=== PATIENT | female | born 1945 | race Hispanic/Latino ===

== ENCOUNTER 2016-12-12 16:07 | Inpatient (IN) | payer MEDICARE, BC ==
[2016-12-12 16:10] VITALS: BMI 24.5
[2016-12-12] MEDS ORDERED: Sodium Chloride 0.9% 1,000 ML IV STA ×2 (16:26→18:09)
--- NOTE | 2016-12-12 16:32 | ED PDOC ---
Arrival/HPI - General Chief Complaint: Fever Time Seen by Provider: 12/12/16 16:17 Historian: Patient - History of Present Illness Narrative History of Present Illness (Text): 12/12/16 16:30 71 year old female with a past medical history that includes hypertension, hyperlipidemia, C.diff and s/p hemicolectomy 2 months ago who went to see Dr. Mo today for a follow up visit and was sent to the emergency room with fever/ chills since last night. Patient states she has anxiety so she is unsure if the chills are associated. Patient also reports sinus congestion. Denies cough, shortness of breath, abdominal pain, urinary changes, or rash. She reports chronic diarrhea but no change. 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)) - HEENT Hx HEENT Disorder: No - Renal Hx Renal Disorder: No - Endocrine/Metabolic Hx Diabetes Mellitus Type 2: No (As per patient, it has been diet controlled.) - Hematological/Oncological Hx Blood Disorders: No - Integumentary Hx Dermatological Disorder: Yes (INCISIONAL -POST HEMICOLECTOOMY WITH SIDE TO SIDE ANASTOMOSIS.10-02-16) - Musculoskeletal/Rheumatological Hx Falls: No - Gastrointestinal Hx Gastrointestinal Disorders: Yes (diverticulitis/reflux/hx c dif) Other/Comment: pancreatic insuf - Genitourinary/Gynecological Hx Genitourinary Disorders: Yes Hx Urinary Tract Infection: Yes - Psychiatric Hx Emotional Abuse: No Hx Physical Abuse: No Hx Substance Use: No - Surgical History Hx Hysterectomy: Yes Hx Joint Replacement: Yes (Left knee) Other/Comment: Colon polyp removal. Duodenum stricture Sx - Anesthesia Hx Anesthesia Reactions: No Hx Malignant Hyperthermia: No - Suicidal Assessment Feels Threatened In Home Enviroment: No Family/Social History - Physician Review Nursing Documentation Reviewed: Yes Family/Social History: Unknown Family HX Smoking Status: Current Some Days Smoker Hx Alcohol Use: Yes Hx Substance Use: No Hx Substance Use Treatment: No Allergies/Home Meds Allergies/Adverse Reactions: Allergies Penicillins Adverse Reaction (Verified 12/12/16 16:11) URTICARIA Home Medications: Home Meds Medication Instructions Recorded Confirmed Multivit-Minerals/Folic Acid [Cvs 1 tab PO DAILY 09/21/16 12/12/16 Women's Daily Gummies] Lactobacillus Acidophilus 1 each PO BID 12/12/16 12/12/16 [Acidophilus Lactobacillus] Loperamide HCl [Imodium A-D] 2 mg PO Q6 PRN 12/12/16 12/12/16 Omeprazole Magnesium [Prilosec] 10 mg PO DAILY 12/12/16 12/12/16 amLODIPine [Norvasc] 2.5 mg PO DAILY 12/12/16 12/12/16 Review of Systems - Review of Systems Constitutional: Fevers, Other (Chills) Eyes: absent: Vision Changes ENT: Sinus Congestion Respiratory: absent: SOB, Cough Cardiovascular: absent: Chest Pain Gastrointestinal: Diarrhea (chronic). absent: Abdominal Pain, Nausea, Vomiting Genitourinary Female: absent: Dysuria, Hematuria Skin: absent: Rash Neurological: absent: Headache, Dizziness Endocrine: absent: Diaphoresis Psychiatric: absent: Depression Physical Exam Vital Signs Reviewed: Yes Vital Signs Temp Pulse Resp BP Pulse Ox 12/12/16 19:16 119 H 18 140/60 98 12/12/16 18:00 117 H 18 110/77 98 12/12/16 16:08 103.1 F H 127 H 17 144/75 95 Temperature: Febrile Blood Pressure: Normal Pulse: Tachycardic Respiratory Rate: Normal Appearance: Positive for: Ill-Appearing, Other (Patient with chills) Pain Distress: None Mental Status: Positive for: Alert and Oriented X 3 - Systems Exam Head: Present: Atraumatic, Normocephalic Pupils: Present: PERRL Conjunctiva: Present: Normal Mouth: Present: Moist Mucous Membranes Pharnyx: Present: Normal. No: ERYTHEMA, EXUDATE Nose (External): Present: Atraumatic Neck: Present: Normal Range of Motion Respiratory/Chest: Present: Clear to Auscultation, Good Air Exchange. No: Respiratory Distress, Accessory Muscle Use Cardiovascular: Present: Normal S1, S2, Tachycardic. No: Murmurs Abdomen: Present: Normal Bowel Sounds. No: Tenderness, Distention, Peritoneal Signs Back: Present: Normal Inspection Upper Extremity: Present: Normal Inspection. No: Cyanosis, Edema Lower Extremity: Present: Normal Inspection. No: Edema Neurological: Present: GCS=15, CN II-XII Intact, Speech Normal Skin: Present: Warm, Dry, Normal Color. No: Rashes Psychiatric: Present: Alert, Oriented x 3, Normal Insight, Normal Concentration Medical Decision Making ED Course and Treatment: Impression: 71 year old female sent to the emergency department by Dr. Mo with fever/chills since last night. Differential Diagnosis included but are not limited to: Sepsis likely with bacteremia due to UTI vs pneumonia vs other nosocomial vs C.diff Plan: -- EKG, Chest X-ray -- IV fluids -- Labs -- Reassess and disposition Prior Visits: Notes and results from previous visits were reviewed. Patient last seen in the ED on 10/22/16 for abdominal pain and n/v/d and admitted for ileus. Progress Notes: 12/12/16 17:19 Chest x-ray read by me shows no active disease. 12/12/16 20:30 WBC iss 22K with unremarkable chemistry. VBG shows lactic of 2.2; code sepsis called. Patient hydrated appropriately, per sepsis protocol and given iv antibiotics. Case discussed with her PMD, Dr. Yates for admission to [facility] for sepsis. - Lab Interpretations Lab Results: 12/12/16 17:15 12/12/16 17:15 Lab Results 12/12/16 17:15: WBC 22.4 H D, RBC 4.63, Hgb 13.8, Hct 40.6, MCV 87.7, MCH 29.8, MCHC 34.0, RDW 14.7 H, Plt Count 335, MPV 10.0, Gran % 86.8 H, Lymph % (Auto) 4.0 L, Gordon % (Auto) 8.8 H, Eos % (Auto) 0.1 L, Baso % (Auto) 0.3, Gran # 19.44 H, Lymph # 0.9 L, Gordon # 2.0 H, Eos # 0.0, Baso # 0.06, ESR 25 H, PT 10.5, INR 0.97, APTT 26.4, pO2 44, VBG pH 7.39, VBG pCO2 41.0, VBG HCO3 24.8, VBG Total CO2 26.1, VBG O2 Sat (Calc) 82.8 H, VBG Base Excess -0.2 L, VBG Potassium 3.9, Glucose 110 H, Lactate 2.2 H, FiO2 21.0, Sodium 140.0, Potassium 3.7, Chloride 108.0 H, Carbon Dioxide 24, Anion Gap 16, BUN 10, Creatinine 0.6, Est GFR ( Amer) > 60, Est GFR (Non-Af Amer) > 60, Random Glucose 111 H, Calcium 8.9, Phosphorus 3.0, Magnesium 1.9, Total Bilirubin 0.5, Direct Bilirubin 0.4, AST 29, ALT 31, Alkaline Phosphatase 178 H, Lactate Dehydrogenase 487, Total Creatine Kinase 22 L, Troponin I 0.02 D, NT-Pro-B Natriuret Pep 676 H, Total Protein 7.2, Albumin 3.6, Globulin 3.7, Albumin/Globulin Ratio 1.0 L, Lipase 35 , Venous Blood Potassium 3.9 - RAD Interpretation Radiology Orders: 12/12/16 16:25 CHEST PORTABLE [RAD] Stat - Medication Orders Current Medication Orders: Sodium Chloride (Sodium Chloride 0.45%) 1,000 mls @ 40 mls/hr IV .Q24H BECCA Discontinued Medications Acetaminophen (Tylenol 325mg Tab) 975 mg PO STAT STA Stop: 12/12/16 16:28 Last Admin: 12/12/16 17:24 Dose: 975 MG MAR Pain/Vitals Document 12/12/16 17:24 OCS (Rec: 12/12/16 17:24 OCS [place] [id number]) Pain Reassessment Is This A Pain ReAssessment? Yes Sleep Is patient sleeping during reassessment? No Presence of Pain Presence of Pain Yes Pain Scale Used Pain Scale Used Numeric Location Pain Location Body Site Fever Sodium Chloride (Sodium Chloride 0.9%) 1,000 mls @ 999 mls/hr IV .Q1H1M STA Stop: 12/12/16 17:26 Last Admin: 12/12/16 17:24 Dose: 999 MLS/HR eMAR Start Stop Document 12/12/16 17:24 OCS (Rec: 12/12/16 17:24 OCS [place] [id number]) Intravenous Solution Start Date 12/12/16 Start Time 17:24 Sodium Chloride (Sodium Chloride 0.9%) 1,000 mls @ 999 mls/hr IV .Q1H1M STA Stop: 12/12/16 19:09 Last Admin: 12/12/16 18:16 Dose: 999 MLS/HR eMAR Start Stop Document 12/12/16 18:16 OCS (Rec: 12/12/16 18:16 OCS [id number]) Intravenous Solution Start Date 12/12/16 Start Time 18:16 Vancomycin HCl 1 gm/ Sodium (Chloride) 250 mls @ 133.333 mls/hr IV STAT STA PRN Reason: Protocol Stop: 12/12/16 20:01 Last Admin: 12/12/16 20:20 Dose: 133.333 MLS/HR eMAR Start Stop Document 12/12/16 20:20 RD (Rec: 12/12/16 20:22 RD [id number]) Intravenous Solution Start Date 12/12/16 Start Time 20:20 End Date 12/12/16 End time 22:23 Total Infusion Time 123 Aztreonam (Azactam 1 Gm) 100 mls @ 100 mls/hr IVPB STAT STA PRN Reason: Protocol Stop: 12/12/16 19:10 Last Admin: 12/12/16 18:51 Dose: 100 MLS/HR eMAR Start Stop Document 12/12/16 18:51 OCS (Rec: 12/12/16 18:51 OCS [id number]) Intravenous Solution Start Date 12/12/16 Start Time 18:51 - Scribe Statement The provider has reviewed the documentation as recorded by the Sachin Bates Provider Scribe Attestation: All medical record entries made by the Sachin were at my direction and personally dictated by me. I have reviewed the chart and agree that the record accurately reflects my personal performance of the history, physical exam, medical decision making, and the department course for this patient. I have also personally directed, reviewed, and agree with the discharge instructions and disposition. Disposition/Present on Arrival - Present on Arrival Any Indicators Present on Arrival: Yes History of DVT/PE: No History of Uncontrolled Diabetes: Yes Urinary Catheter: No History of Decub. Ulcer: No History Surgical Site Infection Following: None - Disposition Have Diagnosis and Disposition been Completed?: Yes Diagnosis: Sepsis Disposition: HOSPITALIZED Disposition Time: 18:40 Patient Plan: Admission, Telemetry Condition: SERIOUS
[2016-12-12 17:46] LABS: ADD MANUAL DIFF? NO
[2016-12-12 17:57] LABS: VENOUS BLOOD GAS BASE EXCESS -0.2 mmol/L (0.0-2.0); VENOUS BLOOD PH 7.39 (7.32-7.43)
[2016-12-12 18:03] LABS: BASO # 0.06 K/mm3 (0.0-2.0); BASO % 0.3 % (0.0-3.0); EOS % 0.1 % (1.5-5.0); GRAN # 19.44 (1.4-6.5); GRAN % 86.8 % (50.0-68.0); HEMATOCRIT 40.6 % (36.0-48.0); LYMPH # 0.9 (1.2-3.4); MEAN CELL VOLUME 87.7 fL (80.0-105.0); MEAN CORPUSCULAR HEMOGLOBIN 29.8 pg (25.0-35.0); MONO % 8.8 % (1.0-6.0); PLATELET COUNT 335 10^3/uL (120.0-450.0); RED CELL DISTRIBUTION WIDTH 14.7 % (11.5-14.5); WHITE BLOOD COUNT 22.4 10^3/ul (4.5-11.0)
[2016-12-12 18:07] LABS: ALKALINE PHOSPHATASE 178 U/L (38-133); ALT/SGPT 31 U/L (7-56); AST/SGOT 29 U/L (15-39); BILIRUBIN,DIRECT 0.4 mg/dL (0.0-0.4); BILIRUBIN,TOTAL 0.5 mg/dL (0.2-1.3); BLOOD UREA NITROGEN 10 mg/dL (7-21); CALCIUM 8.9 mg/dL (8.4-10.5); CARBON DIOXIDE 24 mmol/L (21-33); CHLORIDE 105 mmol/L (98-107); GFR AFRICAN-AMERICAN > 60; GLUCOSE,RANDOM 111 mg/dL (70-110); LIPASE 35 U/L (23-300); MAGNESIUM 1.9 mg/dL (1.7-2.2); POTASSIUM 3.7 mmol/L (3.6-5.0); SODIUM 141 mmol/L (132-148); TOTAL PROTEIN 7.2 g/dL (5.8-8.3)
[2016-12-12] MEDS ORDERED: Aztreonam 1 Gm in NS 100mL 100 ML IVPB STA (18:11)
[2016-12-12 18:13] LABS: INR 0.97 (0.93-1.08); PARTIAL THROMBOPLASTIN TIME 26.4 Seconds (23.7-30.8)
[2016-12-12 18:18] LABS: TROPONIN I 0.02 ng/mL
--- NOTE | 2016-12-12 18:33 | RAD ---
PROCEDURE: Chest portable HISTORY: Sepsis Patient COMPARISON: 10/22/2016. TECHNIQUE: Technique: Single view portable semi erect @ 16:51. FINDINGS: No active pulmonary disease. No pulmonary nodules, masses or infiltrates. No evidence of acute, significant cardiovascular disease. No significant pleural, osseous or subdiaphragmatic abnormalities. IMPRESSION: No active disease. No acute/significant interval changes.
--- NOTE | 2016-12-12 18:43 | CARD ---
APPROVED REPORT EKG Measurement Heart [id number] <Conclusion> Sinus tachycardia Inferior infarct, age undetermined Abnormal ECG
[2016-12-12 18:54] LABS: URINE BILIRUBIN NEGATIVE (NEGATIVE); URINE BLOOD TRACE-INTACT (NEGATIVE); URINE GLUCOSE (UA) NEGATIVE (NEGATIVE); URINE KETONE NEGATIVE (NEGATIVE); URINE LEUKOCYTE ESTERASE NEGATIVE Leu/uL (NEGATIVE); URINE PROTEIN TRACE mg/dL (<30 mg/dL); URINE UROBILINOGEN 0.2 E.U./dL (<1 E.U./dL)
[2016-12-12 19:04] LABS: URINE APPEARANCE CLEAR (CLEAR); URINE COLOR YELLOW (YELLOW)
[2016-12-12 19:06] LABS: ERYTHROCYTE SEDIMENTATION RATE 25 mm/hr (0.0-20.0)
[2016-12-12] MEDS ORDERED: Sodium Chloride 0.45% 1,000 ML IV SCH (20:30)
[2016-12-12] MEDS ORDERED: Aztreonam 1 Gm in NS 100mL 100 ML IVPB SCH (22:00)
--- NOTE | 2016-12-12 22:27 | CP.PCM.PN ---
Subjective - Date & Time of Evaluation Date of Evaluation: 12/12/16 Time of Evaluation: 22:27 - Subjective Subjective: S:Patient was seen at bedside.She requested a sleeping pill. States that she takes ambien 5 mg at home.She is also on Valium 5 mg PO TID. She had Valium 2 times today.These medications are prescribed to her by her Psychiatrist . Has no other complaints now. Pertinent medical record was reviewed. O: Last Vital Signs 3 Temp 102.4 F H 12/12/16 22:28 Pulse 83 12/12/16 22:28 Resp 20 12/12/16 22:36 BP 123/50 L 12/12/16 22:28 Pulse Ox 95 12/12/16 22:28 Awake, alert, not in distress. LUNGS:Normal breathing pattern. NEURO:Speech normal. A:Adjustment insomnia. P:Ambien 5 mg PO now. Objective - Vital Signs/Intake and Output Vital Signs (last 24 hours): Temp Pulse Resp BP Pulse Ox 101.9 F H 97 H 18 128/60 98 12/12/16 20:52 12/12/16 20:52 12/12/16 20:52 12/12/16 20:52 12/12/16 20:52 - Medications Medications: Current Medications Acetaminophen (Tylenol 325mg Tab) 650 mg PO Q4 PRN PRN Reason: Fever >100.4 F Last Admin: 12/12/16 22:11 Dose: 650 mg Sodium Chloride (Sodium Chloride 0.45%) 1,000 mls @ 40 mls/hr IV .Q24H BECCA Last Admin: 12/12/16 20:49 Dose: 40 mls/hr Aztreonam (Azactam 1 Gm) 100 mls @ 100 mls/hr IVPB Q8 BECCA PRN Reason: Protocol Stop: 12/13/16 06:59 Last Admin: 12/12/16 21:30 Dose: Not Given Lisinopril (Zestril) 20 mg PO DAILY BECCA Loperamide HCl (Imodium) 2 mg PO Q6 PRN PRN Reason: Diarrhea Metoprolol Tartrate (Lopressor) 12.5 mg PO BID [facility] - Labs Labs: PT 10.5 Seconds (9.9-11.8) 12/12/16 17:15 INR 0.97 (0.93-1.08) 12/12/16 17:15 APTT 26.4 Seconds (23.7-30.8) 12/12/16 17:15
[2016-12-12] MEDS: Vancomycin 1gm in NS 250ml 250 ML IVPB SCH (23:48)
[2016-12-13 04:18] LABS: HEMATOCRIT 34.2 % (36.0-48.0); MEAN CELL VOLUME 88.6 fL (80.0-105.0); MEAN CORPUSCULAR HGB CONC 32.7 g/dl (31.0-37.0); MEAN PLATELET VOLUME 9.6 fl (7.0-11.0); RED CELL DISTRIBUTION WIDTH 14.9 % (11.5-14.5)
[2016-12-13 04:24] LABS: ALB/GLOB RATIO 0.9 (1.1-1.8); ALKALINE PHOSPHATASE 111 U/L (38-133); ALT/SGPT 31 U/L (7-56); AST/SGOT 25 U/L (15-39); BILIRUBIN,TOTAL 0.6 mg/dL (0.2-1.3); BLOOD UREA NITROGEN 9 mg/dL (7-21); CALCIUM 7.8 mg/dL (8.4-10.5); CARBON DIOXIDE 23 mmol/L (21-33); CHLORIDE 111 mmol/L (98-107); GFR AFRICAN-AMERICAN > 60; GLUCOSE,RANDOM 95 mg/dL (70-110); POTASSIUM 3.2 mmol/L (3.6-5.0); SODIUM 143 mmol/L (132-148); TOTAL PROTEIN 5.4 g/dL (5.8-8.3)
[2016-12-13 04:59] LABS: WHITE BLOOD COUNT 15.3 10^3/ul (4.5-11.0)
[2016-12-13] MEDS: Aztreonam 1 Gm in NS 100mL 100 ML IVPB SCH ×3 (05:19→21:57)
[2016-12-13] MEDS: Potassium Chloride 10 mEq 100 ML IVPB SCH ×2 (08:51→10:41)
--- NOTE | 2016-12-13 09:14 | HP ---
I know her well from seeing her at [facility] for subacute rehabilitation. She was just discharge d a little bit ago, within a week or two. She was there for chronic diarrhea. Also, she had history of Clostridium difficile and she needed IV antibiotics and physical therapy. This time around, she is a 71-year-old female, was sent to the Emergency Room after seeing Dr. Mo with fever, chills las t night, also anxious, some sinus congestion, just not herself and was sent to the Emergency Room. S he was found to have 103 temperature. PAST MEDICAL HISTORY: Hypertension, high cholesterol, C. diff, status post hemicolectomy 2 months ag o. She smokes a half a pack a day, history of Meniere's disease, 2 attacks in the past. She has t-controlled diabetes. She had a hemicolectomy, diverticulitis, reflux, history of C. diff, pancreat ic insufficiency, urinary tract infections in the past, left knee joint replacement, colon polyp shandra rosetta, duodenal stricture surgery. FAMILY HISTORY: Hypertension in the family. She does still smoke, occasional alcohol, no drugs. ALLERGIES: SHE IS ALLERGIC TO PENICILLINS. MEDICATIONS: She takes multivitamins, lactobacillus, Imodium, Prilosec and Norvasc for hypertension. She comes in with fever, chills. No acute vision changes, no acute hearing changes. Sinus congestio n. No shortness of breath, no chest pain. There is diarrhea, but that is chronic. No abdominal nj n, no nausea, vomiting. No problems urinating. No skin rashes, no headache or dizziness, no sweatin g, no depression. PHYSICAL EXAMINATION: VITAL SIGNS: She had a 103.1 temp, 127 pulse, 18 respiratory rate, 144/75 blood pressure, 95% O2 sat . GENERAL: She is ill-appearing. She looks sick, lethargic. She is alert, but I had to arouse her. HEENT: Head is atraumatic, normocephalic. Extraocular muscles are intact. Pupils equally reactive to light. Throat is dry. NECK: Supple. HEART: Regular rate. Normal S1 and S2. LUNGS: Decreased breath sounds, but clear. Poor effort. ABDOMEN: Soft, nontender, positive bowel sounds, no guarding, no rebound, no CVA tenderness. EXTREMITIES: Have no edema. NEUROLOGIC: GCS is 15. Cranial nerves II-XII grossly intact. SKIN: Warm and dry. Alert, a little lethargic this morning. She did have a sleeping pill last night. She looks like she is septic. She had a 103 temperature. BLOOD TESTS: We have a 22.4 white count. It came down to 15.3. Hemoglobin 11.2, 34.2 hematocrit wi th 261 platelets. INR is 0.97. She has a 143 sodium, potassium is 3.2. I will replace the Anywhere.FM with some K riders. Her BUN is 9, creatinine 0.6, GFR is greater than 60, sugar is 95, calcium is 7.8, AST is 25, ALT is 31, alkaline phosphatase is 111. BNP is 676. Total protein is 5.4. Urine wa s trace. Negative influenza. There is a consult for infectious disease. She is currently on IV fluids, Ambien, aztreonam, Imodium , Lopressor. I will call in Dr. Mo. Check her labs tomorrow, physical therapy. Hopefully, the w robert count will continue to come down and we will continue with aggressive treatment and care. She i s here for sepsis. Johnny Yates DO cc: [id number] TT: 12/13/2016 09:13:27 en
[2016-12-13] MEDS: Vancomycin 25 MG/ML PO SCH ×4 (09:28→21:58)
[2016-12-13] MEDS: Sodium Chloride 0.45% 1,000 ML IV SCH (09:43)
--- NOTE | 2016-12-13 11:26 | CP.PCM.CON ---
<Mallika Rudd - Last Filed: 12/13/16 13:57> History of Present Illness - History of Present Illness History of Present Illness: Gastroenterology Fellow/PGY4 Consult Note 71 year old female with history of Hypertension, Diabetes, Anxiety, recurrent C difficile, chronic diarrhea, pancreatic insufficiency, gastric outlet obstruction s/p gastrojejunostomy, ileus 10/2016, right hemicolectomy 10/02/16 with pathology showing T1N0M0 moderately differentiated adenocarcinoma presenting at instruction from Dr. Mo's office. She was noted to have a temperature max of 103.1 in GI clinic and associated chills and sweats. At present, she has resolution of chills and sweats. She notes high frequency diarrhea having gone three times in the last hour. She attributes symptoms to not having Imodium at 2 pills three times a day. She endorses taking pancreatic enzymes three times a day with meals starting in October and noted no change in bowel habits. She was recently discharged from nursing facility on Sunday and notes a patient two doors down being treatment for C difficile. She denies hematochezia, melena, weight loss, abdominal pain, nausea, or vomiting. Colonoscopy 02/2016 and 08/2016 - 22 tubular adenomas and transverse 3cm mass with central depression s/p right hemicolectomy 10/02/16. Family- no colon cancer Social 10 cigarettes/day, denies alcohol or illicit drug use Surgery- right hemicolectomy, gastrojejunostomy, left knee replacement, hysterectomy, cholecystectomy Review of Systems - Review of Systems Review of Systems: A 12-point review of systems negative except for as above Past Patient History - Infectious Disease Hx of Infectious Diseases: None - Tetanus Immunizations Tetanus Immunization: Unknown - Past Social History Smoking Status: Current Some Days Smoker - CARDIAC Hx Cardiac Disorders: Yes Hx Hypertension: Yes Hx Peripheral Vascular Disease: (DVT TO LEFT LEG) - PULMONARY Hx Respiratory Disorders: No - NEUROLOGICAL Hx Neurological Disorder: Yes Hx Dizziness: (HX MENIERE'S(2 ATTACKS IN PAST)) - HEENT Hx HEENT Problems: No - RENAL Hx Chronic Kidney Disease: No - ENDOCRINE/METABOLIC Hx Diabetes Mellitus Type 2: No (As per patient, it has been diet controlled.) - HEMATOLOGICAL/ONCOLOGICAL Hx Blood Disorders: No - INTEGUMENTARY Hx Dermatological Problems: No - MUSCULOSKELETAL/RHEUMATOLOGICAL Hx Falls: No - GASTROINTESTINAL Hx Gastrointestinal Disorders: Yes Hx Diverticulitis: Yes Hx Gastroesophageal Reflux: Yes Other/Comment: pancreatic insuf - GENITOURINARY/GYNECOLOGICAL Hx Genitourinary Disorders: Yes Hx Urinary Tract Infection: Yes - PSYCHIATRIC Hx Substance Use: No - SURGICAL HISTORY Hx Surgeries: Yes (HEMICOLECTOMY) Hx Hysterectomy: Yes Hx Joint Replacement: Yes (Left knee) Other/Comment: Colon polyp removal. Duodenum stricture Sx - ANESTHESIA Hx Anesthesia Reactions: No Hx Malignant Hyperthermia: No Meds Allergies/Adverse Reactions: Allergies Allergy/AdvReac Type Severity Reaction Status Date / Time Penicillins AdvReac URTICARIA Verified 12/12/16 16:11 - Medications Medications: Current Medications Acetaminophen (Tylenol 325mg Tab) 650 mg PO Q4 PRN PRN Reason: Fever >100.4 F Last Admin: 12/12/16 22:11 Dose: 650 mg Aztreonam (Azactam 1 Gm) 100 mls @ 100 mls/hr IVPB Q8 [facility] PRN Reason: Protocol Stop: 12/19/16 22:01 Last Admin: 12/13/16 05:19 Dose: 100 mls/hr Vancomycin HCl (Vancomycin 1gm) 250 mls @ 167 mls/hr IVPB Q12H [facility] PRN Reason: Protocol Stop: 12/19/16 23:31 Last Admin: 12/12/16 23:48 Dose: Not Given Sodium Chloride (Sodium Chloride 0.45%) 1,000 mls @ 70 mls/hr IV .[id number] [facility] Last Admin: 12/13/16 09:43 Dose: 70 mls/hr Lisinopril (Zestril) 20 mg PO DAILY [facility] Loperamide HCl (Imodium) 2 mg PO Q6 PRN PRN Reason: Diarrhea Last Admin: 12/12/16 22:57 Dose: 2 mg Metoprolol Tartrate (Lopressor) 12.5 mg PO BID [facility] Pantoprazole Sodium (Protonix Inj) 40 mg IVP 0600 [facility] Vancomycin HCl (Vancocin 25 Mg/Ml (Oral Use)) 125 mg PO QID [facility] PRN Reason: Protocol Last Admin: 12/13/16 09:28 Dose: 125 mg Physical Exam - Constitutional Appears: Non-toxic, No Acute Distress - Head Exam Head Exam: ATRAUMATIC, NORMOCEPHALIC - Eye Exam Eye Exam: EOMI, PERRL Pupil Exam: PERRL. absent: Miosis, Mydriatic - ENT Exam ENT Exam: Mucous Membranes Moist, Normal Oropharynx - Neck Exam Neck exam: Positive for: Full Rom, Normal Inspection - Respiratory Exam Respiratory Exam: Clear to Auscultation Bilateral. absent: Rales, Rhonchi, Wheezes - Cardiovascular Exam Cardiovascular Exam: RRR, +S1, +S2. absent: Gallop, Rubs - GI/Abdominal Exam GI & Abdominal Exam: Normal Bowel Sounds, Soft. absent: Distended, Firm, Guarding, Organomegaly, Rebound, Rigid, Tenderness - Extremities Exam Extremities exam: Positive for: normal inspection, pedal edema - Neurological Exam Neurological exam: Alert - Psychiatric Exam Psychiatric exam: Normal Affect, Normal Mood - Skin Skin Exam: Dry, Intact, Normal Color, Warm Results - Vital Signs Recent Vital Signs: Last Vital Signs Temp 98.5 F 12/13/16 05:42 Pulse 66 12/13/16 05:42 Resp 20 12/13/16 05:42 BP 118/48 L 12/13/16 05:42 Pulse Ox 95 12/13/16 05:42 - Labs Result Diagrams: 12/13/16 04:00 12/13/16 04:00 Labs: Laboratory Results - last 24 hr 12/12/16 12/13/16 12/13/16 21:45 00:00 04:00 WBC 15.3 H D RBC 3.86 Hgb 11.2 L Hct 34.2 L MCV 88.6 MCH 29.0 MCHC 32.7 RDW 14.9 H Plt Count 261 MPV 9.6 pO2 142 H VBG pH 7.40 VBG pCO2 34.0 L VBG HCO3 21.1 VBG Total CO2 22.1 VBG O2 Sat (Calc) 98.8 H VBG Base Excess -3.0 L VBG Potassium 3.2 L Sodium 141.0 143 Chloride 115.0 H 111 H Glucose 119 H Lactate 1.3 FiO2 21.0 Potassium 3.2 L Carbon Dioxide 23 Anion Gap 12 BUN 9 Creatinine 0.6 Est GFR ( Amer) > 60 Est GFR (Non-Af Amer) > 60 Random Glucose 95 Calcium 7.8 L Total Bilirubin 0.6 AST 25 ALT 31 Alkaline Phosphatase 111 Total Protein 5.4 L Albumin 2.6 L Globulin 2.9 Albumin/Globulin Ratio 0.9 L Venous Blood Potassium 3.2 L Influenza Typ A,B (EIA) Negative for flu a/b Assessment & Plan - Assessment and Plan (Free Text) Assessment: 71 year old female with history of Hypertension, Diabetes, Anxiety, recurrent C difficile, chronic diarrhea, pancreatic insufficiency, gastric outlet obstruction s/p gastrojejunostomy, ileus 10/2016, right hemicolectomy 10/02/16 with pathology showing T1N0M0 moderately differentiated adenocarcinoma presenting with fever, chills, and sweats from GI clinic. Colonoscopy 02/2016 and 08/2016 - tubular adenomas and transverse 3cm mass with central depression s/p right hemicolectomy 10/02/16. Plan: >chronic diarrhea, rule out Cdiff colitis >ordered CT A/P IV to evaluate for abdominopelvic pathology >on broad spectrum coverage: IV vancomycin, aztreonam, PO vancomycin >pending Cdiff, stool culture, toxoplasmosis (recent exposure to domestic cat) >start Imodium 2 tabs TID if Cdiff negative >will consider cholestyramine, if not trialed in past and infectious diarrhea ruled out >continue IVFs >tolerating regular diet >further recommendations based on clinical course <Lorne GARIBAY,Fady - Last Filed: 12/14/16 10:58> Meds - Medications Medications: Current Medications Acetaminophen (Tylenol 325mg Tab) 650 mg PO Q4 PRN PRN Reason: Fever >100.4 F Last Admin: 12/12/16 22:11 Dose: 650 mg Diazepam (Valium) 5 mg PO TID [facility] PRN Reason: Protocol Last Admin: 12/14/16 10:14 Dose: 5 mg Aztreonam (Azactam 1 Gm) 100 mls @ 100 mls/hr IVPB Q8 [facility] PRN Reason: Protocol Stop: 12/19/16 22:01 Last Admin: 12/14/16 05:32 Dose: 100 mls/hr Vancomycin HCl (Vancomycin 1gm) 250 mls @ 167 mls/hr IVPB Q12H [facility] PRN Reason: Protocol Stop: 12/19/16 23:31 Last Admin: 12/13/16 23:10 Dose: 167 mls/hr Sodium Chloride (Sodium Chloride 0.45%) 1,000 mls @ 70 mls/hr IV .[id number] [facility] Last Admin: 12/14/16 04:11 Dose: 70 mls/hr Metronidazole (Flagyl) 100 mls @ 100 mls/hr IVPB Q8 [facility] PRN Reason: Protocol Stop: 12/21/16 09:01 Last Admin: 12/14/16 10:14 Dose: 100 mls/hr Lisinopril (Zestril) 20 mg PO DAILY [facility] Last Admin: 12/14/16 10:14 Dose: 20 mg Loperamide HCl (Imodium) 2 mg PO Q6 PRN PRN Reason: Diarrhea Last Admin: 12/13/16 21:58 Dose: 2 mg Metoprolol Tartrate (Lopressor) 12.5 mg PO BID [facility] Last Admin: 12/14/16 10:14 Dose: 12.5 mg Pantoprazole Sodium (Protonix Inj) 40 mg IVP 0600 [facility] Last Admin: 12/14/16 05:34 Dose: 40 mg Vancomycin HCl (Vancocin 25 Mg/Ml (Oral Use)) 125 mg PO QID [facility] PRN Reason: Protocol Last Admin: 12/14/16 10:29 Dose: 125 mg Zolpidem Tartrate (Ambien) 5 mg PO HS PRN; Protocol PRN Reason: Insomnia Results - Vital Signs Recent Vital Signs: Last Vital Signs Temp 98.5 F 12/14/16 06:00 Pulse 71 12/14/16 10:14 Resp 22 12/14/16 06:00 BP 138/72 12/14/16 10:14 Pulse Ox 95 12/13/16 05:42 - Labs Result Diagrams: 12/14/16 07:00 12/14/16 07:00 Labs: Laboratory Results - last 24 hr 12/13/16 12/14/16 05:00 07:00 WBC 8.8 D RBC 4.05 Hgb 11.5 L Hct 35.4 L MCV 87.4 MCH 28.4 MCHC 32.5 RDW 14.8 H Plt Count 262 MPV 9.6 Sodium 144 Potassium 3.8 Chloride 112 H Carbon Dioxide 24 Anion Gap 12 BUN 5 L Creatinine 0.6 Est GFR ( Amer) > 60 Est GFR (Non-Af Amer) > 60 Random Glucose 85 Calcium 8.0 L Magnesium 1.8 Total Bilirubin 0.5 AST 20 ALT 29 Alkaline Phosphatase 97 Total Protein 5.8 Albumin 2.6 L Globulin 3.2 Albumin/Globulin Ratio 0.8 L Attending/Attestation - Attestation I have personally seen and examined this patient.: Yes I have fully participated in the care of the patient.: Yes I have reviewed all pertinent clinical information: Yes Notes (Text): 12/14/16 10:57 Patient seen with GI fellow on rounds. I agree with assesment and plan as on 12/13. This is a 71 year old female with history of Hypertension, Diabetes, Anxiety , recurrent C difficile, chronic diarrhea, pancreatic insufficiency, gastric outlet obstruction s/p gastrojejunostomy, ileus 10/2016, right hemicolectomy 10/02 with pathology showing T1N0M0 moderately differentiated adenocarcinoma presenting with fever, chills, and sweats from GI clinic. Colonoscopy 02/2016 and 08/2016 - 22 tubular adenomas and transverse 3cm mass with central depression s/p right hemicolectomy 10/02/16. Admitted for chronic diarrhea and fever after discharge from [place]. Will send c idd and infectious work up. will add cholestyramine and imodium to regimen if no infection. Replete electrolytes with close watch on hemodynamics
[2016-12-13] MEDS: Vancomycin 1gm in NS 250ml 250 ML IVPB SCH ×2 (11:45→23:10)
[2016-12-13] MEDS ORDERED: Iohexol 350 MG/100 ML VIAL ONE (14:08)
--- NOTE | 2016-12-13 16:02 | CT ---
PROCEDURE: CT Abdomen and Pelvis with contrast HISTORY: abdominal pain, history colon cancer COMPARISON: 10/22/2016 TECHNIQUE: Contrast dose: 100 cc of Omni 350 Radiation dose: Total exam DLP = 497 mGy-cm. This CT exam was performed using one or more of the following dose reduction techniques: Automated exposure control, adjustment of the mA and/or kV according to patient size, and/or use of iterative reconstruction technique. FINDINGS: LOWER THORAX: There is some atelectasis of both lung bases posteriorly LIVER: Unremarkable. No gross lesion or ductal dilatation. GALLBLADDER AND BILE DUCTS: Gallbladder removed PANCREAS: Unremarkable. No gross lesion or ductal dilatation. SPLEEN: Unremarkable. ADRENALS: Unremarkable. No mass. KIDNEYS AND URETERS: Unremarkable. No hydronephrosis. No solid mass. VASCULATURE: Unremarkable. No aortic aneurysm. BOWEL: There is diverticulosis of the sigmoid colon. APPENDIX: Normal appendix. PERITONEUM: Unremarkable. No free fluid. No free air. LYMPH NODES: Unremarkable. No enlarged lymph nodes. BLADDER: Unremarkable. REPRODUCTIVE: Unremarkable. BONES: No acute fracture. OTHER FINDINGS: None. IMPRESSION: No acute findings
--- NOTE | 2016-12-13 16:49 | CP.PCM.CON ---
History of Present Illness - History of Present Illness History of Present Illness: 71 year old female with PMH of HTN, dyslipidemia, history of C diff associated diarrhea, S/P hemicolectomy was seen in by her GI and was sent to the ED because of fever and chills since a day ago. She states that she has been having diarrhea since the surgery 2 months ago, but seems to have worsened this time. She has some sinus congestion but denies sore throat, no cough or colds, no nausea or vomiting, no chest pain, no SOB, no dysuria, no hematuria. In the ED, she was noted to have leukocytosis and Infectious Diseases consult is requested to further evaluate and manage. She denies recent travel outside of [place] in the past 3 months. Review of Systems - Review of Systems All systems: reviewed and no additional remarkable complaints except (as per HPI ) Past Patient History - Infectious Disease Hx of Infectious Diseases: None - Tetanus Immunizations Tetanus Immunization: Unknown - Past Social History Smoking Status: Current Some Days Smoker - CARDIAC Hx Cardiac Disorders: Yes Hx Hypertension: Yes Hx Peripheral Vascular Disease: (DVT TO LEFT LEG) - PULMONARY Hx Respiratory Disorders: No - NEUROLOGICAL Hx Neurological Disorder: Yes Hx Dizziness: (HX MENIERE'S(2 ATTACKS IN PAST)) - HEENT Hx HEENT Problems: No - RENAL Hx Chronic Kidney Disease: No - ENDOCRINE/METABOLIC Hx Diabetes Mellitus Type 2: No (As per patient, it has been diet controlled.) - HEMATOLOGICAL/ONCOLOGICAL Hx Blood Disorders: No - INTEGUMENTARY Hx Dermatological Problems: No - MUSCULOSKELETAL/RHEUMATOLOGICAL Hx Falls: No - GASTROINTESTINAL Hx Gastrointestinal Disorders: Yes Hx Diverticulitis: Yes Hx Gastroesophageal Reflux: Yes Other/Comment: pancreatic insuf - GENITOURINARY/GYNECOLOGICAL Hx Genitourinary Disorders: Yes Hx Urinary Tract Infection: Yes - PSYCHIATRIC Hx Substance Use: No - SURGICAL HISTORY Hx Surgeries: Yes (HEMICOLECTOMY) Hx Hysterectomy: Yes Hx Joint Replacement: Yes (Left knee) Other/Comment: Colon polyp removal. Duodenum stricture Sx - ANESTHESIA Hx Anesthesia Reactions: No Hx Malignant Hyperthermia: No Meds Allergies/Adverse Reactions: Allergies Allergy/AdvReac Type Severity Reaction Status Date / Time Penicillins AdvReac URTICARIA Verified 12/12/16 16:11 - Medications Medications: Current Medications Acetaminophen (Tylenol 325mg Tab) 650 mg PO Q4 PRN PRN Reason: Fever >100.4 F Last Admin: 12/12/16 22:11 Dose: 650 mg Sodium Chloride (Sodium Chloride 0.45%) 1,000 mls @ 40 mls/hr IV .Q24H [facility] Last Admin: 12/12/16 20:49 Dose: 40 mls/hr Aztreonam (Azactam 1 Gm) 100 mls @ 100 mls/hr IVPB Q8 [facility] PRN Reason: Protocol Stop: 12/13/16 06:59 Last Admin: 12/12/16 21:30 Dose: Not Given Lisinopril (Zestril) 20 mg PO DAILY [facility] Loperamide HCl (Imodium) 2 mg PO Q6 PRN PRN Reason: Diarrhea Last Admin: 12/12/16 22:57 Dose: 2 mg Metoprolol Tartrate (Lopressor) 12.5 mg PO BID [facility] Physical Exam - Constitutional Appears: Non-toxic, No Acute Distress - Head Exam Head Exam: NORMAL INSPECTION - ENT Exam ENT Exam: Mucous Membranes Moist - Neck Exam Neck exam: Negative for: Lymphadenopathy, Meningismus - Respiratory Exam Respiratory Exam: Decreased Breath Sounds - Cardiovascular Exam Cardiovascular Exam: +S1, +S2 - GI/Abdominal Exam GI & Abdominal Exam: Soft. absent: Tenderness Results - Vital Signs Recent Vital Signs: Last Vital Signs Temp 102.4 F H 12/12/16 22:28 Pulse 83 12/12/16 22:28 Resp 20 12/12/16 22:36 BP 123/50 L 12/12/16 22:28 Pulse Ox 95 12/12/16 22:28 - Labs Result Diagrams: 12/13/16 04:00 12/13/16 04:00 Labs: Laboratory Results - last 24 hr 12/12/16 21:45 pO2 142 H VBG pH 7.40 VBG pCO2 34.0 L VBG HCO3 21.1 VBG Total CO2 22.1 VBG O2 Sat (Calc) 98.8 H VBG Base Excess -3.0 L VBG Potassium 3.2 L Sodium 141.0 Chloride 115.0 H Glucose 119 H Lactate 1.3 FiO2 21.0 Venous Blood Potassium 3.2 L Assessment & Plan - Assessment and Plan (Free Text) Plan: Assessment Systemic Inflammatory response syndrome, consider sepsis secondary to Clostridium difficile associated diarrhea R/O other sources of sepsis HTN dyslipidemia history of C diff associated diarrhea S/P hemicolectomy Plan Started patient on Vancomycin PO and IV Flagyl as well as IV Vancomycin and Aztreonam pending blood, urine cx, PCT, CXR, CT scan of the abdomen and pelvis Will monitor clinically and follow up GI evaluation
[2016-12-14] MEDS: Sodium Chloride 0.45% 1,000 ML IV SCH ×3 (04:11→23:15)
[2016-12-14] MEDS: Aztreonam 1 Gm in NS 100mL 100 ML IVPB SCH ×2 (05:32→14:29)
[2016-12-14] MEDS ORDERED: Pantoprazole 40mg/100ml IVPB 100 ML IVPB SCH (06:00)
--- NOTE | 2016-12-14 07:16 | CP.PCM.PN ---
<Mallika Rudd - Last Filed: 12/14/16 09:02> Subjective - Date & Time of Evaluation Date of Evaluation: 12/14/16 Time of Evaluation: 07:12 - Subjective Subjective: Gastroenterology Fellow/PGY4 Progress Note Patient continues to have frequent episodes of diarrhea, unable to quantify but doesn't note extreme increased frequency in episodes. Tolerating regular diet. A 12-point review of systems negative except for as above. Objective - Vital Signs/Intake and Output Vital Signs (last 24 hours): Temp Pulse Resp BP Pulse Ox 98.5 F 57 L 20 102/41 L 95 12/13/16 05:42 12/14/16 06:00 12/13/16 05:42 12/13/16 18:01 12/13/16 05:42 Intake and Output: 12/14/16 12/14/16 06:59 18:59 Intake Total 1855 60 Output Total 2 1800 Balance 1853 -1740 - Medications Medications: Current Medications Acetaminophen (Tylenol 325mg Tab) 650 mg PO Q4 PRN PRN Reason: Fever >100.4 F Last Admin: 12/12/16 22:11 Dose: 650 mg Aztreonam (Azactam 1 Gm) 100 mls @ 100 mls/hr IVPB Q8 [facility] PRN Reason: Protocol Stop: 12/19/16 22:01 Last Admin: 12/14/16 05:32 Dose: 100 mls/hr Vancomycin HCl (Vancomycin 1gm) 250 mls @ 167 mls/hr IVPB Q12H [facility] PRN Reason: Protocol Stop: 12/19/16 23:31 Last Admin: 12/13/16 23:10 Dose: 167 mls/hr Sodium Chloride (Sodium Chloride 0.45%) 1,000 mls @ 70 mls/hr IV .[id number] [facility] Last Admin: 12/14/16 04:11 Dose: 70 mls/hr Lisinopril (Zestril) 20 mg PO DAILY [facility] Last Admin: 12/13/16 09:00 Dose: Not Given Loperamide HCl (Imodium) 2 mg PO Q6 PRN PRN Reason: Diarrhea Last Admin: 12/13/16 21:58 Dose: 2 mg Metoprolol Tartrate (Lopressor) 12.5 mg PO BID [facility] Last Admin: 12/13/16 18:01 Dose: Not Given Pantoprazole Sodium (Protonix Inj) 40 mg IVP 0600 [facility] Last Admin: 12/14/16 05:34 Dose: 40 mg Vancomycin HCl (Vancocin 25 Mg/Ml (Oral Use)) 125 mg PO QID [facility] PRN Reason: Protocol Last Admin: 12/13/16 21:58 Dose: 125 mg - Labs Labs: 12/13/16 04:00 12/13/16 04:00 PT 10.5 Seconds (9.9-11.8) 12/12/16 17:15 INR 0.97 (0.93-1.08) 12/12/16 17:15 APTT 26.4 Seconds (23.7-30.8) 12/12/16 17:15 - Constitutional Appears: Non-toxic, No Acute Distress - Head Exam Head Exam: ATRAUMATIC, NORMOCEPHALIC - Eye Exam Eye Exam: EOMI, PERRL Pupil Exam: PERRL. absent: Miosis, Mydriatic - ENT Exam ENT Exam: Mucous Membranes Moist, Normal Oropharynx - Neck Exam Neck Exam: Full ROM, Normal Inspection - Respiratory Exam Respiratory Exam: Clear to Ausculation Bilateral. absent: Rales, Rhonchi, Wheezes - Cardiovascular Exam Cardiovascular Exam: RRR, +S1, +S2. absent: Gallop, Rubs - GI/Abdominal Exam GI & Abdominal Exam: Soft, Normal Bowel Sounds. absent: Distended, Firm, Guarding, Rigid, Tenderness, Mass, Organomegaly, Rebound - Extremities Exam Extremities Exam: Normal Inspection, Pedal Edema - Neurological Exam Neurological Exam: Alert, Awake - Psychiatric Exam Psychiatric exam: Normal Affect, Normal Mood - Skin Skin Exam: Dry, Intact, Normal Color, Warm Assessment and Plan - Assessment and Plan (Free Text) Assessment: 71 year old female with history of Hypertension, Diabetes, Anxiety, recurrent C difficile, chronic diarrhea, pancreatic insufficiency, gastric outlet obstruction s/p gastrojejunostomy, ileus 10/2016, right hemicolectomy 10/02/16 with pathology showing T1N0M0 moderately differentiated adenocarcinoma presenting with fever, chills, and sweats from GI clinic. Colonoscopy 02/2016 and 08/2016 - 22 tubular adenomas and transverse 3cm mass with central depression s/p right hemicolectomy 10/02/16. Plan: >chronic diarrhea, Cdiff antigen positive >continue vancomycin PO >recommend de-escalate broad spectrum coverage as otherinffectious sources ruled out >ID managing- follow up recommendations >CT A/P IV- no acute findings >hold Imodium with Cdiff infection >continue IVFs >tolerating regular diet >further recommendations based on clinical course <Aleena Moreira - Last Filed: 12/14/16 09:47> Objective - Vital Signs/Intake and Output Vital Signs (last 24 hours): Temp Pulse Resp BP Pulse Ox 98.5 F 71 22 138/72 95 12/14/16 06:00 12/14/16 06:00 12/14/16 06:00 12/14/16 06:00 12/13/16 05:42 Intake and Output: 12/14/16 12/14/16 06:59 18:59 Intake Total 1855 60 Output Total 2 1800 Balance 1853 -1740 - Medications Medications: Current Medications Acetaminophen (Tylenol 325mg Tab) 650 mg PO Q4 PRN PRN Reason: Fever >100.4 F Last Admin: 12/12/16 22:11 Dose: 650 mg Diazepam (Valium) 5 mg PO TID [facility] PRN Reason: Protocol Aztreonam (Azactam 1 Gm) 100 mls @ 100 mls/hr IVPB Q8 [facility] PRN Reason: Protocol Stop: 12/19/16 22:01 Last Admin: 12/14/16 05:32 Dose: 100 mls/hr Vancomycin HCl (Vancomycin 1gm) 250 mls @ 167 mls/hr IVPB Q12H [facility] PRN Reason: Protocol Stop: 12/19/16 23:31 Last Admin: 12/13/16 23:10 Dose: 167 mls/hr Sodium Chloride (Sodium Chloride 0.45%) 1,000 mls @ 70 mls/hr IV .[id number] [facility] Last Admin: 12/14/16 04:11 Dose: 70 mls/hr Metronidazole (Flagyl) 100 mls @ 100 mls/hr IVPB Q8 [facility] PRN Reason: Protocol Stop: 12/21/16 09:01 Lisinopril (Zestril) 20 mg PO DAILY [facility] Last Admin: 12/13/16 09:00 Dose: Not Given Loperamide HCl (Imodium) 2 mg PO Q6 PRN PRN Reason: Diarrhea Last Admin: 12/13/16 21:58 Dose: 2 mg Metoprolol Tartrate (Lopressor) 12.5 mg PO BID [facility] Last Admin: 12/13/16 18:01 Dose: Not Given Pantoprazole Sodium (Protonix Inj) 40 mg IVP 0600 [facility] Last Admin: 12/14/16 05:34 Dose: 40 mg Vancomycin HCl (Vancocin 25 Mg/Ml (Oral Use)) 125 mg PO QID [facility] PRN Reason: Protocol Last Admin: 12/13/16 21:58 Dose: 125 mg Zolpidem Tartrate (Ambien) 5 mg PO HS PRN; Protocol PRN Reason: Insomnia - Labs Labs: 12/14/16 07:00 12/14/16 07:00 PT 10.5 Seconds (9.9-11.8) 12/12/16 17:15 INR 0.97 (0.93-1.08) 12/12/16 17:15 APTT 26.4 Seconds (23.7-30.8) 12/12/16 17:15 Attending/Attestation - Attestation I have personally seen and examined this patient.: Yes I have fully participated in the care of the patient.: Yes I have reviewed all pertinent clinical information, including history, physical exam and plan: Yes Notes (Text): Patient seen and examined with GI fellow. Agree with her note as documented above with the following additions/exceptions. This is a 71 year old female with h/o gastric outlet obstruction s/p gastrojejunostomy, T1N0 adenocarcinoma of colon s/p R hemicolectomy, HTN, DM, h/o prior cdiff infection who is admitted with SIRS criteria, diarrhea with cdiff antigen positive stool. Her leukocytosis has resolved. Fever curve improved. She is still have diarrhea, although subjectively improved. She is tolerating diet, no nausea or vomiting. Would continue therapy for cdiff with PO vancomycin/IV flagyl. Follow up all other cultures, thusfar negative. Continue diet as tolerated. 12/14/16 09:42
[2016-12-14 07:32] LABS: HEMATOCRIT 35.4 % (36.0-48.0); MEAN CELL VOLUME 87.4 fL (80.0-105.0); MEAN CORPUSCULAR HEMOGLOBIN 28.4 pg (25.0-35.0); MEAN CORPUSCULAR HGB CONC 32.5 g/dl (31.0-37.0); MEAN PLATELET VOLUME 9.6 fl (7.0-11.0); RED CELL DISTRIBUTION WIDTH 14.8 % (11.5-14.5); WHITE BLOOD COUNT 8.8 10^3/ul (4.5-11.0)
[2016-12-14 07:52] LABS: ALB/GLOB RATIO 0.8 (1.1-1.8); ALKALINE PHOSPHATASE 97 U/L (38-133); ALT/SGPT 29 U/L (7-56); AST/SGOT 20 U/L (15-39); BILIRUBIN,TOTAL 0.5 mg/dL (0.2-1.3); BLOOD UREA NITROGEN 5 mg/dL (7-21); CARBON DIOXIDE 24 mmol/L (21-33); CHLORIDE 112 mmol/L (98-107); GFR AFRICAN-AMERICAN > 60; GLUCOSE,RANDOM 85 mg/dL (70-110); POTASSIUM 3.8 mmol/L (3.6-5.0); SODIUM 144 mmol/L (132-148); TOTAL PROTEIN 5.8 g/dL (5.8-8.3)
--- NOTE | 2016-12-14 09:12 | PN ---
DATE: 12/14/2016 She is comfortable in bed, more alert, more awake, responding better, stronger. She is looking for h er Valium and her Ambien. MEDICATIONS: She is currently on IV fluids, aztreonam, loperamide, Lopressor, Protonix, Tylenol, van comycin, and Zestril. PHYSICAL EXAMINATION: VITAL SIGNS: Temp 98.5, 71 pulse, 138/72 blood pressure, 22 respiratory rate. HEAD: Atraumatic, normocephalic. HEART: Regular rate. LUNGS: Clear to auscultation. ABDOMEN: Soft. Positive bowel sounds. EXTREMITIES: No edema. She is feeling better. LABORATORY DATA: She did have 8.8 white count, much better, 11.5 hemoglobin, 35.4 hematocrit with 26 2 platelets. She has a 144 sodium. Potassium is 3.8, BUN 5, creatinine 0.6. GFR is greater than 60 . Sugar is 85. Calcium is 8. Total bili is 0.5. AST is 20. ALT is 29. Alk phos 77. Total prote in is 5.8. She had consults with infectious disease and GI. CAT scan of abdomen and pelvis showed no acute findings. She is here for systemic inflammatory response syndrome secondary to Clostridium difficile with diarr hea, hypertension, high cholesterol, status post hemicolectomy. She is on vancomycin and IV Flagyl. She is starting to do better. I ordered physical therapy, out of bed to chair, put her back on her Valium and her Ambien, got to get her body moving. She has chronic diarrhea, C. diff antigen positiv e. She is on the right antibiotics. We will continue with aggressive treatment and care on the elaine ent, and I renewed her medications that she is looking for. Johnny Yates DO cc: [id number] TT: 12/14/2016 09:12:06 Confirmation # [id number] Dictation # [id number] jn
[2016-12-14] MEDS: metroNIDAZOLE IV 500 mg/100 ml 100 ML IVPB SCH ×3 (10:14→23:14)
[2016-12-14] MEDS: Vancomycin 25 MG/ML PO SCH ×4 (10:29→23:16)
[2016-12-14] MEDS: Vancomycin 1gm in NS 250ml 250 ML IVPB SCH (11:59)
--- NOTE | 2016-12-14 17:22 | CP.PCM.PN ---
Subjective - Date & Time of Evaluation Date of Evaluation: 12/14/16 Time of Evaluation: 10:15 - Subjective Subjective: Comfortable in bed, not in distress, afebrile, loose stools improving. Objective - Vital Signs/Intake and Output Vital Signs (last 24 hours): Temp Pulse Resp BP Pulse Ox 98.5 F 71 22 138/72 95 12/14/16 06:00 12/14/16 10:14 12/14/16 06:00 12/14/16 10:14 12/13/16 05:42 Intake and Output: 12/14/16 12/14/16 06:59 18:59 Intake Total 1855 60 Output Total 2 1800 Balance 1853 -1740 - Medications Medications: Current Medications Acetaminophen (Tylenol 325mg Tab) 650 mg PO Q4 PRN PRN Reason: Fever >100.4 F Last Admin: 12/12/16 22:11 Dose: 650 mg Diazepam (Valium) 5 mg PO TID [facility] PRN Reason: Protocol Last Admin: 12/14/16 14:29 Dose: 5 mg Aztreonam (Azactam 1 Gm) 100 mls @ 100 mls/hr IVPB Q8 [facility] PRN Reason: Protocol Stop: 12/19/16 22:01 Last Admin: 12/14/16 14:29 Dose: 100 mls/hr Vancomycin HCl (Vancomycin 1gm) 250 mls @ 167 mls/hr IVPB Q12H [facility] PRN Reason: Protocol Stop: 12/19/16 23:31 Last Admin: 12/14/16 11:59 Dose: 167 mls/hr Sodium Chloride (Sodium Chloride 0.45%) 1,000 mls @ 70 mls/hr IV .[id number] [facility] Last Admin: 12/14/16 14:30 Dose: Not Given Metronidazole (Flagyl) 100 mls @ 100 mls/hr IVPB Q8 [facility] PRN Reason: Protocol Stop: 12/21/16 09:01 Last Admin: 12/14/16 14:30 Dose: 100 mls/hr Lisinopril (Zestril) 20 mg PO DAILY [facility] Last Admin: 12/14/16 10:14 Dose: 20 mg Loperamide HCl (Imodium) 2 mg PO Q6 PRN PRN Reason: Diarrhea Last Admin: 12/13/16 21:58 Dose: 2 mg Metoprolol Tartrate (Lopressor) 12.5 mg PO BID [facility] Last Admin: 12/14/16 10:14 Dose: 12.5 mg Pantoprazole Sodium (Protonix Inj) 40 mg IVP 0600 [facility] Last Admin: 12/14/16 05:34 Dose: 40 mg Vancomycin HCl (Vancocin 25 Mg/Ml (Oral Use)) 125 mg PO QID [facility] PRN Reason: Protocol Last Admin: 12/14/16 14:31 Dose: 125 mg Zolpidem Tartrate (Ambien) 5 mg PO HS PRN; Protocol PRN Reason: Insomnia - Labs Labs: 12/14/16 07:00 12/14/16 07:00 PT 10.5 Seconds (9.9-11.8) 12/12/16 17:15 INR 0.97 (0.93-1.08) 12/12/16 17:15 APTT 26.4 Seconds (23.7-30.8) 12/12/16 17:15 - Constitutional Appears: Non-toxic, No Acute Distress - Head Exam Head Exam: NORMAL INSPECTION - Respiratory Exam Respiratory Exam: Decreased Breath Sounds - Cardiovascular Exam Cardiovascular Exam: +S1, +S2 - GI/Abdominal Exam GI & Abdominal Exam: Soft. absent: Tenderness Assessment and Plan - Assessment and Plan (Free Text) Plan: Assessment Systemic Inflammatory response syndrome, consider sepsis secondary to Clostridium difficile associated diarrhea; currently no other sources of sepsis noted HTN dyslipidemia history of C diff associated diarrhea S/P hemicolectomy Plan continue Vancomycin PO and IV Flagyl and will d/c IV Vancomycin and Aztreonam; blood, urine cx are negative; reviewed CXR, CT scan of the abdomen and pelvis Will continue to monitor clinically
[2016-12-14 17:44] VITALS: RESP 18
[2016-12-15] MEDS: metroNIDAZOLE IV 500 mg/100 ml 100 ML IVPB SCH (05:27)
--- NOTE | 2016-12-15 06:52 | CP.PCM.PN ---
<Mallika Rudd - Last Filed: 12/15/16 09:34> Subjective - Date & Time of Evaluation Date of Evaluation: 12/15/16 Time of Evaluation: 06:47 - Subjective Subjective: Gastroenterology Fellow/PGY4 Progress Note Patient notes one episode of soft stool overnight. Left lower abdomen discomfort improving. Tolerating regular diet. A 12-point review of systems negative except for as above. Objective - Vital Signs/Intake and Output Vital Signs (last 24 hours): Temp Pulse Resp BP Pulse Ox 99.2 F 56 L 18 104/62 95 12/14/16 16:00 12/15/16 05:09 12/14/16 16:00 12/14/16 23:05 12/14/16 16:00 Intake and Output: 12/14/16 12/15/16 18:59 06:59 Intake Total 60 620 Output Total 1800 950 Balance -3670 -330 - Medications Medications: Current Medications Acetaminophen (Tylenol 325mg Tab) 650 mg PO Q4 PRN PRN Reason: Fever >100.4 F Last Admin: 12/15/16 04:47 Dose: 650 mg Diazepam (Valium) 5 mg PO TID [facility] PRN Reason: Protocol Last Admin: 12/14/16 18:11 Dose: 5 mg Sodium Chloride (Sodium Chloride 0.45%) 1,000 mls @ 70 mls/hr IV .[id number] [facility] Last Admin: 12/14/16 23:15 Dose: 70 mls/hr Metronidazole (Flagyl) 100 mls @ 100 mls/hr IVPB Q8 [facility] PRN Reason: Protocol Stop: 12/21/16 09:01 Last Admin: 12/15/16 05:27 Dose: 100 mls/hr Lisinopril (Zestril) 20 mg PO DAILY [facility] Last Admin: 12/14/16 10:14 Dose: 20 mg Loperamide HCl (Imodium) 2 mg PO Q6 PRN PRN Reason: Diarrhea Last Admin: 12/13/16 21:58 Dose: 2 mg Metoprolol Tartrate (Lopressor) 12.5 mg PO BID [facility] Last Admin: 12/14/16 18:12 Dose: Not Given Pantoprazole Sodium (Protonix Inj) 40 mg IVP 0600 [facility] Last Admin: 12/14/16 05:34 Dose: 40 mg Vancomycin HCl (Vancocin 25 Mg/Ml (Oral Use)) 125 mg PO QID [facility] PRN Reason: Protocol Last Admin: 12/14/16 23:16 Dose: 125 mg Zolpidem Tartrate (Ambien) 5 mg PO HS PRN; Protocol PRN Reason: Insomnia - Labs Labs: 12/14/16 07:00 12/14/16 07:00 PT 10.5 Seconds (9.9-11.8) 12/12/16 17:15 INR 0.97 (0.93-1.08) 12/12/16 17:15 APTT 26.4 Seconds (23.7-30.8) 12/12/16 17:15 - Constitutional Appears: Non-toxic, No Acute Distress - Head Exam Head Exam: ATRAUMATIC, NORMOCEPHALIC - Eye Exam Eye Exam: EOMI, PERRL Pupil Exam: PERRL. absent: Miosis, Mydriatic - ENT Exam ENT Exam: Mucous Membranes Moist, Normal Oropharynx - Neck Exam Neck Exam: Full ROM, Normal Inspection - Respiratory Exam Respiratory Exam: Clear to Ausculation Bilateral. absent: Rales, Rhonchi, Wheezes - GI/Abdominal Exam GI & Abdominal Exam: Soft. absent: Distended, Firm, Guarding, Rigid, Tenderness , Organomegaly, Rebound - Extremities Exam Extremities Exam: Normal Inspection, Pedal Edema - Neurological Exam Neurological Exam: Alert, Awake - Psychiatric Exam Psychiatric exam: Normal Affect, Normal Mood - Skin Skin Exam: Dry, Intact, Normal Color, Warm Assessment and Plan - Assessment and Plan (Free Text) Assessment: 71 year old female with history of Hypertension, Diabetes, Anxiety, recurrent C difficile, chronic diarrhea, pancreatic insufficiency, gastric outlet obstruction s/p gastrojejunostomy, ileus 10/2016, right hemicolectomy 10/02/16 presenting with fever, chills, and sweats from GI clinic. CT A/P with no acute findings. Active treatment of resolved sepsis secondary to Cdiff antigen associated diarrhea. Colonoscopy 02/2016 and 08/2016 - 22 tubular adenomas and transverse 3cm mass with central depression s/p right hemicolectomy 10/02/16 with pathology showing T1N0M0 moderately differentiated adenocarcinoma. Plan: >4/4 Cdiff antigen positive >continue vancomycin PO for 14 days total >4/6 repeat Cdiff antigen/toxin negative >ID managing- appreciate recommendations >hold Imodium with Cdiff infection >leukocytosis improved >monitor fever curve >tolerating regular diet >will follow clinical course <Sheng Fenton - Last Filed: 12/15/16 13:07> Objective - Vital Signs/Intake and Output Vital Signs (last 24 hours): Temp Pulse Resp BP Pulse Ox 98.2 F 54 L 18 136/51 L 91 L 12/15/16 06:00 12/15/16 06:00 12/15/16 06:00 12/15/16 06:00 12/15/16 06:00 Intake and Output: 12/15/16 12/15/16 06:59 18:59 Intake Total 620 Output Total 950 Balance -330 - Medications Medications: Current Medications Acetaminophen (Tylenol 325mg Tab) 650 mg PO Q4 PRN PRN Reason: Fever >100.4 F Last Admin: 12/15/16 04:47 Dose: 650 mg Diazepam (Valium) 5 mg PO TID [facility] PRN Reason: Protocol Last Admin: 12/15/16 11:09 Dose: 5 mg Sodium Chloride (Sodium Chloride 0.45%) 1,000 mls @ 70 mls/hr IV .[id number] [facility] Last Admin: 12/14/16 23:15 Dose: 70 mls/hr Metronidazole (Flagyl) 100 mls @ 100 mls/hr IVPB Q8 [facility] PRN Reason: Protocol Stop: 12/21/16 09:01 Last Admin: 12/15/16 05:27 Dose: 100 mls/hr Lisinopril (Zestril) 20 mg PO DAILY [facility] Last Admin: 12/15/16 11:10 Dose: 20 mg Loperamide HCl (Imodium) 2 mg PO Q6 PRN PRN Reason: Diarrhea Last Admin: 12/13/16 21:58 Dose: 2 mg Metoprolol Tartrate (Lopressor) 12.5 mg PO BID [facility] Last Admin: 12/15/16 11:09 Dose: 12.5 mg Pantoprazole Sodium (Protonix Ec Tab) 40 mg PO 0600 [facility] Vancomycin HCl (Vancocin 25 Mg/Ml (Oral Use)) 125 mg PO QID [facility] PRN Reason: Protocol Last Admin: 12/15/16 11:10 Dose: 125 mg Zolpidem Tartrate (Ambien) 5 mg PO HS PRN; Protocol PRN Reason: Insomnia - Labs Labs: 12/15/16 06:35 12/15/16 06:35 PT 10.5 Seconds (9.9-11.8) 12/12/16 17:15 INR 0.97 (0.93-1.08) 12/12/16 17:15 APTT 26.4 Seconds (23.7-30.8) 12/12/16 17:15 Attending/Attestation - Attestation I have personally seen and examined this patient.: Yes I have fully participated in the care of the patient.: Yes I have reviewed all pertinent clinical information, including history, physical exam and plan: Yes Notes (Text): 12/15/16 13:03 I have seen and examined patient with GI fellow. No acute events overnight. She had one soft bowel movement overnight, consistency becoming more formed. She continues to have LLQ abdominal discomfort, though improved compared to previous day. She denies nausea, vomiting, fever/chills. Tolerating PO diet without difficulty. DM / HTN h/o colon cancer s/p R hemicolectomy Diarrhea - recurrent clostridium difficile colitis - Continue with diet as tolerated - Case discussed with ID, patient requires completion of 14 days of PO Vancomycin therapy - Suggest additional outpatient follow up with Dr. Mo - Will continue to monitor patient clinical course
[2016-12-15 07:42] LABS: HEMATOCRIT 34.6 % (36.0-48.0); MEAN CELL VOLUME 86.1 fL (80.0-105.0); MEAN CORPUSCULAR HEMOGLOBIN 28.1 pg (25.0-35.0); MEAN CORPUSCULAR HGB CONC 32.7 g/dl (31.0-37.0); MEAN PLATELET VOLUME 9.6 fl (7.0-11.0); RED CELL DISTRIBUTION WIDTH 14.5 % (11.5-14.5)
[2016-12-15 08:05] LABS: ALB/GLOB RATIO 0.8 (1.1-1.8); ALKALINE PHOSPHATASE 92 U/L (38-133); ALT/SGPT 31 U/L (7-56); AST/SGOT 21 U/L (15-39); BILIRUBIN,TOTAL 0.5 mg/dL (0.2-1.3); BLOOD UREA NITROGEN 4 mg/dL (7-21); CALCIUM 8.3 mg/dL (8.4-10.5); CARBON DIOXIDE 25 mmol/L (21-33); CHLORIDE 110 mmol/L (98-107); GFR AFRICAN-AMERICAN > 60; GLUCOSE,RANDOM 87 mg/dL (70-110); POTASSIUM 3.3 mmol/L (3.6-5.0); SODIUM 141 mmol/L (132-148); TOTAL PROTEIN 5.6 g/dL (5.8-8.3)
--- NOTE | 2016-12-15 10:11 | PN ---
DATE: 12/15/2016 I saw the patient resting in bed. She is still having diarrhea. She is very worried, nervous. She has not gotten out of bed much, neither out of bed to chair. It is possible she might need physical therapy. I am waiting for physical therapy to see her for recommendations. She is still on lots of medications for the bowels and the infection. PHYSICAL EXAMINATION: VITAL SIGNS: She has a 99.2 temp, 121/51 blood pressure, 18 respiratory rate, 95% O2 sat on room air . HEENT: Head is atraumatic, normocephalic. Throat is moist. NECK: Supple. HEART: Regular rate. LUNGS: Decreased breath sounds. ABDOMEN: Mildly distended. Decreased bowel sounds are present, soft. No palpable masses. EXTREMITIES: No edema, but she is weak. LABORATORY DATA: She has a 144 sodium, potassium 3.8, BUN is 5, creatinine 0.6. GFR is greater than 60, sugar is 85, calcium is 8, total bili is 0.5, AST is 20, ALT is 29, alk phos 77, total protein i s 5.8. She has an 8.8 white count, 11.5 hemoglobin, 35.4 hematocrit with 262 platelets. She is being seen by infectious disease and GI. She is currently on Ambien, Flagyl IV, Imodium, Lopressor, Protonix, IV fluids, Tylenol, Valium, vanc omycin p.o. and Zestril. I put an order in for physical therapy. I am not sure if we need TCU or subacute rehab to finish off her care. Today might be a good day to discharge her if we can to a facility. I believe she came f [facility] a few weeks ago before she went home versus TCU. We will see what the recommendati on is from physical therapy. I will discuss this with case management, continue to monitor labs her labs as per infectious disease and gastroenterology. The patient has Clostridium difficile, sepsis, chronic diarrhea. Johnny Yates DO cc: [id number] TT: 12/15/2016 10:10:46 Confirmation # [id number] Dictation # [id number]
[2016-12-15 11:00] VITALS: TEMP 98.2
[2016-12-15] MEDS: Vancomycin 25 MG/ML PO SCH ×2 (11:10→13:31)
[2016-12-15] MEDS: Potassium Chloride 10 mEq 100 ML IVPB SCH ×2 (11:11→12:55)
[2016-12-15 13:08] LABS: TOXOPLASMA IGM AB Negative (Negative)
[2016-12-15 16:39] VITALS: BP 144/61; PULSE 58; O2SAT 95
[2016-12-15 19:32] LABS: TOXOPLASMA IGG AB <0.91 (<0.91)
--- NOTE | 2016-12-15 21:02 | CP.PCM.PN ---
Subjective - Date & Time of Evaluation Date of Evaluation: 12/15/16 Time of Evaluation: 09:45 - Subjective Subjective: Comfortable in bed, not in distress, no fevers overnight, diarrhea has significantly improved, no abdominal pain. Objective - Vital Signs/Intake and Output Vital Signs (last 24 hours): Temp Pulse Resp BP Pulse Ox 98.2 F 58 L 18 144/61 95 12/15/16 16:00 12/15/16 16:00 12/15/16 16:00 12/15/16 16:00 12/15/16 16:00 Intake and Output: 12/15/16 12/16/16 18:59 06:59 Intake Total 720 Balance 720 - Labs Labs: 12/15/16 06:35 12/15/16 06:35 PT 10.5 Seconds (9.9-11.8) 12/12/16 17:15 INR 0.97 (0.93-1.08) 12/12/16 17:15 APTT 26.4 Seconds (23.7-30.8) 12/12/16 17:15 - Constitutional Appears: Non-toxic, No Acute Distress - Head Exam Head Exam: NORMAL INSPECTION - ENT Exam ENT Exam: Mucous Membranes Moist - Neck Exam Neck Exam: absent: Lymphadenopathy, Meningismus - Respiratory Exam Respiratory Exam: Decreased Breath Sounds - Cardiovascular Exam Cardiovascular Exam: +S1, +S2 - GI/Abdominal Exam GI & Abdominal Exam: Soft. absent: Tenderness Assessment and Plan - Assessment and Plan (Free Text) Plan: Assessment sepsis secondary to Clostridium difficile associated diarrhea; currently no other sources of sepsis noted; patient is clinically improving HTN dyslipidemia history of C diff associated diarrhea S/P hemicolectomy Plan continue Vancomycin PO day 3; we can discontinue IV Flagyl and patient should complete a 14 day course; because of the recurrent nature of her diarrhea, GI has suggested possible fecal transplant if there is another recurrence blood, urine cx are negative; reviewed CXR, CT scan of the abdomen and pelvis Discussed with Dr. Mo (Gastroenterology)
[2016-12-16] MEDS ORDERED: Pantoprazole 40 mg EC Tab PO SCH (06:00)
--- NOTE | 2016-12-26 08:33 | DS ---
She is in TCU, and she did well, and she was able to be discharged. She was sent home on her medications. She has multiple issues. Physical therapy helped her a lot; so did the antibiotic for her C. difficile. She should be following outpatient for her chronic diarrhea and her C. difficile . Johnny Yates DO cc: [id number] TT: 12/26/2016 08:32:21 jn MTDD
== END 2016-12-15 17:32 | DRG 872 ==
LOC: ED 16:07 → ERH 18:41 → 2RNO 21:54 → 3RSO 12-13 13:26
PROVIDERS: ADMIT Family Medicine; ATTEND Family Medicine
DX: A41.9 Sepsis, unspecified organism (principal); A04.7 Enterocolitis due to Clostridium difficile; E11.9 Type 2 diabetes mellitus without complications; I10 Essential (primary) hypertension; E78.00 Pure hypercholesterolemia, unspecified; F41.9 Anxiety disorder, unspecified; E78.5 Hyperlipidemia, unspecified; F51.02 Adjustment insomnia; K86.89 Other specified diseases of pancreas; Z96.652 Presence of left artificial knee joint; Z85.038 Personal history of other malignant neoplasm of large intestine; Z90.49 Acquired absence of other specified parts of digestive tract; Z88.0 Allergy status to penicillin

== ENCOUNTER 2016-12-15 17:32 | Inpatient (IN) | payer OTHER, BC ==
[2016-12-15 19:39] VITALS: BMI 26.5
[2016-12-15] MEDS: Sodium Chloride 0.45% 1,000 ML IV SCH (21:37)
[2016-12-15] MEDS: Vancomycin 25 MG/ML PO SCH (21:38)
[2016-12-16] MEDS ORDERED: Pneumococcal 23-Valent Vaccine IM ONE (00:05)
[2016-12-16] MEDS: Sodium Chloride 0.45% 1,000 ML IV SCH ×2 (06:03→22:19)
[2016-12-16] MEDS: Pantoprazole 40 mg EC Tab PO SCH (06:03)
[2016-12-16 07:14] LABS: ADD MANUAL DIFF? NO
[2016-12-16 07:23] LABS: BASO # 0.07 K/mm3 (0.0-2.0); BASO % 0.9 % (0.0-3.0); EOS # 0.2 (0.0-0.7); EOS % 2.5 % (1.5-5.0); GRAN # 5.28 (1.4-6.5); GRAN % 68.4 % (50.0-68.0); HEMATOCRIT 35.9 % (36.0-48.0); LYMPH # 1.4 (1.2-3.4); LYMPH % 18.2 % (22.0-35.0); MEAN CELL VOLUME 86.3 fL (80.0-105.0); MEAN CORPUSCULAR HEMOGLOBIN 28.4 pg (25.0-35.0); MEAN CORPUSCULAR HGB CONC 32.9 g/dl (31.0-37.0); MEAN PLATELET VOLUME 9.9 fl (7.0-11.0); MONO # 0.8 (0.1-0.6); PLATELET COUNT 269 10^3/uL (120.0-450.0); RED CELL DISTRIBUTION WIDTH 14.6 % (11.5-14.5); WHITE BLOOD COUNT 7.7 10^3/ul (4.5-11.0)
[2016-12-16 07:37] LABS: ALB/GLOB RATIO 0.9 (1.1-1.8); ALKALINE PHOSPHATASE 91 U/L (38-133); ALT/SGPT 31 U/L (7-56); AST/SGOT 18 U/L (15-39); BILIRUBIN,TOTAL 0.3 mg/dL (0.2-1.3); BLOOD UREA NITROGEN 7 mg/dL (7-21); CALCIUM 8.3 mg/dL (8.4-10.5); CARBON DIOXIDE 27 mmol/L (21-33); CHLORIDE 109 mmol/L (98-107); GFR AFRICAN-AMERICAN > 60; GLUCOSE,RANDOM 88 mg/dL (70-110); POTASSIUM 3.4 mmol/L (3.6-5.0); SODIUM 142 mmol/L (132-148)
--- NOTE | 2016-12-16 08:10 | CP.PCM.PN ---
Subjective - Date & Time of Evaluation Date of Evaluation: 12/16/16 Time of Evaluation: 07:45 - Subjective Subjective: PGY4 GI Fellow Progress Note Patient seen and examined bedside this morning. The patient denies any new complaints at this time. States her abdominal pain has resolved. Had one formed BM yesterday. No fever, chills, nausea, vomiting overnight. 12 system ROS performed and negative except where stated. Objective - Vital Signs/Intake and Output Vital Signs (last 24 hours): Temp Pulse Resp BP Pulse Ox 99 F 54 L 18 137/54 L 12/15/16 23:51 12/15/16 23:51 12/15/16 23:51 12/15/16 23:51 - Medications Medications: Current Medications Acetaminophen (Tylenol 325mg Tab) 650 mg PO Q4 PRN; Protocol PRN Reason: Fever >100.4 F Last Admin: 12/15/16 21:42 Dose: 650 mg Diazepam (Valium) 5 mg PO TID [facility] PRN Reason: Protocol Sodium Chloride (Sodium Chloride 0.45%) 1,000 mls @ 70 mls/hr IV .[id number] [facility] PRN Reason: Protocol Last Admin: 12/16/16 06:03 Dose: 70 mls/hr Lisinopril (Zestril) 20 mg PO DAILY [facility] PRN Reason: Protocol Loperamide HCl (Imodium) 2 mg PO Q6 PRN; Protocol PRN Reason: Diarrhea Metoprolol Tartrate (Lopressor) 12.5 mg PO 0800,1800 [facility] PRN Reason: Protocol Pantoprazole Sodium (Protonix Ec Tab) 40 mg PO 0600 [facility] Last Admin: 12/16/16 06:03 Dose: 40 mg Vancomycin HCl (Vancocin 25 Mg/Ml (Oral Use)) 125 mg PO QID [facility] PRN Reason: Protocol Last Admin: 12/15/16 21:38 Dose: 125 mg Zolpidem Tartrate (Ambien) 5 mg PO HS PRN; Protocol PRN Reason: Insomnia Last Admin: 12/15/16 21:38 Dose: 5 mg - Labs Labs: 12/16/16 07:13 12/16/16 07:13 - Constitutional Appears: Non-toxic, No Acute Distress - Eye Exam Eye Exam: EOMI, PERRL - ENT Exam ENT Exam: Mucous Membranes Moist - Respiratory Exam Respiratory Exam: Clear to Ausculation Bilateral. absent: Rales, Rhonchi, Wheezes - Cardiovascular Exam Cardiovascular Exam: RRR, +S1, +S2 - GI/Abdominal Exam GI & Abdominal Exam: Soft, Normal Bowel Sounds. absent: Distended, Firm, Guarding, Rigid, Tenderness, Organomegaly - Extremities Exam Extremities Exam: Normal Inspection. absent: Pedal Edema - Neurological Exam Neurological Exam: Alert, Awake, Oriented x3 - Psychiatric Exam Psychiatric exam: Normal Affect, Normal Mood - Skin Skin Exam: Dry, Warm Assessment and Plan - Assessment and Plan (Free Text) Assessment: Patient is a 71yo female with PMHx significant for recurrent colon adenocarcinoma s/p right hemicolectomy, recurrent C diff infections, chronic diarrhea, pancreatic insufficiency, hypertension, DM, anxiety who presented from the outpatient GI office with fever, chills, and sweats -Recurrent C diff diarrhea -H/O Adenocarcinoma of colon T1N0M0 s/p resection -DM -HTN Plan: -Repeat stool study shows C diff Ag/toxin negative -Continue Vancomycin PO for total of 2 weeks -ID following - appreciate consultation -Tolerating diet without issue -Could consider fecal microbiota transplant given recurrent CD infections -Outpatient follow up with Dr Mo following D/C
--- NOTE | 2016-12-16 08:32 | CP.PCM.CON ---
<Eliseo Chisholm - Last Filed: 12/16/16 12:25> History of Present Illness - History of Present Illness History of Present Illness: PGY4 GI Fellow Consult Note Patient is a 71yo female with PMHx significant for recurrent colon adenocarcinoma s/p right hemicolectomy, recurrent C diff infections, chronic diarrhea, pancreatic insufficiency, hypertension, DM, anxiety who presented from the outpatient GI office with fever, chills and sweats. Patient was noted to have a temperature max of 103.1 in GI clinic and associated chills and sweats. During admission she was diagnosed and is being treated for C diff colitis with PO vancomycin and has continued to improve each day. Patient was seen and examined bedside this morning. The patient denies any new complaints at this time. States her abdominal pain has resolved. Had one formed BM yesterday. No fever, chills, nausea, vomiting overnight. Family- no colon cancer Social 10 cigarettes/day, denies alcohol or illicit drug use Surgery- right hemicolectomy, gastrojejunostomy, left knee replacement, hysterectomy, cholecystectomy Review of Systems - Review of Systems All systems: reviewed and no additional remarkable complaints except Past Patient History - Infectious Disease Hx of Infectious Diseases: None - Tetanus Immunizations Tetanus Immunization: Unknown - Past Social History Smoking Status: Current Some Days Smoker - CARDIAC Hx Cardiac Disorders: Yes Hx Hypertension: Yes - PULMONARY Hx Respiratory Disorders: No - NEUROLOGICAL Hx Neurological Disorder: Yes Hx Dizziness: (HX MENIERE'S(2 ATTACKS IN PAST)) - HEENT Hx HEENT Problems: No - RENAL Hx Chronic Kidney Disease: No - ENDOCRINE/METABOLIC Hx Diabetes Mellitus Type 2: No (diet controlled per pt) - HEMATOLOGICAL/ONCOLOGICAL Hx Blood Disorders: No - INTEGUMENTARY Hx Dermatological Problems: No - MUSCULOSKELETAL/RHEUMATOLOGICAL Hx Falls: No - GASTROINTESTINAL Hx Gastrointestinal Disorders: Yes (C DIFF,COLON POLYPS,DUODENAL AND ESOPHAGEAL STRICTURE, WITH SX) - GENITOURINARY/GYNECOLOGICAL Hx Genitourinary Disorders: Yes (URGENCY FREQUENCY,UTI) Hx Reproductive Disorders: Yes (UTERINE CA) - PSYCHIATRIC Hx Substance Use: No - SURGICAL HISTORY Hx Surgeries: Yes (HEMICOLECTOMY) Hx Hysterectomy: Yes Hx Joint Replacement: Yes (Left knee) Other/Comment: Colon polyp removal. Duodenum stricture Sx - ANESTHESIA Hx Anesthesia Reactions: No Hx Malignant Hyperthermia: No Meds Allergies/Adverse Reactions: Allergies Allergy/AdvReac Type Severity Reaction Status Date / Time Penicillins AdvReac URTICARIA Verified 12/15/16 23:50 - Medications Medications: Current Medications Acetaminophen (Tylenol 325mg Tab) 650 mg PO Q4 PRN; Protocol PRN Reason: Fever >100.4 F Last Admin: 12/15/16 21:42 Dose: 650 mg Diazepam (Valium) 5 mg PO TID [facility] PRN Reason: Protocol Sodium Chloride (Sodium Chloride 0.45%) 1,000 mls @ 70 mls/hr IV .[id number] [facility] PRN Reason: Protocol Last Admin: 12/16/16 06:03 Dose: 70 mls/hr Lisinopril (Zestril) 20 mg PO DAILY [facility] PRN Reason: Protocol Loperamide HCl (Imodium) 2 mg PO Q6 PRN; Protocol PRN Reason: Diarrhea Metoprolol Tartrate (Lopressor) 12.5 mg PO 0800,1800 [facility] PRN Reason: Protocol Pantoprazole Sodium (Protonix Ec Tab) 40 mg PO 0600 [facility] Last Admin: 12/16/16 06:03 Dose: 40 mg Vancomycin HCl (Vancocin 25 Mg/Ml (Oral Use)) 125 mg PO QID [facility] PRN Reason: Protocol Last Admin: 12/15/16 21:38 Dose: 125 mg Zolpidem Tartrate (Ambien) 5 mg PO HS PRN; Protocol PRN Reason: Insomnia Last Admin: 12/15/16 21:38 Dose: 5 mg Physical Exam - Constitutional Appears: Non-toxic, No Acute Distress - Eye Exam Eye Exam: EOMI, PERRL - ENT Exam ENT Exam: Mucous Membranes Moist - Respiratory Exam Respiratory Exam: Clear to Auscultation Bilateral. absent: Rales, Rhonchi, Wheezes - Cardiovascular Exam Cardiovascular Exam: RRR, +S1, +S2 - GI/Abdominal Exam GI & Abdominal Exam: Normal Bowel Sounds, Soft. absent: Distended, Firm, Guarding, Organomegaly, Rigid, Tenderness - Extremities Exam Extremities exam: Positive for: normal inspection. Negative for: pedal edema - Neurological Exam Neurological exam: Alert, Oriented x3 - Psychiatric Exam Psychiatric exam: Normal Affect, Normal Mood - Skin Skin Exam: Dry, Warm Results - Vital Signs Recent Vital Signs: Last Vital Signs Temp 99 F 12/15/16 23:51 Pulse 54 L 12/15/16 23:51 Resp 18 12/15/16 23:51 BP 137/54 L 12/15/16 23:51 Pulse Ox - Labs Result Diagrams: 12/16/16 07:13 12/16/16 07:13 Labs: Laboratory Results - last 24 hr 12/16/16 07:13 WBC 7.7 RBC 4.16 Hgb 11.8 L Hct 35.9 L MCV 86.3 MCH 28.4 MCHC 32.9 RDW 14.6 H Plt Count 269 MPV 9.9 Gran % 68.4 H Lymph % (Auto) 18.2 L [place] % (Auto) 10.0 H Eos % (Auto) 2.5 Baso % (Auto) 0.9 Gran # 5.28 Lymph # 1.4 [place] # 0.8 H Eos # 0.2 Baso # 0.07 Sodium 142 Potassium 3.4 L Chloride 109 H Carbon Dioxide 27 Anion Gap 9 L BUN 7 Creatinine 0.5 Est GFR ( Amer) > 60 Est GFR (Non-Af Amer) > 60 Random Glucose 88 Calcium 8.3 L Total Bilirubin 0.3 AST 18 ALT 31 Alkaline Phosphatase 91 Total Protein 6.0 Albumin 2.8 L Globulin 3.2 Albumin/Globulin Ratio 0.9 L Assessment & Plan - Assessment and Plan (Free Text) Assessment: Patient is a 71yo female with PMHx significant for recurrent colon adenocarcinoma s/p right hemicolectomy, recurrent C diff infections, chronic diarrhea, pancreatic insufficiency, hypertension, DM, anxiety who presented from the outpatient GI office with fever, chills, and sweats -Recurrent C diff diarrhea -H/O Adenocarcinoma of colon [id number] s/p resection -DM -HTN Plan: -Repeat stool study shows C diff Ag/toxin negative -Continue Vancomycin PO for total of 2 weeks -ID following - appreciate consultation -Tolerating diet without issue -Could consider fecal microbiota transplant following D/C given recurrent CD infections -Outpatient follow up with Dr Mo following D/C -Will sign off. Thank you for allowing us to participate in the care of your patient. - Date & Time Date: 12/16/16 Time: 07:45 <Fady Pradhan MD - Last Filed: 12/16/16 19:57> Meds - Medications Medications: Current Medications Acetaminophen (Tylenol 325mg Tab) 650 mg PO Q4 PRN; Protocol PRN Reason: Fever >100.4 F Last Admin: 12/16/16 18:09 Dose: 650 mg Diazepam (Valium) 5 mg PO TID [facility] PRN Reason: Protocol Last Admin: 12/16/16 17:58 Dose: 5 mg Sodium Chloride (Sodium Chloride 0.45%) 1,000 mls @ 70 mls/hr IV .[id number] [facility] PRN Reason: Protocol Last Admin: 12/16/16 06:03 Dose: 70 mls/hr Metronidazole (Flagyl) 100 mls @ 100 mls/hr IVPB Q8 [facility] PRN Reason: Protocol Last Admin: 12/16/16 16:40 Dose: 100 mls/hr Lisinopril (Zestril) 20 mg PO DAILY [facility] PRN Reason: Protocol Last Admin: 12/16/16 09:14 Dose: 20 mg Loperamide HCl (Imodium) 2 mg PO Q6 PRN; Protocol PRN Reason: Diarrhea Last Admin: 12/16/16 09:14 Dose: 2 mg Metoprolol Tartrate (Lopressor) 12.5 mg PO 0800,1800 [facility] PRN Reason: Protocol Last Admin: 12/16/16 17:59 Dose: 12.5 mg Pantoprazole Sodium (Protonix Ec Tab) 40 mg PO 0600 [facility] Last Admin: 12/16/16 06:03 Dose: 40 mg Vancomycin HCl (Vancocin 25 Mg/Ml (Oral Use)) 125 mg PO QID [facility] PRN Reason: Protocol Last Admin: 12/16/16 17:58 Dose: 125 mg Zolpidem Tartrate (Ambien) 5 mg PO HS PRN; Protocol PRN Reason: Insomnia Last Admin: 12/15/16 21:38 Dose: 5 mg Results - Vital Signs Recent Vital Signs: Last Vital Signs Temp 98.5 F 12/16/16 16:00 Pulse 72 12/16/16 17:59 Resp 16 12/16/16 16:00 BP 157/57 H 12/16/16 17:59 Pulse Ox 91 L 12/16/16 16:00 - Labs Result Diagrams: 12/16/16 07:13 12/16/16 07:13 Labs: Laboratory Results - last 24 hr 12/16/16 07:13 WBC 7.7 RBC 4.16 Hgb 11.8 L Hct 35.9 L MCV 86.3 MCH 28.4 MCHC 32.9 RDW 14.6 H Plt Count 269 MPV 9.9 Gran % 68.4 H Lymph % (Auto) 18.2 L [place] % (Auto) 10.0 H Eos % (Auto) 2.5 Baso % (Auto) 0.9 Gran # 5.28 Lymph # 1.4 [place] # 0.8 H Eos # 0.2 Baso # 0.07 Sodium 142 Potassium 3.4 L Chloride 109 H Carbon Dioxide 27 Anion Gap 9 L BUN 7 Creatinine 0.5 Est GFR ( Amer) > 60 Est GFR (Non-Af Amer) > 60 Random Glucose 88 Calcium 8.3 L Total Bilirubin 0.3 AST 18 ALT 31 Alkaline Phosphatase 91 Total Protein 6.0 Albumin 2.8 L Globulin 3.2 Albumin/Globulin Ratio 0.9 L Attending/Attestation - Attestation I have personally seen and examined this patient.: Yes I have fully participated in the care of the patient.: Yes I have reviewed all pertinent clinical information: Yes Notes (Text): 12/16/16 19:55 Patient seen and examined with GI fellow. This is a 71 yr old female with PMHx significant for recurrent colon adenocarcinoma s/p right hemicolectomy, recurrent C diff infections, chronic diarrhea, pancreatic insufficiency, hypertension, DM, anxiety who presented from the outpatient GI office with fever , chills, and sweats in setting of recurrent C diff diarrhea. Repeat antigen negative. Continue vancomycin for total 2 weeks. Continue diet and outpatient follow up with Dr Mo in 2 weeks. -Will sign off. Thank you for allowing us to participate in the care of your patient.
[2016-12-16] MEDS: Vancomycin 25 MG/ML PO SCH ×4 (09:15→21:54)
--- NOTE | 2016-12-16 14:28 | CP.PCM.CON ---
History of Present Illness - History of Present Illness History of Present Illness: 71 year old female with PMH of HTN, dyslipidemia, history of C diff associated diarrhea, S/P hemicolectomy was initially admitted in [facility] because of diarrhea associated with fever and chills. She was found to have positive Cdiff Antigen in the stool and is being treated for Cdiff associated diarrhea. She is now transferred to [facility] because she has improved clinically and needs physical rehabilitation. Infectious diseases consult is requested to continue her antibiotic therapy. Currently the patient is complaining that her stools are a little more loose compared to yesterday. She denies abdominal pain , no nausea or vomiting, no chest pain, no fever or chills, no headache or dizziness, no chest pain, no dysuria, no rhinorrhea, no sore throat. 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)) - HEENT Hx HEENT Problems: No - RENAL Hx Chronic Kidney Disease: No - ENDOCRINE/METABOLIC Hx Diabetes Mellitus Type 2: No (diet controlled per pt) - HEMATOLOGICAL/ONCOLOGICAL Hx Blood Disorders: No - INTEGUMENTARY Hx Dermatological Problems: No - MUSCULOSKELETAL/RHEUMATOLOGICAL Hx Falls: No - GASTROINTESTINAL Hx Gastrointestinal Disorders: Yes Hx Diverticulitis: Yes Hx Gastroesophageal Reflux: Yes Other/Comment: pancreatic insuf - GENITOURINARY/GYNECOLOGICAL Hx Genitourinary Disorders: Yes Hx Urinary Tract Infection: Yes - PSYCHIATRIC Hx Substance Use: No - SURGICAL HISTORY Hx Surgeries: Yes (HEMICOLECTOMY) Hx Hysterectomy: Yes Hx Joint Replacement: Yes (Left knee) Other/Comment: Colon polyp removal. Duodenum stricture Sx - ANESTHESIA Hx Anesthesia Reactions: No Hx Malignant Hyperthermia: No Meds Allergies/Adverse Reactions: Allergies Allergy/AdvReac Type Severity Reaction Status Date / Time Penicillins AdvReac URTICARIA Verified 12/15/16 23:50 - Medications Medications: Current Medications Acetaminophen (Tylenol 325mg Tab) 650 mg PO Q4 PRN; Protocol PRN Reason: Fever >100.4 F Last Admin: 12/15/16 21:42 Dose: 650 mg Diazepam (Valium) 5 mg PO TID [facility] PRN Reason: Protocol Sodium Chloride (Sodium Chloride 0.45%) 1,000 mls @ 70 mls/hr IV .[id number] [facility] PRN Reason: Protocol Last Admin: 12/15/16 21:37 Dose: 70 mls/hr Lisinopril (Zestril) 20 mg PO DAILY [facility] PRN Reason: Protocol Loperamide HCl (Imodium) 2 mg PO Q6 PRN; Protocol PRN Reason: Diarrhea Metoprolol Tartrate (Lopressor) 12.5 mg PO 0800,1800 [facility] PRN Reason: Protocol Pantoprazole Sodium (Protonix Ec Tab) 40 mg PO 0600 [facility] Vancomycin HCl (Vancocin 25 Mg/Ml (Oral Use)) 125 mg PO QID [facility] PRN Reason: Protocol Last Admin: 12/15/16 21:38 Dose: 125 mg Zolpidem Tartrate (Ambien) 5 mg PO HS PRN; Protocol PRN Reason: Insomnia Last Admin: 12/15/16 21:38 Dose: 5 mg Physical Exam - Constitutional Appears: Non-toxic, No Acute Distress - Head Exam Head Exam: NORMAL INSPECTION - ENT Exam ENT Exam: Mucous Membranes Moist - Neck Exam Neck exam: Negative for: Lymphadenopathy, Meningismus - Respiratory Exam Respiratory Exam: Decreased Breath Sounds - Cardiovascular Exam Cardiovascular Exam: +S1, +S2 - GI/Abdominal Exam GI & Abdominal Exam: Soft. absent: Tenderness Results - Labs Result Diagrams: 12/16/16 07:13 12/16/16 07:13 Assessment & Plan - Assessment and Plan (Free Text) Plan: Assessment sepsis secondary to Clostridium difficile associated diarrhea; patient is slowly improving HTN dyslipidemia history of C diff associated diarrhea S/P hemicolectomy Plan continue Vancomycin PO day 4 - will restart IV Flagyl because of the loose stools and patient should complete a 14 day course; because of the recurrent nature of her diarrhea, GI has suggested possible fecal transplant if there is another recurrence; also would suggest a Vancomycin taper regimen for the patient after the 14 day course (ie. 1 week Vanco PO 125 mg BID, then 1 week Vanco PO daily, then 1 week PO Vanco every other week) blood, urine cx are negative; reviewed CXR, CT scan of the abdomen and pelvis
[2016-12-16] MEDS: metroNIDAZOLE IV 500 mg/100 ml 100 ML IVPB SCH ×2 (16:40→21:54)
[2016-12-17] MEDS: Pantoprazole 40 mg EC Tab PO SCH (05:24)
[2016-12-17] MEDS: metroNIDAZOLE IV 500 mg/100 ml 100 ML IVPB SCH ×3 (05:24→21:14)
[2016-12-17] MEDS: Vancomycin 25 MG/ML PO SCH ×4 (09:21→21:18)
--- NOTE | 2016-12-17 13:16 | CP.PCM.PN ---
Subjective - Date & Time of Evaluation Date of Evaluation: 12/17/16 Time of Evaluation: 11:45 - Subjective Subjective: Resting comfortably in bed, not in distress, no fevers overnight, diarrhea is slowly improvingh, no abdominal pain or cramps. Objective - Vital Signs/Intake and Output Vital Signs (last 24 hours): Temp Pulse Resp BP Pulse Ox 99.3 F 53 L 18 144/56 L 90 L 12/17/16 10:00 12/17/16 10:00 12/17/16 10:00 12/17/16 10:00 12/17/16 10:00 - Medications Medications: Current Medications Acetaminophen (Tylenol 325mg Tab) 650 mg PO Q4 PRN; Protocol PRN Reason: Fever >100.4 F Last Admin: 12/16/16 18:09 Dose: 650 mg Diazepam (Valium) 5 mg PO TID [facility] PRN Reason: Protocol Last Admin: 12/17/16 09:21 Dose: 5 mg Sodium Chloride (Sodium Chloride 0.45%) 1,000 mls @ 70 mls/hr IV .[id number] [facility] PRN Reason: Protocol Last Admin: 12/16/16 22:19 Dose: 70 mls/hr Metronidazole (Flagyl) 100 mls @ 100 mls/hr IVPB Q8 [facility] PRN Reason: Protocol Last Admin: 12/17/16 05:24 Dose: 100 mls/hr Potassium Chloride (Potassium Chloride 10 Meq/100 Ml) 100 mls @ 100 mls/hr IVPB Q2H [facility] Stop: 12/17/16 16:14 Lisinopril (Zestril) 20 mg PO DAILY [facility] PRN Reason: Protocol Last Admin: 12/17/16 09:22 Dose: 20 mg Loperamide HCl (Imodium) 2 mg PO Q6 PRN; Protocol PRN Reason: Diarrhea Last Admin: 12/17/16 09:23 Dose: 2 mg Metoprolol Tartrate (Lopressor) 12.5 mg PO 0800,1800 [facility] PRN Reason: Protocol Last Admin: 12/17/16 09:22 Dose: 12.5 mg Pantoprazole Sodium (Protonix Ec Tab) 40 mg PO 0600 [facility] Last Admin: 12/17/16 05:24 Dose: 40 mg Vancomycin HCl (Vancocin 25 Mg/Ml (Oral Use)) 125 mg PO QID [facility] PRN Reason: Protocol Last Admin: 12/17/16 09:21 Dose: 125 mg Zolpidem Tartrate (Ambien) 5 mg PO HS PRN; Protocol PRN Reason: Insomnia Last Admin: 12/16/16 21:55 Dose: 5 mg - Labs Labs: 12/16/16 07:13 12/16/16 07:13 - Constitutional Appears: Non-toxic, No Acute Distress - Head Exam Head Exam: NORMAL INSPECTION - ENT Exam ENT Exam: Mucous Membranes Moist - Neck Exam Neck Exam: absent: Lymphadenopathy, Meningismus - Respiratory Exam Respiratory Exam: Decreased Breath Sounds - Cardiovascular Exam Cardiovascular Exam: +S1, +S2 - GI/Abdominal Exam GI & Abdominal Exam: Soft. absent: Tenderness Assessment and Plan - Assessment and Plan (Free Text) Plan: Assessment sepsis secondary to Clostridium difficile associated diarrhea; patient is slowly improving HTN dyslipidemia history of C diff associated diarrhea S/P hemicolectomy Plan continue Vancomycin PO day 5 and IV Flagyl - should complete a 14 day course; because of the recurrent nature of her diarrhea, GI has suggested possible fecal transplant if there is another recurrence; also would suggest a Vancomycin taper regimen for the patient after the 14 day course (ie. 1 week Vanco PO 125 mg BID, then 1 week Vanco PO daily, then 1 week PO Vanco every other week) blood, urine cx are negative; reviewed CXR, CT scan of the abdomen and pelvis
[2016-12-17] MEDS: Potassium Chloride 10 mEq 100 ML IVPB SCH ×2 (13:44→16:19)
[2016-12-17] MEDS: Sodium Chloride 0.45% 1,000 ML IV SCH (15:07)
--- NOTE | 2016-12-17 15:11 | PN ---
DATE: 12/17/2016 I saw her in the TCU, resting comfortably in bed. She is telling me about her diarrhea, is having mu ltiple bouts of it, and trying her best in therapy. She is still on IV antibiotics. She is currentl y on IV fluids, Ambien, metronidazole IV, Imodium, Lopressor, potassium replacement, Protonix, Tyleno l, Valium, vancomycin oral use and Zestril. PHYSICAL EXAMINATION: VITAL SIGNS: 99.3 temp, 53 pulse, 144/56 blood pressure, 18 respiratory rate, and 90% to 96% O2 sat. HEAD: Atraumatic, normocephalic. Throat is moist. NECK: Supple. HEART: Regular rate. LUNGS: Decreased breath sounds but clear. ABDOMEN: Mildly distended, but soft, positive bowel sounds, no guarding, no rebound. No CVA tendern ess. EXTREMITIES: No edema. LABORATORY DATA: 142, I gave her a K rider, potassium is 3.4, BUN 7, creatinine 0.5, GFR is greater than 6, sugar was 88 and also 123, calcium is 8.3. Total bili is 0.3, AST is 18, ALT 31, alkaline ph osphatase is 91, total protein is 6. White count 7.7, hemoglobin 11.8, hematocrit 35.9, platelets of 269. She is being seen by infectious disease and GI, chronic diarrhea, Clostridium difficile, recurrent in fection. She has adenocarcinoma, status post right hemicolectomy, pancreatic insufficiency, hyperten deuce, diabetes. She will be on p.o. and IV antibiotics, Imodium, IV fluids, physical therapy. We wi ll watch her closely. Johnny Yates DO cc: [id number] TT: 12/17/2016 14:47:14 Confirmation # [id number] Dictation # [id number] loly
[2016-12-18] MEDS: metroNIDAZOLE IV 500 mg/100 ml 100 ML IVPB SCH ×3 (05:40→21:45)
[2016-12-18] MEDS: Pantoprazole 40 mg EC Tab PO SCH (05:42)
[2016-12-18] MEDS: Vancomycin 25 MG/ML PO SCH ×4 (09:04→21:46)
--- NOTE | 2016-12-18 09:36 | PN ---
DATE: 12/18/2016 I saw her resting in bed in the TCU. She is walking a little bit and trying in physical therapy. Vijay jackson is still having lots of diarrhea. She is on Ambien, Flagyl, Imodium, Lopressor, Protonix, IV fluid s, Tylenol, Valium, vancomycin p.o. and Zestril. PHYSICAL EXAMINATION: VITAL SIGNS: She has a 99.1 temp, 59 pulse, 149/62 blood pressure, 15 respiratory rate, oxygen satur ation is 90. HEAD: Atraumatic, normocephalic. Throat is moist. NECK: Supple. HEART: Regular rate. LUNGS: Decreased breath sounds. ABDOMEN: Softer, positive bowel sounds. No guarding, no rebound. EXTREMITIES: No edema. LABORATORY DATA: We have a 7.7 white count, 11.8 hemoglobin, 35.9 hematocrit with 269 platelets. So dium 142, potassium 3.4 (low), sugar is 123, calcium is 8.3. AST is 18, ALT is 31, alkaline phosphat ase 91. That was all done on 12/16/2016. I am going to order labs for tomorrow. Encourage her to get out of bed. She might need to be on p.o. vancomycin for a while. There is also a question of a fecal transplant if we do not get her completely fixed with the p.o. vancomycin. Co ntinue with physical therapy. Continue with treatment and care. Check her labs tomorrow. Encourage her to eat and get out of bed and do physical therapy. Johnny Yates DO cc: [id number] TT: 12/18/2016 09:36:04 Confirmation # [id number] Dictation # [id number] mn
[2016-12-18] MEDS: Benzocaine/Menthol (Cepacol) Lozenge MT SCH (18:17)
--- NOTE | 2016-12-18 23:07 | PN ---
DATE: 12/18/2016 The patient is in room 304. SUBJECTIVE: The patient is in bed, in no acute distress, was seen earlier. Continues complaining of diarrhea. PHYSICAL EXAMINATION: VITAL SIGNS: Temperature is 98, blood pressure is 130/70, respiratory rate 16. HEENT: Unremarkable. NECK: Supple. LUNGS: Have decreased breath sounds. HEART: Normal S1, S2. ABDOMEN: Soft, nontender. LABORATORY DATA: Reveals the patient's white count is 7.7, hemoglobin of 11, BUN 7, creatinine 0.5. Microbiology reveals the patient's stool for C. diff 12/13/2016 is negative antigen, negative toxin. Stool for C. diff from 12/12/2016 had a positive antigen, negative toxin. Review of the orders reveals the patient to be on p.o. vancomycin and IV Flagyl. ASSESSMENT AND PLAN: This is a 71-year-old female seen earlier today in room 304, complaining still with diarrhea with sepsis secondary to pseudomembranous colitis and somewhat improvement. We will in crease the dose of vancomycin to 250 mg p.o. Continue the IV Flagyl. Today is day #6 with complete 14 days. If the diarrhea persists, recommend a colonoscopy and will follow with you. Dmitry Jiang MD cc: [id number] TT: 12/18/2016 23:07:01 Confirmation # [id number] Dictation # [id number] mn
[2016-12-19] MEDS: Sodium Chloride 0.45% 1,000 ML IV SCH ×2 (00:52→10:12)
[2016-12-19] MEDS: metroNIDAZOLE IV 500 mg/100 ml 100 ML IVPB SCH ×3 (05:07→21:37)
[2016-12-19] MEDS: Pantoprazole 40 mg EC Tab PO SCH (05:07)
[2016-12-19 07:52] LABS: HEMATOCRIT 33.9 % (36.0-48.0); MEAN CELL VOLUME 85.4 fL (80.0-105.0); MEAN CORPUSCULAR HGB CONC 32.7 g/dl (31.0-37.0); MEAN PLATELET VOLUME 9.6 fl (7.0-11.0); RED CELL DISTRIBUTION WIDTH 14.7 % (11.5-14.5); WHITE BLOOD COUNT 8.1 10^3/ul (4.5-11.0)
[2016-12-19 08:14] LABS: ALB/GLOB RATIO 0.8 (1.1-1.8); ALKALINE PHOSPHATASE 77 U/L (38-133); ALT/SGPT 27 U/L (7-56); AST/SGOT 16 U/L (15-39); BILIRUBIN,TOTAL 0.4 mg/dL (0.2-1.3); BLOOD UREA NITROGEN 7 mg/dL (7-21); CALCIUM 8.1 mg/dL (8.4-10.5); CARBON DIOXIDE 27 mmol/L (21-33); CHLORIDE 109 mmol/L (98-107); GFR AFRICAN-AMERICAN > 60; GLUCOSE,RANDOM 87 mg/dL (70-110); SODIUM 142 mmol/L (132-148); TOTAL PROTEIN 5.6 g/dL (5.8-8.3)
--- NOTE | 2016-12-19 09:18 | PN ---
DATE: 12/19/2016 I saw her resting in bed this morning. She is getting very discouraged from all the diarrhea she is having. She is requesting to talk to her oncologist, Dr. Carbone. I will call him in. She is having diarrhea every day, and it is making her very weak. She is having a hard time doing the physical therapy. She is being seen by GI and infectious disease. She has chronic diarrhea. She had multiple surgeries in the past. She is status post right hemicolectomy, also C. diff with adjustment of IV antibiotics, as per infectious disease. PHYSICAL EXAMINATION: VITAL SIGNS: Temp 99, 68 pulse, 140/75 blood pressure, 18 respiratory rate, 90 % O2 sat on room air. I am going to call on pulmonary to get his opinion of the low O2 sat. HEAD: Atraumatic, normocephalic. Throat is moist. NECK: Supple. HEART: Regular rate. LUNGS: Decreased breath sounds. ABDOMEN: Soft. Positive bowel sounds. EXTREMITIES: No edema. MEDICATIONS: She is on Ambien, Cepacol, Flagyl, Imodium, Lopressor, Protonix, IV fluids, Tylenol, Valium, vancomycin, and Zestril. LABORATORY DATA: She has an 8.1 white count, 11.1 hemoglobin, 33.9 hematocrit with 266 platelets. Sodium 142. Potassium is low. I am going to give her oxygen so far and potassium, and a pulmonary evaluation. BUN is 7, creatinine 0.5. GFR is greater than 60. Sugar is 87. Calcium is 8.1. Total bili is 0.4. AST is 16. ALT is 27. Alk phos is 77. I will get these things done. We will see if we can get her feeling a little bit better. Continue with the physical therapy and encouragement with diet. Johnny Yates DO cc: [id number] TT: 12/19/2016 09:18:03 Confirmation # [id number] Dictation # [id number] jn PHILIP
--- NOTE | 2016-12-19 09:50 | CON ---
DATE: 12/19/2016 REFERRING PHYSICIAN: Dr. Yates. REASON FOR CONSULTATION: Low pulse oximetry. The patient is a 71-year-old female with past medical history significant for recurrent adenocarcinoma of the right colon, status post hemicolectomy, recurrent Clostridium difficile infections, chronic diarrhea, pancreatic insufficiency, hypertension, diabetes mellitus, probable chronic obstructive pulmonary disease (positive extensive smoking history -- still smokes), who initially presented to [facility] -- originally on 12/12/2016 -- with worsening diarrhea and fevers. Pseudomembranous colitis was diagnosed, and the patient was admitted for additional evaluation and treatment. The patient then did very well on the acute care side of [facility] -- and was transferred to the transitional care unit for physical therapy. I am asked to evaluate on this case for a low pulse oximetry. I did discuss the case with the nurse at length. I have also discussed the case with the patient at length, and reviewed the chart at length. The patient denies shortness of breath at rest, dyspnea on exertion, cough, or sputum production. The patient also denies chest pain, coughing up of blood, or chest pain -- made worse with deep respirations. As above, the patient did present with fevers. The fevers have been defervescing nicely over the hospitalization. No history of chills or infectious exposure. No history of night sweats, weight loss or appetite change prior to the above events. No history of leg or calf pains. No history of syncope or diaphoresis. No history of recent travel or trauma. REVIEW OF SYSTEMS: No acute urinary symptoms. No new neurological or musculoskeletal complaints. Rest of the review of systems is negative. ALLERGIES: PENICILLIN. SOCIAL HISTORY: Positive for extensive tobacco usage -- still smokes, no alcohol. FAMILY HISTORY: No inheritable diseases. HOME MEDICATIONS: Include Valium, Ambien, Protonix, Lopressor, Imodium, Zestril , Tylenol. PHYSICAL EXAMINATION: The patient is comfortable at rest. She is not short of breath. VITALS: Temperature is 99.0, pulse 68, respirations 18, blood pressure 149/75. Oxygen saturation on room air ranges from 90-98%. HENT: Normocephalic, atraumatic. No JVD. CARDIOVASCULAR: Positive S1, S2. No S3. LUNGS: Slight decreased breath sounds at the bases. Otherwise, clear. EXTREMITIES: No clubbing, cyanosis, or edema. Calves are nontender to palpation. GASTROINTESTINAL: Abdomen is soft, nontender, nondistended. Bowel sounds are positive. SKIN: No acute rash. NEUROLOGIC EXAMINATION: Limited at the present time. CURRENT LABORATORY DATA: Chest x-ray was last done on 12/12/2016 and reviewed. There is no active disease present. Abdominal and pelvic CAT scan was also done on 12/13/2016. There is minimal atelectasis noted at the bases. There are no other acute findings. IMPRESSION: 1. Pseudomembranous colitis. 2. Mild anemia. 3. Chronic obstructive pulmonary disease. 4. Minimal atelectasis at the bases. PLAN: Again, I did discuss the case with the nurse at length. I have also reviewed the chart at length. The patient presented to [facility] - - originally on 12/12/2016 -- with Pseudomembranous colitis. Again, she did very well on the acute care side of [facility], and was transferred to the transitional unit for physical therapy. Apparently, some of her pulse oximetry readings have been low. The patient reports no significant pulmonary symptoms at the present time. I did review the chest x-ray as above. There is no acute disease. I have also reviewed the abdominal and pelvic CAT scan. Minimal atelectasis at the bases was noted. I will start the patient on frequent incentive spirometry. The patient has also been placed on supplemental oxygen. The reason for the oxygen desaturation is probably multifactorial in nature -- namely a combination of minimal atelectasis at the bases AND long-standing chronic obstructive pulmonary disease. When the patient 's status improves, I would also like to obtain a full pulmonary function test. Additional pulmonary intervention will be based on the clinical status of the patient. I would continue with the GI evaluation. Inputs are noted. Input by infectious disease are also noted. Additional pulmonary intervention will be based on the clinical status of the patient. I will discuss the above with Dr. Yates. Thank you very much for this pulmonary consultation. Alex Serna MD cc: [id number] TT: 12/19/2016 09:50:05 Confirmation # [id number] Dictation # [id number] jn PHILIP
[2016-12-19] MEDS: Benzocaine/Menthol (Cepacol) Lozenge MT SCH ×3 (10:06→17:35)
[2016-12-19] MEDS: Potassium Chloride 20 mEq 100 ML IVPB SCH ×2 (10:11→12:13)
[2016-12-19] MEDS: Vancomycin 25 MG/ML PO SCH ×4 (10:12→21:37)
--- NOTE | 2016-12-19 11:34 | CP.PCM.PN ---
<Mallika Rudd - Last Filed: 12/19/16 15:17> Subjective - Date & Time of Evaluation Date of Evaluation: 12/19/16 Time of Evaluation: 11:31 - Subjective Subjective: Gastroenterology Fellow/PGY4 Progress Note Patient notes two episodes of explosive diarrhea this morning. She did not make it to the commode with one of the episodes. Admits to excess flatulence and gas pains. Tolerating regular diet. A 12-point review of systems negative except for as above. Objective - Vital Signs/Intake and Output Vital Signs (last 24 hours): Temp Pulse Resp BP Pulse Ox 98.7 F 60 18 142/63 90 L 12/19/16 10:45 12/19/16 10:45 12/19/16 10:45 12/19/16 10:45 12/19/16 10:45 - Medications Medications: Current Medications Acetaminophen (Tylenol 325mg Tab) 650 mg PO Q4 PRN; Protocol PRN Reason: Fever >100.4 F Last Admin: 12/19/16 05:07 Dose: 650 mg Benzocaine/Menthol (Cepacol Sore Throat) 1 pauline MT TID BECCA PRN Reason: Protocol Last Admin: 12/19/16 10:06 Dose: 1 pauline Diazepam (Valium) 5 mg PO TID BECCA PRN Reason: Protocol Last Admin: 12/19/16 10:14 Dose: 5 mg Sodium Chloride (Sodium Chloride 0.45%) 1,000 mls @ 70 mls/hr IV .[id number] BECCA PRN Reason: Protocol Last Admin: 12/19/16 10:12 Dose: Not Given Metronidazole (Flagyl) 100 mls @ 100 mls/hr IVPB Q8 BECCA PRN Reason: Protocol Last Admin: 12/19/16 05:07 Dose: 100 mls/hr Potassium Chloride (Potassium Chloride 20 Meq/100 Ml) 100 mls @ 50 mls/hr IVPB Q2H [facility] Stop: 12/19/16 12:59 Last Admin: 12/19/16 10:11 Dose: 50 mls/hr Lisinopril (Zestril) 20 mg PO DAILY BECCA PRN Reason: Protocol Last Admin: 12/19/16 10:13 Dose: 20 mg Loperamide HCl (Imodium) 2 mg PO Q6 PRN; Protocol PRN Reason: Diarrhea Last Admin: 12/19/16 10:07 Dose: 2 mg Metoprolol Tartrate (Lopressor) 12.5 mg PO 0800,1800 BECCA PRN Reason: Protocol Last Admin: 12/19/16 08:04 Dose: 12.5 mg Pantoprazole Sodium (Protonix Ec Tab) 40 mg PO 0600 BECCA Last Admin: 12/19/16 05:07 Dose: 40 mg Vancomycin HCl (Vancocin 25 Mg/Ml (Oral Use)) 250 mg PO QID BECCA PRN Reason: Protocol Stop: 01/02/17 10:01 Last Admin: 12/19/16 10:12 Dose: 250 mg Zolpidem Tartrate (Ambien) 5 mg PO HS PRN; Protocol PRN Reason: Insomnia Last Admin: 12/18/16 21:45 Dose: 5 mg - Labs Labs: 12/19/16 07:00 12/19/16 07:00 - Constitutional Appears: Non-toxic, No Acute Distress - Head Exam Head Exam: ATRAUMATIC, NORMOCEPHALIC - Eye Exam Eye Exam: EOMI, PERRL Pupil Exam: PERRL. absent: Miosis, Mydriatic - ENT Exam ENT Exam: Mucous Membranes Moist, Normal Oropharynx - Neck Exam Neck Exam: Full ROM, Normal Inspection - Respiratory Exam Respiratory Exam: Clear to Ausculation Bilateral. absent: Rales, Rhonchi, Wheezes - Cardiovascular Exam Cardiovascular Exam: RRR, +S1, +S2. absent: Gallop, Rubs - GI/Abdominal Exam GI & Abdominal Exam: Soft, Normal Bowel Sounds. absent: Distended, Firm, Guarding, Rigid, Tenderness, Organomegaly, Rebound Assessment and Plan - Assessment and Plan (Free Text) Assessment: 71 year old female with history of Hypertension, Diabetes, Anxiety, recurrent C difficile, chronic diarrhea, pancreatic insufficiency, gastric outlet obstruction s/p gastrojejunostomy, ileus 10/2016, right hemicolectomy 10/02/16 presenting with fever, chills, and sweats from GI clinic. CT A/P with no acute findings. Active treatment of resolved sepsis secondary to Cdiff antigen associated diarrhea. Colonoscopy 02/2016 and 08/2016 - 22 tubular adenomas and transverse 3cm mass with central depression s/p right hemicolectomy 10/02/16 with pathology showing T1N0M0 moderately differentiated adenocarcinoma. Plan: >Cdiff antigen associated diarrhea >continue vancomycin PO for 14 days >changed to altered diet- trial lactose free and low fiber diet >supportive care with Imodium PRN - max three doses daily >chronic diarrhea since 2013, possible component of IBS >would benefit from fecal transplant outpatient with third C diff episode >will follow clinical course <ApacheMarcell - Last Filed: 12/19/16 17:58> Objective - Vital Signs/Intake and Output Vital Signs (last 24 hours): Temp Pulse Resp BP Pulse Ox 98.7 F 60 18 133/55 L 90 L 12/19/16 10:45 12/19/16 10:45 12/19/16 10:45 12/19/16 17:37 12/19/16 10:45 - Medications Medications: Current Medications Acetaminophen (Tylenol 325mg Tab) 650 mg PO Q4 PRN; Protocol PRN Reason: Fever >100.4 F Last Admin: 12/19/16 14:31 Dose: 650 mg Benzocaine/Menthol (Cepacol Sore Throat) 1 pauline MT TID BECCA PRN Reason: Protocol Last Admin: 12/19/16 17:35 Dose: 1 pauline Diazepam (Valium) 5 mg PO TID BECCA PRN Reason: Protocol Last Admin: 12/19/16 17:40 Dose: 5 mg Sodium Chloride (Sodium Chloride 0.45%) 1,000 mls @ 70 mls/hr IV .[id number] BECCA PRN Reason: Protocol Last Admin: 12/19/16 10:12 Dose: Not Given Metronidazole (Flagyl) 100 mls @ 100 mls/hr IVPB Q8 BECCA PRN Reason: Protocol Last Admin: 12/19/16 14:22 Dose: 100 mls/hr Lisinopril (Zestril) 20 mg PO DAILY BECCA PRN Reason: Protocol Last Admin: 12/19/16 10:13 Dose: 20 mg Loperamide HCl (Imodium) 2 mg PO Q6 PRN; Protocol PRN Reason: Diarrhea Last Admin: 12/19/16 10:07 Dose: 2 mg Metoprolol Tartrate (Lopressor) 12.5 mg PO 0800,1800 BECCA PRN Reason: Protocol Last Admin: 12/19/16 17:37 Dose: Not Given Pantoprazole Sodium (Protonix Ec Tab) 40 mg PO 0600 BECCA Last Admin: 12/19/16 05:07 Dose: 40 mg Vancomycin HCl (Vancocin 25 Mg/Ml (Oral Use)) 250 mg PO QID BECCA PRN Reason: Protocol Stop: 01/02/17 10:01 Last Admin: 12/19/16 17:38 Dose: 250 mg Zolpidem Tartrate (Ambien) 5 mg PO HS PRN; Protocol PRN Reason: Insomnia Last Admin: 12/18/16 21:45 Dose: 5 mg - Labs Labs: 12/19/16 07:00 12/19/16 07:00 Attending/Attestation - Attestation I have personally seen and examined this patient.: Yes I have fully participated in the care of the patient.: Yes I have reviewed all pertinent clinical information, including history, physical exam and plan: Yes Notes (Text): 12/19/16 17:53 71 year old female with history of HTN, DM, Anxiety, recurrent C difficile, chronic diarrhea, h/o pancreatitis, gastric outlet obstruction s/p gastrojejunostomy, colon cancer s/p R hemicolectomy admitted with C. diff, now in rehab. 1. Clostridium difficile diarrhea Plan: -3rd episode of C. diff at this point -would recommend tapering/pulsed dose of vancomycin as follows -vancomycin 125 mg QID x 14 days total, then 125 mg BID x 1 week, then 125 mg daily x 1 week, then 125 mg every other day x 1 week, then 125 every 3 days x 2 weeks -recommend probiotic BID -diet as tolerated -may use immodium as needed for diarrhea -in the future, may benefit from FMT
--- NOTE | 2016-12-19 12:00 | PN ---
DATE: 12/19/2016 The patient seen in bed in no acute distress, nontoxic. No fevers and chills. On exam temperature is 98, blood pressure is 140/60, respiratory rate of 18. EXAMINATION OF HENT: Unremarkable. NECK: Supple. LUNGS: Have decreased breath sounds. HEART EXAMINATION: Normal S1, S2. ABDOMINAL EXAMINATION: Soft. LABORATORY EXAMINATION: Reveals a BUN of 7, creatinine of 0.5. Dr. Serna's consultation is reviewed. Dr. Johnny Yates's note is reviewed. ASSESSMENT AND PLAN: This is a 71-year-old female seen earlier today in room 304. Still having diar pinky with sepsis secondary to pseudomembranous colitis, and on a higher dose of p.o., on IV Flagyl. Recommend a colonoscopy and gastroenterology consultation. Case discussed with Dr. Johnny Yates, and the patient with chronic obstructive lung disease. Dmitry Jiang MD cc: [id number] TT: 12/19/2016 11:59:41 Confirmation # [id number] Dictation # [id number] mallory
[2016-12-20] MEDS: Sodium Chloride 0.45% 1,000 ML IV SCH (00:07)
[2016-12-20] MEDS: metroNIDAZOLE IV 500 mg/100 ml 100 ML IVPB SCH ×3 (05:50→21:19)
[2016-12-20] MEDS: Pantoprazole 40 mg EC Tab PO SCH (05:52)
[2016-12-20 07:10] LABS: HEMATOCRIT 35.3 % (36.0-48.0); MEAN CELL VOLUME 86.3 fL (80.0-105.0); MEAN CORPUSCULAR HEMOGLOBIN 27.9 pg (25.0-35.0); MEAN CORPUSCULAR HGB CONC 32.3 g/dl (31.0-37.0); MEAN PLATELET VOLUME 9.6 fl (7.0-11.0); RED CELL DISTRIBUTION WIDTH 14.8 % (11.5-14.5); WHITE BLOOD COUNT 7.6 10^3/ul (4.5-11.0)
[2016-12-20 07:20] LABS: ALB/GLOB RATIO 0.9 (1.1-1.8); ALKALINE PHOSPHATASE 81 U/L (38-133); ALT/SGPT 24 U/L (7-56); AST/SGOT 16 U/L (15-39); BILIRUBIN,TOTAL 0.3 mg/dL (0.2-1.3); BLOOD UREA NITROGEN 5 mg/dL (7-21); CALCIUM 8.2 mg/dL (8.4-10.5); CARBON DIOXIDE 27 mmol/L (21-33); CHLORIDE 109 mmol/L (98-107); GFR AFRICAN-AMERICAN > 60; GLUCOSE,RANDOM 84 mg/dL (70-110); POTASSIUM 3.3 mmol/L (3.6-5.0); SODIUM 143 mmol/L (132-148); TOTAL PROTEIN 5.8 g/dL (5.8-8.3)
--- NOTE | 2016-12-20 08:32 | PN ---
DATE: 12/20/2016 PULMONARY NOTE SUBJECTIVE: The patient appears comfortable this morning. She is not short of breath at rest. PHYSICAL EXAMINATION: VITAL SIGNS: Temperature is 98.3, pulse 74, respirations 16, blood pressure 140 /70. Oxygen saturation on room air - 93%. Oxygen saturation on nasal canula - 96%. HEENT: Normocephalic, atraumatic. No JVD. CARDIOVASCULAR: Positive S1, S2. No S3. LUNGS: Better breath sounds at the bases. No rhonchi. No wheezing. EXTREMITIES: No clubbing, cyanosis, or edema. Calves are nontender to palpation. GASTROINTESTINAL: Abdomen is soft, nontender, nondistended. Bowel sounds are positive. SKIN: No acute rash. NEUROLOGIC: Limited at the present time. IMPRESSION: 1. Pseudomembranous colitis. 2. Mild anemia. 3. Chronic obstructive pulmonary disease. 4. Minimal atelectasis at the bases. PLAN: The patient appears very comfortable this morning. She is not short of breath at rest. She states she is feeling much better overall. I did discuss the case with the night nurse at length. The night nurse stated that the patient had a very good night. As above, the oxygen saturation - just measured on room air - is 93%. This is an improvement compared to previous readings. I will continue the patient out of bed as much as possible, and have stressed the importance of using her incentive spirometer. She fully agrees. I would continue with the GI and infectious disease evaluations. Inputs are noted. Clinical status of the patient is improving. I will discuss the above with Dr. Yates. Alex Serna MD cc: [id number] TT: 12/20/2016 08:31:34 Confirmation # [id number] Dictation # [id number] mallory PALACIOS
--- NOTE | 2016-12-20 09:22 | PN ---
DATE: 12/20/2016 I saw her sitting up in bed. She tells me she is having more diarrhea. She looks a little bit stron neri. She is walking a little bit better, and eating better. VITAL SIGNS: 98.3 temp, 74 pulse, 140/70 blood pressure, 16 respiratory rate, 96% O2 sat on nasal ca nnula. HEAD: Atraumatic, normocephalic. Throat is moist. NECK: Supple. HEART: Regular rate. LUNGS: Clear to auscultation bilaterally. No wheezes, no rhonchi, no rales. ABDOMEN: Soft, nontender, positive bowel sounds. EXTREMITIES: Have no edema. She is currently on Ambien, Cepacol, Flagyl IV, Imodium, Lopressor, Protonix, Tylenol, Valium, vancom ycin p.o., and Zestril. She has a 7.6 white count, 11.4 hemoglobin, 35.3 hematocrit, with a 282 platelets. 143 sodium, potas sium is 3.3. I am going to give her more potassium today. BUN is 5, creatinine 0.5, GFR is greater than 60, sugar is 84, calcium is 8.2, total bili is 0.3. AST is 16, ALT is 24, alk phos 81, total pr otein is 5.8. I was told that C. diff came back negative, and she is drinking. I will DC IV fluids, see how she do es. I encouraged her to drink more water, also use the incentive spirometry. I appreciate pulmonary 's adding of inhaler. I will see how she does without the IV fluids. I will check her labs tomorrow , encourage her with physical therapy. The diarrhea is going to be a chronic problem due to her mult iple surgeries. She is being seen by pulmonary, GI, and infectious disease. She has diarrhea, sepsis secondary to ps eudomembranous colitis. Increased the Flagyl to higher dose, and GI states want to continue with the vancomycin for extended period time. Johnny Yates DO cc: [id number] TT: 12/20/2016 09:22:18 Confirmation # [id number] Dictation # [id number] mallory
[2016-12-20] MEDS: Benzocaine/Menthol (Cepacol) Lozenge MT SCH ×3 (09:48→17:33)
[2016-12-20] MEDS: Vancomycin 25 MG/ML PO SCH ×4 (09:49→21:19)
--- NOTE | 2016-12-20 10:54 | CP.PCM.PN ---
<Mallika Rudd - Last Filed: 12/20/16 14:37> Subjective - Date & Time of Evaluation Date of Evaluation: 12/20/16 Time of Evaluation: 10:38 - Subjective Subjective: Gastroenterology Fellow/PGY4 Progress Note Patient notes two to three episodes of diarrhea. Tolerating regular diet. A 12- point review of systems negative except for as above. Objective - Vital Signs/Intake and Output Vital Signs (last 24 hours): Temp Pulse Resp BP Pulse Ox 98.3 F 74 16 140/70 96 12/20/16 06:00 12/20/16 09:49 12/20/16 06:00 12/20/16 09:49 12/20/16 06:00 - Medications Medications: Current Medications Acetaminophen (Tylenol 325mg Tab) 650 mg PO Q4 PRN; Protocol PRN Reason: Fever >100.4 F Last Admin: 12/20/16 04:56 Dose: 650 mg Benzocaine/Menthol (Cepacol Sore Throat) 1 pauline MT TID BECCA PRN Reason: Protocol Last Admin: 12/20/16 09:48 Dose: 1 pauline Diazepam (Valium) 5 mg PO TID BECCA PRN Reason: Protocol Last Admin: 12/20/16 09:49 Dose: 5 mg Metronidazole (Flagyl) 100 mls @ 100 mls/hr IVPB Q8 BECCA PRN Reason: Protocol Last Admin: 12/20/16 05:50 Dose: 100 mls/hr Lisinopril (Zestril) 20 mg PO DAILY BECCA PRN Reason: Protocol Last Admin: 12/20/16 09:49 Dose: 20 mg Loperamide HCl (Imodium) 2 mg PO Q6 PRN; Protocol PRN Reason: Diarrhea Last Admin: 12/19/16 10:07 Dose: 2 mg Metoprolol Tartrate (Lopressor) 12.5 mg PO 0800,1800 BECCA PRN Reason: Protocol Last Admin: 12/20/16 08:18 Dose: 12.5 mg Pantoprazole Sodium (Protonix Ec Tab) 40 mg PO 0600 BECCA Last Admin: 12/20/16 05:52 Dose: 40 mg Vancomycin HCl (Vancocin 25 Mg/Ml (Oral Use)) 250 mg PO QID BECCA PRN Reason: Protocol Stop: 01/02/17 10:01 Last Admin: 12/20/16 09:49 Dose: 250 mg Zolpidem Tartrate (Ambien) 5 mg PO HS PRN; Protocol PRN Reason: Insomnia Last Admin: 12/19/16 21:36 Dose: 5 mg - Labs Labs: 12/20/16 06:30 12/20/16 06:30 - Constitutional Appears: Non-toxic, No Acute Distress - Head Exam Head Exam: ATRAUMATIC, NORMOCEPHALIC - Eye Exam Eye Exam: EOMI, PERRL Pupil Exam: PERRL. absent: Miosis, Mydriatic - ENT Exam ENT Exam: Mucous Membranes Moist, Normal Oropharynx - Neck Exam Neck Exam: Full ROM, Normal Inspection - Respiratory Exam Respiratory Exam: Clear to Ausculation Bilateral. absent: Rales, Rhonchi, Wheezes - Cardiovascular Exam Cardiovascular Exam: RRR, +S1, +S2. absent: Gallop, Rubs - GI/Abdominal Exam GI & Abdominal Exam: Soft, Normal Bowel Sounds. absent: Distended, Firm, Guarding, Rigid, Tenderness, Organomegaly, Rebound - Extremities Exam Extremities Exam: Full ROM. absent: Pedal Edema - Neurological Exam Neurological Exam: Alert, Awake - Psychiatric Exam Psychiatric exam: Normal Affect, Normal Mood - Skin Skin Exam: Dry, Intact, Normal Color, Warm Assessment and Plan - Assessment and Plan (Free Text) Assessment: 71 year old female with history of Hypertension, Diabetes, Anxiety, recurrent C difficile, chronic diarrhea, pancreatic insufficiency, gastric outlet obstruction s/p gastrojejunostomy, ileus 10/2016, right hemicolectomy 10/02/16 presenting with fever, chills, and sweats from GI clinic. CT A/P with no acute findings. Active treatment of resolved sepsis secondary to Cdiff antigen associated diarrhea. Colonoscopy 02/2016 and 08/2016 - 22 tubular adenomas and transverse 3cm mass with central depression s/p right hemicolectomy 10/02/16 with pathology showing T1N0M0 moderately differentiated adenocarcinoma. Plan: >Cdiff antigen associated diarrhea- 3rd episode >continue vancomycin PO for 14 days >vancomycin taper to follow: vancomycin 125 mg QID x 14 days total, then 125 mg BID x 1 week, then 125 mg daily x 1 week, then 125 mg every other day x 1 week, then 125 every 3 days x 2 weeks >recommend probiotic BID >continue lactose free and low fiber diet >supportive care with Imodium PRN - max three doses daily >chronic diarrhea since 2013, possible component of IBS >would benefit from fecal transplant outpatient with third C diff episode >will follow clinical course <Fady Pradhan MD - Last Filed: 12/20/16 19:49> Objective - Vital Signs/Intake and Output Vital Signs (last 24 hours): Temp Pulse Resp BP Pulse Ox 99.4 F 53 L 20 142/63 94 L 12/20/16 16:00 12/20/16 17:37 12/20/16 16:00 12/20/16 17:37 12/20/16 16:00 - Medications Medications: Current Medications Acetaminophen (Tylenol 325mg Tab) 650 mg PO Q4 PRN; Protocol PRN Reason: Fever >100.4 F Last Admin: 12/20/16 13:53 Dose: 650 mg Benzocaine/Menthol (Cepacol Sore Throat) 1 pauline MT TID BECCA PRN Reason: Protocol Last Admin: 12/20/16 17:33 Dose: 1 pauline Diazepam (Valium) 5 mg PO TID BECCA PRN Reason: Protocol Last Admin: 12/20/16 17:38 Dose: 5 mg Metronidazole (Flagyl) 100 mls @ 100 mls/hr IVPB Q8 BECCA PRN Reason: Protocol Last Admin: 12/20/16 13:43 Dose: 100 mls/hr Lisinopril (Zestril) 20 mg PO DAILY BECCA PRN Reason: Protocol Last Admin: 12/20/16 09:49 Dose: 20 mg Loperamide HCl (Imodium) 2 mg PO Q6 PRN; Protocol PRN Reason: Diarrhea Last Admin: 12/20/16 13:59 Dose: 2 mg Metoprolol Tartrate (Lopressor) 12.5 mg PO 0800,1800 BECCA PRN Reason: Protocol Last Admin: 12/20/16 17:37 Dose: Not Given Pantoprazole Sodium (Protonix Ec Tab) 40 mg PO 0600 BECCA Last Admin: 12/20/16 05:52 Dose: 40 mg Vancomycin HCl (Vancocin 25 Mg/Ml (Oral Use)) 250 mg PO QID BECCA PRN Reason: Protocol Stop: 01/02/17 10:01 Last Admin: 12/20/16 17:39 Dose: 250 mg Zolpidem Tartrate (Ambien) 5 mg PO HS PRN; Protocol PRN Reason: Insomnia Last Admin: 12/19/16 21:36 Dose: 5 mg - Labs Labs: 12/20/16 06:30 12/20/16 06:30 Attending/Attestation - Attestation I have personally seen and examined this patient.: Yes I have fully participated in the care of the patient.: Yes I have reviewed all pertinent clinical information, including history, physical exam and plan: Yes Notes (Text): 12/20/16 19:47 Patient seen and examined with GI fellow on rounds this am. This is a 71 year old female with history of HTN, DM, Anxiety, recurrent C difficile, chronic diarrhea, h/o pancreatitis, gastric outlet obstruction s/p gastrojejunostomy, colon cancer s/p R hemicolectomy admitted with C. diff resolved and now recurrent. Continue tapered/ pulse dose of vancomycin 125 mg QID x 14 days total , then 125 mg BID x 1 week, then 125 mg daily x 1 week, then 125 mg every other day x 1 week, then 125 every 3 days x 2 weeks with probiotic. Diet a stolerated. Supportive care. Electrolyte repletion. Consider FMT
--- NOTE | 2016-12-20 14:55 | PN ---
DATE: 12/20/2016 The patient is in bed in no acute distress, nontoxic. PHYSICAL EXAMINATION: VITAL SIGNS: The patient has a temperature 98, blood pressure 112/70, respiratory rate 16. ABDOMEN: Soft, nontender. NECK: Supple. LUNGS: Have decreased breath sounds. HEART: Normal S1, S2. SUBJECTIVE: Soft, nontender. LABORATORY DATA: Reveals a white count of 7.6, hemoglobin of 11, platelets of 282. Chemistries reve al the BUN of 5, creatinine 0.5. Microbiology is noted. ASSESSMENT AND PLAN: A 71-year-old female who is seen today, earlier in room 304. Diarrhea has impr judie on IV Flagyl and p.o. vancomycin. GI workup in progress. We will follow with you. Dmitry Jiang MD cc: [id number] TT: 12/20/2016 14:54:51 Confirmation # [id number] Dictation # [id number] constance
--- NOTE | 2016-12-20 22:28 | CON ---
DATE: 12/20/2016 This is the patient's hospital visit on the TCU floor. For Dr. Carbone. CHIEF COMPLAINT: Adenocarcinoma of the colon. HISTORY OF PRESENT ILLNESS: The patient is a 71-year-old female admitted via the Emergency Room for chronic diarrhea, history of C. difficile antibiotic treatment with pyrexia. Temperature of 103 on 0 12/12/2016. She had been referred to see Dr. Carbone by Dr. Mo, tree worker, and [facility] at the time of admission to the hospital. She is now planned for discharge, with e patient known to have had a hemicolectomy with Dr. Berg 10/02/2016 with diagnosis at that time m oderately differentiated adenocarcinoma arising from tubular adenoma invading the submucosa. Margins were negative for dysplasia or carcinoma. She also reports that she has had diarrhea for over a year's time, for which she had originally seen Dr. Nugent and Dr. Mo, with recommendations for further treatment at [facility]. She is now resting comfortably, reporting that she now has a different physician, as she was unable t o climb the stairs to see Dr. Umana, who was her primary care doctor in the past. PAST MEDICAL HISTORY: As above, status post hemicolectomy, with the patient having had previous jose juan stefanie surgery which is unclear as to what was previously done, as the patient does not recall, and it i s not documented in her medical reports. It was possible duodenal stricture surgery? History of sev ere diarrhea with C. diff for approximately 1 year's time, hypertension, history of Meniere disease, diabetes mellitus, diverticulitis, GERD, left knee joint replacement. FAMILY HISTORY/SOCIAL HISTORY: Positive smoker. Occasional alcohol. ALLERGIES: PENICILLIN. MEDICATIONS: Include lactobacillus, Imodium, Prilosec, Norvasc at time of admission. REVIEW OF SYSTEMS: Essentially negative to questioning, except as above. OBJECTIVE: PHYSICAL EXAMINATION: VITAL SIGNS: Temperature 99.4, pulse 53, respirations 20, blood pressure 142/63, pulse ox 94%. The patient's labs were done. White blood cell count of 7.6, hemoglobin 11.4, hematocrit 35.3, plate let count 282,000, with a chem metabolic panel showing a potassium of 3.3, chloride of 109, with an o therwise normal chem metabolic panel. INR on 12/12/2016 was 0.97. Her stool for C. difficile was do ne on 12/13/2016. It was reported as negative for antigen and toxin, with a C. difficile antigen pos itive on 12/12/2016 with a negative for toxin at that time. The assessment for this patient is that of moderately differentiated adenocarcinoma of the right colo n status post hemicolectomy, chronic diarrhea, deconditioning on TCU, hypertension. Sepsis secondary to Clostridium difficile-associated diarrhea. The plan for this patient, after conversation with Dr. Carbone, are to check her tumor markers. We w ill continue present medical regimen, with the patient's labs to be repeated as indicated. Continue for reconditioning, with antibiotics as per Dr. Jiang. Prognosis for this patient is guarded. We will ask for a PET/CT scan once it is allowed by her insurance after discharge, with followup in t he office for further recommendations as indicated. Elder Navas MD cc: [id number] TT: 12/20/2016 22:27:50 Confirmation # [id number] Dictation # [id number] jn
[2016-12-21] MEDS: metroNIDAZOLE IV 500 mg/100 ml 100 ML IVPB SCH ×3 (05:12→22:07)
[2016-12-21] MEDS: Pantoprazole 40 mg EC Tab PO SCH (06:03)
[2016-12-21 07:38] LABS: ADD MANUAL DIFF? NO; BASO # 0.09 K/mm3 (0.0-2.0); BASO % 1.4 % (0.0-3.0); EOS # 0.3 (0.0-0.7); EOS % 4.9 % (1.5-5.0); GRAN # 3.93 (1.4-6.5); GRAN % 59.6 % (50.0-68.0); HEMATOCRIT 35.3 % (36.0-48.0); LYMPH # 1.6 (1.2-3.4); LYMPH % 23.6 % (22.0-35.0); MEAN CELL VOLUME 86.7 fL (80.0-105.0); MEAN CORPUSCULAR HEMOGLOBIN 28.3 pg (25.0-35.0); MEAN CORPUSCULAR HGB CONC 32.6 g/dl (31.0-37.0); MEAN PLATELET VOLUME 9.9 fl (7.0-11.0); MONO # 0.7 (0.1-0.6); MONO % 10.5 % (1.0-6.0); PLATELET COUNT 280 10^3/uL (120.0-450.0); RED CELL DISTRIBUTION WIDTH 15.1 % (11.5-14.5); WHITE BLOOD COUNT 6.6 10^3/ul (4.5-11.0)
[2016-12-21 07:52] LABS: ALB/GLOB RATIO 0.8 (1.1-1.8); ALKALINE PHOSPHATASE 77 U/L (38-133); ALT/SGPT 29 U/L (7-56); AST/SGOT 16 U/L (15-39); BILIRUBIN,TOTAL 0.3 mg/dL (0.2-1.3); BLOOD UREA NITROGEN 6 mg/dL (7-21); CALCIUM 8.4 mg/dL (8.4-10.5); CARBON DIOXIDE 28 mmol/L (21-33); CHLORIDE 108 mmol/L (98-107); GFR AFRICAN-AMERICAN > 60; GLUCOSE,RANDOM 83 mg/dL (70-110); SODIUM 145 mmol/L (132-148)
--- NOTE | 2016-12-21 08:27 | PN ---
DATE: 12/21/2016 SUBJECTIVE: The patient appears comfortable this morning. She is not short of breath at rest. PHYSICAL EXAMINATION: VITAL SIGNS: Temperature is 98.2, pulse 84, respirations 18, blood pressure 150 /80. Oxygen saturation on room air is 95%. HEENT: Normocephalic, atraumatic. No JVD. CARDIOVASCULAR: Positive S1, S2. No S3. LUNGS: Improved breath sounds at the bases. No rhonchi. No wheezing. EXTREMITIES: No clubbing, cyanosis, or edema. Calves are nontender to palpation. GASTROINTESTINAL: Abdomen is soft, nontender, nondistended. Bowel sounds are positive. SKIN: No acute rash. NEUROLOGIC: Limited at the present time. IMPRESSION: 1. Pseudomembranous colitis. 2. Mild anemia. 3. Chronic obstructive pulmonary disease. 4. Minimal atelectasis at the bases. PLAN: The patient appears very comfortable this morning. She is not short of breath at rest. She states she is feeling much better overall. I did discuss the case with the night nurse at length. The night nurse stated that the patient is doing very well overall. She has been out of bed most of the day, and using her incentive spirometer. Not surprisingly, the room air oxygen saturation is now 95%. I will continue with the frequent incentive spirometer usage and have the patient out of bed as much as possible. I would also like to obtain a pulmonary function test in the near future. GI evaluation is noted. Clinical status of the patient is significantly improved. I will discuss the above with Dr. Yates. Alex Serna MD cc: [id number] TT: 12/21/2016 08:27:00 Confirmation # [id number] Dictation # [id number] en MTDD
--- NOTE | 2016-12-21 09:12 | PN ---
DATE: 12/21/2016 I saw her resting in bed in the TCU. She is in good spirits. She is eating breakfast well. She is starting to do well in therapy, but she is having multiple bouts of diarrhea and it is persistent. S he is on Ambien, Cepacol, Flagyl, Imodium, Lopressor, Protonix, Tylenol, Valium, vancomycin orally, a nd Zestril. PHYSICAL EXAMINATION: VITAL SIGNS: 98.2 temp, 84 pulse, 150/80 blood pressure, 18 respiratory rate, 95% O2 sat on room air . HEENT: Head is atraumatic, normocephalic. Mouth is moist. NECK: Supple. HEART: Regular rate. LUNGS: Decreased breath sounds, but clear to auscultation. ABDOMEN: Soft, nontender. Positive bowel sounds. EXTREMITIES: No edema and she is doing better with physical therapy. LABORATORY DATA: She has a 6.6 white count, 11.5 hemoglobin, 35.3 hematocrit with 280 platelets. So dium 145, potassium is low at 3. I will replace the potassium today. BUN 6, creatinine 0.5, GFR is greater than 60 and she is off IV fluids. Sugar is 83, total bili is 0.3, AST is 16, ALT is 29, alk phos 77. I will replace the potassium. She is also being seen by pulmonary, gastroenterology, hematology/onco logy. We will continue with aggressive treatment and care. Oncology recommended a PET scan, CT afte r she is discharged. She is persistent with diarrhea. Hopefully, that will slow down. She had Clos tridium difficile, diarrhea, low potassium which I will replace, sepsis, mild anemia, chronic obstruc tive pulmonary disease. I will replace the potassium. Johnny Yates DO cc: [id number] TT: 12/21/2016 09:11:30 Confirmation # [id number] Dictation # [id number] tn
[2016-12-21] MEDS: Benzocaine/Menthol (Cepacol) Lozenge MT SCH ×3 (09:42→17:24)
[2016-12-21] MEDS: Potassium Chloride 10 mEq 100 ML IVPB SCH ×2 (09:43→11:48)
[2016-12-21] MEDS: Vancomycin 25 MG/ML PO SCH ×4 (09:47→22:08)
--- NOTE | 2016-12-21 12:44 | CP.PCM.PN ---
<Mallika Rudd - Last Filed: 12/21/16 12:41> Subjective - Date & Time of Evaluation Date of Evaluation: 12/21/16 Time of Evaluation: 12:41 - Subjective Subjective: Gastroenterology Fellow/PGY4 Progress Note Patient notes five small volume episodes of watery diarrhea this morning prior to eating breakfast. Tolerating regular diet. A 12-point review of systems negative except for as above. Objective - Vital Signs/Intake and Output Vital Signs (last 24 hours): Temp Pulse Resp BP Pulse Ox 98.3 F 57 L 18 156/99 H 97 12/21/16 10:00 12/21/16 10:00 12/21/16 10:00 12/21/16 10:00 12/21/16 10:00 Intake and Output: 12/21/16 12/21/16 06:59 18:59 Intake Total 200 Balance 200 - Medications Medications: Current Medications Acetaminophen (Tylenol 325mg Tab) 650 mg PO Q4 PRN; Protocol PRN Reason: Fever >100.4 F Last Admin: 12/21/16 05:10 Dose: 650 mg Benzocaine/Menthol (Cepacol Sore Throat) 1 pauline MT TID BECCA PRN Reason: Protocol Last Admin: 12/21/16 09:42 Dose: 1 pauline Diazepam (Valium) 5 mg PO TID BECCA PRN Reason: Protocol Last Admin: 12/21/16 09:46 Dose: 5 mg Metronidazole (Flagyl) 100 mls @ 100 mls/hr IVPB Q8 BECCA PRN Reason: Protocol Last Admin: 12/21/16 05:12 Dose: 100 mls/hr Lisinopril (Zestril) 20 mg PO DAILY BECCA PRN Reason: Protocol Last Admin: 12/21/16 09:56 Dose: Not Given Loperamide HCl (Imodium) 2 mg PO Q6 PRN; Protocol PRN Reason: Diarrhea Last Admin: 12/21/16 06:03 Dose: 2 mg Metoprolol Tartrate (Lopressor) 12.5 mg PO 0800,1800 BECCA PRN Reason: Protocol Last Admin: 12/21/16 08:13 Dose: 12.5 mg Pantoprazole Sodium (Protonix Ec Tab) 40 mg PO 0600 [facility] Last Admin: 12/21/16 06:03 Dose: 40 mg Vancomycin HCl (Vancocin 25 Mg/Ml (Oral Use)) 250 mg PO QID BECCA PRN Reason: Protocol Stop: 01/02/17 10:01 Last Admin: 12/21/16 09:47 Dose: 250 mg Zolpidem Tartrate (Ambien) 5 mg PO HS PRN; Protocol PRN Reason: Insomnia Last Admin: 12/20/16 21:19 Dose: 5 mg - Labs Labs: 12/21/16 05:00 12/21/16 07:10 - Constitutional Appears: Non-toxic, No Acute Distress - Head Exam Head Exam: ATRAUMATIC, NORMOCEPHALIC - Eye Exam Eye Exam: EOMI, PERRL Pupil Exam: PERRL. absent: Miosis, Mydriatic - ENT Exam ENT Exam: Mucous Membranes Moist, Normal Oropharynx - Neck Exam Neck Exam: Full ROM, Normal Inspection - Respiratory Exam Respiratory Exam: Clear to Ausculation Bilateral. absent: Rales, Rhonchi, Wheezes - Cardiovascular Exam Cardiovascular Exam: RRR, +S1, +S2. absent: Gallop, Rubs - GI/Abdominal Exam GI & Abdominal Exam: Soft, Normal Bowel Sounds. absent: Distended, Firm, Guarding, Rigid, Tenderness, Mass, Organomegaly, Rebound - Extremities Exam Extremities Exam: Normal Inspection. absent: Pedal Edema - Neurological Exam Neurological Exam: Alert, Awake - Psychiatric Exam Psychiatric exam: Normal Affect, Normal Mood - Skin Skin Exam: Dry, Intact, Normal Color, Warm Assessment and Plan - Assessment and Plan (Free Text) Assessment: 71 year old female with history of Hypertension, Diabetes, Anxiety, recurrent C difficile, chronic diarrhea, pancreatic insufficiency, gastric outlet obstruction s/p gastrojejunostomy, ileus 10/2016, right hemicolectomy 10/02/16 presenting with fever, chills, and sweats from GI clinic. CT A/P with no acute findings. Active treatment of resolved sepsis secondary to Cdiff antigen associated diarrhea. Colonoscopy 02/2016 and 08/2016 - 22 tubular adenomas and transverse 3cm mass with central depression s/p right hemicolectomy 10/02/16 with pathology showing [id number] moderately differentiated adenocarcinoma. Plan: >Cdiff antigen associated diarrhea- 3rd episode >continue vancomycin PO for 14 days >vancomycin taper to follow: vancomycin 125 mg QID x 14 days total, then 125 mg BID x 1 week, then 125 mg daily x 1 week, then 125 mg every other day x 1 week, then 125 every 3 days x 2 weeks >ordered cholestyramine 2g BID, must provide alone and not within 2-3 hours of over medications >continue lactose free/low fiber diet and Imodium PRN >would benefit from fecal transplant outpatient with third C diff episode <Aleena Moreira - Last Filed: 12/21/16 13:44> Objective - Vital Signs/Intake and Output Vital Signs (last 24 hours): Temp Pulse Resp BP Pulse Ox 98.3 F 57 L 18 156/99 H 97 12/21/16 10:00 12/21/16 10:00 12/21/16 10:00 12/21/16 10:00 12/21/16 10:00 Intake and Output: 12/21/16 12/21/16 06:59 18:59 Intake Total 200 Balance 200 - Medications Medications: Current Medications Acetaminophen (Tylenol 325mg Tab) 650 mg PO Q4 PRN; Protocol PRN Reason: Fever >100.4 F Last Admin: 12/21/16 13:38 Dose: 650 mg Benzocaine/Menthol (Cepacol Sore Throat) 1 pauline MT TID BECCA PRN Reason: Protocol Last Admin: 12/21/16 13:30 Dose: 1 pauline Cholestyramine Resin (Questran) 2 gm PO BID BECCA Diazepam (Valium) 5 mg PO TID BECCA PRN Reason: Protocol Last Admin: 12/21/16 13:34 Dose: 5 mg Metronidazole (Flagyl) 100 mls @ 100 mls/hr IVPB Q8 BECCA PRN Reason: Protocol Last Admin: 12/21/16 13:30 Dose: 100 mls/hr Lisinopril (Zestril) 20 mg PO DAILY BECCA PRN Reason: Protocol Last Admin: 12/21/16 09:56 Dose: Not Given Loperamide HCl (Imodium) 2 mg PO Q6 PRN; Protocol PRN Reason: Diarrhea Last Admin: 12/21/16 13:31 Dose: 2 mg Metoprolol Tartrate (Lopressor) 12.5 mg PO 0800,1800 BECCA PRN Reason: Protocol Last Admin: 12/21/16 08:13 Dose: 12.5 mg Pantoprazole Sodium (Protonix Ec Tab) 40 mg PO 0600 BECCA Last Admin: 12/21/16 06:03 Dose: 40 mg Vancomycin HCl (Vancocin 25 Mg/Ml (Oral Use)) 250 mg PO QID BECCA PRN Reason: Protocol Stop: 01/02/17 10:01 Last Admin: 12/21/16 13:34 Dose: 250 mg Zolpidem Tartrate (Ambien) 5 mg PO HS PRN; Protocol PRN Reason: Insomnia Last Admin: 12/20/16 21:19 Dose: 5 mg - Labs Labs: 12/21/16 05:00 12/21/16 07:10 Attending/Attestation - Attestation I have personally seen and examined this patient.: Yes I have fully participated in the care of the patient.: Yes I have reviewed all pertinent clinical information, including history, physical exam and plan: Yes Notes (Text): Patient seen and examined with GI fellow. Agree with her note as documented above with the following additions/exceptions. This is a 71 year old female with history of recurrent C difficile, chronic diarrhea, pancreatic insufficiency, gastric outlet obstruction s/p gastrojejunostomy, hemicolectomy for colon adenocarcinoma 10/02/16 who is admitted with SIRS/sepsis secondary to recurrent cdiff infection. She remains in TCU. She is tolerating PO without difficulty. She has loose stools, which is chronic for her. Occasional abdominal cramping. Would continue current therapy with eventual taper of PO vancomycin as above. Add cholestyramine. She should be considered for fecal microbial transplant given recurrent cdiff. She can follow up with Dr. Mo as outpatient. Please call with any further questions/concerns. 12/21/16 13:42
--- NOTE | 2016-12-21 14:45 | PN ---
DATE: 12/21/2016 The patient is in bed, in no acute distress, nontoxic. PHYSICAL EXAMINATION: VITAL SIGNS: Temperature is 98, blood pressure is 150/60, respiratory rate of 18, a heart rate of 57 . HEENT: Unremarkable. NECK: Supple. LUNGS: Have decreased breath sounds. HEART: Normal S1, S2. ABDOMEN: Soft, nontender. LABORATORY EXAMINATION: Reveals a white count of 6.6, hemoglobin of 11, platelets of 280. BUN of 6, creatinine of 0.5. ASSESSMENT AND PLAN: A 71-year-old female, seen earlier today in room 304. She states she had an ep isode of diarrhea earlier. Currently, on IV Flagyl and p.o. vancomycin for presumed pseudomembranous colitis. GI workup in progress, progress note from today is reviewed. Dr. Johnny Yates' s note from today is reviewed and he states the patient had a colonoscopy in 02/2016 and 08/2016 2 tubular adenomas in transverse, 3 cm mass with a central depression, status post right hemicolecto my on 10/02/2016 with a pathology showing moderately differentiated adenocarcinoma. Review of the pat hology is noted, invasive moderately differentiated adenocarcinoma arising from a tubular adenoma is noted. The resection margins are negative for dysplasia or carcinoma. Dr. Elder Navas's consul tation from yesterday is reviewed. Dmitry Jiang MD cc: [id number] TT: 12/21/2016 14:45:34 Confirmation # [id number] Dictation # [id number] en
[2016-12-21] MEDS: Cholestyramine 4 gm/Pkt UD PO SCH (17:26)
[2016-12-21 17:57] LABS: CA 19-9 7.3 U/mL (0-37)
--- NOTE | 2016-12-21 21:42 | PN ---
DATE: 12/21/[address] Carbone. SUBJECTIVE: The patient is a 71-year-old female now on TCU for reconditioning with persistent diarrh ea, now modestly improved after Questran was given. She was admitted with a temperature of 103 on , and is status post antibiotic treatment with good effect. She has moderately differentiate d adenocarcinoma after hemicolectomy with Dr. Breg in 09/2016 with no oncologic followup since, e reports. With this, the patient is otherwise now resting more comfortably and in no acute distress . OBJECTIVE: PHYSICAL EXAMINATION: VITAL SIGNS: Temperature 98.3, pulse 60, respirations 18, blood pressure 151/62, pulse ox 97%. HEENT: Unremarkable. NECK: Supple. HEART: Regular rate, occasional ectopic beat. LUNGS: Clear. ABDOMEN: Soft. Minimal generalized tenderness. EXTREMITIES: No edema. SKIN: Warm, dry and clear. NEUROLOGIC: Awake, alert, and oriented x 3. LABORATORY DATA: Labs were done. White blood cell count of 6.6, hemoglobin 11.5, hematocrit 35.3, p latelet count 280,000, with a chem panel showing a potassium of 3.0, chloride 108, albumin 2.7. CA 1 9-9 of 7.3 with a CEA of 1.7. ASSESSMENT: Persistent diarrhea; moderately differentiated adenocarcinoma of the right colon, status post hemicolectomy; deconditioning, hypertension, sepsis secondary to Clostridium difficile. PLAN: Continue present medical regimen with further workup as an outpatient upon discharge as indica eli with PET CT scanning. She also is to be treated for her hypokalemia secondary to her diarrhea wi th potassium replenishment. Will monitor clinically and with labs. Elder Navas MD cc: [id number] TT: 12/21/2016 21:41:59 Confirmation # [id number] Dictation # [id number] mn
[2016-12-22] MEDS: metroNIDAZOLE IV 500 mg/100 ml 100 ML IVPB SCH (05:12)
[2016-12-22] MEDS: Pantoprazole 40 mg EC Tab PO SCH (06:28)
--- NOTE | 2016-12-22 07:05 | PN ---
DATE: 12/22/2016 SUBJECTIVE: The patient appears very comfortable at rest. She is not short of breath. PHYSICAL EXAMINATION: VITAL SIGNS: Temperature is 98.3, pulse 60, respirations 18, blood pressure 151 /62. Oxygen saturation last recorded -- on room air -- 96%. HEENT: Normocephalic, atraumatic. NECK: No JVD. CARDIOVASCULAR: Positive S1, S2. No S3. LUNGS: Improved breath sounds at the bases. No rhonchi. No wheezing. EXTREMITIES: No clubbing, cyanosis, or edema. Calves are nontender to palpation. GASTROINTESTINAL: Abdomen is soft, nontender, nondistended. Bowel sounds are positive. SKIN: No acute rash. NEUROLOGIC: Limited at the present time. IMPRESSION: 1. Pseudomembranous colitis. 2. Mild anemia. 3. Chronic obstructive pulmonary disease. 4. Minimal atelectasis at the bases. PLAN: The patient appears very comfortable this morning. She is not short of breath at rest. She states she is feeling much better overall. I did discuss the case with the night nurse at length. The night nurse confirms that the patient is out of bed most of the day and using her incentive spirometry frequently. Not surprisingly, the alveolar arterial gradient has been resolving nicely. I will continue with the current pulmonary plan -- and have the patient out of bed as much as possible. When improved, I would also like to obtain a pulmonary function test in the near future. GI evaluation is ongoing. The patient remains with diarrhea. Clinical status of the patient is significantly improved -- compared to the initial presentation. I will discuss the above with Dr. Yates. Alex Serna MD cc: [id number] TT: 12/22/2016 07:04:36 Confirmation # [id number] Dictation # [id number] jn MTDRosa Maria
[2016-12-22 07:55] LABS: HEMATOCRIT 37.4 % (36.0-48.0); MEAN CELL VOLUME 86.6 fL (80.0-105.0); MEAN CORPUSCULAR HEMOGLOBIN 27.8 pg (25.0-35.0); MEAN CORPUSCULAR HGB CONC 32.1 g/dl (31.0-37.0); RED CELL DISTRIBUTION WIDTH 15.1 % (11.5-14.5); WHITE BLOOD COUNT 7.2 10^3/ul (4.5-11.0)
[2016-12-22 08:15] LABS: BLOOD UREA NITROGEN 6 mg/dL (7-21); CALCIUM 8.7 mg/dL (8.4-10.5); CARBON DIOXIDE 30 mmol/L (21-33); CHLORIDE 105 mmol/L (98-107); GFR AFRICAN-AMERICAN > 60; GLUCOSE,RANDOM 92 mg/dL (70-110); POTASSIUM 3.2 mmol/L (3.6-5.0); SODIUM 144 mmol/L (132-148); TOTAL PROTEIN 6.5 g/dL (5.8-8.3)
[2016-12-22 08:16] LABS: ALB/GLOB RATIO 0.9 (1.1-1.8); ALKALINE PHOSPHATASE 85 U/L (38-133); ALT/SGPT 22 U/L (7-56); AST/SGOT 16 U/L (15-39); BILIRUBIN,TOTAL 0.4 mg/dL (0.2-1.3)
--- NOTE | 2016-12-22 09:29 | PN ---
DATE: 12/22/2016 SUBJECTIVE: I saw the patient resting in bed in the transitional care unit. She is very nervous and upset this morning. She has been urinating a lot, maybe 5-6 times this morning. No odor or discomfort, but it seems like she might be starting urinary tract infection. She is also more nervous than usual. I am going to have her get the Valium a little earlier this morning, and give her urinalysis, culture and sensitivity, and look for infection. MEDICATIONS: She is currently on Ambien, Cepacol, Flagyl IV, Imodium, Lopressor , Protonix, Questran, Tylenol, Valium, vancomycin p.o., Zestril. Still having diarrhea. PHYSICAL EXAMINATION: VITAL SIGNS: 98.3 temp, 76 pulse, blood pressure, , blood pressure. That is the highest it has been, but she is very nervous and anxious. HEAD: Atraumatic, normocephalic. Throat is moist. NECK: Supple. HEART: Regular rate. LUNGS: Clear to auscultation. ABDOMEN: Soft. EXTREMITIES: No edema. LABORATORY DATA: Pending today. White count 7.2, hemoglobin 12, hematocrit 37.4, platelets of 313, but the chemistry is pending. ASSESSMENT AND PLAN: I need to know what the potassium is doing. I will check that in a little while. She is being seen by pulmonary, oncology, hematology, infectious disease. I ordered her urinalysis, culture and sensitivity. Still having diarrhea. No pseudomembranous colitis. She has had tubular adenomas and multiple surgeries of her intestines. She has mild anemia, COPD, will continue with aggressive treatment and care. Johnny Yates DO cc: [id number] TT: 12/22/2016 08:30:58 Confirmation # [id number] Dictation # [id number] mallory 12/22/2016 08:28:16 PHILIP
[2016-12-22] MEDS: Cholestyramine 4 gm/Pkt UD PO SCH ×2 (09:48→17:30)
[2016-12-22] MEDS: Benzocaine/Menthol (Cepacol) Lozenge MT SCH ×3 (09:48→17:29)
[2016-12-22] MEDS: Vancomycin 25 MG/ML PO SCH ×4 (09:49→22:23)
--- NOTE | 2016-12-22 10:09 | PN ---
DATE: 12/22/2016 SUBJECTIVE: The patient was seen earlier today. No fevers and no chills. She is still having diarr hea on and off. PHYSICAL EXAMINATION: VITAL SIGNS: Temperature is 98, blood pressure is 170/90, respiratory rate of 18. HEENT: Unremarkable. NECK: Supple. LUNGS: Have decreased breath sounds. HEART: Normal S1, S2. ABDOMEN: Soft. LABORATORY DATA: Reveals a white count of 7.2, hemoglobin of 12, platelets of 313, BUN of 6, creatin ine of 0.5. Microbiology is noted. ASSESSMENT AND PLAN: This is a 71-year-old female who continues with diarrhea on and off. The patie nt had a tubular adenoma, 3 cm mass, with a central decompression, status post right hemicolectomy in 09/2016 with pathology showing moderately differentiated adenocarcinoma. Will discontinue the IV Fl agyl and complete with p.o. vancomycin. Dmitry Jiang MD cc: [id number] TT: 12/22/2016 10:08:38 Confirmation # [id number] Dictation # [id number] mn
[2016-12-22] MEDS: Potassium Chloride 10 mEq 100 ML IVPB SCH ×2 (10:34→11:53)
[2016-12-22 14:32] LABS: URINE APPEARANCE CLEAR (CLEAR); URINE BILIRUBIN NEGATIVE (NEGATIVE); URINE BLOOD NEGATIVE (NEGATIVE); URINE COLOR YELLOW (YELLOW); URINE GLUCOSE (UA) NEGATIVE (NEGATIVE); URINE KETONE NEGATIVE (NEGATIVE); URINE LEUKOCYTE ESTERASE NEGATIVE Leu/uL (NEGATIVE); URINE PROTEIN NEGATIVE mg/dL (<30 mg/dL); URINE UROBILINOGEN 0.2 E.U./dL (<1 E.U./dL)
[2016-12-22] MEDS ORDERED: Potassium Chloride 20 mEq ER Tab PO ONE (15:13)
--- NOTE | 2016-12-22 15:53 | PN ---
DATE: 12/22/2016 This is the patient's hospital visit on TCU. For Dr. Carbone. SUBJECTIVE: The patient is a 71-year-old female, seen on TCU for reconditioning. Her diarrhea was m odestly improved after Questran, but today she reports it recurred. She is otherwise in no acute dis tress, participating with TCU activities. She has moderately differentiated adenocarcinoma of the co maria guadalupe, status post hemicolectomy in 09/[address] Berg. OBJECTIVE: PHYSICAL EXAMINATION: VITAL SIGNS: Temperature 98.3, pulse 62, respirations 18, blood pressure 161/73, pulse ox 97%. HEENT: Unremarkable. NECK: Supple. HEART: Regular rate. LUNGS: Occasional rhonchi. ABDOMEN: Soft. Minimal generalized tenderness. EXTREMITIES: No edema. SKIN: Warm, dry and clear. NEUROLOGIC: Awake, alert, and oriented x 3. LABORATORY DATA: The patient's labs were done. White blood cell count 7.2, hemoglobin 12.3, hematoc rit 37.4, platelet count 313,000 with a chem metabolic panel showing a potassium of 3.2, improved fro m 3.0 yesterday. Otherwise, normal chem panel. Her tumor markers, CEA, and CA 19-9 done yesterday w ere negative. ASSESSMENT: Hypokalemia, deconditioning, persistent diarrhea, moderately differentiated adenocarcino ma of the right colon, status post hemicolectomy, hypertension, sepsis secondary to Clostridium diffi cile. PLAN: The patient is to continue present medical regimen as per primary doctors with followup with Rosa Maria Carbone as an outpatient for further testing included a PET/CT scan with further recommendations. Elder Navas MD cc: [id number] TT: 12/22/2016 15:53:27 Confirmation # [id number] Dictation # [id number] constance
[2016-12-22 16:30] VITALS: O2SAT 89
[2016-12-23] MEDS: Pantoprazole 40 mg EC Tab PO SCH (05:47)
[2016-12-23 08:36] LABS: HEMATOCRIT 38.3 % (36.0-48.0); MEAN CELL VOLUME 86.8 fL (80.0-105.0); MEAN CORPUSCULAR HEMOGLOBIN 27.7 pg (25.0-35.0); MEAN CORPUSCULAR HGB CONC 31.9 g/dl (31.0-37.0); MEAN PLATELET VOLUME 10.2 fl (7.0-11.0); RED CELL DISTRIBUTION WIDTH 15.1 % (11.5-14.5); WHITE BLOOD COUNT 9.7 10^3/ul (4.5-11.0)
[2016-12-23] MEDS: Benzocaine/Menthol (Cepacol) Lozenge MT SCH ×2 (09:56→14:14)
[2016-12-23] MEDS: Vancomycin 25 MG/ML PO SCH ×2 (09:59→14:14)
[2016-12-23 10:10] LABS: ALB/GLOB RATIO 0.9 (1.1-1.8); ALKALINE PHOSPHATASE 90 U/L (38-133); ALT/SGPT 24 U/L (7-56); AST/SGOT 15 U/L (15-39); BILIRUBIN,TOTAL 0.3 mg/dL (0.2-1.3); BLOOD UREA NITROGEN 9 mg/dL (7-21); CARBON DIOXIDE 28 mmol/L (21-33); CHLORIDE 105 mmol/L (98-107); GFR AFRICAN-AMERICAN > 60; GLUCOSE,RANDOM 185 mg/dL (70-110); POTASSIUM 3.7 mmol/L (3.6-5.0); SODIUM 144 mmol/L (132-148); TOTAL PROTEIN 7.1 g/dL (5.8-8.3)
[2016-12-23] MEDS: Cholestyramine 4 gm/Pkt UD PO SCH (10:35)
[2016-12-23 11:36] VITALS: BP 160/70
[2016-12-23 11:39] VITALS: PULSE 72; RESP 20; TEMP 98
--- NOTE | 2016-12-23 13:39 | PN ---
DATE: 12/23/2016 The patient is in bed in no acute distress, nontoxic. PHYSICAL EXAMINATION: VITAL SIGNS: Temperature is 98, blood pressure is 160/70, respiratory rate of 18. HEENT: Unremarkable. NECK: Supple. LUNGS: Have decreased breath sounds. HEART: Normal S1, S2. ABDOMEN: Soft, nontender. LABORATORY EXAMINATION: Reviewed. ASSESSMENT AND PLAN: A 71-year-old female who has diarrhea, has improved now with a tubular adenoma, 3 cm mass, central decompression, status post right hemicolectomy in 09/2016 with the pathology showi ng moderately differentiated adenocarcinoma, currently on p.o. vancomycin. Complete the treatment wi th p.o. vancomycin. The patient states she was hoping to be discharged today. We will reorder the v ancomycin p.o. Dmitry Jiang MD cc: [id number] TT: 12/23/2016 13:39:08 Confirmation # [id number] Dictation # [id number] tn
== END 2016-12-23 18:00 | disposition home health service (06) | DRG 872 ==
LOC: TRCU 17:32
PROVIDERS: ADMIT Family Medicine; ATTEND Family Medicine
PROC: F07Z9FZ Gait Training/Functional Ambulation Treatment using Assistive, Adaptive, Supportive or Protective Equipment (ICD-10-PCS; principal; 2016-12-17)
PROC: F07Z5ZZ Bed Mobility Treatment (ICD-10-PCS; 2016-12-17)
PROC: F07Z8ZZ Transfer Training Treatment (ICD-10-PCS; 2016-12-17)
PROC: F08Z2ZZ Grooming/Personal Hygiene Treatment (ICD-10-PCS; 2016-12-19)
DX: A41.9 Sepsis, unspecified organism (principal); A04.7 Enterocolitis due to Clostridium difficile; K31.1 Adult hypertrophic pyloric stenosis; J98.11 Atelectasis; J44.9 Chronic obstructive pulmonary disease, unspecified; E11.9 Type 2 diabetes mellitus without complications; I10 Essential (primary) hypertension; D64.9 Anemia, unspecified; K86.89 Other specified diseases of pancreas; E78.5 Hyperlipidemia, unspecified; F41.9 Anxiety disorder, unspecified; F17.210 Nicotine dependence, cigarettes, uncomplicated; Z96.652 Presence of left artificial knee joint; K21.9 Gastro-esophageal reflux disease without esophagitis; H81.09 Meniere's disease, unspecified ear; Z85.038 Personal history of other malignant neoplasm of large intestine; Z90.49 Acquired absence of other specified parts of digestive tract

== ENCOUNTER 2017-01-13 06:22 | Emergency (ER) | payer MEDICARE, BC ==
[2017-01-13 06:24] VITALS: BMI 25.6
[2017-01-13 06:36] VITALS: TEMP 98.9
[2017-01-13 06:51] LABS: ADD MANUAL DIFF? NO
[2017-01-13 07:03] LABS: WHITE BLOOD COUNT 8.3 10^3/ul (4.5-11.0)
[2017-01-13 07:04] LABS: BASO % 0.6 % (0.0-3.0); HEMATOCRIT 41.2 % (36.0-48.0); LYMPH % 14.8 % (22.0-35.0); MEAN CELL VOLUME 88.8 fL (80.0-105.0); MEAN CORPUSCULAR HEMOGLOBIN 28.7 pg (25.0-35.0); MEAN CORPUSCULAR HGB CONC 32.3 g/dl (31.0-37.0); MEAN PLATELET VOLUME 10.2 fl (7.0-11.0); MONO % 11.6 % (1.0-6.0); PLATELET COUNT 174 10^3/uL (120.0-450.0); RED CELL DISTRIBUTION WIDTH 15.4 % (11.5-14.5)
[2017-01-13 07:05] LABS: BASO # 0.05 K/mm3 (0.0-2.0); EOS # 0.2 (0.0-0.7); GRAN # 5.91 (1.4-6.5); LYMPH # 1.2 (1.2-3.4); VENOUS BLOOD GAS BASE EXCESS -2.8 mmol/L (0.0-2.0); VENOUS BLOOD PH 7.33 (7.32-7.43)
[2017-01-13 07:08] LABS: INR 0.96 (0.93-1.08); PARTIAL THROMBOPLASTIN TIME 28.1 Seconds (23.7-30.8)
[2017-01-13 07:20] LABS: ALB/GLOB RATIO 1.1 (1.1-1.8); ALKALINE PHOSPHATASE 133 U/L (38-133); ALT/SGPT 28 U/L (7-56); AST/SGOT 39 U/L (15-39); BILIRUBIN,TOTAL 0.7 mg/dL (0.2-1.3); BLOOD UREA NITROGEN 6 mg/dL (7-21); CALCIUM 9.6 mg/dL (8.4-10.5); CARBON DIOXIDE 23 mmol/L (21-33); CHLORIDE 107 mmol/L (98-107); GFR AFRICAN-AMERICAN > 60; GLUCOSE,RANDOM 114 mg/dL (70-110); POTASSIUM 3.4 mmol/L (3.6-5.0); SODIUM 143 mmol/L (132-148); TOTAL PROTEIN 7.9 g/dL (5.8-8.3)
--- NOTE | 2017-01-13 07:48 | ED PDOC ---
Arrival/HPI - General Chief Complaint: GI Problem Time Seen by Provider: 01/13/17 07:16 Historian: Patient - History of Present Illness Narrative History of Present Illness (Text): 01/13/17 07:41 A 71 year old female, whose past medical history includes hypertension, hyperlipidemia, c.diff and hemicolectomy 2 months s/p colon cancer, presents to the emergency department complaining of non-bloody diarrhea for 3 days. Patient reports her symptom has improved over the past few days and has been experiencing less episodes of diarrhea. Patient denies any fever, chills, nausea , vomiting, appetite changes, abdominal pain, urinary symptoms, hematochezia, chest pain, shortness of breath or any other complaints. Patient reports she recently finished a course of antibiotics 4 days ago. PMD: Dr. 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)) - HEENT Hx HEENT Disorder: No - Renal Hx Renal Disorder: No - Endocrine/Metabolic Hx Diabetes Mellitus Type 2: Yes - Hematological/Oncological Hx Blood Disorders: No - Integumentary Hx Dermatological Disorder: No - Musculoskeletal/Rheumatological Hx Falls: No - Gastrointestinal Hx Gastrointestinal Disorders: Yes Hx Diverticulitis: Yes Hx Gastroesophageal Reflux: Yes Other/Comment: pancreatic insuf - Genitourinary/Gynecological Hx Reproductive Disorders: Yes (pre ca uterine cells/hyst) - Psychiatric Hx Psychophysiologic Disorder: Yes Hx Anxiety: Yes Hx Emotional Abuse: No Hx Physical Abuse: No Hx Substance Use: No - Surgical History Hx Hysterectomy: Yes Hx Joint Replacement: Yes (Left knee) Other/Comment: Colon polyp removal. Duodenum stricture Sx - Anesthesia Hx Anesthesia: Yes Hx Anesthesia Reactions: No Hx Malignant Hyperthermia: No - Suicidal Assessment Feels Threatened In Home Enviroment: No Family/Social History - Physician Review Nursing Documentation Reviewed: Yes Family/Social History: No Known Family HX Smoking Status: Current Some Days Smoker Hx Alcohol Use: No Hx Substance Use: No Hx Substance Use Treatment: No Allergies/Home Meds Allergies/Adverse Reactions: Allergies Penicillins Adverse Reaction (Verified 12/15/16 23:50) URTICARIA Review of Systems - Physician Review All systems were reviewed & negative as marked: Yes - Review of Systems Constitutional: absent: Fevers, Night Sweats Respiratory: absent: SOB Cardiovascular: absent: Chest Pain Gastrointestinal: Diarrhea. absent: Abdominal Pain, Nausea, Vomiting, Appetite Changes, Hematochezia Genitourinary Female: absent: Dysuria, Frequency, Hematuria, Urine Output Changes Physical Exam Vital Signs Reviewed: Yes Vital Signs Temp Pulse Resp BP Pulse Ox 01/13/17 10:17 81 16 134/61 100 01/13/17 09:12 61 16 134/60 100 01/13/17 06:50 98.9 F 77 18 160/71 H 97 01/13/17 06:35 98.9 F 84 18 149/60 94 L Temperature: Afebrile Blood Pressure: Normal Pulse: Regular Respiratory Rate: Normal Appearance: Positive for: Well-Appearing, Non-Toxic, Comfortable Pain Distress: None Mental Status: Positive for: Alert and Oriented X 3 - Systems Exam Head: Present: Atraumatic, Normocephalic Pupils: Present: PERRL Extroacular Muscles: Present: EOMI Conjunctiva: Present: Normal Mouth: Present: Moist Mucous Membranes Respiratory/Chest: Present: Clear to Auscultation, Good Air Exchange. No: Respiratory Distress, Accessory Muscle Use Cardiovascular: Present: Regular Rate and Rhythm, Normal S1, S2. No: Murmurs Abdomen: Present: Normal Bowel Sounds. No: Tenderness, Distention, Peritoneal Signs Upper Extremity: Present: Normal Inspection. No: Cyanosis, Edema Lower Extremity: Present: Normal Inspection. No: Edema Neurological: Present: GCS=15, CN II-XII Intact, Speech Normal Skin: Present: Warm, Dry, Normal Color. No: Rashes Psychiatric: Present: Alert, Oriented x 3, Normal Insight, Normal Concentration Medical Decision Making ED Course and Treatment: 01/13/17 07:41 Impression: A 71 year old female with episodes of non-bloody diarrhea. Physical exam unremarkable. Plan: -- EKG -- Labs -- Blood culture -- Urinalysis -- Reassess and disposition Prior Visits: Notes and results from previous visits were reviewed. Patient last seen in the ED on 12/12/16 and hospitalized for sepsis. Progress Notes: EKG shows NSR at 67 BPM with PVCs. Interpreted by me. 01/13/17 08:[address] Yates, who states to place patient on PO antibiotics and have her follow up outpatient in 2 days. - Lab Interpretations Microbiology Results: Microbiology Results 01/13/17 08:30 Stool C. difficile Antigen & Toxin A,B (M - Final Lab Results: 01/13/17 06:40 01/13/17 06:40 Lab Results 01/13/17 07:46: Urine Color Yellow, Urine Appearance Clear, Urine pH 6.0, Ur Specific [place] <= 1.005, Urine Protein Negative, Urine Glucose (UA) Negative, Urine Ketones Negative, Urine Blood Trace-lysed H, Urine Nitrate Negative, Urine Bilirubin Negative, Urine Urobilinogen 0.2, Ur Leukocyte Esterase Negative , Urine RBC 0 - 2, Urine WBC 0 - 2, Ur Epithelial Cells 0 - 2, Urine Bacteria Trace 01/13/17 06:40: pO2 77 H, VBG pH 7.33, VBG pCO2 44.0, VBG HCO3 23.2, VBG Total CO2 24.6, VBG O2 Sat (Calc) 97.4 H, VBG Base Excess -2.8 L, VBG Potassium 3.4 L , Sodium 141.0, Chloride 112.0 H, Glucose 122 H, Lactate 2.1, FiO2 21.0, Venous Blood Potassium 3.4 L 01/13/17 06:40: PT 10.4, INR 0.96, APTT 28.1 01/13/17 06:40: Sodium 143, Chloride 107, Potassium 3.4 L, Carbon Dioxide 23, Anion Gap 16, BUN 6 L, Creatinine 0.6, Est GFR ( Amer) > 60, Est GFR (Non -Af Amer) > 60, Random Glucose 114 H, Calcium 9.6, Total Bilirubin 0.7, AST 39, ALT 28, Alkaline Phosphatase 133, Total Protein 7.9, Albumin 4.1, Globulin 3.8, Albumin/Globulin Ratio 1.1 01/13/17 06:40: WBC 8.3, RBC 4.64, Hgb 13.3, Hct 41.2, MCV 88.8, MCH 28.7, MCHC 32.3, RDW 15.4 H, Plt Count 174, MPV 10.2, Gran % 71.0 H, Lymph % (Auto) 14.8 L , [place] % (Auto) 11.6 H, Eos % (Auto) 2.0, Baso % (Auto) 0.6, Gran # 5.91, Lymph # 1.2, [place] # 1.0 H, Eos # 0.2, Baso # 0.05 I have reviewed the lab results: Yes - Scribe Statement The provider has reviewed the documentation as recorded by the Scribe Maile Hughes Provider Scribe Attestation: All medical record entries made by the Scribe were at my direction and personally dictated by me. I have reviewed the chart and agree that the record accurately reflects my personal performance of the history, physical exam, medical decision making, and the department course for this patient. I have also personally directed, reviewed, and agree with the discharge instructions and disposition. Disposition/Present on Arrival - Present on Arrival Any Indicators Present on Arrival: No History of DVT/PE: No History of Uncontrolled Diabetes: No Urinary Catheter: No History of Decub. Ulcer: No History Surgical Site Infection Following: None - Disposition Have Diagnosis and Disposition been Completed?: Yes Diagnosis: Diarrhea Disposition: HOME/ ROUTINE Disposition Time: 08:20 Condition: GOOD Discharge Instructions (ExitCare): Chronic Diarrhea (ED) Additional Instructions: Thank you for letting us take care of you today. Your provider was Dr. Hayward. You were treated for diarrhea. The emergency medical care you received today was directed at your acute symptoms. If you were prescribed any medication, please fill it and take as directed. It may take several days for your symptoms to resolve. Return to the Emergency Department if your symptoms worsen, do not improve, or if you have any other problems. Please contact your doctor or call one of the physicians/clinics you have been referred to that are listed on the Patient Visit Information form that is included in your discharge packet. Bring any paperwork you were given at discharge with you along with any medications you are taking to your follow up visit. Our treatment cannot replace ongoing medical care by a primary care provider (PCP) outside of the emergency department. Thank you for allowing the [facility] beds at the [facility] team to be part of your care today. Call Dr. Yates in 2 days. He will follow up with you at that time. Prescriptions: metroNIDAZOLE [Flagyl] 500 mg PO Q8 #21 tab Referrals: Johnny Yates, [Primary Care Provider] - Follow up with primary
[2017-01-13 07:55] LABS: URINE BILIRUBIN NEGATIVE (NEGATIVE); URINE BLOOD TRACE-LYSED (NEGATIVE); URINE GLUCOSE (UA) NEGATIVE (NEGATIVE); URINE KETONE NEGATIVE (NEGATIVE); URINE LEUKOCYTE ESTERASE NEGATIVE Leu/uL (NEGATIVE); URINE PROTEIN NEGATIVE mg/dL (<30 mg/dL); URINE UROBILINOGEN 0.2 E.U./dL (<1 E.U./dL)
[2017-01-13 08:00] LABS: URINE APPEARANCE CLEAR (CLEAR); URINE COLOR YELLOW (YELLOW)
[2017-01-13 08:39] LABS: URINE BACTERIA TRACE (NEG); URINE EPITHELIAL CELLS 0 - 2 /hpf (0-5); URINE RBC 0 - 2 /hpf (0-2); URINE WBC 0 - 2 /hpf (0-6)
[2017-01-13 09:14] VITALS: RESP 16; O2SAT 100
[2017-01-13 10:19] VITALS: BP 134/61; PULSE 81
--- NOTE | 2017-01-13 15:34 | CARD ---
APPROVED REPORT EKG Measurement Heart [id number] [place] [id number] <Conclusion> Sinus rhythm with marked sinus arrhythmia with occasional premature ventricular complexes Possible Inferior infarct, age undetermined Cannot rule out Anterior infarct, age undetermined Abnormal ECG
== END 2017-01-13 10:19 | disposition home or self-care (01) ==
LOC: ED 06:22
DX: R19.7 Diarrhea, unspecified (principal); I10 Essential (primary) hypertension; E78.5 Hyperlipidemia, unspecified; Z85.038 Personal history of other malignant neoplasm of large intestine; Z72.0 Tobacco use

== ENCOUNTER 2017-02-03 15:12 | Inpatient (IN) | payer MEDICARE, BC ==
[2017-02-03 15:31] VITALS: BMI 25.2
[2017-02-03] MEDS ORDERED: Sodium Chloride 0.9% 1,000 ML IV SCH (16:15)
--- NOTE | 2017-02-03 16:59 | ED PDOC ---
Arrival/HPI - General Chief Complaint: GI Problem Time Seen by Provider: 02/03/17 16:06 Historian: Patient - History of Present Illness Narrative History of Present Illness (Text): 02/03/17 17:04 Lianna Grijalva is a 71 year old female who presents to the emergency department for frequent diarrhea today. Patient has had more than 20 diarrheal episodes today alone. Patient was recently diagnosed with C. Diff by Dr. Nugent and is planning to do a fecal transplant. Prior to fecal transplant Dr. Nugent prescribed an alternative antibiotic but because the patient's Insurance company will not cover the prescription she was unable to get it. Patient is waiting for Dr. Nugent's call. Patient otherwise denies any fever, chills, chest pain, shortness of breath, nausea, vomiting, urinary symptoms, back pain, neck pain, headache, dizziness, or any other complaints. 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)) - HEENT Hx HEENT Disorder: No - Renal Hx Renal Disorder: No - Endocrine/Metabolic Hx Diabetes Mellitus Type 2: Yes - Hematological/Oncological Hx Blood Disorders: No - Integumentary Hx Dermatological Disorder: No - Musculoskeletal/Rheumatological Hx Falls: No - Gastrointestinal Hx Gastrointestinal Disorders: Yes Hx Diverticulitis: Yes Hx Gastroesophageal Reflux: Yes Other/Comment: pancreatic insuf - Genitourinary/Gynecological Hx Reproductive Disorders: Yes (pre ca uterine cells/hyst) - Psychiatric Hx Psychophysiologic Disorder: Yes Hx Anxiety: Yes Hx Emotional Abuse: No Hx Physical Abuse: No Hx Substance Use: No - Surgical History Hx Hysterectomy: Yes Hx Joint Replacement: Yes (Left knee) Other/Comment: Colon polyp removal. Duodenum stricture Sx - Anesthesia Hx Anesthesia: Yes Hx Anesthesia Reactions: No Hx Malignant Hyperthermia: No - Suicidal Assessment Feels Threatened In Home Enviroment: No Family/Social History - Physician Review Nursing Documentation Reviewed: Yes Family/Social History: No Known Family HX Smoking Status: Current Some Days Smoker Hx Alcohol Use: No Hx Substance Use: No Hx Substance Use Treatment: No Allergies/Home Meds Allergies/Adverse Reactions: Allergies Penicillins Adverse Reaction (Verified 12/15/16 23:50) URTICARIA Home Medications: Home Meds Medication Instructions Recorded Confirmed Lactobacillus Rhamnosus GG 1 cap PO DAILY 02/03/17 02/03/17 [Culturelle] Review of Systems - Physician Review All systems were reviewed & negative as marked: Yes - Review of Systems Constitutional: Normal. absent: Fevers Eyes: Normal ENT: Normal Respiratory: Normal. absent: SOB, Cough Cardiovascular: Normal. absent: Chest Pain Gastrointestinal: Diarrhea. absent: Abdominal Pain, Nausea, Vomiting Genitourinary Female: Normal. absent: Dysuria, Frequency, Hematuria, Urine Output Changes Musculoskeletal: Normal. absent: Back Pain, Neck Pain Skin: Normal Neurological: Normal. absent: Headache, Dizziness Endocrine: Normal Hemo/Lymphatic: Normal Psychiatric: Normal Physical Exam Vital Signs Reviewed: Yes Vital Signs Temp Pulse Resp BP Pulse Ox 02/03/17 19:32 65 18 160/70 H 97 02/03/17 17:59 66 18 152/68 H 97 02/03/17 15:30 97.8 F 68 18 154/70 H 97 Temperature: Afebrile Blood Pressure: Hypertensive Pulse: Regular Respiratory Rate: Normal Appearance: Positive for: Well-Appearing, Non-Toxic, Comfortable Pain Distress: None Mental Status: Positive for: Alert and Oriented X 3 - Systems Exam Head: Present: Atraumatic, Normocephalic Pupils: Present: PERRL Extroacular Muscles: Present: EOMI Conjunctiva: Present: Normal Mouth: Present: Moist Mucous Membranes Neck: Present: Normal Range of Motion Respiratory/Chest: Present: Clear to Auscultation, Good Air Exchange. No: Respiratory Distress, Accessory Muscle Use Cardiovascular: Present: Regular Rate and Rhythm, Normal S1, S2. No: Murmurs Abdomen: No: Tenderness, Distention, Normal Bowel Sounds (Hyperactive Bowel Sounds), Peritoneal Signs Back: Present: Normal Inspection Upper Extremity: Present: Normal Inspection. No: Cyanosis, Edema Lower Extremity: Present: Normal Inspection. No: Edema Neurological: Present: GCS=15, CN II-XII Intact, Speech Normal Skin: Present: Warm, Dry, Normal Color. No: Rashes Psychiatric: Present: Alert, Oriented x 3, Normal Insight, Normal Concentration Medical Decision Making ED Course and Treatment: 02/03/17 16:22 Impression: 71 year old female who presents for frequent diarrhea & C. Diff diagnosis. Plan: -- Labs -- IV Fluids -- Reassess and disposition Prior Visits: Notes and results from previous visits were reviewed. Patient was seen in the emergency department on 01/13/2017 for frequent diarrhea. Progress Notes: 02/03/17 18:[address] Joyner covering for Dr. Yates, who accepts patient into his service and will admit the patient to Med Surg. - Lab Interpretations Lab Results: 02/03/17 17:05 02/03/17 17:05 Lab Results 02/03/17 17:05: Sodium 143, Potassium 3.6, Chloride 110 H, Carbon Dioxide 27, Anion Gap 10, BUN 5 L, Creatinine 0.7, Est GFR ( Amer) > 60, Est GFR (Non -Af Amer) > 60, Random Glucose 92, Calcium 9.1, Total Bilirubin 0.3, AST 20, ALT 23, Alkaline Phosphatase 89, Total Protein 6.7, Albumin 3.7, Globulin 3.0, Albumin/Globulin Ratio 1.2 02/03/17 17:05: WBC 13.7 H D, RBC 4.66, Hgb 13.3, Hct 40.6, MCV 87.1, MCH 28.5, MCHC 32.8, RDW 14.5, Plt Count 253, MPV 10.8, Gran % 77.1 H, Lymph % (Auto) 11.4 L, [place] % (Auto) 10.7 H, Eos % (Auto) 0.4 L, Baso % (Auto) 0.4, Gran # 10.53 H, Lymph # 1.6, [place] # 1.5 H, Eos # 0.1, Baso # 0.05 I have reviewed the lab results: Yes - Medication Orders Current Medication Orders: Sodium Chloride (Sodium Chloride 0.9%) 1,000 mls @ 100 mls/hr IV .Q10H BECCA - Scribe Statement The provider has reviewed the documentation as recorded by the Davidibrenetta Cardona Provider Attestation: All medical record entries made by the Scribrenetta were at my direction and personally dictated by me. I have reviewed the chart and agree that the record accurately reflects my personal performance of the history, physical exam, medical decision making, and the department course for this patient. I have also personally directed, reviewed, and agree with the discharge instructions and disposition. Disposition/Present on Arrival - Present on Arrival Any Indicators Present on Arrival: No History of DVT/PE: No History of Uncontrolled Diabetes: No Urinary Catheter: No History of Decub. Ulcer: No History Surgical Site Infection Following: None - Disposition Have Diagnosis and Disposition been Completed?: Yes Diagnosis: Diarrhea, C. difficile colitis, Acute diarrhea Disposition: HOME/ ROUTINE Disposition Time: 16:15 Condition: STABLE
[2017-02-03 17:17] LABS: ADD MANUAL DIFF? NO
[2017-02-03 17:33] LABS: ALB/GLOB RATIO 1.2 (1.1-1.8); ALKALINE PHOSPHATASE 89 U/L (38-133); ALT/SGPT 23 U/L (7-56); AST/SGOT 20 U/L (15-39); BILIRUBIN,TOTAL 0.3 mg/dL (0.2-1.3); BLOOD UREA NITROGEN 5 mg/dL (7-21); CALCIUM 9.1 mg/dL (8.4-10.5); CARBON DIOXIDE 27 mmol/L (21-33); CHLORIDE 110 mmol/L (98-107); GFR AFRICAN-AMERICAN > 60; GLUCOSE,RANDOM 92 mg/dL (70-110); POTASSIUM 3.6 mmol/L (3.6-5.0); SODIUM 143 mmol/L (132-148); TOTAL PROTEIN 6.7 g/dL (5.8-8.3)
[2017-02-03 17:52] LABS: BASO # 0.05 K/mm3 (0.0-2.0); BASO % 0.4 % (0.0-3.0); EOS # 0.1 (0.0-0.7); EOS % 0.4 % (1.5-5.0); GRAN # 10.53 (1.4-6.5); GRAN % 77.1 % (50.0-68.0); HEMATOCRIT 40.6 % (36.0-48.0); LYMPH # 1.6 (1.2-3.4); LYMPH % 11.4 % (22.0-35.0); MEAN CELL VOLUME 87.1 fL (80.0-105.0); MEAN CORPUSCULAR HEMOGLOBIN 28.5 pg (25.0-35.0); MEAN CORPUSCULAR HGB CONC 32.8 g/dl (31.0-37.0); MEAN PLATELET VOLUME 10.8 fl (7.0-11.0); MONO # 1.5 (0.1-0.6); MONO % 10.7 % (1.0-6.0); PLATELET COUNT 253 10^3/uL (120.0-450.0); RED CELL DISTRIBUTION WIDTH 14.5 % (11.5-14.5); WHITE BLOOD COUNT 13.7 10^3/ul (4.5-11.0)
[2017-02-03] MEDS: metroNIDAZOLE IV 500 mg/100 ml 500 MG/100 ML BAG IVPB SCH (23:43)
[2017-02-04] MEDS: metroNIDAZOLE IV 500 mg/100 ml 500 MG/100 ML BAG IVPB SCH ×3 (05:06→21:30)
[2017-02-04 07:23] LABS: ADD MANUAL DIFF? NO
[2017-02-04 07:32] LABS: BASO # 0.07 K/mm3 (0.0-2.0); BASO % 0.9 % (0.0-3.0); EOS # 0.2 (0.0-0.7); EOS % 2.1 % (1.5-5.0); GRAN # 4.84 (1.4-6.5); GRAN % 63.5 % (50.0-68.0); HEMATOCRIT 38.7 % (36.0-48.0); LYMPH # 1.9 (1.2-3.4); LYMPH % 24.7 % (22.0-35.0); MEAN CORPUSCULAR HEMOGLOBIN 28.8 pg (25.0-35.0); MEAN CORPUSCULAR HGB CONC 33.1 g/dl (31.0-37.0); MEAN PLATELET VOLUME 10.5 fl (7.0-11.0); MONO # 0.7 (0.1-0.6); MONO % 8.8 % (1.0-6.0); PLATELET COUNT 221 10^3/uL (120.0-450.0); RED CELL DISTRIBUTION WIDTH 14.6 % (11.5-14.5); WHITE BLOOD COUNT 7.6 10^3/ul (4.5-11.0)
[2017-02-04 07:48] LABS: ALB/GLOB RATIO 1.1 (1.1-1.8); ALKALINE PHOSPHATASE 74 U/L (38-133); ALT/SGPT 24 U/L (7-56); AST/SGOT 17 U/L (15-39); BILIRUBIN,TOTAL 0.3 mg/dL (0.2-1.3); BLOOD UREA NITROGEN 4 mg/dL (7-21); CALCIUM 8.4 mg/dL (8.4-10.5); CARBON DIOXIDE 26 mmol/L (21-33); CHLORIDE 112 mmol/L (98-107); GFR AFRICAN-AMERICAN > 60; GLUCOSE,RANDOM 79 mg/dL (70-110); SODIUM 143 mmol/L (132-148); TOTAL PROTEIN 5.9 g/dL (5.8-8.3)
[2017-02-04 07:50] LABS: POTASSIUM 2.8 mmol/L (3.6-5.0)
[2017-02-04] MEDS: Cholestyramine 4 gm/Pkt UD PO SCH ×2 (09:00→18:04)
[2017-02-04] MEDS: Lactobacillus Acidophilus 500 MU Cap PO SCH (09:00)
[2017-02-04] MEDS: Potassium Chloride 20 mEq ER Tab PO SCH ×2 (09:28→10:49)
--- NOTE | 2017-02-04 15:56 | CP.PCM.CON ---
<Kelsey Hyatt - Last Filed: 02/04/17 15:46> History of Present Illness - History of Present Illness History of Present Illness: GI for Dr. Nugent Patient is a 71yo female with PMHx significant for recurrent colon adenocarcinoma s/p right hemicolectomy, recurrent C diff infections, chronic diarrhea, pancreatic insufficiency, hypertension, DM, anxiety who presented with multiple diarrhea. She reports having watery non bloody diarrhea over 20 times yesterday. Pt was treated for C diff colitis with PO vancomycin in the past. The patient denies any new complaints at this time. States her abdominal pain has resolved. No fever, chills, nausea, vomiting. Family- no colon cancer Social 10 cigarettes/day, denies alcohol or illicit drug use Surgery- right hemicolectomy, gastrojejunostomy, left knee replacement, hysterectomy, cholecystectomy Review of Systems - Review of Systems Review of Systems: See HPI Past Patient History - Infectious Disease Hx of Infectious Diseases: None - Tetanus Immunizations Tetanus Immunization: Unknown - Past Social History Smoking Status: Never Smoked - CARDIAC Hx Cardiac Disorders: Yes Hx Hypercholesterolemia: Yes Hx Hypertension: Yes Hx Peripheral Vascular Disease: Yes - PULMONARY Hx Respiratory Disorders: No - NEUROLOGICAL Hx Neurological Disorder: Yes Hx Dizziness: Yes Other/Comment: meniere's - HEENT Hx HEENT Problems: Yes Other/Comment: glasses. dentures - RENAL Hx Chronic Kidney Disease: No - ENDOCRINE/METABOLIC Hx Endocrine Disorders: Yes Hx Diabetes Mellitus Type 2: Yes - HEMATOLOGICAL/ONCOLOGICAL Hx Blood Disorders: No - INTEGUMENTARY Hx Dermatological Problems: No - MUSCULOSKELETAL/RHEUMATOLOGICAL Hx Musculoskeletal Disorders: Yes Hx Arthritis: Yes Hx Degenerative Joint Disease: Yes Hx Falls: No Hx Osteoarthritis: Yes - GASTROINTESTINAL Hx Gastrointestinal Disorders: Yes Hx Diverticulitis: Yes Hx Gall Bladder Disease: Yes Hx Gastroesophageal Reflux: Yes Hx Ileostomy: Yes Hx Pancreatitis: Yes Hx Ulcer: Yes - GENITOURINARY/GYNECOLOGICAL Hx Genitourinary Disorders: Yes Hx Urinary Tract Infection: Yes - PSYCHIATRIC Hx Psychophysiologic Disorder: Yes Hx Anxiety: Yes Hx Depression: Yes Hx Panic Symptoms: Yes - SURGICAL HISTORY Hx Surgeries: Yes Hx Hysterectomy: Yes Hx Joint Replacement: Yes (left knee) Other/Comment: hemicolectomy - ANESTHESIA Hx Anesthesia: Yes Hx Anesthesia Reactions: No Hx Malignant Hyperthermia: No Meds Allergies/Adverse Reactions: Allergies Allergy/AdvReac Type Severity Reaction Status Date / Time Penicillins AdvReac URTICARIA Verified 02/20/17 20:25 - Medications Medications: Current Medications Acetaminophen (Tylenol 325mg Tab) 650 mg PO Q6H PRN PRN Reason: Headache Last Admin: 02/04/17 14:40 Dose: 650 mg Cholestyramine Resin (Questran) 2 gm PO BID [facility] Last Admin: 02/04/17 09:00 Dose: 2 gm Diazepam (Valium) 5 mg PO TID BECCA PRN Reason: Protocol Last Admin: 02/04/17 13:03 Dose: 5 mg Metronidazole (Flagyl) 500 mg in 100 mls @ 100 mls/hr IVPB Q8 BECCA PRN Reason: Protocol Last Admin: 02/04/17 13:03 Dose: 100 mls/hr Potassium Chloride 20 meq/ (Sodium Chloride) 1,010 mls @ 100 mls/hr IV .Q10H6M [facility] Last Admin: 02/04/17 10:50 Dose: 100 mls/hr Lactobacillus Acidophilus (Bacid Acidophilus) 1 cap PO DAILY [facility] Last Admin: 02/04/17 09:00 Dose: 1 cap Lisinopril (Zestril) 20 mg PO DAILY [facility] Last Admin: 02/04/17 09:01 Dose: 20 mg Metoprolol Tartrate (Lopressor) 12.5 mg PO BID [facility] Last Admin: 02/04/17 09:01 Dose: 12.5 mg Zolpidem Tartrate (Ambien) 5 mg PO HS PRN; Protocol PRN Reason: Insomnia Last Admin: 02/03/17 23:42 Dose: 5 mg Physical Exam - Constitutional Appears: No Acute Distress - Head Exam Head Exam: ATRAUMATIC, NORMAL INSPECTION, NORMOCEPHALIC - Eye Exam Eye Exam: EOMI, Normal appearance, PERRL Pupil Exam: NORMAL ACCOMODATION, PERRL - ENT Exam ENT Exam: Mucous Membranes Moist, Normal Exam - Neck Exam Neck exam: Positive for: Normal Inspection - Respiratory Exam Respiratory Exam: Clear to Auscultation Bilateral, NORMAL BREATHING PATTERN - Cardiovascular Exam Cardiovascular Exam: REGULAR RHYTHM - GI/Abdominal Exam GI & Abdominal Exam: Normal Bowel Sounds, Soft. absent: Distended, Firm, Guarding, Hernia, Tenderness - Exam Exam: NORMAL INSPECTION - Extremities Exam Extremities exam: Positive for: full ROM, normal inspection - Back Exam Back exam: NORMAL INSPECTION - Neurological Exam Neurological exam: Alert, CN II-XII Intact, Normal Gait, Oriented x3, Reflexes Normal - Psychiatric Exam Psychiatric exam: Normal Affect, Normal Mood - Skin Skin Exam: Dry, Intact, Normal Color, Warm Results - Vital Signs Recent Vital Signs: Last Vital Signs Temp 98.3 F 02/04/17 07:19 Pulse 71 02/04/17 09:01 Resp 18 02/04/17 07:19 BP 161/64 H 02/04/17 09:01 Pulse Ox 91 L 02/04/17 07:19 - Labs Result Diagrams: 02/04/17 07:00 02/04/17 07:00 Labs: Laboratory Results - last 24 hr 02/04/17 02/04/17 07:00 07:00 WBC 7.6 D RBC 4.45 Hgb 12.8 Hct 38.7 MCV 87.0 MCH 28.8 MCHC 33.1 RDW 14.6 H Plt Count 221 MPV 10.5 Gran % 63.5 Lymph % (Auto) 24.7 [place] % (Auto) 8.8 H Eos % (Auto) 2.1 Baso % (Auto) 0.9 Gran # 4.84 Lymph # 1.9 [place] # 0.7 H Eos # 0.2 Baso # 0.07 Sodium 143 Potassium 2.8 L* D Chloride 112 H Carbon Dioxide 26 Anion Gap 8 L BUN 4 L Creatinine 0.6 Est GFR ( Amer) > 60 Est GFR (Non-Af Amer) > 60 Random Glucose 79 Calcium 8.4 Total Bilirubin 0.3 AST 17 ALT 24 Alkaline Phosphatase 74 Total Protein 5.9 Albumin 3.1 Globulin 2.7 Albumin/Globulin Ratio 1.1 Assessment & Plan - Assessment and Plan (Free Text) Assessment: Chronic diarrhea 2/2 C-diff colitis C-diff toxin + in 01/13/17 -CLD -IV flagyl -PO Vanco -Deficid -We will attemp fecal transplant : Spoke to [employer] bookbin[employer] [phone] for possibly obtaining capsule form or Colonoscopy format. May need [employer] approval Spoke to Nida Canales at [facility] that has medical grade freezer to store the material. Ok with Pharmacy storing the medicine. Registration form sent to [facility] We will closely follow up DW Dr. Nugent <See Nugent V - Last Filed: 03/22/17 20:06> Results - Vital Signs Recent Vital Signs: Last Vital Signs Temp 98.4 F 02/06/17 16:00 Pulse 54 L 02/06/17 17:03 Resp 20 02/06/17 16:00 BP 158/58 H 02/06/17 17:03 Pulse Ox 95 02/06/17 16:00 - Labs Result Diagrams: 02/06/17 06:45 02/06/17 06:45 Assessment & Plan - Assessment and Plan (Free Text) Assessment: Addendum to the GI consult of Dr. Hyatt. Seen, examined and chart reviewed. History or recurrent C diff colitis. Continue Flagyl, oral Vancomycin, Attempt fecal transplant, will coordinate. Thank you for allowing us to participate in your patient care, will make further recommendation based upon clinical course.
--- NOTE | 2017-02-04 16:30 | HP ---
I know the patient very well from hospital stays and from residential/subacute rehab stays. She now presents with 20 episodes of diarrhea in 1 day alone. She has had a problem with C. diff in the [facility]. She is a 71-year-old female who has been fighting C. diff for a few months now. She has been on vancomycin, Flagyl on and off for a while and now it has gotten worse again. She is now in the hospi colette. They tried to get Dificid, which is a medicine for C. diff, but it was $3500 on the outpatient and the insurance company would not cover it. Now, she is in the hospital to get it here, plus she w ill probably need to have a fecal transplant. I am not sure if they can do that here or we have to s end her out to another facility to do that, but she is in trouble with her bowels again and we are wa tching her potassium and making sure she does not get dehydrated. She also has a left neck cervical adenopathy, which she has had for about 7 months now, which is also painful. I am going to get a CAT scan of the head and neck to make sure we are not missing anything there. She is comfortable in bed , a little bit weak, with multiple bouts of diarrhea. She also had chills and fever. She is anxious and she had a 103 temperature 2 days ago. PAST MEDICAL HISTORY: She comes in with history of hypertension, high cholesterol, C. diff, status p ost hemicolectomy. She smokes still, about a half a pack a day. She has Meniere's disease. She has diet controlled diabetes and hemicolectomy, diverticulitis, reflux, pancreatic insufficiency, urinar y tract infections, left knee joint replacement, colon polyps removed, duodenal stricture surgery. FAMILY HISTORY: There is hypertension in the family. SOCIAL HISTORY: She still smokes, occasional alcohol, no drugs. ALLERGIES: SHE IS ALLERGIC TO PENICILLIN. MEDICATIONS: She has been taking lactobacillus, Ambien, Flagyl, potassium, Lopressor, Questran, Pino um, Imodium. REVIEW OF SYSTEMS: No acute vision changes or hearing changes, but the left neck there is a cervical lymphadenopathy that has been there for 7 months and it is painful. No chest pain, no palpitations. No coughing, mucus or congestion. There is a little bit of abdominal discomfort and nauseous with lots of diarrhea, 20 bouts in the past 24 hours, watery. No problems urinating. No back pain. Skin is intact as far she is concerned, normal. No rashes. No headaches, no dizziness, no sweating, no bleeding. PHYSICAL EXAMINATION: VITAL SIGNS: She has a 97.8 temp, 68 pulse, 18 respiratory rate, 154/70 blood pressure, 97% O2 sat i n the Emergency Room. GENERAL: She is well appearing, nontoxic and comfortable right now with IV fluids going. She is duarte rt and oriented x 3. HEENT: Head is atraumatic, normocephalic. She has a left cervical grape-sized lymphadenopathy in th e left cervical area, which is tender. Extraocular muscles are intact. Pupils equally reactive to l ight. Throat is moist, no erythema at this time. NECK: Supple. HEART: Regular rate. Normal S1, S2. LUNGS: Decreased breath sounds, but clear to auscultation. Fair inspiratory effort. ABDOMEN: Soft, nontender, positive bowel sounds. Feels empty to me. There are lots of bowel sounds . No guarding, no rebound, no CVA tenderness. EXTREMITIES: Have no edema. Good range of motion. NEUROLOGIC: GCS is 15. Cranial nerves II-XII grossly intact. Speech is normal. SKIN: Warm and dry. PSYCHIATRIC: Alert and oriented x 3. Normal insight, concentration. She is here for persistent Clostridium difficile infection. Tried to get Dificid, a special medicati on for this on the outpatient since vancomycin and Flagyl failed numerous times. She had lab tests. She has a 143 sodium, potassium dropped from 3.6 to 2.8. We will replace the pot assium. She is refusing IV potassium at this time. BUN 4, creatinine 0.6, GFR is greater than 60, s ugar is 79, calcium is 8.4, total bili is 0.3, AST is 17, ALT is 24, alk phos 74, total protein is 5. 9, albumin is 3.1, globulin 2.7. She came in with a 13.7 white count. She is on IV antibiotics. It is down to 7.6. Hemoglobin 12.8, hematocrit 38.7, platelets are 221. She will have a consult with Dr. Nugent, who is a development administrator that knows her very well. She will be on Ambien, lactobacillus. She will be on IV Flagyl, potassium replacement, metoprolol, IV f luids with potassium, Questran, Valium and Zestril. We will check her labs tomorrow. I will get her out of bed to chair. I will get physical therapy involved. She is currently on a liquid diet. We will see how well she does and we will see if we can arrange a fecal transplant for her as per Dr. Ra macario, the development administrator. The patient has got severe persistent Clostridium difficile diarrhea . Johnny Yates DO cc: [id number] TT: 02/04/2017 16:29:52 en
[2017-02-04] MEDS: Vancomycin 25 MG/ML PO SCH ×2 (17:27→21:31)
[2017-02-05] MEDS: metroNIDAZOLE IV 500 mg/100 ml 500 MG/100 ML BAG IVPB SCH ×3 (05:09→21:38)
[2017-02-05 07:06] LABS: HEMATOCRIT 39.3 % (36.0-48.0); MEAN CELL VOLUME 86.6 fL (80.0-105.0); MEAN CORPUSCULAR HEMOGLOBIN 28.4 pg (25.0-35.0); MEAN CORPUSCULAR HGB CONC 32.8 g/dl (31.0-37.0); MEAN PLATELET VOLUME 10.2 fl (7.0-11.0); RED CELL DISTRIBUTION WIDTH 14.4 % (11.5-14.5); WHITE BLOOD COUNT 7.1 10^3/ul (4.5-11.0)
[2017-02-05 07:26] LABS: ALB/GLOB RATIO 1.1 (1.1-1.8); ALKALINE PHOSPHATASE 78 U/L (38-133); ALT/SGPT 29 U/L (7-56); AST/SGOT 19 U/L (15-39); BILIRUBIN,TOTAL 0.4 mg/dL (0.2-1.3); BLOOD UREA NITROGEN 3 mg/dL (7-21); CALCIUM 8.6 mg/dL (8.4-10.5); CARBON DIOXIDE 26 mmol/L (21-33); CHLORIDE 113 mmol/L (98-107); GFR AFRICAN-AMERICAN > 60; GLUCOSE,RANDOM 91 mg/dL (70-110); POTASSIUM 3.6 mmol/L (3.6-5.0); SODIUM 144 mmol/L (132-148)
[2017-02-05] MEDS ORDERED: Alum-Mag Hydrox-Simethicone Susp (30 mL) PO PRN (07:26)
--- NOTE | 2017-02-05 08:42 | PN ---
DATE: 02/05/2017 She is resting comfortably in bed. She is not that hungry, but no pain, still with some diarrhea from time to time. She is on lots of IVs. She is asking for an increase in the milligrams of her sleeping pill. She does not think the is enough. She wants to try the 10. MEDICATIONS: She is currently on Ambien, Bacid, Flagyl, Lopressor, Maalox, potassium replacement, Questran, Tylenol, Valium, vancomycin, and Zestril. PHYSICAL EXAMINATION: VITAL SIGNS: She has a 98.4 temp, 88 pulse, 152/88 blood pressure, 20 respiratory rate, 100% O2 sat on room air. HEAD: Atraumatic, normocephalic. Throat is moist. NECK: Supple. HEART: Regular rate. LUNGS: Decreased breath sounds, but clear. ABDOMEN: Soft, nontender. Positive bowel sounds. EXTREMITIES: No edema. I think she is getting weaker in bed. We got to get her out of bed and get physical therapy involved. LABORATORY DATA: She has a 7.1 white count, 12.9 hemoglobin, 39. hematocrit with 219 platelets. Sodium 144. Potassium is up to 3.6. BUN is 3, creatinine 0.6. GFR is greater than 60. Sugar is 91. Calcium is 8.6. Total bili is 0.4. AST is 19. ALT is 29, alk phos 78, total protein 6.0. Albumin is 3.1. She is being seen by car construction superintendent. I believe they are talking about a fecal transplant. She has been dealing with this for 3 years on and off with C. diff, chronic diarrhea. Hopefully, we can arrange the fecal transplant and get her out on Sunday or Sunday. We will continue with aggressive treatment and care, physical therapy, out of bed to chair, and hopefully, she will do okay. We will check her potassium. She is here for C. diff, chronic diarrhea, and diabetes. Johnny Yates DO cc: [id number] TT: 02/05/2017 08:41:31 Confirmation # [id number] Dictation # [id number] jn PHILIP
[2017-02-05] MEDS: Lactobacillus Acidophilus 500 MU Cap PO SCH (10:26)
[2017-02-05] MEDS: Cholestyramine 4 gm/Pkt UD PO SCH ×2 (10:28→17:11)
[2017-02-05] MEDS: Vancomycin 25 MG/ML PO SCH ×4 (10:29→21:37)
--- NOTE | 2017-02-05 10:36 | CT ---
PROCEDURE: CT HEAD WITHOUT CONTRAST. HISTORY: left side neck swelling COMPARISON: None available. TECHNIQUE: Axial computed tomography images were obtained through the head/brain without intravenous contrast. Radiation dose: Total exam DLP = 677 mGy-cm. This CT exam was performed using one or more of the following dose reduction techniques: Automated exposure control, adjustment of the mA and/or kV according to patient size, and/or use of iterative reconstruction technique. FINDINGS: HEMORRHAGE: No intracranial hemorrhage. BRAIN: No mass effect or edema. Chronic microvascular changes are seen in the periventricular white matter. VENTRICLES: Unremarkable. No hydrocephalus. CALVARIUM: Unremarkable. PARANASAL SINUSES: Unremarkable as visualized. No significant inflammatory changes. MASTOID AIR CELLS: Unremarkable as visualized. No inflammatory changes. OTHER FINDINGS: None. IMPRESSION: Chronic microvascular changes are seen in the periventricular white matter. No acute intracranial findings
--- NOTE | 2017-02-05 10:41 | CT ---
PROCEDURE: CT NECK WITHOUT CONTRAST HISTORY: left side neck swelling COMPARISON: None. TECHNIQUE: CT of the neck without intravenous contrast. Coronal and sagittal reformats generated. Radiation dose: DLP 303 mGy-cm This CT exam was performed using one or more of the following dose reduction techniques: Automated exposure control, adjustment of the mA and/or kV according to patient size, and/or use of iterative reconstruction technique. FINDINGS: NASOPHARYNX: Unremarkable. SUPRAHYOID NECK: Unremarkable oropharynx, oral cavity, parapharyngeal space and retropharyngeal space. INFRAHYOID NECK: Unremarkable larynx, hypopharynx, and supraglottic space. Vocal cords intact. MASS: None. GLANDS: Parotid and submandibular glands unremarkable. Normal size thyroid gland, without nodule. LYMPH NODES: Normal. No lymphadenopathy. CERVICAL SPINE: No fracture or focal lesion. OTHER FINDINGS: None. IMPRESSION: Unremarkable non-contrast enhanced CT of the neck.
--- NOTE | 2017-02-05 17:55 | CON ---
DATE: 02/05/2017 CHIEF COMPLAINT: Diarrhea times several days. 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 This was from 10/02/2016 and was treated for prolonged dose course of vancomycin p.o. for pseudomembranous colitis, admitted through the Emergency Room. Was see n by Dr. Sam Hayward in the Emergency Room on the because of multiple episodes of diarrhea . Was seen by gastroenterology, Dr. Nugent who was planning to do a fecal transplant and an infect ious disease consultation requested. The patient states that she is having a significant number of d iarrhea up to 20 times a day up to the admission and no fevers and no chills. No chest pain. There are some abdominal cramps. No headaches or blurred vision. PAST MEDICAL HISTORY: Significant for hypertension and diabetes in the past, tubular adenoma, DVT of the left leg, pseudomembranous colitis, Meniere's and dyslipidemia. PAST SURGICAL HISTORY: Significant for hysterectomy, hemicolectomy, left knee surgery. ALLERGIES: PENICILLIN. MEDICATIONS: At home included to be Lopressor, Zestril, Questran. PHYSICAL EXAMINATION: GENERAL: The patient is in bed, nontoxic. VITAL SIGNS: Temperature of 98, blood pressure is 112/60, respiratory rate of 18 and a heart rate of 68. HEENT: Unremarkable. NECK: Supple. LUNGS: Have decreased breath sounds. HEART: Normal S1, S2. ABDOMEN: Soft, nontender. No rebound, no guarding. LABORATORY EXAMINATION: Reveals a white count of 13,700;on admission, is down to 7000. The chemistr ies reveal a BUN of 3, creatinine of 0.6. The patient had a CAT scan of the head. 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 We will treat with p.o. vancomycin and IV Flagyl. T he patient is admitted for possible fecal transplant. She is a candidate for Dificid for as a possib ility of use and will check on the stool workup, stool for C. diff. If positive, will consider fidax omicin at 200 mg p.o. b.i.d. x 10 days, if it is positive. At this time, will treat with p.o. vancom ycin 500 mg q.i.d. and IV Flagyl. We will consider Dificid at 200 mg p.o. b.i.d. x 10 days versus th e fecal transplant. Dmtiry Jiang MD cc: [id number] TT: 02/05/2017 17:54:24 Confirmation # [id number] Dictation # [id number] mn
--- NOTE | 2017-02-05 23:38 | PN ---
DATE: 02/05/2017 SUBJECTIVE: This patient was still complaining of abdominal cramps, seen and evaluated earlier. Complains of the significant amount of loose bowel movements. PHYSICAL EXAMINATION: VITAL SIGNS: Temperature is 97.9, pulse is 63, blood pressure 155/90. HEENT: Atraumatic, anicteric. NECK: Supple. HEART: S1, S2 heard. LUNGS: clear breath sounds. The patient complains of episodes of loose bowel movements. Complaining of loose bowel movements. The patient's dose of vancomycin has been increased. PHYSICAL EXAMINATION: HEENT: Temperature is 97.3, pulse 63, blood pressure 155/90. HEENT: Atraumatic, anicteric. NECK: Supple. HEART: S1, S2 heard. LUNGS: Bilateral air entry present. ABDOMEN: Soft. There is no tenderness. LABORATORY DATA: Hemoglobin 12.9, hematocrit 29.3, WBC 7.1, platelets 219. BUN 33, creatinine 0.6. IMPRESSION: This is a 71-year-old patient with a long history of recurrent diarrhea, probably Clostridium difficile colitis. Presently was seen in the office. Started the patient back on vancomycin. The patient's stool test was C. diff positive. The patient has been having this diarrhea more than 2-3 years. Recurrent episodes of the Clostridium difficile colitis. The reasonable thing is to consider the fecal microbiota transplant, FMT is being considered. We will coordinate with the hospital administration and try to get this FMT done if possibly this admission. Thank you very much for allowing us to participate in the care of the patient. See Nugent MD cc: [id number] TT: 02/05/2017 23:38:05 Confirmation # [id number] Dictation # [id number] loly PALACIOS
[2017-02-06] MEDS: metroNIDAZOLE IV 500 mg/100 ml 500 MG/100 ML BAG IVPB SCH ×2 (05:32→13:15)
[2017-02-06 07:02] LABS: HEMATOCRIT 40.8 % (36.0-48.0); MEAN CELL VOLUME 86.1 fL (80.0-105.0); MEAN CORPUSCULAR HEMOGLOBIN 28.1 pg (25.0-35.0); MEAN CORPUSCULAR HGB CONC 32.6 g/dl (31.0-37.0); MEAN PLATELET VOLUME 10.2 fl (7.0-11.0); RED CELL DISTRIBUTION WIDTH 14.2 % (11.5-14.5)
[2017-02-06 07:20] LABS: ALB/GLOB RATIO 1.2 (1.1-1.8); ALKALINE PHOSPHATASE 80 U/L (38-133); ALT/SGPT 28 U/L (7-56); AST/SGOT 19 U/L (15-39); BILIRUBIN,TOTAL 0.3 mg/dL (0.2-1.3); BLOOD UREA NITROGEN 3 mg/dL (7-21); CALCIUM 8.7 mg/dL (8.4-10.5); CARBON DIOXIDE 26 mmol/L (21-33); CHLORIDE 110 mmol/L (95-110); GFR AFRICAN-AMERICAN > 60; GLUCOSE,RANDOM 92 mg/dL (70-110); POTASSIUM 3.7 mmol/L (3.6-5.0); SODIUM 142 mmol/L (132-148); TOTAL PROTEIN 5.9 g/dL (5.8-8.3)
[2017-02-06 07:26] VITALS: O2SAT 95
[2017-02-06] MEDS ORDERED: Sodium Chloride 0.45% 1,000 ML IV SCH (08:30)
--- NOTE | 2017-02-06 09:08 | PN ---
DATE: 02/06/2017 I see her in bed, resting comfortably. She is having lots of diarrhea. She had physical therapy. T marko said that she is good enough to go home which is good. The CAT scan of the head and neck was oka y. Her blood pressure has been up. I will change her IV from normal saline to half normal saline an d add Norvasc to her metoprolol and her Zestril. She is trying to eat, but she said everything goes right through her. She is being seen by GI. We are trying to do a fecal transplant. Dr. Nugent i s in the process of getting that worked out. PHYSICAL EXAMINATION: VITAL SIGNS: She has a 98.3 temp, 58 pulse, 168/68 blood pressure, 18 respiratory rate, 97% O2 sat o n room air. HEENT: Head is atraumatic, normocephalic. Throat is moist. NECK: Supple. HEART: Regular rate. LUNGS: Clear to auscultation. ABDOMEN: Very soft, nontender, positive bowel sounds. No guarding, no rebound, no CVA tenderness. She sounds empty. EXTREMITIES: Okay. She is on Ambien, Bacid, Flagyl, Lopressor, Maalox, Norvasc, Questran, IV fluids, Tylenol, Valium, va ncomycin p.o. and Zestril. LABORATORY DATA: She has an 8 white count, 13.3 hemoglobin, 40.8 hematocrit with 217 platelets. Sod ium 142, potassium 3.7, BUN is 3, creatinine 0.6, GFR is greater than 60, sugar is 92, calcium is 8.7 , total bili is 0.3. AST is 19, ALT is 28, alk phos is 80, total protein is 5.9. She is being seen by infectious disease and by gastroenterology. She has severe recurrent pseudomemb ranous colitis, on p.o. vancomycin and IV Flagyl. We are going to try and do the fecal transplant. She is a candidate for the medicine Dificid. They cannot get it right now. When I get the okay to d ischarge her home and see if we could do this on the outpatient, I Gewolb from infectious disease and gastroenterology. So the plan is when I get the okay from gastroenterology and infectious disease, we will discharge her home for outpatient treatment of the severe diarrhea, Clostridium difficile pse udomembranous colitis, severe, and her diabetes and hypertension. Johnny Yates DO cc: [id number] TT: 02/06/2017 09:08:14 Confirmation # [id number] Dictation # [id number] tn
[2017-02-06] MEDS: Lactobacillus Acidophilus 500 MU Cap PO SCH (10:00)
[2017-02-06] MEDS: Cholestyramine 4 gm/Pkt UD PO SCH ×2 (10:02→17:03)
[2017-02-06] MEDS: Vancomycin 25 MG/ML PO SCH ×3 (10:02→17:02)
--- NOTE | 2017-02-06 12:19 | PN ---
DATE: 02/06/2017 Seen and examined at the bedside late this morning. She had 2 bowel movements so far today. It is s till liquidy, but reported to be a little bit more like jelly consistency. No reports of bleeding. The patient still gets abdominal discomfort, but is in no acute distress, tolerating the clear liquid diet. VITAL SIGNS: Temperature 98.3, blood pressure 116/60, pulse 60, respirations 18, 95 on room air. LABORATORY DATA: WBC is 8.0. Her hemoglobin is 13.3, hematocrit 40.8 and platelets are 217. Sodium 142, K is 3.7, BUN is 3, creatinine 0.6. LFTs are within normal limits. PHYSICAL EXAMINATION: HEENT: Sclerae are anicteric. NECK: Supple. CARDIAC: S1, S2. LUNGS: Decreased breath sounds but good air entry, no rales or wheeze. ABDOMEN: With bowel sounds, soft. Some diffuse tenderness to mid abdomen. No rebound or guarding. ASSESSMENT: A 71-year-old female with history of recurrent diarrhea, Clostridium difficile colitis. The patient with history of colon cancer as well. PLAN: Fecal transplant is being considered and coordinating with hospital administration. Trying to get the fecal microbiota transplant. Currently, the patient is on Flagyl IV antibiotics. Is on van comycin 500 q.i.d. On IV fluids for hydration. On probiotic. Is also on Questran. Continue to mon itor electrolytes and hopefully we will get this approved soon. The patient is also being followed b y ID. The patient was seen and case discussed with Dr. Nugent. Kena MERRILL cc: [phone] TT: 02/06/2017 12:18:14 Confirmation # [id number] Dictation # [id number] constance
--- NOTE | 2017-02-06 13:34 | CP.PCM.PN ---
Subjective - Date & Time of Evaluation Date of Evaluation: 02/06/17 Time of Evaluation: 11:35 - Subjective Subjective: Patient is still having diarrhea, no fevers overnight, not in distress. Objective - Vital Signs/Intake and Output Vital Signs (last 24 hours): Temp Pulse Resp BP Pulse Ox 98.3 F 58 L 18 168/68 H 95 02/06/17 07:25 02/06/17 07:25 02/06/17 07:25 02/06/17 07:25 02/06/17 07:25 Intake and Output: 02/06/17 02/06/17 06:59 18:59 Intake Total 480 Output Total 550 Balance -70 - Medications Medications: Current Medications Acetaminophen (Tylenol 325mg Tab) 650 mg PO Q6H PRN PRN Reason: Headache Last Admin: 02/06/17 06:16 Dose: 650 mg Al Hydrox/Mg Hydrox/Simethicone (Maalox Plus 30 Ml) 30 ml PO BID PRN PRN Reason: Indigestion / Heartburn Amlodipine Besylate (Norvasc) 2.5 mg PO DAILY [facility] Cholestyramine Resin (Questran) 2 gm PO BID [facility] Last Admin: 02/05/17 17:11 Dose: 2 gm Diazepam (Valium) 5 mg PO TID BECCA PRN Reason: Protocol Last Admin: 02/05/17 17:10 Dose: 5 mg Metronidazole (Flagyl) 500 mg in 100 mls @ 100 mls/hr IVPB Q8 [facility]CCA PRN Reason: Protocol Last Admin: 02/06/17 05:32 Dose: 100 mls/hr Sodium Chloride (Sodium Chloride 0.45%) 1,000 mls @ 40 mls/hr IV .Q24H [facility] Lactobacillus Acidophilus (Bacid Acidophilus) 1 cap PO DAILY [facility] Last Admin: 02/05/17 10:26 Dose: 1 cap Lisinopril (Zestril) 20 mg PO DAILY [facility] Last Admin: 02/05/17 10:29 Dose: 20 mg Metoprolol Tartrate (Lopressor) 12.5 mg PO BID [facility] Last Admin: 02/05/17 17:08 Dose: 12.5 mg Vancomycin HCl (Vancocin 25 Mg/Ml (Oral Use)) 500 mg PO QID [facility] PRN Reason: Protocol Stop: 02/26/17 14:01 Last Admin: 02/05/17 21:37 Dose: 500 mg Zolpidem Tartrate (Ambien) 10 mg PO HS PRN; Protocol PRN Reason: Insomnia Last Admin: 02/05/17 21:38 Dose: 10 mg - Labs Labs: 02/06/17 06:45 02/06/17 06:45 - Constitutional Appears: Non-toxic, No Acute Distress - Head Exam Head Exam: NORMAL INSPECTION - ENT Exam ENT Exam: Mucous Membranes Moist - Neck Exam Neck Exam: absent: Lymphadenopathy, Meningismus - Respiratory Exam Respiratory Exam: Decreased Breath Sounds - Cardiovascular Exam Cardiovascular Exam: +S1, +S2 - GI/Abdominal Exam GI & Abdominal Exam: Soft. absent: Tenderness Assessment and Plan - Assessment and Plan (Free Text) Plan: Assessment recurrent Clostridium difficile associated diarrhea / colitis HTN dyslipidemia history of C diff associated diarrhea S/P hemicolectomy Plan continue Vancomycin PO day 2 and IV Flagyl - should complete a 14 day course; because of the recurrent nature of her diarrhea, GI has suggested possible fecal transplant; also would suggest a Vancomycin taper regimen for the patient after the 14 day course (ie. 1 week Vanco PO 125 mg BID, then 1 week Vanco PO daily, then 1 week PO Vanco every other week) - we may also consider Dificid ( Fidaxomicin) for this patient and will discuss with GI will monitor clinically
[2017-02-06 16:32] VITALS: PULSE 54; RESP 20; TEMP 98.4
[2017-02-06 17:11] VITALS: BP 158/58
--- NOTE | 2017-02-07 04:54 | PN ---
DATE: 02/06/2017 ADDENDUM: This is an addendum to the GI progress report dictated by Kena Anderson APN. The patient s till complains of loose bowel movement. The patient has been on Dificid. The patient has been on Di ficid and also on vancomycin. The patient is being considered for fecal transplant. We will hold of f the antibiotics as per the protocol for at least 48 hours before. We will coordinate. We will als o get an ID consult. We will discuss with Dr. Yates. We will follow up with administration manuelito ng the FMT fecal microbiota transplant. Thank you very much for allowing us to participate in care of the patient. See Nugent MD cc: [id number] TT: 02/07/2017 04:53:37 Confirmation # [id number] Dictation # [id number] javed
--- NOTE | 2017-02-20 16:14 | DS ---
She is doing well. She is going to go for fecal transplant. We are moving her to the transitional c are unit to continue to watch her there get her arranged for fecal transplant secondary to her severe recurrent pseudomembranous colitis, gastroenterology arranges with infectious disease, and hopefully she will do very well in the transitional care unit. Johnny Yates DO cc: [id number] TT: 02/20/2017 16:13:58 ln
== END 2017-02-06 17:19 | DRG 373 ==
LOC: ED 15:12 → ERH 18:39 → 5RNO 21:38
PROVIDERS: ADMIT Family Medicine; ATTEND Family Medicine
DX: A04.7 Enterocolitis due to Clostridium difficile (principal); E11.9 Type 2 diabetes mellitus without complications; I10 Essential (primary) hypertension; E78.00 Pure hypercholesterolemia, unspecified; H81.09 Meniere's disease, unspecified ear; K21.9 Gastro-esophageal reflux disease without esophagitis; E78.5 Hyperlipidemia, unspecified; F17.210 Nicotine dependence, cigarettes, uncomplicated; F41.9 Anxiety disorder, unspecified; Z96.652 Presence of left artificial knee joint; Z86.718 Personal history of other venous thrombosis and embolism; Z86.010 Personal history of colon polyps; Z88.0 Allergy status to penicillin; Z90.49 Acquired absence of other specified parts of digestive tract; Z85.038 Personal history of other malignant neoplasm of large intestine

== ENCOUNTER 2017-02-06 17:19 | Inpatient (IN) | payer OTHER, BC ==
[2017-02-06 18:16] VITALS: BMI 25.4
[2017-02-06] MEDS ORDERED: Alum-Mag Hydrox-Simethicone Susp (30 mL) PO PRN (18:16)
[2017-02-06] MEDS: Sodium Chloride 0.45% 500ml 500 ML SOL IV SCH (20:47)
[2017-02-06] MEDS ORDERED: metroNIDAZOLE IV 500 mg/100 ml 500 MG/100 ML BAG IVPB SCH (22:00)
[2017-02-06] MEDS ORDERED: Pneumococcal 23-Valent Vaccine IM ONE (22:54)
[2017-02-07 08:02] LABS: ADD MANUAL DIFF? NO
[2017-02-07 08:06] LABS: BASO # 0.05 K/mm3 (0.0-2.0); BASO % 0.7 % (0.0-3.0); EOS # 0.3 (0.0-0.7); EOS % 3.4 % (1.5-5.0); GRAN # 5.01 (1.4-6.5); GRAN % 65.4 % (50.0-68.0); LYMPH # 1.7 (1.2-3.4); LYMPH % 21.6 % (22.0-35.0); MEAN CELL VOLUME 85.8 fL (80.0-105.0); MEAN CORPUSCULAR HEMOGLOBIN 28.7 pg (25.0-35.0); MEAN CORPUSCULAR HGB CONC 33.4 g/dl (31.0-37.0); MEAN PLATELET VOLUME 10.1 fl (7.0-11.0); MONO # 0.7 (0.1-0.6); MONO % 8.9 % (1.0-6.0); PLATELET COUNT 198 10^3/uL (120.0-450.0); WHITE BLOOD COUNT 7.7 10^3/ul (4.5-11.0)
[2017-02-07 08:17] LABS: BLOOD UREA NITROGEN 3 mg/dL (7-21); CALCIUM 8.7 mg/dL (8.4-10.5); CARBON DIOXIDE 27 mmol/L (21-33); CHLORIDE 107 mmol/L (98-107); GFR AFRICAN-AMERICAN > 60; GLUCOSE,RANDOM 88 mg/dL (70-110); POTASSIUM 3.4 mmol/L (3.6-5.0); SODIUM 140 mmol/L (132-148)
[2017-02-07] MEDS: Lactobacillus Acidophilus 500 MU Cap PO SCH (09:22)
--- NOTE | 2017-02-07 09:44 | HP ---
HISTORY OF PRESENT ILLNESS: She was just transferred yesterday from the hospital side to the transit ional care unit of the hospital. She is dealing with a persistent, severe pseudomembranous colitis, C. difficile infection, now being seen by infectious disease and GI. She is on vancomycin, Flagyl, a nd probably going to get a fecal transplant while she is in the TCU if it is possible. She is also o n liquid diet, I increased her to full. I am waiting for GI to give me some advice on diet. She is starving and not feeling well. She wants to eat more, which is good. She did not have any diarrhea today, but 2 days ago she had 20 bowel movements in 1-day. She is a 71-year-old female who is dealin g with 3 years of C. diff; has had multiple antibiotics for this. I tried to get Dificid which is a special medication for Clostridium difficile, but they could not get it, it was too expensive. So we are working on a fecal transplant; hopefully in the next 2-3 days, we can do this, which is basicall y swallowing a special pill. She had a CAT scan of the head and neck for persistent left neck issue and adenopathy which came back normal. PAST MEDICAL HISTORY: She has a past medical history of hypertension, high cholesterol, C. diff, sta tus post hemicolectomy. She still smokes half pack a day. She has Meniere's disease from time to ti me, diet controlled diabetes, hemicolectomy, diverticulitis, reflux, pancreatic insufficiency, urinar y tract infections, left knee joint replacement, colon polyps removed, duodenal stricture surgery. FAMILY HISTORY: There is hypertension in the family. SOCIAL HISTORY: She still smokes, occasional alcohol, no drugs. ALLERGIES: PENICILLIN. MEDICATIONS: She takes lactobacillus, Ambien, Flagyl, potassium, Lopressor, Questran, Valium, Imodiu m. She is also on Flagyl and vancomycin. REVIEW OF SYSTEMS: She does have a little bit of a headache now from not eating much, we are going t o increase her to full liquid diet until GI tells me I can go further. No acute vision changes or he aring changes. Her throat is okay. No neck pain at this time. No chest pain or palpitations, no co ugh, mucus congestion. Abdomen she feels it is empty, some nauseous from time to time because it emp ty. Diarrhea on and off, last diarrhea was 2 days ago. No problems with the legs. She is weak. Sh renetta has to do better in physical therapy. Skin is intact. A little bit of a headache now from, she fe els, a low blood sugar. No dizziness, no sweating, no bleeding. PHYSICAL EXAMINATION: VITAL SIGNS: She has 98.4, 48 pulse, 155/59 blood pressure, 16 respiratory rate, 97% O2 sat on room air. HEENT: Head is atraumatic, normocephalic. Extraocular muscles are intact. Pupils are equal reactiv e to light and accommodation normal. There is a little bit of cervical lymphadenopathy on the left s olivia but the CAT scan said that it was all normal. Throat is moist. NECK: Supple. HEART: Regular rate. Normal S1, S2. LUNGS: Clear to auscultation with decreased breath sounds, fair effort. No wheezes, no rhonchi, no rales. ABDOMEN: Very soft, positive bowel sounds, feels empty, no palpable masses, no guarding, no rebound, no CVA tenderness. EXTREMITIES: Have good range of motion, no edema. NEUROLOGIC: GCS is 15. Cranial nerves II-XII grossly intact. Speech is normal. SKIN: Warm and dry. NEUROLOGIC: Alert and oriented x 3. Normal insight. Thyroid midline. No palpable appreciable lymp hadenopathy. IMPRESSION: She is here for persistent Clostridium difficile infection. She is on Flagyl and vancom ycin for fecal transplant. PLAN: Labs are pending. She will have consults with GI and infectious disease. We will encourage p hysical therapy. I will check her labs tomorrow. Hopefully, she continues to do well. She will hav e IV fluids running and I increased her diet to full. Johnny Yates DO cc: [id number] TT: 02/07/2017 09:43:23 mallory
[2017-02-07] MEDS ORDERED: Cholestyramine 4 gm/Pkt UD PO SCH (10:00)
--- NOTE | 2017-02-07 13:54 | CP.PCM.CON ---
History of Present Illness - History of Present Illness History of Present Illness: 71 year old female with PMH of HTN, dyslipidemia, history of C diff associated diarrhea, S/P hemicolectomy was initially admitted in [facility] because of diarrhea. She was seen as an outpatient where she was diagnosed with recurrence of her C. diff. infection. She is now transferred to [facility] for continued medical therapy and physical rehabilitation. Infectious diseases consult is requested to continue her antibiotic therapy. Currently she still has loose bowel movement but amount is less. She denies fever or chils, no nausea or vomiting, no headache or dizziness, no chest pain, no SOB, no cough or colds, no sore throat, no abdominal pain, no dysuria. Review of Systems - Review of Systems All systems: reviewed and no additional remarkable complaints except (as per HPI ) Past Patient History - Infectious Disease Hx of Infectious Diseases: None - Tetanus Immunizations Tetanus Immunization: Unknown - Past Social History Smoking Status: Never Smoked - CARDIAC Hx Cardiac Disorders: Yes Hx Hypercholesterolemia: Yes Hx Hypertension: Yes - PULMONARY Hx Respiratory Disorders: No - NEUROLOGICAL Hx Neurological Disorder: Yes Hx Dizziness: Yes Other/Comment: meniere's - HEENT Hx HEENT Problems: Yes Other/Comment: glasses. dentures - RENAL Hx Chronic Kidney Disease: No - ENDOCRINE/METABOLIC Hx Diabetes Mellitus Type 2: Yes - HEMATOLOGICAL/ONCOLOGICAL Hx Blood Disorders: No - INTEGUMENTARY Hx Dermatological Problems: No - MUSCULOSKELETAL/RHEUMATOLOGICAL Hx Arthritis: Yes - GASTROINTESTINAL Hx Gastrointestinal Disorders: Yes Hx Diverticulitis: Yes Hx Gall Bladder Disease: Yes Hx Gastroesophageal Reflux: Yes Hx Ileostomy: Yes Hx Pancreatitis: Yes Hx Ulcer: Yes - GENITOURINARY/GYNECOLOGICAL Hx Genitourinary Disorders: Yes Hx Urinary Tract Infection: Yes - PSYCHIATRIC Hx Psychophysiologic Disorder: Yes Hx Anxiety: Yes Hx Depression: Yes Hx Panic Symptoms: Yes - SURGICAL HISTORY Hx Surgeries: Yes Hx Hysterectomy: Yes Hx Joint Replacement: Yes (left knee) Other/Comment: hemicolectomy - ANESTHESIA Hx Anesthesia: Yes Hx Anesthesia Reactions: No Hx Malignant Hyperthermia: No Meds Allergies/Adverse Reactions: Allergies Allergy/AdvReac Type Severity Reaction Status Date / Time Penicillins AdvReac URTICARIA Verified 12/15/16 23:50 - Medications Medications: Current Medications Acetaminophen (Tylenol 325mg Tab) 650 mg PO Q6H PRN; Protocol PRN Reason: Headache Al Hydrox/Mg Hydrox/Simethicone (Maalox Plus 30 Ml) 30 ml PO BID PRN; Protocol PRN Reason: Indigestion / Heartburn Amlodipine Besylate (Norvasc) 2.5 mg PO DAILY BECCA PRN Reason: Protocol Cholestyramine Resin (Questran) 2 gm PO BID BECCA PRN Reason: Protocol Diazepam (Valium) 5 mg PO TID BECCA PRN Reason: Protocol Metronidazole (Flagyl) 500 mg in 100 mls @ 100 mls/hr IVPB 0600,1400,2200 [facility] PRN Reason: Protocol Lactobacillus Acidophilus (Bacid Acidophilus) 1 cap PO DAILY BECCA PRN Reason: Protocol Lisinopril (Zestril) 20 mg PO DAILY BECCA PRN Reason: Protocol Metoprolol Tartrate (Lopressor) 12.5 mg PO 0800,1800 BECCA PRN Reason: Protocol Sodium Chloride (Sodium Chloride 0.45%) 1,000 ml IV Q24H BECCA PRN Reason: Protocol Last Admin: 02/06/17 20:47 Dose: 1,000 ml Vancomycin HCl (Vancocin 25 Mg/Ml (Oral Use)) 500 mg PO 0000,0600,1200,1800 BECCA PRN Reason: Protocol Zolpidem Tartrate (Ambien) 10 mg PO HS PRN; Protocol PRN Reason: Insomnia Physical Exam - Constitutional Appears: Non-toxic, No Acute Distress - Head Exam Head Exam: NORMAL INSPECTION - ENT Exam ENT Exam: Mucous Membranes Moist - Neck Exam Neck exam: Negative for: Lymphadenopathy, Meningismus - Respiratory Exam Respiratory Exam: Decreased Breath Sounds - Cardiovascular Exam Cardiovascular Exam: +S1, +S2 - GI/Abdominal Exam GI & Abdominal Exam: Soft. absent: Tenderness Results - Labs Result Diagrams: 02/07/17 07:00 02/07/17 07:00 Assessment & Plan - Assessment and Plan (Free Text) Plan: Assessment recurrent Clostridium difficile associated diarrhea / colitis HTN dyslipidemia history of C diff associated diarrhea S/P hemicolectomy Plan continue Vancomycin PO day 3 - should complete a 14 day course; because of the recurrent nature of her diarrhea, GI has suggested possible fecal transplant; also would suggest a Vancomycin taper regimen for the patient after the 14 day course (ie. 1 week Vanco PO 125 mg BID, then 1 week Vanco PO daily, then 1 week PO Vanco every other week) - we may also consider Dificid (Fidaxomicin) for this patient and will discuss with GI will continue to monitor clinically
[2017-02-07] MEDS ORDERED: Vancomycin 25 MG/ML PO SCH ×2 (14:00)
[2017-02-07] MEDS: Pantoprazole 40 mg EC Tab PO SCH (17:08)
[2017-02-07] MEDS: Sodium Chloride 0.45% 500ml 500 ML SOL IV SCH (17:59)
[2017-02-07] MEDS: Cholestyramine 4 gm/Pkt UD PO SCH (19:47)
--- NOTE | 2017-02-08 00:13 | PN ---
DATE: 02/07/2017 SUBJECTIVE: This patient was seen and evaluated earlier. The patient still has some loose bowel mov ements. Some mild abdominal discomfort. PHYSICAL EXAMINATION: VITAL SIGNS: Temperature is 98.4, blood pressure is 135/56, pulse 55, respirations 20, O2 saturation 96%. HEENT: Atraumatic, anicteric. NECK: Supple. HEART: S1, S2 heard. LUNGS: Bilateral air entry present. ABDOMEN: Soft. There is no mass palpable. Mild tenderness present on deep palpation. EXTREMITIES: No cyanosis, no clubbing. LABORATORY DATA: Hemoglobin 13.7, hematocrit of 41, WBC 7.7, platelets . Potassium 3.4. IMPRESSION: This 70-year-old patient admitted with recurrent history of Clostridium difficile coliti s C. diff. The patient was C. diff antigen positive while on vancomycin, was admitted with wor sening of the diarrhea. The patient has been treated for more than 2 years with recurrent Clostridiu m difficile colitis. PLAN: The patient has now been scheduled for a fecal microbiota transplant on Sunday. The patient w ill be started on colonoscopy preparation. The patient is presently off the vancomycin and Flagyl. We will continue to closely follow up her care and suggest further management based on the clinical c ourse. See Nugent MD cc: [id number] TT: 02/08/2017 00:12:28 Confirmation # [id number] Dictation # [id number] mn
[2017-02-08] MEDS: Cholestyramine 4 gm/Pkt UD PO SCH ×2 (05:42→20:39)
[2017-02-08 07:10] LABS: ALB/GLOB RATIO 1.1 (1.1-1.8); ALKALINE PHOSPHATASE 79 U/L (38-133); ALT/SGPT 26 U/L (7-56); AST/SGOT 18 U/L (15-39); BILIRUBIN,TOTAL 0.4 mg/dL (0.2-1.3); BLOOD UREA NITROGEN 5 mg/dL (7-21); CALCIUM 8.9 mg/dL (8.4-10.5); CARBON DIOXIDE 27 mmol/L (21-33); CHLORIDE 107 mmol/L (98-107); GFR AFRICAN-AMERICAN > 60; GLUCOSE,RANDOM 88 mg/dL (70-110); POTASSIUM 3.9 mmol/L (3.6-5.0); SODIUM 141 mmol/L (132-148); TOTAL PROTEIN 6.5 g/dL (5.8-8.3)
[2017-02-08] MEDS: Pantoprazole 40 mg EC Tab PO SCH ×2 (08:13→17:23)
[2017-02-08 08:48] LABS: HEMATOCRIT 44.6 % (36.0-48.0); MEAN CELL VOLUME 88.1 fL (80.0-105.0); MEAN CORPUSCULAR HEMOGLOBIN 28.7 pg (25.0-35.0); MEAN CORPUSCULAR HGB CONC 32.5 g/dl (31.0-37.0); MEAN PLATELET VOLUME 11.4 fl (7.0-11.0); RED CELL DISTRIBUTION WIDTH 14.6 % (11.5-14.5); WHITE BLOOD COUNT 7.7 10^3/ul (4.5-11.0)
--- NOTE | 2017-02-08 09:11 | PN ---
DATE: 02/08/2017 She is sitting out of bed to chair this morning. She is feeling well. She is in good spirits. She is eating better. She is on Ambien, Bacid, Lopressor, MiraLax, Norvasc, Protonix, Questran, IV fluid s, Tylenol, Valium, and Zestril. PHYSICAL EXAMINATION: VITAL SIGNS: 98.1 temp, 56 pulse, 147/66 blood pressure, 16 respiratory rate, 92% O2 sat on room air . HEENT: Head is atraumatic, normocephalic. Throat is moist. NECK: Supple. HEART: Regular rate. LUNGS: Clear to auscultation. ABDOMEN: Soft, positive bowel sounds, nontender. Empty. EXTREMITIES: No edema. LABORATORY DATA: She has a 7.7 white count, 13.7 hemoglobin, 198 platelets. Sodium 141, potassium 3 .9, BUN is 5, creatinine 0.7, GFR is greater than 60, sugar is 88, calcium is 8.9, total bili is 0.4, AST is 18, ALT is 26, alk phos 79, total protein 6.5, albumin is 3.4, globulin 3.1. She is being seen by gastroenterology and infectious disease. I understand tomorrow they will do the fecal transplant for Sunday and colonoscopy. She is off the vancomycin and Flagyl at this time as p er infectious disease. We will check her labs tomorrow. Hopefully, this will be done very well. Th e patient has got a chronic Clostridium difficile pseudomembranous colitis infection with diabetes an d hypertension. Johnny Yates DO cc: [id number] TT: 02/08/2017 09:11:37 Confirmation # [id number] Dictation # [id number] tn
[2017-02-08] MEDS: Lactobacillus Acidophilus 500 MU Cap PO SCH (09:36)
--- NOTE | 2017-02-08 12:35 | PN ---
DATE: 02/08/2017 Seen and examined at the bedside earlier today. Bowel movements are slightly getting better. No rep orts of bleeding, no abdominal pain, nausea or vomiting. Tolerating the oral intake. VITAL SIGNS: Temperature 98.3, blood pressure 152/67, pulse 42, respirations 18, 92 on room air. LABORATORY DATA: WBC 7.7, H and H is 14.5 and 44.6, platelets are 200. Sodium 141, potassium 3.9, B UN 5, creatinine is 0.7. LFTs are within normal limits. PHYSICAL EXAMINATION: HEENT: Sclerae are anicteric. NECK: Supple. CARDIAC: S1, S2. LUNGS: Sounds are clear. ABDOMEN: With bowel sounds, soft, nontender. No rebound or guarding. EXTREMITIES: No edema. ASSESSMENT: This patient with recurrent Clostridium difficile colitis, was admitted with worsening d iarrhea, history of colon cancer, diabetes mellitus and hypertension. PLAN: The patient was scheduled for tomorrow to have the fecal microbiota transplant, but there are some issues with hospital administration. We will have to reschedule this for next week. The patien t is going to be started on Dificid. We will put her on diarrhea management, soft diet, and continue to monitor the electrolytes right now. Will speak to the patient and family. The patient is also g etting Questran and probiotic. Continue GI prophylaxis. The patient was seen and case discussed bruce Nugent. Kena MERRILL cc: [id number] TT: 02/08/2017 12:34:52 Confirmation # [id number] Dictation # [id number] constance
[2017-02-08] MEDS ORDERED: Peg-Electrolyte Oral Soln 4L (Golytely) PO ONE (15:00)
--- NOTE | 2017-02-08 18:13 | CP.PCM.PN ---
Subjective - Date & Time of Evaluation Date of Evaluation: 02/08/17 Time of Evaluation: 10:35 - Subjective Subjective: Comfortable, less loose stools, afebrile. Objective - Vital Signs/Intake and Output Vital Signs (last 24 hours): Temp Pulse Resp BP Pulse Ox 98.8 F 57 L 18 120/51 L 97 02/08/17 16:00 02/08/17 17:22 02/08/17 16:00 02/08/17 17:22 02/08/17 16:00 - Medications Medications: Current Medications Acetaminophen (Tylenol 325mg Tab) 650 mg PO Q6H PRN; Protocol PRN Reason: Headache Last Admin: 02/08/17 08:16 Dose: 650 mg Al Hydrox/Mg Hydrox/Simethicone (Maalox Plus 30 Ml) 30 ml PO BID PRN; Protocol PRN Reason: Indigestion / Heartburn Amlodipine Besylate (Norvasc) 2.5 mg PO DAILY BECCA PRN Reason: Protocol Last Admin: 02/08/17 10:23 Dose: Not Given Cholestyramine Resin (Questran) 2 gm PO 0600,2000 [facility] PRN Reason: Protocol Last Admin: 02/08/17 05:42 Dose: 2 gm Diazepam (Valium) 5 mg PO TID BECCA PRN Reason: Protocol Last Admin: 02/08/17 17:29 Dose: 5 mg Fidaxomicin (Dificid) 200 mg PO BID [facility] Stop: 02/18/17 18:01 Lactobacillus Acidophilus (Bacid Acidophilus) 1 cap PO DAILY BECCA PRN Reason: Protocol Last Admin: 02/08/17 09:36 Dose: 1 cap Lisinopril (Zestril) 20 mg PO DAILY [facility] PRN Reason: Protocol Last Admin: 02/08/17 09:39 Dose: Not Given Metoprolol Tartrate (Lopressor) 12.5 mg PO 0800,1800 [facility]CCA PRN Reason: Protocol Last Admin: 02/08/17 17:22 Dose: Not Given Pantoprazole Sodium (Protonix Ec Tab) 40 mg PO 0730,1630 [facility] Last Admin: 02/08/17 17:23 Dose: 40 mg Sodium Chloride (Sodium Chloride 0.45%) 1,000 ml IV Q24H [facility]CCA PRN Reason: Protocol Last Admin: 02/07/17 17:59 Dose: 1,000 ml Zolpidem Tartrate (Ambien) 10 mg PO HS PRN; Protocol PRN Reason: Insomnia Last Admin: 02/07/17 22:18 Dose: 10 mg - Labs Labs: 02/08/17 06:15 02/08/17 06:15 - Constitutional Appears: Non-toxic, No Acute Distress - Head Exam Head Exam: NORMAL INSPECTION - ENT Exam ENT Exam: Mucous Membranes Moist - Neck Exam Neck Exam: absent: Lymphadenopathy, Meningismus - Respiratory Exam Respiratory Exam: Decreased Breath Sounds - Cardiovascular Exam Cardiovascular Exam: +S1, +S2 - GI/Abdominal Exam GI & Abdominal Exam: Soft. 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 Nugent, patient is for fecal transplant tomorrow, and as per protocol, the patient should off antibiotics for about 48 hours - we have discontinued PO Vancomycin and IV Flagyl will follow up results of the fecal transplant and monitor the patient clinically
[2017-02-08] MEDS: Sodium Chloride 0.45% 500ml 500 ML SOL IV SCH (19:46)
[2017-02-09] MEDS: Cholestyramine 4 gm/Pkt UD PO SCH ×2 (06:19→21:35)
[2017-02-09] MEDS: Pantoprazole 40 mg EC Tab PO SCH ×2 (06:40→17:30)
[2017-02-09 07:51] LABS: HEMATOCRIT 41.9 % (36.0-48.0); MEAN CELL VOLUME 87.7 fL (80.0-105.0); MEAN CORPUSCULAR HEMOGLOBIN 28.9 pg (25.0-35.0); MEAN CORPUSCULAR HGB CONC 32.9 g/dl (31.0-37.0); MEAN PLATELET VOLUME 10.9 fl (7.0-11.0); RED CELL DISTRIBUTION WIDTH 14.4 % (11.5-14.5); WHITE BLOOD COUNT 7.2 10^3/ul (4.5-11.0)
--- NOTE | 2017-02-09 07:59 | PN ---
DATE: 02/09/2017 I saw her in the transitional care unit, resting in bed. She slept very well last night. No diarrhe a for 2 days. She is eating better. She is feeling better. She is on Ambien, Bacid, Flagyl, Lopressor, Maalox, Norvasc, Protonix, Questran, IV fluids, Tylenol, Valium, vancomycin p.o. and Zestril. She is getting a little bit stronger, still weak. Needs physical therapy. There was supposed to be a fecal transplant today, but that was postponed until next Sunday or Sunday next week. Hopefully, we can get that done while she is in the transitional care unit. PHYSICAL EXAMINATION: VITAL SIGNS: Temp 98.1, 56 pulse, 134/54 blood pressure, 18 respiratory rate, 92%-97% O2 sat on room air. HEENT: Head is atraumatic, normocephalic. HEART: Regular rate. LUNGS: Decreased breath sounds, but clear. ABDOMEN: Soft, nontender, positive bowel sounds. No guarding, no rebound, no CVA tenderness. EXTREMITIES: Have no edema and she is weak. She needs physical therapy. She has a 7.7 white count, 14.5 hemoglobin, 44.6 hematocrit with 200 platelets. Sodium 141, potassiu m is 3.9, BUN is 5, creatinine 0.7, GFR is greater than 60, sugar is 88, calcium is 8.9, total bili i s 0.4, AST is 18, ALT is 26, alk phos 79, total protein 6.5, albumin is 3.4, globulin 3.1. She is being seen by infectious disease and GI. She has a chronic pseudomembranous colitis, which is severe, Clostridium difficile, been treated on and off for the past 3 years. She has diabetes, hype rtension and diarrhea, which has somehow stopped. The plan is for fecal transplant when it can be ar ranged. Continue with physical therapy and medication. Check her labs tomorrow. Encourage out of b ed to chair and therapy. Johnny Yates DO cc: [id number] TT: 02/09/2017 07:59:02 Confirmation # [id number] Dictation # [id number]
[2017-02-09 08:03] LABS: INR 1.42 (0.93-1.08)
[2017-02-09 08:05] LABS: ALB/GLOB RATIO 1.1 (1.1-1.8); ALKALINE PHOSPHATASE 73 U/L (38-133); ALT/SGPT 18 U/L (7-56); AST/SGOT 17 U/L (15-39); BILIRUBIN,TOTAL 0.3 mg/dL (0.2-1.3); BLOOD UREA NITROGEN 9 mg/dL (7-21); CALCIUM 9.1 mg/dL (8.4-10.5); CARBON DIOXIDE 25 mmol/L (21-33); CHLORIDE 108 mmol/L (98-107); GFR AFRICAN-AMERICAN > 60; GLUCOSE,RANDOM 88 mg/dL (70-110); POTASSIUM 4.2 mmol/L (3.6-5.0); SODIUM 139 mmol/L (132-148); TOTAL PROTEIN 6.1 g/dL (5.8-8.3)
[2017-02-09] MEDS: Lactobacillus Acidophilus 500 MU Cap PO SCH (10:26)
[2017-02-09] MEDS: Vancomycin 25 MG/ML PO SCH ×3 (10:27→18:08)
--- NOTE | 2017-02-09 12:40 | PN ---
DATE: 02/09/2017 Seen and examined at the bedside earlier today. She reports she is feeling much better, especially s he started taking solid foods. Diarrhea is improving. Her bowel movement was a little more formed. No reports of bleeding. VITAL SIGNS: Temperature 98.1, blood pressure 146/53, pulse 56, respirations 18, 95 on room air. LABORATORY DATA: Today, WBC 7.2, H and H is 13.8 and 41.9. PT 15.3, INR is 1.42. Her sodium is 139 , K 4.2, BUN is 9, creatinine 0.7. LFTs are within normal limits. PHYSICAL EXAMINATION: HEENT: Sclerae are anicteric. NECK: Supple. CARDIAC: S1, S2. LUNGS: Clear. ABDOMEN: With bowel sounds, soft, nontender. No rebound or guarding. ASSESSMENT: Recurrent Clostridium difficile colitis, came with worsening diarrhea, probably dehydrat ion. She has history of colon cancer, hypertension, diabetes mellitus. PLAN: Continue current diet. She is tolerating well. Dificid was changed and the patient is on oral Flagyl and oral vancomycin. Continue PPI. She is also on probiotics and Questran. Monitor the sto ols and right now, the fecal transplant is scheduled for Sunday. This was discussed with the patient . The patient was seen and case discussed with Dr. Nugent. Kena Monica DESIRAE cc: [id number] TT: 02/09/2017 12:40:25 Confirmation # [id number] Dictation # [id number] constance
--- NOTE | 2017-02-09 17:15 | CP.PCM.PN ---
Subjective - Date & Time of Evaluation Date of Evaluation: 02/09/17 Time of Evaluation: 10:00 - Subjective Subjective: Less diarrhea, no fevers, for fecal transplant today. Objective - Vital Signs/Intake and Output Vital Signs (last 24 hours): Temp Pulse Resp BP Pulse Ox 98.2 F 56 L 18 126/50 L 96 02/09/17 16:00 02/09/17 16:00 02/09/17 16:00 02/09/17 16:00 02/09/17 16:00 Intake and Output: 02/09/17 02/09/17 06:59 18:59 Intake Total 730 Balance 730 - Medications Medications: Current Medications Acetaminophen (Tylenol 325mg Tab) 650 mg PO Q6H PRN; Protocol PRN Reason: Headache Last Admin: 02/08/17 08:16 Dose: 650 mg Al Hydrox/Mg Hydrox/Simethicone (Maalox Plus 30 Ml) 30 ml PO BID PRN; Protocol PRN Reason: Indigestion / Heartburn Amlodipine Besylate (Norvasc) 2.5 mg PO DAILY [facility]CCA PRN Reason: Protocol Last Admin: 02/09/17 10:26 Dose: Not Given Cholestyramine Resin (Questran) 2 gm PO 0600,2000 [facility] PRN Reason: Protocol Last Admin: 02/09/17 06:19 Dose: 2 gm Diazepam (Valium) 5 mg PO TID [facility]CCA PRN Reason: Protocol Last Admin: 02/09/17 14:07 Dose: 5 mg Lactobacillus Acidophilus (Bacid Acidophilus) 1 cap PO DAILY [facility]CCA PRN Reason: Protocol Last Admin: 02/09/17 10:26 Dose: 1 cap Lisinopril (Zestril) 20 mg PO DAILY [facility]CCA PRN Reason: Protocol Last Admin: 02/09/17 10:30 Dose: Not Given Metoprolol Tartrate (Lopressor) 12.5 mg PO 0800,1800 [facility] PRN Reason: Protocol Last Admin: 02/09/17 08:15 Dose: Not Given Metronidazole (Flagyl) 500 mg PO Q8 [facility]CCA PRN Reason: Protocol Last Admin: 02/09/17 14:07 Dose: 500 mg Pantoprazole Sodium (Protonix Ec Tab) 40 mg PO 0730,1630 [facility] Last Admin: 02/09/17 06:40 Dose: 40 mg Sodium Chloride (Sodium Chloride 0.45%) 1,000 ml IV Q24H [facility] PRN Reason: Protocol Last Admin: 02/08/17 19:46 Dose: 1,000 ml Vancomycin HCl (Vancocin 25 Mg/Ml (Oral Use)) 250 mg PO TID [facility]CCA PRN Reason: Protocol Last Admin: 02/09/17 14:08 Dose: 250 mg Zolpidem Tartrate (Ambien) 10 mg PO HS PRN; Protocol PRN Reason: Insomnia Last Admin: 02/08/17 21:55 Dose: 10 mg - Labs Labs: 02/09/17 07:00 02/09/17 07:00 PT 15.3 Seconds (9.9-11.8) H 02/09/17 07:00 INR 1.42 (0.93-1.08) H 02/09/17 07:00 - Constitutional Appears: Non-toxic, No Acute Distress - Head Exam Head Exam: NORMAL INSPECTION - ENT Exam ENT Exam: Mucous Membranes Moist - Neck Exam Neck Exam: absent: Lymphadenopathy, Meningismus - Respiratory Exam Respiratory Exam: Decreased Breath Sounds - Cardiovascular Exam Cardiovascular Exam: +S1, +S2 - GI/Abdominal Exam GI & Abdominal Exam: Soft. 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 Nugent, patient is for fecal transplant today, and as per protocol, the patient should off antibiotics for about 48 hours - we have discontinued PO Vancomycin and IV Flagyl previously will follow up results of the fecal transplant and continue to monitor the patient clinically
[2017-02-09] MEDS: Sodium Chloride 0.45% 500ml 500 ML SOL IV SCH (18:10)
[2017-02-10] MEDS: Cholestyramine 4 gm/Pkt UD PO SCH ×2 (06:14→20:17)
[2017-02-10] MEDS: Pantoprazole 40 mg EC Tab PO SCH ×2 (06:40→17:30)
[2017-02-10 08:22] LABS: HEMATOCRIT 41.5 % (36.0-48.0); MEAN CELL VOLUME 86.8 fL (80.0-105.0); MEAN CORPUSCULAR HEMOGLOBIN 28.7 pg (25.0-35.0); MEAN PLATELET VOLUME 10.4 fl (7.0-11.0); RED CELL DISTRIBUTION WIDTH 14.3 % (11.5-14.5); WHITE BLOOD COUNT 8.6 10^3/ul (4.5-11.0)
[2017-02-10 08:34] LABS: ALB/GLOB RATIO 1.2 (1.1-1.8); ALKALINE PHOSPHATASE 74 U/L (38-133); ALT/SGPT 23 U/L (7-56); AST/SGOT 16 U/L (15-39); BILIRUBIN,TOTAL 0.3 mg/dL (0.2-1.3); BLOOD UREA NITROGEN 11 mg/dL (7-21); CALCIUM 9.2 mg/dL (8.4-10.5); CARBON DIOXIDE 29 mmol/L (21-33); CHLORIDE 107 mmol/L (98-107); GFR AFRICAN-AMERICAN > 60; GLUCOSE,RANDOM 92 mg/dL (70-110); POTASSIUM 4.1 mmol/L (3.6-5.0); SODIUM 141 mmol/L (132-148); TOTAL PROTEIN 6.4 g/dL (5.8-8.3)
[2017-02-10] MEDS: Lactobacillus Acidophilus 500 MU Cap PO SCH (10:51)
[2017-02-10] MEDS: Vancomycin 25 MG/ML PO SCH ×3 (10:56→18:25)
--- NOTE | 2017-02-10 11:35 | CP.PCM.PN ---
Subjective - Date & Time of Evaluation Date of Evaluation: 02/10/17 Time of Evaluation: 10:45 - Subjective Subjective: Comfortable, afebrile, bowel movement today was semisolid, no nausea. Objective - Vital Signs/Intake and Output Vital Signs (last 24 hours): Temp Pulse Resp BP Pulse Ox 98.7 F 54 L 19 133/48 L 96 02/10/17 09:57 02/10/17 09:57 02/10/17 09:57 02/10/17 09:57 02/10/17 09:57 - Medications Medications: Current Medications Acetaminophen (Tylenol 325mg Tab) 650 mg PO Q6H PRN; Protocol PRN Reason: Headache Last Admin: 02/08/17 08:16 Dose: 650 mg Al Hydrox/Mg Hydrox/Simethicone (Maalox Plus 30 Ml) 30 ml PO BID PRN; Protocol PRN Reason: Indigestion / Heartburn Amlodipine Besylate (Norvasc) 2.5 mg PO DAILY BECCA PRN Reason: Protocol Last Admin: 02/09/17 10:26 Dose: Not Given Cholestyramine Resin (Questran) 2 gm PO 0600,2000 BECCA PRN Reason: Protocol Last Admin: 02/10/17 06:14 Dose: 2 gm Diazepam (Valium) 5 mg PO TID BECCA PRN Reason: Protocol Last Admin: 02/09/17 18:08 Dose: 5 mg Lactobacillus Acidophilus (Bacid Acidophilus) 1 cap PO DAILY BECCA PRN Reason: Protocol Last Admin: 02/09/17 10:26 Dose: 1 cap Lisinopril (Zestril) 20 mg PO DAILY BECCA PRN Reason: Protocol Last Admin: 02/09/17 10:30 Dose: Not Given Metoprolol Tartrate (Lopressor) 12.5 mg PO 0800,1800 BECCA PRN Reason: Protocol Last Admin: 02/10/17 08:28 Dose: Not Given Metronidazole (Flagyl) 500 mg PO Q8 BECCA PRN Reason: Protocol Last Admin: 02/10/17 06:14 Dose: 500 mg Pantoprazole Sodium (Protonix Ec Tab) 40 mg PO 0730,1630 [facility] Last Admin: 02/10/17 06:40 Dose: 40 mg Sodium Chloride (Sodium Chloride 0.45%) 1,000 ml IV Q24H BECCA PRN Reason: Protocol Last Admin: 02/09/17 18:10 Dose: 1,000 ml Vancomycin HCl (Vancocin 25 Mg/Ml (Oral Use)) 250 mg PO TID BECCA PRN Reason: Protocol Last Admin: 02/09/17 18:08 Dose: 250 mg Zolpidem Tartrate (Ambien) 10 mg PO HS PRN; Protocol PRN Reason: Insomnia Last Admin: 02/09/17 21:36 Dose: 10 mg - Labs Labs: 02/10/17 08:00 02/10/17 08:00 PT 15.3 Seconds (9.9-11.8) H 02/09/17 07:00 INR 1.42 (0.93-1.08) H 02/09/17 07:00 - Constitutional Appears: Non-toxic, No Acute Distress - Head Exam Head Exam: NORMAL INSPECTION - ENT Exam ENT Exam: Mucous Membranes Moist - Neck Exam Neck Exam: absent: Lymphadenopathy, Meningismus - Cardiovascular Exam Cardiovascular Exam: +S1, +S2 - GI/Abdominal Exam GI & Abdominal Exam: Soft. 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 Nugent, patient is for fecal transplant but was not done yesterday, will be done next week - in the meantime will continue PO Vancomycin as ordered by GI
--- NOTE | 2017-02-10 14:04 | PN ---
DATE: 02/10/2017 I saw her in the transitional care unit. She does seem resting comfortably in bed. She actually is eating better. Had a normal bowel movement, is on lots of medication for her bowels. Awaiting for t he fecal transplant which I was told today would be done next Sunday. PHYSICAL EXAMINATION: VITAL SIGNS: 98.7 temp, 54 pulse, 133/48 blood pressure, 19 respiratory rate, 96% O2 sat on room air . HEENT: Head is atraumatic, normocephalic. HEART: Regular rate. LUNGS: Clear to auscultation. ABDOMEN: Soft, nontender, positive bowel sounds. EXTREMITIES: No edema. MEDICATIONS: She is currently on Ambien, Bacid, Flagyl, Lopressor, Maalox, Norvasc, Protonix, Questr an, IV fluids, Tylenol, Valium, vancomycin and Zestril. LABORATORY DATA: She has an 8.6 white count, 13.7 hemoglobin, 41.5 hematocrit with 201 platelets. S odium 141, potassium 4.1, BUN 11, creatinine 0.7, GFR is greater than 60, sugar is 92, calcium 9.2, t otal bili is 0.3, AST is 16, ALT is 22, alk phos 74. Total protein 6.4, albumin 3.5. She is being seen by infectious disease, GI. She is here for diarrhea persistent, Clostridium diffic ile, pseudomembranous colitis, hypertension. For fecal transplant, we will get this arranged. I corie l check her labs tomorrow. Encourage her to continue with physical therapy and diet. To continue wi treatment and care. I will see her tomorrow. Johnny Yates DO cc: [id number] TT: 02/10/2017 14:03:59 Confirmation # [id number] Dictation # [id number] jn
[2017-02-10] MEDS: Sodium Chloride 0.45% 1,000 ML IV SCH (18:07)
--- NOTE | 2017-02-10 19:44 | PN ---
DATE: 02/10/2017 SUBJECTIVE: This patient was seen and evaluated earlier today. The patient is feeling slightly bett er, still has episodes of diarrhea. PHYSICAL EXAMINATION: VITAL SIGNS: Temperature is 98.7, pulse of 58, blood pressure 141/58. HEENT: Atraumatic, anicteric. NECK: Supple. HEART: S1, S2 heard. LUNGS: Bilateral air entry present. ABDOMEN: Soft. Mild tenderness present on deep palpation. LABORATORY DATA: Hemoglobin 13.7, hematocrit 41.5, WBC is 8.6, platelets 201, BUN 11, creatinine 0.7 . IMPRESSION AND PLAN: This 71-year-old patient with recurrent Clostridium difficile colitis, more eula n 2-1/2 years has recently been on Flagyl, but stool for Clostridium difficile remained positive. Th e patient has recurrent C. diff and has also become refractory. The patient is planned to have the f ecal transplant arranged. Presently on p.o. Flagyl and vancomycin. We will continue that. We will continue to closely follow up her care. Thank you very much for allowing us to participate in the care of the patient. See Nugent MD cc: [id number] TT: 02/10/2017 19:43:15 Confirmation # [id number] Dictation # [id number] jn
[2017-02-11] MEDS: Cholestyramine 4 gm/Pkt UD PO SCH ×2 (06:15→20:01)
--- NOTE | 2017-02-11 10:18 | PN ---
DATE: 02/11/2017 I saw the patient resting out of bed to chair today. She is alert. She is having diarrhea today. S he had a good bowel movement yesterday. She is otherwise comfortable, not weak, no pain. She is try ing to eat better. She is currently on Ambien, Bacid, Flagyl, Lopressor, Maalox, Norvasc, Protonix, Questran, IV fluids, Tylenol, Valium, vancomycin orally and Zestril. PHYSICAL EXAMINATION: VITAL SIGNS: She has 98.7 temp, 61 pulse, 188/67 blood pressure, 19 respiratory rate, 96% O2 sat on room air. HEENT: Head is atraumatic, normocephalic. HEART: Regular rate. LUNGS: Clear to auscultation. ABDOMEN: Soft, positive bowel sounds, nontender. EXTREMITIES: No edema. She has an 8.6 white count, 13.7 hemoglobin, 201 platelets. Sodium 141, potassium 4.1, BUN 11, creat inine 0.7, GFR is greater than 60, sugar is 92, calcium is 9.2, total bili is 0.3, AST is 16, ALT is 23, alk phos 74, total protein 6.4, albumin 3.5, globulin 2.9. She is being seen by GI and infectious disease. They are going to do a fecal transplant next week. I believe it is next Sunday if I am not mistaken. Working on the paperwork. She is on Flagyl and va ncomycin. She has severe pseudomembranous colitis, diarrhea, Clostridium difficile, diabetes, hypert ension. Continue aggressive treatment and care, check her labs tomorrow. Johnny Yates DO cc: [id number] TT: 02/11/2017 10:17:40 Confirmation # [id number] Dictation # [id number] en
[2017-02-11] MEDS: Vancomycin 25 MG/ML PO SCH ×3 (11:00→18:21)
[2017-02-11] MEDS: Lactobacillus Acidophilus 500 MU Cap PO SCH (11:00)
--- NOTE | 2017-02-11 11:25 | CP.PCM.PN ---
Subjective - Date & Time of Evaluation Date of Evaluation: 02/11/17 Time of Evaluation: 10:30 - Subjective Subjective: Comfortable, no diarrhea currently, not in distress. Objective - Vital Signs/Intake and Output Vital Signs (last 24 hours): Temp Pulse Resp BP Pulse Ox 98.7 F 45 L 19 145/55 L 96 02/10/17 09:57 02/11/17 09:00 02/10/17 09:57 02/11/17 09:00 02/10/17 09:57 - Medications Medications: Current Medications Acetaminophen (Tylenol 325mg Tab) 650 mg PO Q6H PRN; Protocol PRN Reason: Headache Last Admin: 02/10/17 11:27 Dose: 650 mg Al Hydrox/Mg Hydrox/Simethicone (Maalox Plus 30 Ml) 30 ml PO BID PRN; Protocol PRN Reason: Indigestion / Heartburn Amlodipine Besylate (Norvasc) 2.5 mg PO DAILY BECCA PRN Reason: Protocol Last Admin: 02/10/17 11:00 Dose: Not Given Cholestyramine Resin (Questran) 2 gm PO 0600,1999 BECCA PRN Reason: Protocol Last Admin: 02/11/17 06:15 Dose: 2 gm Diazepam (Valium) 5 mg PO TID BECCA PRN Reason: Protocol Last Admin: 02/10/17 18:12 Dose: 5 mg Sodium Chloride (Sodium Chloride 0.45%) 1,000 mls @ 40 mls/hr IV .Q24H [facility] Stop: 02/12/17 17:44 Last Admin: 02/10/17 18:07 Dose: 40 mls/hr Lactobacillus Acidophilus (Bacid Acidophilus) 1 cap PO DAILY BECCA PRN Reason: Protocol Last Admin: 02/10/17 10:51 Dose: 1 cap Lisinopril (Zestril) 20 mg PO DAILY BECCA PRN Reason: Protocol Last Admin: 02/10/17 11:00 Dose: Not Given Metoprolol Tartrate (Lopressor) 12.5 mg PO 0800,1800 BECCA PRN Reason: Protocol Last Admin: 02/11/17 09:00 Dose: Not Given Metronidazole (Flagyl) 500 mg PO Q8 BECCA PRN Reason: Protocol Last Admin: 02/11/17 06:14 Dose: 500 mg Pantoprazole Sodium (Protonix Ec Tab) 40 mg PO 0730,1630 [facility] Last Admin: 02/10/17 17:30 Dose: 40 mg Vancomycin HCl (Vancocin 25 Mg/Ml (Oral Use)) 250 mg PO TID BECCA PRN Reason: Protocol Last Admin: 02/10/17 18:25 Dose: 250 mg Zolpidem Tartrate (Ambien) 10 mg PO HS PRN; Protocol PRN Reason: Insomnia Last Admin: 02/10/17 22:21 Dose: 10 mg - Labs Labs: 02/10/17 08:00 02/10/17 08:00 PT 15.3 Seconds (9.9-11.8) H 02/09/17 07:00 INR 1.42 (0.93-1.08) H 02/09/17 07:00 - Constitutional Appears: Non-toxic, No Acute Distress - Head Exam Head Exam: NORMAL INSPECTION - ENT Exam ENT Exam: Mucous Membranes Moist - Neck Exam Neck Exam: absent: Lymphadenopathy, Meningismus - Respiratory Exam Respiratory Exam: Decreased Breath Sounds - Cardiovascular Exam Cardiovascular Exam: +S1, +S2 - GI/Abdominal Exam GI & Abdominal Exam: Soft. 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 Nugent, patient is for fecal transplant but still awaiting schedule, will be done next week - in the meantime will continue PO Vancomycin and Flagyl as ordered by GI
[2017-02-11 13:13] LABS: MEAN CELL VOLUME 86.1 fL (80.0-105.0); MEAN CORPUSCULAR HEMOGLOBIN 28.6 pg (25.0-35.0); MEAN CORPUSCULAR HGB CONC 33.2 g/dl (31.0-37.0); MEAN PLATELET VOLUME 10.7 fl (7.0-11.0); RED CELL DISTRIBUTION WIDTH 14.2 % (11.5-14.5); WHITE BLOOD COUNT 6.9 10^3/ul (4.5-11.0)
[2017-02-11 13:26] LABS: ALB/GLOB RATIO 1.1 (1.1-1.8); ALKALINE PHOSPHATASE 67 U/L (38-133); ALT/SGPT 22 U/L (7-56); AST/SGOT 14 U/L (15-39); BILIRUBIN,TOTAL 0.3 mg/dL (0.2-1.3); BLOOD UREA NITROGEN 13 mg/dL (7-21); CALCIUM 9.3 mg/dL (8.4-10.5); CARBON DIOXIDE 27 mmol/L (21-33); CHLORIDE 106 mmol/L (98-107); GFR AFRICAN-AMERICAN > 60; GLUCOSE,RANDOM 129 mg/dL (70-110); POTASSIUM 4.3 mmol/L (3.6-5.0); SODIUM 138 mmol/L (132-148); TOTAL PROTEIN 6.6 g/dL (5.8-8.3)
[2017-02-11] MEDS: Pantoprazole 40 mg EC Tab PO SCH (17:30)
[2017-02-11] MEDS: Sodium Chloride 0.45% 1,000 ML IV SCH (18:19)
--- NOTE | 2017-02-12 05:06 | PN ---
DATE: 02/11/2017 SUBJECTIVE: This patient was seen and evaluated earlier today. In exam, the patient did have some s oft bowel movements a few times more today. some mild abdominal discomfort, otherwise, she is tolerating the diet. The patient is on Flagyl and vancomycin. PHYSICAL EXAMINATION: VITAL SIGNS: Stable. ABDOMEN: Soft. There is no tenderness. EXTREMITIES: No edema. No cyanosis. IMPRESSION: Recurrent Clostridium difficile for more than 2-1/2 years and now becoming more refracto ry on Flagyl and vancomycin. The patient is awaiting for fecal microbiota transplant (FMT), which is scheduled for Sunday. Thank you very much for allowing us to participate in the care of the patient. See Nugent MD cc: [id number] TT: 02/12/2017 05:05:31 Confirmation # [id number] Dictation # [id number] tn
[2017-02-12] MEDS: Cholestyramine 4 gm/Pkt UD PO SCH ×2 (06:27→21:36)
[2017-02-12 07:06] LABS: HEMATOCRIT 41.2 % (36.0-48.0); MEAN CELL VOLUME 86.9 fL (80.0-105.0); MEAN CORPUSCULAR HEMOGLOBIN 28.9 pg (25.0-35.0); MEAN CORPUSCULAR HGB CONC 33.3 g/dl (31.0-37.0); MEAN PLATELET VOLUME 11.2 fl (7.0-11.0); RED CELL DISTRIBUTION WIDTH 14.1 % (11.5-14.5); WHITE BLOOD COUNT 7.3 10^3/ul (4.5-11.0)
[2017-02-12 07:29] LABS: ALB/GLOB RATIO 1.2 (1.1-1.8); ALKALINE PHOSPHATASE 69 U/L (38-133); ALT/SGPT 15 U/L (7-56); AST/SGOT 15 U/L (15-39); BILIRUBIN,TOTAL 0.4 mg/dL (0.2-1.3); BLOOD UREA NITROGEN 18 mg/dL (7-21); CALCIUM 9.2 mg/dL (8.4-10.5); CARBON DIOXIDE 25 mmol/L (21-33); CHLORIDE 107 mmol/L (98-107); GFR AFRICAN-AMERICAN > 60; GLUCOSE,RANDOM 85 mg/dL (70-110); POTASSIUM 4.3 mmol/L (3.6-5.0); SODIUM 140 mmol/L (132-148); TOTAL PROTEIN 6.5 g/dL (5.8-8.3)
[2017-02-12] MEDS: Pantoprazole 40 mg EC Tab PO SCH ×2 (08:20→17:26)
--- NOTE | 2017-02-12 09:21 | CP.PCM.PN ---
Subjective - Date & Time of Evaluation Date of Evaluation: 02/12/17 Time of Evaluation: 08:40 - Subjective Subjective: Comfortable, has soft stools but has improved. Objective - Vital Signs/Intake and Output Vital Signs (last 24 hours): Temp Pulse Resp BP Pulse Ox 98.7 F 54 L 19 123/63 96 02/10/17 09:57 02/11/17 18:20 02/10/17 09:57 02/11/17 18:20 02/10/17 09:57 - Medications Medications: Current Medications Acetaminophen (Tylenol 325mg Tab) 650 mg PO Q6H PRN; Protocol PRN Reason: Headache Last Admin: 02/10/17 11:27 Dose: 650 mg Al Hydrox/Mg Hydrox/Simethicone (Maalox Plus 30 Ml) 30 ml PO BID PRN; Protocol PRN Reason: Indigestion / Heartburn Amlodipine Besylate (Norvasc) 2.5 mg PO DAILY BECCA PRN Reason: Protocol Last Admin: 02/11/17 11:00 Dose: Not Given Cholestyramine Resin (Questran) 2 gm PO 0600,2000 BECCA PRN Reason: Protocol Last Admin: 02/12/17 06:27 Dose: 2 gm Diazepam (Valium) 5 mg PO TID BECCA PRN Reason: Protocol Last Admin: 02/11/17 18:17 Dose: 5 mg Sodium Chloride (Sodium Chloride 0.45%) 1,000 mls @ 40 mls/hr IV .Q24H [facility] Stop: 02/12/17 17:44 Last Admin: 02/11/17 18:19 Dose: 40 mls/hr Lactobacillus Acidophilus (Bacid Acidophilus) 1 cap PO DAILY BECCA PRN Reason: Protocol Last Admin: 02/11/17 11:00 Dose: 1 cap Lisinopril (Zestril) 20 mg PO DAILY BECCA PRN Reason: Protocol Last Admin: 02/11/17 11:00 Dose: Not Given Metoprolol Tartrate (Lopressor) 12.5 mg PO 0800,1800 BECCA PRN Reason: Protocol Last Admin: 02/11/17 18:20 Dose: Not Given Metronidazole (Flagyl) 500 mg PO Q8 BECCA PRN Reason: Protocol Last Admin: 02/12/17 06:26 Dose: 500 mg Pantoprazole Sodium (Protonix Ec Tab) 40 mg PO 0730,1630 [facility] Last Admin: 02/11/17 17:30 Dose: 40 mg Vancomycin HCl (Vancocin 25 Mg/Ml (Oral Use)) 250 mg PO TID BECCA PRN Reason: Protocol Last Admin: 02/11/17 18:21 Dose: 250 mg Zolpidem Tartrate (Ambien) 10 mg PO HS PRN; Protocol PRN Reason: Insomnia Last Admin: 02/11/17 21:50 Dose: 10 mg - Labs Labs: 02/12/17 06:30 02/12/17 06:30 PT 15.3 Seconds (9.9-11.8) H 02/09/17 07:00 INR 1.42 (0.93-1.08) H 02/09/17 07:00 - Constitutional Appears: Non-toxic, No Acute Distress - Head Exam Head Exam: NORMAL INSPECTION - Neck Exam Neck Exam: absent: Meningismus - Respiratory Exam Respiratory Exam: Decreased Breath Sounds - Cardiovascular Exam Cardiovascular Exam: +S1, +S2 - GI/Abdominal Exam GI & Abdominal Exam: Soft. 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 Nugent, patient is for fecal transplant but still awaiting schedule, will be done this week - in the meantime will continue PO Vancomycin and Flagyl as ordered by GI will continue to monitor clinically
--- NOTE | 2017-02-12 09:28 | PN ---
DATE: 02/12/2017 I saw her resting in bed. She is eating her breakfast. She told me she had 5 bowel movements yester day. They were not loose; there were sort of formed, better than it has been. Otherwise she is feel ing good. She is not sure why her blood pressure is going up and going down; could be from the infec tion, the IV fluids, the antibiotics and her bowel movements. She is on Ambien, Bacid, Flagyl, Lopressor, Maalox, Norvasc, Protonix, Questran, IV fluids, Tylenol, Valium, vancomycin, Zestril. PHYSICAL EXAMINATION: VITAL SIGNS: 98.7 temp, 54 pulse, 133/48 blood pressure and as high as 188/67 blood pressure, 19 res piratory rate, 96% O2 sat on room air. HEAD: Atraumatic, normocephalic. Throat is moist. NECK: Supple. HEART: Regular rate. LUNGS: Clear to auscultation. ABDOMEN: Soft, nontender, positive bowel sounds. EXTREMITIES: No edema. She is being seen by GI and infectious disease. She has recurrent Clostridium difficile associated d iarrhea which is improving, colitis, hypertension, high cholesterol, status post hemicolectomy. I be lieve that there is a fecal transplant scheduled for Sunday. Continue p.o. vancomycin and Flagyl. C ontinue aggressive treatment and care. Watching her blood pressures, not terrible. Check her labs t omorrow. Encourage her to get out of bed and do physical therapy as best she can. She has to eat. W e are all awaiting the fecal transplant. Johnny Yates DO cc: [id number] TT: 02/12/2017 09:27:05 Confirmation # [id number] Dictation # [id number] mn
[2017-02-12] MEDS: Lactobacillus Acidophilus 500 MU Cap PO SCH (10:52)
[2017-02-12] MEDS: Vancomycin 25 MG/ML PO SCH ×3 (10:52→17:27)
--- NOTE | 2017-02-12 11:38 | PN ---
DATE: 02/12/2017 Seen and examined at the bedside this morning. She reported to have 5 formed BMs yesterday and had a BM this morning that was formed. No reports of bleeding. She did have abdominal cramping and was r elieved after she went to the bathroom. She is tolerating her oral intake. No new complaints. VITAL SIGNS: Blood pressure 129/48, pulse 52. LABORATORY DATA: Today, WBC 7.3, hemoglobin 13.7, hematocrit 41.2, platelets are 200. Her sodium is 140, K 4.3, BUN 18, creatinine 0.7. LFTs are within normal limits. PHYSICAL EXAMINATION: HEENT: Sclerae are anicteric. NECK: Supple. CARDIAC: S1, S2. LUNGS SOUNDS: Clear. ABDOMEN: With bowel sounds. Soft. It is not distended and not tender. EXTREMITIES: No edema. NEUROLOGIC: Awake, alert, and oriented. ASSESSMENT: Recurrent Clostridium difficile which has been refractory. She is on Flagyl and vancomy laura. Her bowel movements are better. She is also on Questran 2 grams b.i.d. She has history of col on cancer and resection. Other comorbidities are hypertension and hyperlipidemia. PLAN: She is awaiting fecal microbiota transplant. She is on Questran 2 grams b.i.d., on probiotic, like I said Flagyl and oral vancomycin, and is on PPI. Continue to monitor her stools. If it gets too hard, consider cutting down on the Questran. The patient was seen and case discussed with Dr. Ra macario. Kena Anderson DESIRAE cc: [id number] TT: 02/12/2017 11:37:57 Confirmation # [id number] Dictation # [id number] loly
[2017-02-13] MEDS: Cholestyramine 4 gm/Pkt UD PO SCH ×2 (05:51→20:39)
[2017-02-13] MEDS: Pantoprazole 40 mg EC Tab PO SCH ×3 (08:23→17:50)
[2017-02-13 08:28] LABS: HEMATOCRIT 43.4 % (36.0-48.0); MEAN CELL VOLUME 88.4 fL (80.0-105.0); MEAN CORPUSCULAR HEMOGLOBIN 28.7 pg (25.0-35.0); MEAN CORPUSCULAR HGB CONC 32.5 g/dl (31.0-37.0); RED CELL DISTRIBUTION WIDTH 14.1 % (11.5-14.5); WHITE BLOOD COUNT 5.8 10^3/ul (4.5-11.0)
[2017-02-13 08:36] LABS: ALB/GLOB RATIO 1.3 (1.1-1.8); ALKALINE PHOSPHATASE 78 U/L (38-133); ALT/SGPT 21 U/L (7-56); AST/SGOT 16 U/L (15-39); BILIRUBIN,TOTAL 0.5 mg/dL (0.2-1.3); BLOOD UREA NITROGEN 19 mg/dL (7-21); CALCIUM 9.5 mg/dL (8.4-10.5); CARBON DIOXIDE 25 mmol/L (21-33); CHLORIDE 107 mmol/L (98-107); GFR AFRICAN-AMERICAN > 60; GLUCOSE,RANDOM 100 mg/dL (70-110); SODIUM 140 mmol/L (132-148); TOTAL PROTEIN 6.8 g/dL (5.8-8.3)
--- NOTE | 2017-02-13 10:24 | PN ---
DATE: 02/13/2017 The patient is comfortable sitting out of bed to chair. She is eating somewhat. She did have 2 loos e bowel movements, not diarrhea, but not formed. She is comfortable. She is looking forward to the fecal transplant on Sunday. She is telling me that the heart rate goes up when the blood pressure go es up and down, a bunch of issues. I will call in cardiology to evaluate that. MEDICATIONS: She is on Ambien, Bacid, Flagyl, Lopressor, Maalox, Norvasc, Protonix, Questran, Tyleno l, Valium, vancomycin and Zestril. PHYSICAL EXAMINATION: VITAL SIGNS: Temp 98, pulse is 49 and 52, blood pressure is 152/61, 16 respiratory rate, 96% O2 sat on room air. HEENT: Head is atraumatic, normocephalic. HEART: Regular rate. LUNGS: Clear to auscultation. ABDOMEN: Soft, positive bowel sounds. EXTREMITIES: No edema. LABORATORY DATA: She has a 5.8 white count, 14.1 hemoglobin, 42.4 hematocrit with 189 platelets. IN R is 1.42. Sodium is 140, potassium 4, BUN is 19, creatinine 0.8, GFR is greater than 60, sugar is 1 00, calcium is 9.5. AST is 16, ALT is 21, alk phos 78, total protein 6.8. Excellent chemistry. ASSESSMENT AND PLAN: She is being seen by GI and infectious disease. I am going to call in cardio f or a heart evaluation for the blood pressure and her bradycardia. The plan is for fecal transplant t his Sunday. She has recurrent Clostridium difficile, pseudomembranous colitis, hypertension, dyslipi demia. Johnny Yates DO cc: [id number] TT: 02/13/2017 10:24:06 Confirmation # [id number] Dictation # [id number] constance
[2017-02-13] MEDS: Lactobacillus Acidophilus 500 MU Cap PO SCH (10:59)
[2017-02-13] MEDS: Vancomycin 25 MG/ML PO SCH ×3 (11:00→17:57)
--- NOTE | 2017-02-13 13:52 | CON ---
DATE: 02/13/2017 HISTORY OF PRESENT ILLNESS: The patient is a 71-year-old woman who is in the TCU with diarrhea with C. difficile. PAST MEDICAL HISTORY: The patient is free of cardiac disease in the past. She does suffer from hype rtension. No diabetes mellitus. The patient denies chest pain, denies shortness of breath. I was called to see her because of her bradycardia. SOCIAL HISTORY: The patient denies smoking. REVIEW OF SYSTEMS: A 14-point review of systems reviewed in detail. No cardiac symptomatology is no eli. PHYSICAL EXAMINATION: VITAL SIGNS: Blood pressure is in the 50s, normal sinus rhythm with a blood pressure of 139/60. NECK: Negative JVD. LUNGS: Without rales. HEART: Reveals S1, S2. EXTREMITIES: Without edema. EKG shows sinus bradycardia. LABORATORIES: Hemoglobin is 14.1. Chemistries: BUN and creatinine are 19 and 0.8. IMPRESSION: 1. Sinus bradycardia likely due to beta blockers. 2. History of hypertension. 3. Diarrhea secondary to Clostridium difficile. 4. No hemodynamic sequellae to her bradycardia. Given these findings, we will discontinue her beta blockers. We will obtain an EKG to document her b radycardia. In addition, we will obtain an echocardiogram to evaluate her left ventricular function. Favio Olivares MD cc: [id number] TT: 02/13/2017 13:52:00 Confirmation # [id number] Dictation # [id number] javed
--- NOTE | 2017-02-13 15:47 | CP.PCM.PN ---
Subjective - Date & Time of Evaluation Date of Evaluation: 02/13/17 Time of Evaluation: 10:50 - Subjective Subjective: No fevers, no distress, no diarrhea currently. Objective - Vital Signs/Intake and Output Vital Signs (last 24 hours): Temp Pulse Resp BP Pulse Ox 98.0 F 52 L 16 152/61 H 96 02/13/17 06:00 02/13/17 06:00 02/13/17 06:00 02/13/17 06:00 02/13/17 06:00 - Medications Medications: Current Medications Acetaminophen (Tylenol 325mg Tab) 650 mg PO Q6H PRN; Protocol PRN Reason: Headache Last Admin: 02/13/17 01:32 Dose: 650 mg Al Hydrox/Mg Hydrox/Simethicone (Maalox Plus 30 Ml) 30 ml PO BID PRN; Protocol PRN Reason: Indigestion / Heartburn Amlodipine Besylate (Norvasc) 2.5 mg PO DAILY BECCA PRN Reason: Protocol Last Admin: 02/12/17 10:52 Dose: Not Given Cholestyramine Resin (Questran) 2 gm PO 0600,2000 BECCA PRN Reason: Protocol Last Admin: 02/13/17 05:51 Dose: 2 gm Diazepam (Valium) 5 mg PO TID BECCA PRN Reason: Protocol Last Admin: 02/12/17 18:16 Dose: 5 mg Lactobacillus Acidophilus (Bacid Acidophilus) 1 cap PO DAILY BECCA PRN Reason: Protocol Last Admin: 02/12/17 10:52 Dose: 1 cap Lisinopril (Zestril) 20 mg PO DAILY BECCA PRN Reason: Protocol Last Admin: 02/12/17 10:53 Dose: Not Given Metoprolol Tartrate (Lopressor) 12.5 mg PO 0800,1800 BECCA PRN Reason: Protocol Last Admin: 02/12/17 17:30 Dose: Not Given Metronidazole (Flagyl) 500 mg PO Q8 BECCA PRN Reason: Protocol Last Admin: 02/13/17 05:51 Dose: 500 mg Pantoprazole Sodium (Protonix Ec Tab) 40 mg PO 0730,1630 [facility] Last Admin: 02/12/17 17:26 Dose: 40 mg Vancomycin HCl (Vancocin 25 Mg/Ml (Oral Use)) 250 mg PO TID BECCA PRN Reason: Protocol Last Admin: 02/12/17 17:27 Dose: 250 mg Zolpidem Tartrate (Ambien) 10 mg PO HS PRN; Protocol PRN Reason: Insomnia Last Admin: 02/12/17 21:35 Dose: 10 mg - Labs Labs: 02/12/17 06:30 02/12/17 06:30 PT 15.3 Seconds (9.9-11.8) H 02/09/17 07:00 INR 1.42 (0.93-1.08) H 02/09/17 07:00 - Constitutional Appears: Non-toxic, No Acute Distress - Head Exam Head Exam: NORMAL INSPECTION - Respiratory Exam Respiratory Exam: Decreased Breath Sounds - Cardiovascular Exam Cardiovascular Exam: +S1, +S2 - GI/Abdominal Exam GI & Abdominal Exam: Soft. 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 Nugent, patient is for fecal transplant but we are still awaiting schedule - in the meantime will continue PO Vancomycin and Flagyl as ordered by GI will continue to follow clinically
--- NOTE | 2017-02-13 16:59 | CP.PCM.PN ---
Subjective - Date & Time of Evaluation Date of Evaluation: 02/13/17 Time of Evaluation: 11:20 - Subjective Subjective: Seen and examined earlier today. Having semisoft stool, no bleeding, had abdominal cramps but had BM and relieved. Tolerating oral intake. No new complaints. Objective - Vital Signs/Intake and Output Vital Signs (last 24 hours): Temp Pulse Resp BP Pulse Ox 98.1 F 60 20 139/60 96 02/13/17 10:00 02/13/17 11:00 02/13/17 10:00 02/13/17 11:00 02/13/17 10:00 Intake and Output: 02/13/17 02/13/17 06:59 18:59 Intake Total 680 Balance 680 - Medications Medications: Current Medications Acetaminophen (Tylenol 325mg Tab) 650 mg PO Q6H PRN; Protocol PRN Reason: Headache Last Admin: 02/13/17 01:32 Dose: 650 mg Al Hydrox/Mg Hydrox/Simethicone (Maalox Plus 30 Ml) 30 ml PO BID PRN; Protocol PRN Reason: Indigestion / Heartburn Amlodipine Besylate (Norvasc) 2.5 mg PO DAILY BECCA PRN Reason: Protocol Last Admin: 02/13/17 10:59 Dose: 2.5 mg Cholestyramine Resin (Questran) 2 gm PO 06,1999 BECCA PRN Reason: Protocol Last Admin: 02/13/17 05:51 Dose: 2 gm Diazepam (Valium) 5 mg PO TID BECCA PRN Reason: Protocol Last Admin: 02/13/17 14:14 Dose: 5 mg Lisinopril (Zestril) 20 mg PO DAILY BECCA PRN Reason: Protocol Last Admin: 02/13/17 11:00 Dose: 20 mg Metronidazole (Flagyl) 500 mg PO Q8 BECCA PRN Reason: Protocol Last Admin: 02/13/17 14:14 Dose: 500 mg Pantoprazole Sodium (Protonix Ec Tab) 40 mg PO 0730,1630 [facility] Last Admin: 02/13/17 08:25 Dose: 40 mg Vancomycin HCl (Vancocin 25 Mg/Ml (Oral Use)) 250 mg PO TID BECCA PRN Reason: Protocol Last Admin: 02/13/17 14:14 Dose: 250 mg Zolpidem Tartrate (Ambien) 10 mg PO HS PRN; Protocol PRN Reason: Insomnia Last Admin: 02/12/17 21:35 Dose: 10 mg - Labs Labs: 02/13/17 06:00 02/13/17 06:00 PT 15.3 Seconds (9.9-11.8) H 02/09/17 07:00 INR 1.42 (0.93-1.08) H 02/09/17 07:00 - Constitutional Appears: No Acute Distress - Head Exam Head Exam: NORMOCEPHALIC - Eye Exam Eye Exam: Normal appearance - ENT Exam ENT Exam: Mucous Membranes Moist - Neck Exam Neck Exam: Normal Inspection - Respiratory Exam Respiratory Exam: Clear to Ausculation Bilateral, NORMAL BREATHING PATTERN. absent: Rales, Wheezes - Cardiovascular Exam Cardiovascular Exam: +S1, +S2 - GI/Abdominal Exam GI & Abdominal Exam: Soft, Normal Bowel Sounds. absent: Distended, Guarding, Tenderness, Organomegaly, Rebound - Extremities Exam Extremities Exam: absent: Calf Tenderness, Pedal Edema - Neurological Exam Neurological Exam: Alert, Awake, Oriented x3 - Skin Skin Exam: Dry, Warm Assessment and Plan - Assessment and Plan (Free Text) Assessment: ASSESSMENT: Recurrent C diff colitis, improving Colon cancer, s/p resection HTN PLAN: willl hold flagyl, vanco, probiotics , questran starting 02/14 in prep for fecal transplant for Sunday monitor electrolytes cardiac eval continue current diet but clears on am. discuss plan with patient. Seen and discuss with Dr. Nugent.
--- NOTE | 2017-02-13 19:09 | PN ---
DATE: 02/13/2017 ADDENDUM This patient was seen and evaluated earlier. This is an addendum to the GI progress report dictated by Kena Anderson APN. The is scheduled for a fecal transplant on Sunday. Will discontinue antibiotics starting from tomorrow. Will also discontinue the Questran. We will continue to closely follow up her care. PHYSICAL EXAMINATION: ABDOMEN: Soft. There is a mild tenderness on deep palpation, otherwise unremarkable. We will continue to closely follow up her care. See V Jovanna GARIBAY cc: [id number] TT: 02/13/2017 19:08:53 Confirmation # [id number] Dictation # [id number] loly PALACIOS
--- NOTE | 2017-02-14 08:16 | PN ---
DATE: 02/14/2017 I saw the patient resting in bed in the TCU. She is comfortable. She is eating fairly well. Still weak. Trying to do well in physical therapy. She understands Sunday is her fecal transplant. I als o discussed it with gastroenterology. The plan is for Sunday procedure and possibly home Sunday afte rn or Sunday. MEDICATIONS: She is on Ambien, Flagyl, simethicone, Norvasc, Protonix, Questran, Tylenol, Valium, va ncomycin and Zestril. I believe the beta melissa was stopped due to low pulse. PHYSICAL EXAMINATION: VITAL SIGNS: 98.1 temp, pulse is 60, 139/60 blood pressure, 20 respiratory rate, 96% O2 sat on room air. HEENT: Head is atraumatic, normocephalic. HEART: Regular rate. LUNGS: Decreased breath sounds but clear. ABDOMEN: Soft, nontender, positive bowel sounds. EXTREMITIES: No edema. LABORATORY DATA: She has a 5.8 white count, 14.1 hemoglobin, 189 platelets. Sodium 140, potassium i s 4, BUN is 19, creatinine 0.8, GFR is greater than 60, sugar is 100, calcium is 9.5. Total bili is 0.5, AST is 16, ALT is 21, alk phos 78, total protein 6.8. Those were yesterday's labs. Will see wh at today's labs bring. She is being seen by infectious disease and by GI and cardiology. Will continue with aggressive treatment and care. She is on vancomycin. She is off the Lopressor. She is on the Flagyl. Watch her closely and check her labs tomorrow. The patient is here for Clostridium difficile diarrhea, diabetes, pseudomembranous colitis and hypert ension. Johnny Yates DO cc: [id number] TT: 02/14/2017 08:16:27 Confirmation # [id number] Dictation # [id number] mn
--- NOTE | 2017-02-14 09:42 | PN ---
DATE: 02/14/2017 GI FOLLOWUP Seen and examined at the bedside. This morning, the patient denies any episode of diarrhea. In fact , no bowel movement last night or this morning yet, and no acute events reported overnight. VITAL SIGNS: Blood pressure 139/60. Pulse is 60, respirations 18, 97 on room air. Afebrile. LABORATORY DATA: No new labs noted for today. PHYSICAL EXAMINATION: HEENT: Sclerae are anicteric. NECK: Supple. CARDIAC: S1, S2. LUNGS: Lung sounds are clear. ABDOMEN: With bowel sounds, soft, nontender. No rebound or guarding. ASSESSMENT: Recurrent Clostridium difficile colitis, which is improving, history of colon cancer, st atus post resection. The patient was having bradycardia evaluated by cardiology. History of hyperte nsion. PLAN: The patient was seen by Dr. Olivares, airline attendant. The patient had some sinus bradycardia - EKG was done, likely secondary to the beta-melissa. So Lopressor was discontinued. Currently, the patie nt's vancomycin, question Flagyl and lactobacillus are on hold in preparation for her fecal transplan t scheduled for Sunday. Continue her current diet, and tomorrow, we will start her on a clear liquid and start GoLYTELY prep in the afternoon tomorrow. The patient is only on her antihypertensive medi cine, Valium, and Ambien. I spoke to the patient this morning and Dr. Yates. The patient was seen and case discussed with Dr. Nugent. Kena Anderson DESIRAE cc: [id number] TT: 02/14/2017 09:41:47 Confirmation # [id number] Dictation # [id number] mallory
--- NOTE | 2017-02-14 09:54 | PN ---
DATE: 02/14/2017 The patient is in no acute distress. PHYSICAL EXAMINATION: VITAL SIGNS: Blood pressure is 139/60, the heart rate is in the 60s. NECK: Negative JVD. LUNGS: Without rales. HEART: Reveals S1, S2. EXTREMITIES: Without edema. LABORATORY DATA: Hemoglobin is 14, potassium is 4.0. IMPRESSION: 1. Heart rate is better since being off beta blockers. 2. Hypertension. 3. Diarrhea secondary to Clostridium difficile. PLAN: Given these findings, the patient's blood pressure and heart rate are stable. We will keep th e patient off beta blockers at this time. Favio Olivares MD cc: [id number] TT: 02/14/2017 09:53:23 Confirmation # [id number] Dictation # [id number] tn
[2017-02-14] MEDS: Pantoprazole 40 mg EC Tab PO SCH ×2 (10:23→18:20)
--- NOTE | 2017-02-14 16:46 | CP.PCM.PN ---
Subjective - Date & Time of Evaluation Date of Evaluation: 02/14/17 Time of Evaluation: 10:30 - Subjective Subjective: Comfortable, afebrile, not in distress. Objective - Vital Signs/Intake and Output Vital Signs (last 24 hours): Temp Pulse Resp BP Pulse Ox 98.1 F 60 20 139/60 96 02/13/17 10:00 02/13/17 11:00 02/13/17 10:00 02/13/17 11:00 02/13/17 10:00 - Medications Medications: Current Medications Acetaminophen (Tylenol 325mg Tab) 650 mg PO Q6H PRN; Protocol PRN Reason: Headache Last Admin: 02/13/17 20:39 Dose: 650 mg Al Hydrox/Mg Hydrox/Simethicone (Maalox Plus 30 Ml) 30 ml PO BID PRN; Protocol PRN Reason: Indigestion / Heartburn Amlodipine Besylate (Norvasc) 2.5 mg PO DAILY BECCA PRN Reason: Protocol Last Admin: 02/13/17 10:59 Dose: 2.5 mg Cholestyramine Resin (Questran) 2 gm PO 06,1999 BECCA PRN Reason: Protocol Last Admin: 02/13/17 20:39 Dose: 2 gm Diazepam (Valium) 5 mg PO TID BECCA PRN Reason: Protocol Last Admin: 02/13/17 17:58 Dose: 5 mg Lisinopril (Zestril) 20 mg PO DAILY BECCA PRN Reason: Protocol Last Admin: 02/13/17 11:00 Dose: 20 mg Metronidazole (Flagyl) 500 mg PO Q8 BECCA PRN Reason: Protocol Last Admin: 02/13/17 21:49 Dose: 500 mg Pantoprazole Sodium (Protonix Ec Tab) 40 mg PO 0730,1630 [facility] Last Admin: 02/13/17 17:50 Dose: 40 mg Vancomycin HCl (Vancocin 25 Mg/Ml (Oral Use)) 250 mg PO TID BECCA PRN Reason: Protocol Last Admin: 02/13/17 17:57 Dose: 250 mg Zolpidem Tartrate (Ambien) 10 mg PO HS PRN; Protocol PRN Reason: Insomnia Last Admin: 02/13/17 21:49 Dose: 10 mg - Labs Labs: 02/13/17 06:00 02/13/17 06:00 PT 15.3 Seconds (9.9-11.8) H 06/02/17 07:00 INR 1.42 (0.93-1.08) H 02/09/17 07:00 - Constitutional Appears: Non-toxic, No Acute Distress - Head Exam Head Exam: NORMAL INSPECTION - Neck Exam Neck Exam: absent: Meningismus - Respiratory Exam Respiratory Exam: Decreased Breath Sounds - Cardiovascular Exam Cardiovascular Exam: +S1, +S2 - GI/Abdominal Exam GI & Abdominal Exam: Soft. 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 Nugent previously, patient is for fecal transplant on Sunday and we will hold off on antibiotics will continue to follow clinically
--- NOTE | 2017-02-14 19:06 | PN ---
DATE: 02/14/2017 ADDENDUM: This is an addendum to the GI progress report dictated by Kena Anderson APN. The patient h ad 1 episode of bowel movement. Tolerating the diet. I did discuss with Dr. Yates earlier today. The patient is scheduled for fecal microbiota transplant on Sunday. The patient's vancomycin and Fla gyl has been discontinued. The patient will be started on a clear liquid diet and bowel preparation in a.m. Thank you very much for allowing us to participate in the care of the patient. See Nugent MD cc: [id number] TT: 02/14/2017 19:05:22 Confirmation # [id number] Dictation # [id number] dn
[2017-02-15] MEDS: Pantoprazole 40 mg EC Tab PO SCH ×2 (06:33→17:30)
--- NOTE | 2017-02-15 08:59 | PN ---
DATE: 02/15/2017 I saw the patient resting comfortably in bed. She is telling me she is a little dehydrated, cannot t tyrel enough and her urine is starting to get darker. She is not on any IV fluids. I will put her on IV fluids. She also only can drink fluids and having GoLYTELY today because she is having a colonosc opy, fecal transplant tomorrow. She is on Ambien, Flagyl, Maalox, Norvasc, Protonix, Questran, Tylen ol, Valium, vancomycin and Zestril. She is also nervous about tomorrow and had some questions for me . PHYSICAL EXAMINATION: VITAL SIGNS: She has a 98.1 temp, 60 pulse, 139/60 blood pressure, 20 respiratory rate, 96% O2 sat o n room air. HEENT: Head is atraumatic, normocephalic. Throat is moist. NECK: Supple. HEART: Regular rate. LUNGS: Decreased breath sounds. ABDOMEN: Soft, nontender, positive bowel sounds. No guarding, no rebound, no CVA tenderness. EXTREMITIES: Have no edema. She is weak. She is trying in physical therapy. She feels dry though. LABORATORY DATA: She has a 5.8 white count, 14.1 hemoglobin, 43.4 hematocrit with 189 platelets. So dium 140, potassium 4, BUN is 19, creatinine 0.8, GFR is greater than 60, sugar is 100, calcium is 9. 5, total bili is 0.5, AST is 16, ALT is 21, alk phos 78, total protein 6.8, globulin 3, albumin 3.8. She is being seen by infectious disease and by cardiology and by gastroenterology. The plan is to do the fecal transplant tomorrow. I am going put her on IV fluids today, check her labs tomorrow. She should do well and we will discharge when it is okay with infectious disease, cardiology and gastroe nterology. The patient has got severe Clostridium difficile pseudomembranous colitis, diabetes, hype rtension. Johnny Yates DO cc: [id number] TT: 02/15/2017 08:58:32 Confirmation # [id number] Dictation # [id number] tn
[2017-02-15] MEDS: Sodium Chloride 0.45% 1,000 ML IV SCH (09:06)
[2017-02-15 09:28] LABS: MEAN CELL VOLUME 90.4 fL (80.0-105.0); MEAN CORPUSCULAR HGB CONC 32.1 g/dl (31.0-37.0); MEAN PLATELET VOLUME 11.2 fl (7.0-11.0); RED CELL DISTRIBUTION WIDTH 14.3 % (11.5-14.5); WHITE BLOOD COUNT 6.2 10^3/ul (4.5-11.0)
[2017-02-15 09:36] LABS: INR 0.99 (0.93-1.08)
[2017-02-15 09:38] LABS: ALB/GLOB RATIO 1.3 (1.1-1.8); ALKALINE PHOSPHATASE 78 U/L (38-133); ALT/SGPT 21 U/L (7-56); AST/SGOT 22 U/L (15-39); BILIRUBIN,TOTAL 0.4 mg/dL (0.2-1.3); BLOOD UREA NITROGEN 19 mg/dL (7-21); CALCIUM 9.5 mg/dL (8.4-10.5); CARBON DIOXIDE 26 mmol/L (21-33); CHLORIDE 104 mmol/L (95-110); GFR AFRICAN-AMERICAN > 60; GLUCOSE,RANDOM 159 mg/dL (70-110); POTASSIUM 4.4 mmol/L (3.6-5.0); SODIUM 140 mmol/L (132-148); TOTAL PROTEIN 7.3 g/dL (5.8-8.3)
--- NOTE | 2017-02-15 10:14 | CARD ---
APPROVED REPORT EKG Measurement Heart [id number] PA [id number] <Conclusion> Sinus rhythm with premature atrial complexes, new PRWP V 1 - 4 Inferior infarct,old NSSTW changes Prolonged QTc
--- NOTE | 2017-02-15 10:43 | PN ---
DATE: 02/15/2017 The patient is in bed, in no acute distress, nontoxic. PHYSICAL EXAMINATION: VITAL SIGNS: Temperature is 98, blood pressure is 101/50, respiratory rate of 16. HEENT: Unremarkable. NECK: Supple. LUNGS: Have decreased breath sounds. HEART: Normal S1, S2. ABDOMEN: Soft, nontender. LABORATORY DATA: Reveals a white count of 6.2, hemoglobin of 15, platelets of 227. BUN of 19, creat inine of 0.8. Microbiology is noted. Review of orders reveals the patient to be on p.o. vanco and p.o. Flagyl, which both are on hold. ASSESSMENT AND PLAN: This is a 71-year-old female with recurrent pseudomembranous colitis, hypertens ion, dyslipidemia, currently ____ for possible fecal transplant today. Will follow with you. Dmitry Jiang MD cc: [id number] TT: 02/15/2017 10:42:35 Confirmation # [id number] Dictation # [id number] mn
[2017-02-15 11:55] VITALS: RESP 18
--- NOTE | 2017-02-15 12:15 | PN ---
DATE: 02/15/2017 GI FOLLOWUP NOTE Seen and examined at the bedside earlier this morning. The patient denies any nausea, vomiting, or a bdominal pain. No acute overnight events reported. No reports of any bleeding. LABORATORY DATA: Today WBC is 6.2. H and H are 15.1 and 47.0. Platelets are 227. PT is 10.7. INR is 0.99. Sodium 140, K 4.4. BUN is 19, creatinine 0.8. Total bilirubin is 0.4, AST 22, ALT 21. A lkaline phosphatase is 78. PHYSICAL EXAMINATION: HEENT: Sclerae are anicteric. NECK: Supple. CARDIAC: S1, S2. LUNGS: Lung sounds are clear. ABDOMEN: With bowel sounds, soft, not distended, nontender. No rebound or guarding. EXTREMITIES: No edema. ASSESSMENT: A 71-year-old female with recurrent pseudomembranous colitis, hypertension, history of c olon cancer with resection, improved bradycardia. PLAN: The patient is planned for a fecal transplant tomorrow. She is on a clear liquid diet today a nd will be given GoLYTELY to clean out her colon. Her antibiotics of vancomycin and Flagyl have been put on hold since yesterday, as well as probiotic and Questran. Her beta-blockers were discontinued . The patient has been placed on IV fluids of half normal saline at 40 mL an hour. Will be n.p.o. a fter midnight except for medications, and we will repeat her labs in the a.m. of CBC, CMP, and PT/PTT . Also discussed with the patient regarding when she is discharged home. The patient states that he r family has hired an outside cleaning crew to make sure that her house has been properly cleansed fo r when she returns home. The patient was seen and case discussed with Dr. Nugent. Kena Monica DESIRAE cc: [id number] TT: 02/15/2017 12:13:57 Confirmation # [id number] Dictation # [id number] mallory
--- NOTE | 2017-02-15 14:18 | PN ---
DATE: 02/15/2017 SUBJECTIVE: The patient is in the TCU in no distress. PHYSICAL EXAMINATION: VITAL SIGNS: Blood pressure 123/47, the heart rate is approximately 60, sinus rhythm. NECK: Negative JVD. LUNGS: Without rales. HEART: Reveals S1, S2. EXTREMITIES: Without edema. LABORATORY DATA: Hemoglobin is 15.1, the potassium is 4.4 with a glucose of 159. IMPRESSION: 1. Persistent Clostridium difficile diarrhea. 2. Sinus bradycardia, which is without hemodynamic significance. 3. Hypertension. PLAN: Given these findings, the patient's cardiac status is stable. The patient is for treatment of her C. difficile diarrhea in the morning. Favio Olivares MD cc: [id number] TT: 02/15/2017 14:17:37 Confirmation # [id number] Dictation # [id number] constance
[2017-02-15] MEDS ORDERED: Peg-Electrolyte Oral Soln 4L (Golytely) PO ONE (15:00)
--- NOTE | 2017-02-15 22:33 | PN ---
DATE: 02/15/2017 This patient was seen and evaluated earlier today. The patient is off the antibiotics. Scheduled for fecal microbial microbiota transplant tomorrow. On examination, abdomen is soft. No tenderness. Labs reviewed. Also discussed with Dr. Yates and the endo team regarding the fecal transplant. See Nugent MD cc: [id number] TT: 02/15/2017 22:33:23 Confirmation # [id number] Dictation # [id number] ln MTDD
[2017-02-16 06:56] LABS: INR 1.02 (0.93-1.08); PARTIAL THROMBOPLASTIN TIME 26.7 Seconds (23.7-30.8)
[2017-02-16 07:12] LABS: ALB/GLOB RATIO 1.3 (1.1-1.8); ALKALINE PHOSPHATASE 72 U/L (38-133); ALT/SGPT 27 U/L (7-56); AST/SGOT 19 U/L (15-39); BILIRUBIN,TOTAL 0.5 mg/dL (0.2-1.3); BLOOD UREA NITROGEN 11 mg/dL (7-21); CALCIUM 9.5 mg/dL (8.4-10.5); CARBON DIOXIDE 28 mmol/L (21-33); CHLORIDE 106 mmol/L (95-110); GFR AFRICAN-AMERICAN > 60; GLUCOSE,RANDOM 83 mg/dL (70-110); POTASSIUM 4.5 mmol/L (3.6-5.0); SODIUM 141 mmol/L (132-148); TOTAL PROTEIN 6.4 g/dL (5.8-8.3)
[2017-02-16 07:16] LABS: HEMATOCRIT 43.8 % (36.0-48.0); MEAN CELL VOLUME 89.9 fL (80.0-105.0); MEAN CORPUSCULAR HEMOGLOBIN 28.7 pg (25.0-35.0); MEAN PLATELET VOLUME 11.2 fl (7.0-11.0); RED CELL DISTRIBUTION WIDTH 14.2 % (11.5-14.5); WHITE BLOOD COUNT 5.9 10^3/ul (4.5-11.0)
[2017-02-16] MEDS: Pantoprazole 40 mg EC Tab PO SCH ×2 (08:10→17:38)
--- NOTE | 2017-02-16 09:12 | PN ---
DATE: 02/16/2017 PROGRESS NOTE POSSIBLE DISCHARGE She is resting in bed comfortably. IV fluids are running. She is going for her fecal transplant today with Dr. Nugent. She is a little bit nervous, but she is okay. MEDICATIONS: She is on Ambien, Flagyl, Maalox, Norvasc, Protonix, Questran, IV fluids, Tylenol, Valium, vancomycin, and Zestril. PHYSICAL EXAMINATION: VITAL SIGNS: She has a 98.2 temp, 57 pulse, 123/47 blood pressure, 18 respiratory rate, 95% O2 sat on room air. HEAD: Atraumatic, normocephalic. Throat is moist. NECK: Supple. HEART: Regular rate. LUNGS: Clear to auscultation. ABDOMEN: Soft, nontender, positive bowel sounds. No guarding, no rebound. EXTREMITIES: No edema. LABORATORY DATA: She has a 6.2 white count, 15.1 hemoglobin, 47 hematocrit with 227 platelets. INR is 1.02. She has a 140 sodium, potassium 4.4. BUN is 19, creatinine 0.8. GFR is greater than 60. Sugar is 149. Calcium is 9.5. Total bili is 0.4. AST is 22. ALT is 21, alk phos 78, total protein 7.3. Albumin is 4.1. She is being seen by cardiology, GI, and infectious disease. She has persistent Clostridium difficile. She is going for transplant today with GI. She is cardiac-stable for the procedure. We will continue with aggressive treatment and care. If I can discharge her later today, I will. Otherwise, the most probably will be tomorrow. She is 71 years of age and very frail, and hopefully, she will do very well with the procedure. The patient is for chronic pseudomembranous colitis, C. diff diarrhea. Johnny Yates DO cc: [id number] TT: 02/16/2017 09:11:40 Confirmation # [id number] Dictation # [id number] jn PHILIP
[2017-02-16] MEDS: Sodium Chloride 0.45% 1,000 ML IV SCH (10:40)
[2017-02-16] MEDS ORDERED: Sodium Chloride 0.9% 1,000 ML IV SCH (16:00)
--- NOTE | 2017-02-16 17:13 | CP.PCM.PN ---
Subjective - Date & Time of Evaluation Date of Evaluation: 02/16/17 Time of Evaluation: 10:10 - Subjective Subjective: Comfortable, not in distress, no diarrhea currently. For possible fecal transplant today. No fevers overnight. Objective - Vital Signs/Intake and Output Vital Signs (last 24 hours): Temp Pulse Resp BP Pulse Ox 98.2 F 57 L 18 123/47 L 95 02/15/17 10:00 02/15/17 10:00 02/15/17 10:00 02/15/17 10:00 02/15/17 10:00 - Medications Medications: Current Medications Acetaminophen (Tylenol 325mg Tab) 650 mg PO Q6H PRN; Protocol PRN Reason: Headache Last Admin: 02/14/17 19:51 Dose: 650 mg Al Hydrox/Mg Hydrox/Simethicone (Maalox Plus 30 Ml) 30 ml PO BID PRN; Protocol PRN Reason: Indigestion / Heartburn Cholestyramine Resin (Questran) 2 gm PO 0600,1999 BECCA PRN Reason: Protocol Last Admin: 02/13/17 20:39 Dose: 2 gm Diazepam (Valium) 5 mg PO TID BECCA PRN Reason: Protocol Last Admin: 02/15/17 18:17 Dose: Not Given Sodium Chloride (Sodium Chloride 0.45%) 1,000 mls @ 40 mls/hr IV .Q24H [facility] Last Admin: 02/15/17 09:06 Dose: 40 mls/hr Lisinopril (Zestril) 20 mg PO DAILY BECCA PRN Reason: Protocol Last Admin: 02/15/17 11:00 Dose: Not Given Metronidazole (Flagyl) 500 mg PO Q8 BECCA PRN Reason: Protocol Last Admin: 02/13/17 21:49 Dose: 500 mg Pantoprazole Sodium (Protonix Ec Tab) 40 mg PO 0730,1630 [facility] Last Admin: 02/16/17 08:10 Dose: Not Given Vancomycin HCl (Vancocin 25 Mg/Ml (Oral Use)) 250 mg PO TID BECCA PRN Reason: Protocol Last Admin: 02/13/17 17:57 Dose: 250 mg Zolpidem Tartrate (Ambien) 10 mg PO HS PRN; Protocol PRN Reason: Insomnia Last Admin: 02/15/17 22:40 Dose: 10 mg - Labs Labs: 02/16/17 06:20 02/16/17 06:20 PT 11.0 Seconds (9.9-11.8) 02/16/17 06:20 INR 1.02 (0.93-1.08) 02/16/17 06:20 APTT 26.7 Seconds (23.7-30.8) 02/16/17 06:20 - Constitutional Appears: Non-toxic, No Acute Distress - Head Exam Head Exam: NORMAL INSPECTION - ENT Exam ENT Exam: Mucous Membranes Moist - Neck Exam Neck Exam: absent: Lymphadenopathy, Meningismus - Respiratory Exam Respiratory Exam: Decreased Breath Sounds - Cardiovascular Exam Cardiovascular Exam: +S1, +S2 - GI/Abdominal Exam GI & Abdominal Exam: Soft. 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 Nugent previously, patient is for fecal transplant today and we will continue to hold off on antibiotics will continue to follow clinically
--- NOTE | 2017-02-16 23:19 | PN ---
DATE: 02/16/2017 SUBJECTIVE: This patient was seen and evaluated earlier. Comfortable, no complaints of any abdominal pain. PHYSICAL EXAMINATION: VITAL SIGNS: Afebrile, heart rate is around 57, blood pressure 127/43, afebrile , the respirations 18. HEENT: Atraumatic, anicteric. NECK: Supple. HEART: S1, S2 heard. LUNGS: Bilateral air entry present. ABDOMEN: Soft. There is no tenderness at this time. EXTREMITIES: No edema, no cyanosis. LABORATORY DATA: Hemoglobin 14, hematocrit 43.8, WBC 5.8, platelets 210. Chemistry is essentially unremarkable. IMPRESSION: This 71-year-old patient with recurrent Clostridium difficile and also refractory Clostridium difficile. The patient is Clostridium difficile positive in spite of being on vancomycin and Flagyl. Gradual worsening of the diarrhea. The patient is now scheduled for fecal microbiota transplant. Informed consent was obtained. The patient underwent a colonoscopy and the patient was found to have status post right hemicolectomy. There were a few scattered diverticula and patchy erythema present in the colon. The scope was advanced up to the terminal ileum , and the donor stool specimen was placed in the terminal ileum. The patient did receive preprocedure Imodium to slow down the bowel movement and also received another dose of Imodium post procedure. The patient, Patient was as per protocol was off the vancomycin and Flagyl for more than 48 hours. The patient was sent back to the floor and the patient's room was treated as per the protocol. The patient's diet was resumed. The patient is doing well. The patient may be discharged to home. Family also was clearly counseled about the fecal microbiota transplant and the precautions, cleaning of the house area. This was reviewed with the family, who fully understood. Thank you very much for allowing us to participate in the care of the patient. See Nugent MD cc: [id number] TT: 02/16/2017 23:19:00 Confirmation # [id number] Dictation # [id number] javed PALACIOS
[2017-02-17 06:52] LABS: HEMATOCRIT 42.1 % (36.0-48.0); MEAN CELL VOLUME 89.8 fL (80.0-105.0); MEAN CORPUSCULAR HEMOGLOBIN 28.6 pg (25.0-35.0); MEAN CORPUSCULAR HGB CONC 31.8 g/dl (31.0-37.0); MEAN PLATELET VOLUME 10.9 fl (7.0-11.0); RED CELL DISTRIBUTION WIDTH 14.2 % (11.5-14.5); WHITE BLOOD COUNT 6.7 10^3/ul (4.5-11.0)
[2017-02-17 07:12] LABS: ALB/GLOB RATIO 1.2 (1.1-1.8); ALKALINE PHOSPHATASE 79 U/L (38-133); ALT/SGPT 29 U/L (7-56); AST/SGOT 23 U/L (15-39); BILIRUBIN,TOTAL 0.4 mg/dL (0.2-1.3); BLOOD UREA NITROGEN 7 mg/dL (7-21); CALCIUM 8.9 mg/dL (8.4-10.5); CARBON DIOXIDE 25 mmol/L (21-33); CHLORIDE 108 mmol/L (95-110); GFR AFRICAN-AMERICAN > 60; GLUCOSE,RANDOM 84 mg/dL (70-110); POTASSIUM 4.1 mmol/L (3.6-5.0); SODIUM 142 mmol/L (132-148)
[2017-02-17] MEDS: Sodium Chloride 0.45% 1,000 ML IV SCH (08:51)
--- NOTE | 2017-02-17 14:22 | DS ---
I saw the patient in her room. She is status post fecal transplant yesterday with Dr. Nugent. She is comfortable. She is doing well. She is eating. No pain. She knows she is going home today. PHYSICAL EXAMINATION: VITAL SIGNS: 98.2 temp, 57 pulse, 123/47 blood pressure, 18 respiratory rate, 95% O2 sat on room air . HEENT: Head is atraumatic, normocephalic. Throat is moist. NECK: Supple. HEART: Regular rate. LUNGS: Clear to auscultation. ABDOMEN: Soft, nontender, positive bowel sounds, no guarding, no rebound, no CVA tenderness. EXTREMITIES: No edema. MEDICATIONS: She is going home on Ambien, Protonix, Valium and Zestril. LABORATORY DATA: She had a 6.7 white count, 13.4 hemoglobin, 42.1 hematocrit with 207 platelets, 1.0 2 INR, 142 sodium, potassium 4.1, BUN 7, creatinine 0.7, GFR is greater than 60, sugar is 84, calcium is 8.9, total bili is 0.4, AST is 23, ALT is 29, alkaline phosphatase 79, total protein 6, albumin i s 3.3, globulin is 2.8. She was being seen by GI, infectious disease and cardiology. She did very well status post fecal tra nsplant for chronic Clostridium difficile, pseudomembranous colitis, hypertension, high cholesterol a nd diarrhea and I will see her on a house call next week. Status post fecal transplant. Johnny Yates DO cc: [id number] TT: 02/17/2017 14:21:27 rn
[2017-02-17 16:26] VITALS: BP 114/64; PULSE 52; TEMP 98.7; O2SAT 92
--- NOTE | 2017-02-17 18:12 | PN ---
DATE: 02/17/2017 The patient is in bed in no acute distress. PHYSICAL EXAMINATION: VITAL SIGNS: Temperature is 98, blood pressure is 114/60 and respiratory rate of 18. HEENT: Unremarkable. NECK: Supple. LUNGS: Have decreased breath sounds. HEART: Normal S1, S2. ABDOMEN: Soft and nontender. LABORATORY DATA: Reveals the stool C. diff antigen and toxin from the 31st are negative. White coun t of 6.7. Chemistries are normal. ASSESSMENT AND PLAN: She is a 71-year-old female who was seen early this morning, states is doing be tter. No further diarrhea. 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 Follow up with gastroenterology as an outpatient. Dmitry Jiang MD cc: [id number] TT: 02/17/2017 18:11:41 Confirmation # [id number] Dictation # [id number] sn
--- NOTE | 2017-02-17 18:13 | PN ---
DATE: 02/17/2017 SUBJECTIVE: This patient was seen and evaluated earlier. No bowel movements today. The patient is complaining of nasal congestion; otherwise, unremarkable. PHYSICAL EXAMINATION: VITAL SIGNS: Temperature is 98.3, pulse 53, blood pressure 140/60. HEENT: Atraumatic, anicteric. NECK: Supple. HEART: S1, S2 heard. LUNGS: Bilateral air entry present. ABDOMEN: Soft. There is no tenderness. EXTREMITIES: No edema. LABORATORY DATA: Hemoglobin 13.4, hematocrit 42.1, WBC 6.7, platelets 207. BUN 7, creatinine 0.7. 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 The patient is planned to be discharged home, which has been treated for her Clostridium difficile b efore. Other comorbidities include hypertension and dyslipidemia. Has a history of . The patient was advised to follow up with Dr. Yates in a weeks' time and follow up in our office in about 3 weeks' time. Thank you very much for allowing us to participate in the care of the patient. See Nugent MD cc: [id number] TT: 02/17/2017 18:12:58 Confirmation # [id number] Dictation # [id number] dn
== END 2017-02-17 18:54 | disposition home or self-care (01) | DRG 373 ==
LOC: TRCU 17:19
PROVIDERS: ADMIT Family Medicine; ATTEND Family Medicine
PROC: F08Z2FZ Grooming/Personal Hygiene Treatment using Assistive, Adaptive, Supportive or Protective Equipment (ICD-10-PCS; 2017-02-08)
PROC: F07Z9FZ Gait Training/Functional Ambulation Treatment using Assistive, Adaptive, Supportive or Protective Equipment (ICD-10-PCS; principal; 2017-02-09)
PROC: F07Z8ZZ Transfer Training Treatment (ICD-10-PCS; 2017-02-09)
PROC: F07L6ZZ Therapeutic Exercise Treatment of Musculoskeletal System - Lower Back / Lower Extremity (ICD-10-PCS; 2017-02-09)
PROC: F08Z1FZ Dressing Techniques Treatment using Assistive, Adaptive, Supportive or Protective Equipment (ICD-10-PCS; 2017-02-09)
DX: A04.7 Enterocolitis due to Clostridium difficile (principal); E11.9 Type 2 diabetes mellitus without complications; E86.0 Dehydration; R00.1 Bradycardia, unspecified; T44.7X5A Adverse effect of beta-adrenoreceptor antagonists, initial encounter; I10 Essential (primary) hypertension; E78.5 Hyperlipidemia, unspecified; E78.00 Pure hypercholesterolemia, unspecified; Z96.652 Presence of left artificial knee joint; F17.200 Nicotine dependence, unspecified, uncomplicated; Z90.49 Acquired absence of other specified parts of digestive tract; Z85.038 Personal history of other malignant neoplasm of large intestine; Z88.0 Allergy status to penicillin

== ENCOUNTER 2017-02-16 13:01 | Day surgery (SDC) | payer MEDICARE, BC ==
[2017-02-14 08:27] VITALS: BMI 25.9
[2017-02-16] MEDS ORDERED: FMT LOWER DELIVERY MICROBIOTA PREPARATION 250 ML RC ONE (14:00)
[2017-02-16] MEDS ORDERED: Propofol 10 mg/ml Inj (20 ML) ONE (15:17)
[2017-02-16 16:01] VITALS: RESP 16; TEMP 97
[2017-02-16 16:47] VITALS: BP 174/51; PULSE 55; O2SAT 97
== END 2017-02-16 17:15 ==
LOC: ENDO 13:01
PROVIDERS: ATTEND Internal Medicine Gastroenterology
DX: A04.7 Enterocolitis due to Clostridium difficile (principal); K57.30 Diverticulosis of large intestine without perforation or abscess without bleeding; K64.8 Other hemorrhoids; E11.9 Type 2 diabetes mellitus without complications; I25.10 Atherosclerotic heart disease of native coronary artery without angina pectoris; I10 Essential (primary) hypertension; E78.5 Hyperlipidemia, unspecified
CPT/HCPCS: 45378; G0455; J2704

== ENCOUNTER 2017-02-20 20:18 | Observation (INO) | payer MEDICARE, BC ==
[2017-02-20 20:25] VITALS: BMI 25.2
[2017-02-20] MEDS ORDERED: Sodium Chloride 0.9% 1,000 ML IV STA (20:35)
--- NOTE | 2017-02-20 20:41 | ED PDOC ---
Arrival/HPI <Chepe Cervantes - Last Filed: 02/20/17 23:57> - General Historian: Patient <Delia Love - Last Filed: 02/21/17 05:15> - General Chief Complaint: GI Problem Time Seen by Provider: 02/20/17 20:23 - History of Present Illness Narrative History of Present Illness (Text): 02/20/17 20:38 Patient is a 71 y/o with pmh og colon ca s/p resection, htn, h/o recurrent c diff presenting with watery diarrhea. Patient states she had fecal transplant on Sunday, and was discharged home on Sunday. On Sunday she had a small loose bowel movement. On Sunday she had normal bowel movement. The today, she had profuse watery bowel movement multiple times, she called Dr Nugent, and he told her to take imodium with no releif. Patient states she had additional 7 episodes of watery bowel movement. Patient was told to come to the ED by Dr Nugent for check up and IVF, no meds. (Dleia Love) Past Medical History - Provider Review Nursing Documentation Reviewed: Yes - Travel History Have you recently traveled outside [place] w/in the past 3 mons?: No - Infectious Disease Hx of Infectious Diseases: C.diff - Tetanus Immunization Tetanus Immunization: Unknown - Cardiac Hx Pacemaker: No - Pulmonary Hx Respiratory Disorders: No - Neurological Hx Paralysis: No - HEENT Hx HEENT Disorder: Yes Other/Comment: glasses. dentures - Renal Hx Renal Disorder: No - Endocrine/Metabolic Hx Diabetes Mellitus Type 2: Yes - Hematological/Oncological Hx Blood Transfusions: No - Integumentary Hx Dermatological Disorder: No - Musculoskeletal/Rheumatological Hx Musculoskeletal Disorders: Yes - Gastrointestinal Hx Gastrointestinal Disorders: Yes Hx Diverticulitis: Yes Hx Gall Bladder Disease: Yes Hx Gastroesophageal Reflux: Yes Hx Ileostomy: Yes Hx Pancreatitis: Yes - Genitourinary/Gynecological Hx Genitourinary Disorders: Yes Hx Urinary Tract Infection: Yes - Psychiatric Hx Emotional Abuse: No Hx Physical Abuse: No Hx Substance Use: No - Surgical History Other/Comment: fecal transplant - Anesthesia Hx Anesthesia: Yes Hx Anesthesia Reactions: No Hx Malignant Hyperthermia: No - Suicidal Assessment Feels Threatened In Home Enviroment: No <Delia Love - Last Filed: 02/21/17 05:15> Family/Social History - Physician Review Nursing Documentation Reviewed: Yes Family/Social History: No Known Family HX Smoking Status: Never Smoked Hx Alcohol Use: No Hx Substance Use: No Hx Substance Use Treatment: No <Delia Love - Last Filed: 02/21/17 05:15> Allergies/Home Meds <Chepe Cervantes - Last Filed: 02/20/17 23:57> <Dleia Love - Last Filed: 02/21/17 05:15> Allergies/Adverse Reactions: Allergies Penicillins Adverse Reaction (Verified 02/20/17 20:25) URTICARIA Review of Systems - Review of Systems Constitutional: Fatigue. absent: Fevers Eyes: Normal ENT: Normal Respiratory: Normal Cardiovascular: Normal Gastrointestinal: Abdominal Pain, Stool Changes, Diarrhea. absent: Nausea, Vomiting Genitourinary Female: Normal Musculoskeletal: Normal Skin: Normal Neurological: Normal Endocrine: Normal Hemo/Lymphatic: Normal Psychiatric: Normal <Delia Love - Last Filed: 02/21/17 05:15> Physical Exam Temperature: Afebrile Blood Pressure: Hypertensive Pulse: Regular Respiratory Rate: Normal Appearance: Positive for: Non-Toxic, Comfortable Pain Distress: Mild Mental Status: Positive for: Alert and Oriented X 3 - Systems Exam Head: Present: Atraumatic, Normocephalic Pupils: Present: PERRL Extroacular Muscles: Present: EOMI Conjunctiva: Present: Normal Mouth: Present: Dry Neck: Present: Normal Range of Motion Respiratory/Chest: Present: Clear to Auscultation, Good Air Exchange. No: Respiratory Distress, Accessory Muscle Use, Wheezes, Retracting, Rhonchi, Tachypneic Cardiovascular: Present: Regular Rate and Rhythm, Normal S1, S2. No: Murmurs Abdomen: Present: Tenderness (RLQ), Normal Bowel Sounds. No: Distention, Rebound Back: Present: Normal Inspection Upper Extremity: Present: Normal Inspection. No: Edema Lower Extremity: Present: Normal Inspection. No: Edema Neurological: Present: GCS=15 Skin: Present: Warm, Dry, Normal Color Psychiatric: Present: Alert, Oriented x 3, Normal Insight <Delia Love - Last Filed: 02/21/17 05:15> Vital Signs Temp Pulse Resp BP Pulse Ox 02/21/17 01:15 16 99 02/20/17 23:19 55 L 16 155/55 H 98 02/20/17 20:29 98.2 F 60 16 170/75 H 93 L 02/20/17 20:26 98.2 F 60 16 170/75 H 93 L Medical Decision Making <Chepe Cervantes - Last Filed: 02/20/17 23:57> Re-evaluation Time: 23:05 Reassessment Condition: Re-examined, Unchanged <Delia Love - Last Filed: 02/21/17 05:15> ED Course and Treatment: Patient Seen With Resident: In agreement with resident note which contains more details about the patient. Patient was seen and evaluated with resident. Came up with plan and treatment together. 02/20/17 23:[address] Nugent, who is aware and agrees with plan. States to place him on GI consult. 02/20/17 23:[address] Yates, who is aware and agrees with plan. Accepts pt in to his service. (Chepe Cervantes) - Lab Interpretations Lab Results: 02/20/17 21:03 02/20/17 21:03 Lab Results 02/20/17 21:03: Sodium 143, Potassium 3.9, Chloride 108 H, Carbon Dioxide 25, Anion Gap 14, BUN 10, Creatinine 0.6, Est GFR ( Amer) > 60, Est GFR (Non- Af Amer) > 60, Random Glucose 83, Calcium 9.6, Total Bilirubin 0.5, AST 28, ALT 16, Alkaline Phosphatase 89, Total Protein 6.8, Albumin 3.7, Globulin 3.1, Albumin/Globulin Ratio 1.2, Lipase 38 02/20/17 21:03: WBC 8.0, RBC 4.54, Hgb 13.3, Hct 40.5, MCV 89.2, MCH 29.3, MCHC 32.8, RDW 13.8, Plt Count 205, MPV 10.3, Gran % 60.1, Lymph % (Auto) 26.5, Ada % (Auto) 8.8 H, Eos % (Auto) 3.6, Baso % (Auto) 1.0, Gran # 4.77, Lymph # 2.1, Ada # 0.7 H, Eos # 0.3, Baso # 0.08 - Medication Orders Current Medication Orders: Sodium Chloride (Sodium Chloride 0.9%) 1,000 mls @ 100 mls/hr IV .Q10H STA Stop: 02/21/17 10:07 Last Admin: 02/21/17 01:03 Dose: 100 mls/hr Discontinued Medications Sodium Chloride (Sodium Chloride 0.9%) 1,000 mls @ 999 mls/hr IV .Q1H1M STA Stop: 02/20/17 21:35 Last Admin: 02/20/17 21:06 Dose: 999 mls/hr Loperamide HCl (Imodium) 2 mg PO STAT STA Stop: 02/21/17 00:09 Last Admin: 02/21/17 01:03 Dose: 2 mg - PA / EMAIL MARKETING ASSISTANT / Resident Statement TAMMY has reviewed & agrees with the documentation as recorded. TAMMY has examined the patient and agrees with the treatment plan. <Chepe Cervantes - Last Filed: 02/20/17 23:57> Disposition/Present on Arrival - Present on Arrival Any Indicators Present on Arrival: No History of DVT/PE: No History of Uncontrolled Diabetes: No Urinary Catheter: No History of Decub. Ulcer: No History Surgical Site Infection Following: None - Disposition Have Diagnosis and Disposition been Completed?: Yes <Chepe Cervantes - Last Filed: 02/20/17 23:57> - Present on Arrival Any Indicators Present on Arrival: No History of DVT/PE: No History of Uncontrolled Diabetes: No Urinary Catheter: No History of Decub. Ulcer: No History Surgical Site Infection Following: None - Disposition Have Diagnosis and Disposition been Completed?: Yes Disposition Time: 23:05 Patient Plan: Observation <Delia Love - Last Filed: 02/21/17 05:15> - Disposition Diagnosis: Diarrhea Disposition: HOSPITALIZED Patient Problems: Current Active Problems Problem Status Onset Diarrhea Acute Condition: STABLE
[2017-02-20 21:09] LABS: ADD MANUAL DIFF? NO
[2017-02-20 21:19] LABS: BASO # 0.08 K/mm3 (0.0-2.0); EOS # 0.3 (0.0-0.7); EOS % 3.6 % (1.5-5.0); GRAN # 4.77 (1.4-6.5); GRAN % 60.1 % (50.0-68.0); HEMATOCRIT 40.5 % (36.0-48.0); LYMPH # 2.1 (1.2-3.4); LYMPH % 26.5 % (22.0-35.0); MEAN CELL VOLUME 89.2 fL (80.0-105.0); MEAN CORPUSCULAR HEMOGLOBIN 29.3 pg (25.0-35.0); MEAN CORPUSCULAR HGB CONC 32.8 g/dl (31.0-37.0); MEAN PLATELET VOLUME 10.3 fl (7.0-11.0); MONO # 0.7 (0.1-0.6); MONO % 8.8 % (1.0-6.0); PLATELET COUNT 205 10^3/uL (120.0-450.0); RED CELL DISTRIBUTION WIDTH 13.8 % (11.5-14.5)
[2017-02-20 21:29] LABS: ALB/GLOB RATIO 1.2 (1.1-1.8); ALKALINE PHOSPHATASE 89 U/L (38-133); ALT/SGPT 16 U/L (7-56); AST/SGOT 28 U/L (15-39); BILIRUBIN,TOTAL 0.5 mg/dL (0.2-1.3); BLOOD UREA NITROGEN 10 mg/dL (7-21); CALCIUM 9.6 mg/dL (8.4-10.5); CARBON DIOXIDE 25 mmol/L (21-33); CHLORIDE 108 mmol/L (98-107); GFR AFRICAN-AMERICAN > 60; GLUCOSE,RANDOM 83 mg/dL (70-110); LIPASE 38 U/L (23-300); POTASSIUM 3.9 mmol/L (3.6-5.0); SODIUM 143 mmol/L (132-148); TOTAL PROTEIN 6.8 g/dL (5.8-8.3)
[2017-02-21] MEDS ORDERED: Sodium Chloride 0.9% 1,000 ML IV STA (00:08)
--- NOTE | 2017-02-21 08:25 | HP ---
HISTORY OF PRESENT ILLNESS: I have spoken to the patient a few times over the past 2 days. She was recently just discharged from [facility] status post persistent diarrhea from Clostridium difficile pseudomembranous colitis, status post fecal transplant past Sunday. She went home on Satu rday. She had 1 normal bowel movement and then the next day she had multiple periods of diarrhea and then she had 10 watery diarrheas, got nervous, called the septic tank servicer and they sent her to [facility] Emergency Room so she is here in the hospital. No more diarrhea at this time, but she is nervous, but profuse diarrhea multiple times yesterday. She took an Imodium, no relief. PAST MEDICAL HISTORY: She has a past medical history of colon cancer, status post resection; hyperte nsion, recurrent Clostridium difficile for a few years with watery diarrhea, on multiple Flagyl and v ancomycin medicines. She could not get the Dificid; it was too expensive for her insurance. She has diverticulitis, gallbladder disease, reflux, ileostomy in the past, pancreatitis, urinary tract infe ctions and recently a fecal transplant. FAMILY HISTORY: She has no family history. SOCIAL HISTORY: Never smoked. No alcohol, no drugs. ALLERGIES: SHE IS ALLERGIC TO PENICILLIN. REVIEW OF SYSTEMS: No acute vision or hearing changes. She is tired and nervous and fatigue. No so re throat. No chest pain, no palpitations, no shortness of breath or cough, some abdominal cramping, diarrhea. She can walk. She is a little bit weak, but not bad. PHYSICAL EXAMINATION: VITAL SIGNS: She has a 98.2 temp, 60 pulse, 16 respiratory rate, 170/75 blood pressure and 98% O2 sa t on room air. GENERAL: She is nontoxic. She is comfortable at this time, nervous, alert and oriented x 3. HEENT: Head is atraumatic, normocephalic. Pupils reactive to light. Extraocular muscles are intact . Throat is moist, no erythema. NECK: Supple, no JVD. HEART: Regular rate. Normal S1, S2. LUNGS: Decreased breath sounds but clear to auscultation. No wheezes, rhonchi or rales. ABDOMEN: Soft, nontender, positive bowel sounds. Maybe diffuse discomfort, but no guarding, no rebo und. EXTREMITIES: Have no edema. NEUROLOGIC: GCS is 15. Cranial nerves II-XII grossly intact. SKIN: Warm and dry. NEUROLOGIC: Alert and oriented x 3. Thyroid midline. No palpable appreciative lymphadenopathy. LABORATORY DATA: She had some tests done. Her sodium is 143, potassium 3.9, chloride is 108 (normal is 107). She had a 10 BUN, creatinine 0.6, GFR is greater than 60, sugar is 83, calcium 9.6. Total bili is 0.5, AST is 28, ALT 16, alk phos 89, total protein 6.8, albumin 3.7, globulin 3.1, lipase is 38. White count is 8, hemoglobin 13.3, hematocrit 40.5, platelets are 205. She will have a consult with GI. She will have IV fluids. We will feed her. I am hoping to watch h er overnight for observation. She just got here this morning. She is here for diarrhea, persistent; history of Clostridium difficile for 2 years, status post fecal transplant; nervous, hypertension. We will see what septic tank servicer has to add. Johnny Yates DO cc: [id number] TT: 02/21/2017 08:25:14 loly
[2017-02-21] MEDS: Insulin Reg-LOW-Coverage SC SCH ×2 (11:30→22:00)
--- NOTE | 2017-02-21 15:42 | PN ---
DATE: 02/21/2017 GI FOLLOWUP NOTE Seen and examined at the bedside. The chart was reviewed. Request for consult is for diarrhea. HISTORY OF PRESENT ILLNESS: This is a 71-year-old female who was recently discharged a few days ago, status post fecal transplant for recurrent pseudomembranous colitis. The patient reports that she w as discharged on Sunday and had one normal bowel movement, and on Sunday, she did have multiple epi sodes of diarrhea - at least 10 times, and also yesterday she had about 5 episodes. No reports of bl eeding. She does get abdominal cramps and passing a lot of gas. No nausea, vomiting, shortness of b reath, or chest pain. Denies any fever. She did take an Imodium yesterday. She has not had any epi sode of diarrhea since admission. PAST MEDICAL HISTORY: Colon cancer, status post resection, recurrent Clostridium difficile, hyperten deuce, diverticulitis, GERD, pancreatitis, UTI, diabetes mellitus, anxiety. SURGICAL HISTORY: Right hemicolectomy, gastrojejunostomy, left knee replacement, hysterectomy, and c holecystectomy. SOCIAL HISTORY: Former smoker. Denies any ETOH or substance abuse. FAMILY HISTORY: Noncontributory at this time. MEDICATIONS: Reviewed as per MAR. No current antibiotics. REVIEW OF SYSTEMS: Systems reviewed with positive findings. See HPI. Fecal transplant was done on 02/16/2017. She did have colonoscopy and was advanced to the ileocolonic anastomosis, found to have di verticula, internal hemorrhoids, and her terminal ileum appeared normal, and saw the end-to-side ileo colonic anastomosis that was patent with moderate erythematous mucosa in the entire colon. No speci mens collected. VITAL SIGNS: Temperature 98.7, pulse 72, blood pressure 152/70, respirations 18, 99 on room air. LABORATORY DATA: WBC 8.0. H and H are 13.3 and 40.5. Platelets are 205. Her sodium is 143, K 3.9. BUN 10, creatinine 0.6. LFTs are within normal limits. DIAGNOSTICS: None. HEENT: Sclerae are anicteric. NECK: Supple. LUNGS: Lung sounds are clear. ABDOMEN: With bowel sounds, soft. It is not distended. She has some mild tenderness to lower abdom en. No rebound or guarding. EXTREMITIES: Positive pulses. No edema. 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 Other rocky rbidities are hypertension, colon cancer, status post resection. PLAN: We will request for a stool for C. diff and culture. Monitor her electrolytes. She is curren tly on a regular diet. She did get a dose of Imodium at 1:00 a.m. Continue PPI. The patient is currently on regular diet. We will change it to a moderate carbohydrate diet, low res idual. Thank you for this consult and for allowing us to participate in your patient's care. We will make marck valencia recommendations based upon the patient's clinical course. The patient is not on any antibiotics now. Seen and discussed with Dr. Nugent. Kena MERRILL cc: [id number] TT: 02/21/2017 15:41:24 Confirmation # [id number] Dictation # [id number] jn
[2017-02-21] MEDS: Pantoprazole 40 mg EC Tab PO SCH (17:09)
--- NOTE | 2017-02-21 20:36 | PN ---
DATE: 02/21/2017 ADDENDUM This is an addendum to the GI progress report dictated by Kena Anderson APN. The patient is a 71-year- old patient with recurrent and also refractory C. diff. Status post FMT on the extremity on 02/17/20 17, was doing well initially post discharge with no significant diarrhea. The patient has several ep isodes of diarrhea yesterday. She said nearly about 8 times. She did receive a dose of Imodium and also another dose, 2 doses of Imodium. She was concerned, she was feeling weak, came to the Emergenc y Room and admitted. Because of the abdominal discomfort, diarrhea and weakness, she was admitted fo r further observation, for further close monitoring. Since admission, the patient did not have any f urther episodes of bleeding. She feels cramping discomfort and passing only gas. PHYSICAL EXAMINATION: VITAL SIGNS: Remains afebrile, blood pressure 137/61, pulse 55, temperature is 98.5, O2 saturation 9 3. HEENT: Atraumatic, anicteric. NECK: Supple. HEART: S1, S2 heard. LUNGS: Bilateral air entry present. ABDOMEN: Soft. There was mild tenderness on deep palpation present. There is no rebound or guardin g. EXTREMITIES: No edema, no cyanosis. LABORATORY DATA: Labs from the ER essentially appeared unremarkable. IMPRESSION: Recurrent and refractory C. diff, had several episodes of diarrhea and weakness. The carolyn viera is admitted for IV hydration and close monitoring status post fecal microbiota transplant. The plan is to not to consider any antibiotics for the recurrence. Requested for stool for C. diff and culture. The etiology for the diarrhea is unclear. We will continue to closely monitor her. Thank you very much for allowing us to participate in the care of the patient. See Nugent MD cc: [id number] TT: 02/21/2017 20:35:32 Confirmation # [id number] Dictation # [id number] loly
[2017-02-22 07:23] LABS: HEMATOCRIT 39.8 % (36.0-48.0); MEAN CELL VOLUME 87.7 fL (80.0-105.0); MEAN CORPUSCULAR HEMOGLOBIN 28.9 pg (25.0-35.0); MEAN CORPUSCULAR HGB CONC 32.9 g/dl (31.0-37.0); MEAN PLATELET VOLUME 10.9 fl (7.0-11.0); RED CELL DISTRIBUTION WIDTH 13.5 % (11.5-14.5); WHITE BLOOD COUNT 7.3 10^3/ul (4.5-11.0)
[2017-02-22 07:33] LABS: ALB/GLOB RATIO 1.1 (1.1-1.8); ALKALINE PHOSPHATASE 71 U/L (38-133); ALT/SGPT 22 U/L (7-56); AST/SGOT 18 U/L (15-39); BILIRUBIN,TOTAL 0.4 mg/dL (0.2-1.3); BLOOD UREA NITROGEN 9 mg/dL (7-21); CALCIUM 8.8 mg/dL (8.4-10.5); CARBON DIOXIDE 27 mmol/L (21-33); CHLORIDE 108 mmol/L (98-107); GFR AFRICAN-AMERICAN > 60; GLUCOSE,RANDOM 80 mg/dL (70-110); POTASSIUM 3.8 mmol/L (3.6-5.0); SODIUM 142 mmol/L (132-148); TOTAL PROTEIN 6.1 g/dL (5.8-8.3)
[2017-02-22 07:57] VITALS: BP 154/87; PULSE 61; RESP 16; TEMP 98; O2SAT 94
[2017-02-22] MEDS: Insulin Reg-LOW-Coverage SC SCH ×2 (08:31→12:27)
[2017-02-22] MEDS: Pantoprazole 40 mg EC Tab PO SCH (09:22)
[2017-02-22] MEDS ORDERED: Cholestyramine 4 gm/Pkt UD PO SCH (11:00)
--- NOTE | 2017-02-22 11:25 | PN ---
DATE: 02/22/2017 Seen and examined at the bedside earlier today. The patient had very small BMs yesterday that were s melonie-formed. She did have one this morning that appears pasty, semi-formed. No bleeding. The patien t gets occasional abdominal discomfort, but no acute distress. She is tolerating oral intake. VITAL SIGNS: Temperature is 98, blood pressure 154/87, pulse 61, respirations 16, 94 on room air. LABORATORY DATA: WBC 7.3, H and H is 13.1 and 39.8, platelets are 162. Sodium 142, K is 3.8, BUN is 9, creatinine 0.6. LFTs are within normal limits. PHYSICAL EXAMINATION: HEENT: Sclerae are anicteric. NECK: Supple. CARDIAC: S1, S2. LUNGS: Clear. ABDOMEN: With bowel sounds, soft, nontender at this time, no rebound or guarding. EXTREMITIES: No edema. NEUROLOGIC: Awake, alert, oriented. ASSESSMENT: The patient with recurrent and refractory Clostridium difficile, status post fecal micro biota transplant, now with complaints of several episodes of diarrhea and weakness. Etiology of bin vance is unclear. PLAN: They were able to obtain stool for C. diff and culture which results are pending. Continue di et as tolerated and will start patient on Questran 2 grams p.o. b.i.d. Continue PPI, in the process of speaking with company in which fecal microbiota was obtained. The patient may likely be discharge d home today and follow up in our outpatient office. The patient was seen and case discussed with Dr May Nugent. Kena MERRILL cc: [id number] TT: 02/22/2017 11:24:22 Confirmation # [id number] Dictation # [id number] tn
[2017-02-22] MEDS ORDERED: Vancomycin 25 MG/ML PO STA (16:01)
--- NOTE | 2017-02-22 21:06 | DS ---
I see her comfortably in bed this morning. She slept very well. The diarrhea is a little bit less. She had some Imodium, which helped. She is also on Ambien, insulin coverage, Protonix, Valium and Z estril. That is the medicine she has at home and that is what she will go home with. She is being s een by GI. She had a fecal transplant a few days ago and we are not sure why she has the diarrhea. The stool studies and C. diff pending. PHYSICAL EXAMINATION: VITAL SIGNS: She has a 98 temp, 61 pulse, 154/87 blood pressure, 16 respiratory rate, 94% O2 sat on room air. HEENT: Head is atraumatic, normocephalic. HEART: Regular rate. LUNGS: Clear to auscultation. ABDOMEN: Soft, nontender, positive bowel sounds, no guarding, no rebound, no CVA tenderness. EXTREMITIES: Have no edema. LABORATORY DATA: She has a 7.3 white count, better, 13.1 hemoglobin, 39.8 hematocrit with 162 platel ets. Sodium 142, potassium 3.8, BUN 9, creatinine 0.6. GFR is greater than 60. Sugar is 80, calciu m is 8.8, total bili is 0.4, AST is 18, ALT is 22, alk phos is 71. Total protein 6.1, albumin 3.2, g lobulin 2.9, lipase is 38. There are some stool studies pending that were ordered. We have a C. dif f pending, stool culture. I am hoping to discharge her home today. She is on a diet. She is eating it well. She is on IV flu ids. She does not need it. She was not dehydrated. She was just worried, I believe. She is in obs ervation status. I will put the discharge in after lunch and after Dr. Nugent sees her. We can fo llow up on the outpatient. She is here for multiple bouts of diarrhea with normal labs. I asked her to change her diet to bananas, rice, applesauce, toast, add Matzah, the Yazidi cracker, i nto her diet and will follow on the patient. Also Imodium if needed. Johnny Yates DO cc: [id number] TT: 02/22/2017 21:06:01 constance
--- NOTE | 2017-02-22 21:50 | PN ---
DATE: 02/22/2017 ADDENDUM This is an addendum to the GI progress report dictated by Kena Anderson APN. The patient had a stool for C. diff which was positive. I did discuss with ____ company and the info rmation was conveyed. The patient would ____ from the repeat fecal ____ transplant. The ____ is abo ut 85% to 90%. But, in view of this long history of more than 2-1/2 years of issue of the recurrent C. diff ____ recurrent, there is a possibility of this patient benefitting from the second FMT. Mean while, we will treat the patient for another course of vancomycin. Then, we will consider the FMT as an outpatient. Thank you very much for allowing us to participate in the care of the patient. See Nugent MD cc: [id number] TT: 02/22/2017 21:49:29 Confirmation # [id number] Dictation # [id number] sn
== END 2017-02-22 19:00 | disposition home or self-care (01) ==
LOC: ED 20:18 → ERH 02-21 00:04 → 5RNO 02-21 01:33
PROVIDERS: ADMIT Family Medicine; ATTEND Family Medicine
DX: A04.7 Enterocolitis due to Clostridium difficile (principal); I10 Essential (primary) hypertension; K21.9 Gastro-esophageal reflux disease without esophagitis; E11.9 Type 2 diabetes mellitus without complications; F41.9 Anxiety disorder, unspecified; Z90.49 Acquired absence of other specified parts of digestive tract; Z85.038 Personal history of other malignant neoplasm of large intestine; Z93.2 Ileostomy status; Z88.0 Allergy status to penicillin
CPT/HCPCS: 36415; 80053; 83690; 85025; 85027; 87045; 87324; 99285; G0378; J7040

== ENCOUNTER 2018-04-04 12:52 | Emergency (ER) | payer MEDICARE, BC ==
[2018-04-04 13:25] VITALS: BMI 23.8
[2018-04-04] MEDS ORDERED: Sodium Chloride 0.9% 1,000 ML IV STA (13:25)
--- NOTE | 2018-04-04 13:26 | ED PDOC ---
Arrival/HPI - General Time Seen by Provider: 04/04/18 13:22 Historian: Patient - History of Present Illness Narrative History of Present Illness (Text): 04/04/18 13:23 73 year old female smoker, whose past medical history includes hypertension and digestive system reconstruction, who presents to the ED complaining of abdominal pain and diarrhea x 2 weeks. Patient notes associated nausea. Patient notes she spoke with PMD who sent her to the ED. Patient denies any fevers, chills, SOB, chest pain, vomiting, back pain, neck pain, or any other complaints. Time/Duration: < month (2 weeks) Symptom Onset: Gradual Symptom Course: Unchanged Activities at Onset: Light Context: Home Past Medical History - Provider Review Nursing Documentation Reviewed: Yes - Infectious Disease Hx of Infectious Diseases: None - Tetanus Immunization Tetanus Immunization: Unknown - Cardiac Hx Pacemaker: No - Pulmonary Hx Respiratory Disorders: No - Neurological Hx Paralysis: No - HEENT Hx HEENT Disorder: Yes Other/Comment: glasses. dentures - Renal Hx Renal Disorder: No - Endocrine/Metabolic Hx Diabetes Mellitus Type 2: Yes - Hematological/Oncological Hx Blood Transfusions: No - Integumentary Hx Dermatological Disorder: No - Musculoskeletal/Rheumatological Hx Musculoskeletal Disorders: Yes - Gastrointestinal Hx Gastrointestinal Disorders: Yes Hx Diverticulitis: Yes Hx Gall Bladder Disease: Yes Hx Gastroesophageal Reflux: Yes Hx Ileostomy: Yes Hx Pancreatitis: Yes - Genitourinary/Gynecological Hx Genitourinary Disorders: Yes Hx Urinary Tract Infection: Yes - Psychiatric Hx Emotional Abuse: No Hx Physical Abuse: No Hx Substance Use: No - Surgical History Other/Comment: hemicolectomy - Anesthesia Hx Anesthesia: Yes Hx Anesthesia Reactions: No Hx Malignant Hyperthermia: No - Suicidal Assessment Feels Threatened In Home Enviroment: No Family/Social History - Physician Review Nursing Documentation Reviewed: Yes Family/Social History: Unknown Family HX Smoking Status: Never Smoked Hx Alcohol Use: No Hx Substance Use: No Hx Substance Use Treatment: No Allergies/Home Meds Allergies/Adverse Reactions: Allergies Penicillins Adverse Reaction (Verified 02/20/17 20:25) URTICARIA Review of Systems - Physician Review All systems were reviewed & negative as marked: Yes - Review of Systems Constitutional: Normal Eyes: Normal ENT: Normal Respiratory: Normal. absent: SOB, Cough Cardiovascular: Normal. absent: Chest Pain Gastrointestinal: Abdominal Pain, Diarrhea, Nausea. absent: Vomiting Genitourinary Female: Normal. absent: Dysuria, Frequency Musculoskeletal: Normal. absent: Back Pain, Neck Pain Skin: Normal. absent: Rash Neurological: Normal. absent: Headache Endocrine: Normal Hemo/Lymphatic: Normal Psychiatric: Normal Physical Exam Vital Signs Temp Pulse Resp BP Pulse Ox 04/04/18 18:30 97.8 F 56 L 18 157/73 H 95 04/04/18 17:16 56 L 18 157/73 H 95 04/04/18 14:30 97.8 F 63 18 95 - Systems Exam Head: Present: Atraumatic, Normocephalic Pupils: Present: PERRL Extroacular Muscles: Present: EOMI Conjunctiva: Present: Normal Mouth: Present: Moist Mucous Membranes Neck: Present: Normal Range of Motion Respiratory/Chest: Present: Clear to Auscultation, Good Air Exchange. No: Respiratory Distress, Accessory Muscle Use Cardiovascular: Present: Regular Rate and Rhythm, Normal S1, S2. No: Murmurs Abdomen: Present: Tenderness (LLQ tenderness). No: Distention, Peritoneal Signs Back: Present: Normal Inspection Upper Extremity: Present: Normal Inspection. No: Cyanosis, Edema Lower Extremity: Present: Normal Inspection. No: Edema Neurological: Present: GCS=15, CN II-XII Intact, Speech Normal Skin: Present: Warm, Dry, Normal Color. No: Rashes Psychiatric: Present: Alert, Oriented x 3, Normal Insight, Normal Concentration Medical Decision Making ED Course and Treatment: 04/04/18 13:26 Impression: 73 year old female presents to the ED c/o abdominal pain and diarrhea x 2 weeks. Plan: -- Labs -- IV Fluid -- Reglan -- CT Abd Progress Notes: PROCEDURE: CT Abdomen and Pelvis with contrast Dictator : Brice Galan MD Report Date : 04/04/2018 16:54:51 IMPRESSION: Diverticulosis of the sigmoid colon. No evidence of diverticulitis. No acute intra-abdominal findings. 04/04/18 17:52 CT shows diverticulosis. labs ar unremarkable. Urine is negative. Discussed case with Dr. Nugent who states patient can be discharged home with Flagyl 250mg every 6 hours for 2 weeks. The patient feels better and is in no acute distress. I have discussed the results and plan with the patient, who expresses understanding. Patient given the opportunity to ask question, all questions were answered and there is agreement with the plan to discharge the patient home. Patient is stable for discharge. Patient was instructed to follow up with Dr. Nugent in his office or return if symptoms persist/worsen or new concerning symptoms arise. - Lab Interpretations Microbiology Results: Microbiology Results 04/04/18 13:40 Urine,Clean Catch Urine Culture - Final No Growth (<1,000 CFU/ML) Lab Results: 04/04/18 15:09 04/04/18 15:09 Lab Results 04/04/18 15:09: Sodium 145, Potassium 4.2, Chloride 104, Carbon Dioxide 30, Anion Gap 15, BUN 9, Creatinine 0.7, Est GFR ( Amer) > 60, Est GFR (Non- Af Amer) > 60, Random Glucose 98, Calcium 9.8, Magnesium 2.2, Total Bilirubin 0.6, AST 27, ALT 33, Alkaline Phosphatase 83, Total Protein 8.0, Albumin 4.5, Globulin 3.4, Albumin/Globulin Ratio 1.3, Lipase 50 04/04/18 15:09: PT 10.9, INR 0.96, APTT 32.8 04/04/18 15:09: WBC 10.0 D, RBC 5.09, Hgb 15.2, Hct 45.2, MCV 88.8, MCH 29.9, MCHC 33.6, RDW 12.7, Plt Count 217, MPV 10.2, Gran % 67.4, Lymph % (Auto) 23.1, [place] % (Auto) 7.7 H, Eos % (Auto) 1.1 L, Baso % (Auto) 0.7, Gran # 6.74 H, Lymph # (Auto) 2.3, [place] # (Auto) 0.8 H, Eos # (Auto) 0.1, Baso # (Auto) 0.07 04/04/18 13:40: Urine Color Light yellow, Urine Appearance Clear, Urine pH 6.5, Ur Specific [place] <= 1.005, Urine Protein Negative, Urine Glucose (UA) Negative, Urine Ketones Negative, Urine Blood Trace-intact H, Urine Nitrate Negative, Urine Bilirubin Negative, Urine Urobilinogen 0.2, Ur Leukocyte Esterase Trace H, Urine RBC 0 - 2, Urine WBC 0 - 2, Ur Epithelial Cells 0 - 2, Urine Bacteria None - RAD Interpretation Radiology Orders: 04/04/18 13:25 ABD PELVIS PO & IV CONTRAST [CT] Stat - Medication Orders Current Medication Orders: Discontinued Medications Al Hydrox/Mg Hydrox/Simethicone (Maalox Plus 30 Ml) 30 ml PO ONCE ONE Stop: 04/04/18 18:19 Last Admin: 04/04/18 18:23 Dose: 30 ml Famotidine (Pepcid) 20 mg IVP STAT STA Stop: 04/04/18 13:26 Last Admin: 04/04/18 15:21 Dose: 20 mg IVP Administration Document 04/04/18 15:21 LA (Rec: 04/04/18 15:22 LA [id number]) Charges for Administration # of IVP Administrations 1 Sodium Chloride (Sodium Chloride 0.9%) 1,000 mls @ 1,000 mls/hr IV .Q1H STA Stop: 04/04/18 14:24 Last Admin: 04/04/18 15:22 Dose: 1,000 mls/hr eMAR Start Stop Document 04/04/18 15:22 LA (Rec: 04/04/18 15:22 LA [id number]) Intravenous Solution Start Date 04/04/18 Start Time 15:22 End Date 04/04/18 End time 16:22 Total Infusion Time 60 Metronidazole (Flagyl) 250 mg PO ONCE ONE PRN Reason: Protocol Stop: 04/04/18 17:58 Last Admin: 04/04/18 18:16 Dose: 250 mg Ondansetron HCl (Zofran Inj) 4 mg IVP STAT STA Stop: 04/04/18 13:26 Last Admin: 04/04/18 15:22 Dose: 4 mg IVP Administration Document 04/04/18 15:22 LA (Rec: 04/04/18 15:22 LA [id number]) Charges for Administration # of IVP Administrations 1 Disposition/Present on Arrival - Present on Arrival Any Indicators Present on Arrival: No History of DVT/PE: No History of Uncontrolled Diabetes: No Urinary Catheter: No History Surgical Site Infection Following: None - Disposition Have Diagnosis and Disposition been Completed?: Yes Diagnosis: Enteritis, Diverticulosis, Acute diarrhea Disposition: HOME/ ROUTINE Disposition Time: 18:30 Condition: GOOD Discharge Instructions (ExitCare): Diarrhea in Adolescents and Adults Additional Instructions: Please follow up with Dr Bravo and take Flagyl 250 mg as directed. Prescriptions: Metronidazole [Flagyl] 250 mg PO QID 14 Days #56 tablet Referrals: See Nugent MD [Medical Doctor] - Follow up with primary Forms: [employer] ([place])
[2018-04-04] MEDS ORDERED: Iohexol 240 (50 ml) ONE (13:31)
[2018-04-04] MEDS ORDERED: Iohexol 350 MG/100 ML VIAL ONE (13:36)
[2018-04-04 15:31] LABS: BASO # 0.07 K/mm3 (0.0-2.0); BASO % 0.7 % (0.0-3.0); EOS # 0.1 (0.0-0.7); EOS % 1.1 % (1.5-5.0); GRAN # 6.74 (1.4-6.5); GRAN % 67.4 % (50.0-68.0); HEMOGLOBIN 15.2 g/dL (12.0-16.0); LYMPH # 2.3 (1.2-3.4); LYMPH % 23.1 % (22.0-35.0); MEAN CELL VOLUME 88.8 fl (80.0-105.0); MEAN CORPUSCULAR HEMOGLOBIN 29.9 pg (25.0-35.0); MEAN CORPUSCULAR HGB CONC 33.6 g/dl (31.0-37.0); MEAN PLATELET VOLUME 10.2 fl (7.0-11.0); MONO # 0.8 (0.1-0.6); MONO % 7.7 % (1.0-6.0); RBC 5.09 10^6/uL (3.5-6.1); RED CELL DISTRIBUTION WIDTH 12.7 % (11.5-14.5)
[2018-04-04 15:36] LABS: INR 0.96 (0.93-1.08); PARTIAL THROMBOPLASTIN TIME 32.8 Seconds (25.1-36.5); PROTHROMBIN TIME 10.9 SECONDS (9.4-12.5)
[2018-04-04 15:43] LABS: ALB/GLOB RATIO 1.3 (1.1-1.8); ALBUMIN 4.5 g/dL (3.0-4.8); ALT/SGPT 33 U/L (7-56); AST/SGOT 27 U/L (14-36); BLOOD UREA NITROGEN 9 mg/dL (7-21); CALCIUM 9.8 mg/dL (8.4-10.5); GFR AFRICAN-AMERICAN > 60; GFR NON-AFRICAN AMERICAN > 60; LIPASE 50 U/L (23-300)
[2018-04-04 16:23] LABS: PH,URINE 6.5 (4.7-8.0); URINE BILIRUBIN NEGATIVE (NEGATIVE); URINE BLOOD TRACE-INTACT (NEGATIVE); URINE GLUCOSE (UA) NEGATIVE (NEGATIVE); URINE LEUKOCYTE ESTERASE TRACE Leu/uL (NEGATIVE); URINE PROTEIN NEGATIVE mg/dL (<30 mg/dL); URINE UROBILINOGEN 0.2 E.U./dL (<1 E.U./dL)
[2018-04-04 16:33] LABS: URINE APPEARANCE CLEAR (CLEAR); URINE COLOR LIGHT YELLOW (YELLOW)
[2018-04-04 16:47] VITALS: RESP 18; TEMP 97.8; O2SAT 95
--- NOTE | 2018-04-04 16:56 | CT ---
Date of service: 04/04/2018 PROCEDURE: CT Abdomen and Pelvis with contrast HISTORY: abdominal pain COMPARISON: None. TECHNIQUE: Contrast dose: 100 cc of Omni 350 Radiation dose: Total exam DLP = 956 mGy-cm. This CT exam was performed using one or more of the following dose reduction techniques: Automated exposure control, adjustment of the mA and/or kV according to patient size, and/or use of iterative reconstruction technique. FINDINGS: LOWER THORAX: Unremarkable. LIVER: Unremarkable. No gross lesion or ductal dilatation. GALLBLADDER AND BILE DUCTS: Unremarkable. PANCREAS: Unremarkable. No gross lesion or ductal dilatation. SPLEEN: Unremarkable. ADRENALS: Unremarkable. No mass. KIDNEYS AND URETERS: Unremarkable. No hydronephrosis. No solid mass. VASCULATURE: Unremarkable. No aortic aneurysm. BOWEL: Unremarkable. No obstruction. No gross mural thickening. There is diverticulosis of the sigmoid colon. There is no evidence of diverticulitis APPENDIX: Normal appendix. PERITONEUM: Unremarkable. No free fluid. No free air. LYMPH NODES: Unremarkable. No enlarged lymph nodes. BLADDER: Unremarkable. REPRODUCTIVE: Unremarkable. BONES: Multilevel disc degeneration with vacuum discs. OTHER FINDINGS: None. IMPRESSION: Diverticulosis of the sigmoid colon. No evidence of diverticulitis. No acute intra-abdominal findings.
[2018-04-04 17:15] LABS: URINE EPITHELIAL CELLS 0 - 2 /hpf (0-5); URINE RBC 0 - 2 /hpf (0-2); URINE WBC 0 - 2 /hpf (0-6)
[2018-04-04 17:19] VITALS: BP 157/73; PULSE 56
[2018-04-04] MEDS ORDERED: Alum-Mag Hydrox-Simethicone Susp (30 mL) PO ONE (18:18)
== END 2018-04-04 18:30 | disposition home or self-care (01) ==
LOC: ED 12:52
DX: K57.30 Diverticulosis of large intestine without perforation or abscess without bleeding (principal); K52.9 Noninfective gastroenteritis and colitis, unspecified
CPT/HCPCS: 74177; 80053; 81001; 83690; 83735; 85025; 85610; 85730; 87086; 96361; 96374; 96375; 99283; J2405; J7030; Q9966; Q9967

== ENCOUNTER 2018-04-26 13:10 | Inpatient (IN) | payer MEDICARE, BC ==
[2018-04-26] MEDS ORDERED: Sodium Chloride 0.9% 500 ML IV STA (14:15)
--- NOTE | 2018-04-26 14:19 | ED PDOC ---
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 She was seen in ED at the end of March 2018 for a similar complaint. Dr. Nugent follows her and he recommended starting her on flagyl at that time, which she completed 8 days ago. Since stopping the flagyl, her symptoms of diarrhea, nausea, and heartburn have all returned. She states that she has had about 3-4 loose bowel movements per day for the last 8 days. Before then, she had 2-3 well-formed bowel movements. She states that she spoke with Dr. Nugent 's physician litigation legal assistant three days ago for these complaints and was prescribed zantac and bentyl which have not helped. (Emil Mcfadden) Past Medical History - Provider Review Nursing Documentation Reviewed: Yes - Travel History Have you recently traveled outside [place] w/in the past 3 mons?: No - Infectious Disease Hx of Infectious Diseases: None - Tetanus Immunization Tetanus Immunization: Unknown - Cardiac Hx Pacemaker: No - Pulmonary Hx Respiratory Disorders: No - Neurological Hx Paralysis: No - HEENT Hx HEENT Disorder: Yes Other/Comment: glasses. dentures - Renal Hx Renal Disorder: No - Endocrine/Metabolic Hx Diabetes Mellitus Type 2: Yes - Hematological/Oncological Hx Blood Transfusions: No - Integumentary Hx Dermatological Disorder: No - Musculoskeletal/Rheumatological Hx Musculoskeletal Disorders: Yes - Gastrointestinal Hx Gastrointestinal Disorders: Yes Hx Diverticulitis: Yes Hx Gall Bladder Disease: Yes Hx Gastroesophageal Reflux: Yes Hx Ileostomy: Yes Hx Pancreatitis: Yes - Genitourinary/Gynecological Hx Genitourinary Disorders: Yes Hx Urinary Tract Infection: Yes - Psychiatric Hx Emotional Abuse: No Hx Physical Abuse: No Hx Substance Use: No - Surgical History Other/Comment: hemicolectomy - Anesthesia Hx Anesthesia: Yes Hx Anesthesia Reactions: No Hx Malignant Hyperthermia: No - Suicidal Assessment Feels Threatened In Home Enviroment: No <Emil Mcfadden - Last Filed: 04/26/18 18:27> Family/Social History - Physician Review Nursing Documentation Reviewed: Yes Family/Social History: No Known Family HX Smoking Status: Never Smoked Hx Alcohol Use: No Hx Substance Use: No Hx Substance Use Treatment: No <McfaddenEmil - Last Filed: 04/26/18 18:27> Allergies/Home Meds <LesaEmil - Last Filed: 04/26/18 18:27> <Kobi Navas - Last Filed: 04/26/18 18:35> Allergies/Adverse Reactions: Allergies Penicillins Adverse Reaction (Verified 02/20/17 20:25) URTICARIA Review of Systems - Physician Review All systems were reviewed & negative as marked: Yes - Review of Systems Constitutional: absent: Fatigue, Fevers, Night Sweats Eyes: absent: Vision Changes ENT: absent: Sore Throat, Rhinorrhea Respiratory: absent: SOB, Cough Cardiovascular: absent: Chest Pain, GREER Gastrointestinal: absent: Abdominal Pain, Nausea, Vomiting Genitourinary Female: absent: Dysuria, Frequency Musculoskeletal: absent: Arthralgias Skin: absent: Rash, Pruritis Neurological: Headache. absent: Dizziness Endocrine: absent: Diaphoresis Hemo/Lymphatic: absent: Adenopathy Psychiatric: absent: Anxiety, Depression <Emil Mcfadden - Last Filed: 04/26/18 18:27> Physical Exam Vital Signs Reviewed: Yes Temperature: Afebrile Blood Pressure: Normal Pulse: Regular Respiratory Rate: Normal Appearance: Positive for: Non-Toxic, Uncomfortable Pain Distress: Mild Mental Status: Positive for: Alert and Oriented X 3 - Systems Exam Head: Present: Atraumatic, Normocephalic Pupils: Present: PERRL Extroacular Muscles: Present: EOMI Conjunctiva: Present: Normal Ears: Present: Normal Mouth: Present: Dry Pharnyx: Present: Normal. No: ERYTHEMA, EXUDATE Nose (External): Present: Atraumatic Neck: Present: Normal Range of Motion. No: JVD Respiratory/Chest: Present: Clear to Auscultation. No: Wheezes, Rales, Rhonchi Cardiovascular: Present: Regular Rate and Rhythm. No: Murmurs, Rub, Gallop Abdomen: No: Tenderness, Peritoneal Signs, Rebound, Guarding, Mass/Organomegaly Upper Extremity: Present: Normal Inspection. No: Cyanosis Lower Extremity: Present: Normal Inspection. No: Edema Neurological: Present: Speech Normal Skin: Present: Warm, Dry Lymphatic: No: Cervical Adenopathy Psychiatric: Present: Alert, Oriented x 3 <Emil Mcfadden - Last Filed: 04/26/18 18:27> Vital Signs Temp Pulse Resp BP Pulse Ox 04/26/18 17:00 63 18 141/59 L 95 04/26/18 15:12 65 18 148/58 L 95 04/26/18 13:24 98.2 F 63 18 154/46 H 95 Medical Decision Making - Lab Interpretations I have reviewed the lab results: Yes Interpretation: All labs normal - RAD Interpretation Dairy Manager: Radiologist <Emil Mcfadden - Last Filed: 04/26/18 18:27> <Kobi Navas - Last Filed: 04/26/18 18:35> ED Course and Treatment: 04/26/18 14:24 -Patient has history of multiple episodes of C-diff colitis -Patient presenting with worsening diarrhea s/p flagyl treatment -Will get CBC, CMP, C-diff toxin, stool culture, stool ova and parasites, lipase , Mg, Phos 04/26/18 17:31 -Labs and UA within normal limits -Will get CT abdomen w IV contrast 04/26/18 18:00 -CT abdomen w IV contrast unchanged from prior 04/26/18 18:07 -Unclear etiology for patient's diarrhea and abdominal discomfort at this time -Spoke with Dr. Yates who agrees to admission -Stool studies pending (Emil Mcfadden) Patient Seen With Resident: In agreement with resident note. Patient was seen and evaluated with resident, came up with plan and treatment together. 04/26/18 18:[address] brice covering dr nugent, request po flagyl, npo. dr mono knowles requests obs 04/26/18 18:35 (Kobi Navas) - Lab Interpretations Lab Results: 04/26/18 14:30 04/26/18 15:30 Lab Results 04/26/18 16:40: Urine Color Straw, Urine Appearance Clear, Urine pH 6.0, Ur Specific [place] <= 1.005, Urine Protein Negative, Urine Glucose (UA) Negative, Urine Ketones Negative, Urine Blood Trace-lysed H, Urine Nitrate Negative, Urine Bilirubin Negative, Urine Urobilinogen 0.2, Ur Leukocyte Esterase Negative , Urine RBC 0 - 2, Urine WBC 0 - 2, Ur Epithelial Cells 0 - 2, Urine Bacteria Few 04/26/18 15:30: Sodium 143, Potassium 4.7, Chloride 110 H, Carbon Dioxide 27, Anion Gap 11, BUN 11, Creatinine 0.7, Est GFR ( Amer) > 60, Est GFR (Non- Af Amer) > 60, Random Glucose 95, Calcium 9.3, Magnesium 2.1, Total Bilirubin 0.5, AST 25, ALT 32, Alkaline Phosphatase 69, Total Protein 6.5, Albumin 3.9, Globulin 2.7, Albumin/Globulin Ratio 1.4, Lipase 56 04/26/18 14:30: WBC 8.1, RBC 5.12, Hgb 15.4, Hct 45.1, MCV 88.1, MCH 30.1, MCHC 34.1, RDW 12.5, Plt Count 206, MPV 10.7, Gran % 64.6, Lymph % (Auto) 24.5, [place] % (Auto) 8.1 H, Eos % (Auto) 1.7, Baso % (Auto) 1.1, Gran # 5.23, Lymph # (Auto ) 2.0, [place] # (Auto) 0.7 H, Eos # (Auto) 0.1, Baso # (Auto) 0.09 - RAD Interpretation Narrative RAD Interpretations (Text): 04/26/18 17:58 CT Abdomen Pelvis w/IV contrast only PROCEDURE: CT Abdomen and Pelvis with contrast HISTORY: abd pain diarrhea COMPARISON: Comparison is made to the previous study dated 04/04/2018 TECHNIQUE: Contrast dose: 100 cc of Omnipaque 350. Axial and reformatted coronal sagittal CT images of the abdomen and pelvis were obtained after IV contrast administration. Radiation dose: Total exam DLP = 991.29 mGy-cm. This CT exam was performed using one or more of the following dose reduction techniques: Automated exposure control, adjustment of the mA and/or kV according to patient size, and/or use of iterative reconstruction technique. FINDINGS: LOWER THORAX: No evidence of acute pathology. No evidence of pleural effusion. LIVER: No evidence of acute pathology or suspicious mass. GALLBLADDER AND BILE DUCTS: Status post cholecystectomy. PANCREAS: Unremarkable. No gross lesion or ductal dilatation. SPLEEN: Unremarkable. ADRENALS: Unremarkable. No mass. KIDNEYS AND URETERS: Unremarkable. No hydronephrosis. No solid mass. VASCULATURE: Diffuse atherosclerotic calcification is again noted. . No aortic aneurysm. BOWEL: Colonic diverticulosis are again noted. Mild fat stranding surrounding the sigmoid colon suspicious for diverticulitis. No evidence of abscess formation. No evidence of colitis. Bowel anastomosis is again noted at the mid abdomen. No evidence of high-grade bowel obstruction. APPENDIX: No evidence of appendicitis. PERITONEUM: Unremarkable. No free fluid. No free air. LYMPH NODES: Unremarkable. No enlarged lymph nodes. BLADDER: Unremarkable. REPRODUCTIVE: Status post hysterectomy. BONES: No acute fracture. OTHER FINDINGS: None. IMPRESSION: Colonic diverticulosis. Suspicious for mild diverticulitis at the level of the sigmoid colon. No evidence of abscess formation. Otherwise no significant interval change in the abdomen and pelvis. (Emil Mcfadden) Radiology Orders: 04/26/18 16:04 ABD & PELVIS IV CONTRAST ONLY [CT] Stat - Medication Orders Current Medication Orders: Discontinued Medications Sodium Chloride (Sodium Chloride 0.9%) 500 mls @ 999 mls/hr IV .Q31M STA Stop: 04/26/18 14:45 Last Admin: 04/26/18 15:00 Dose: 999 mls/hr eMAR Start Stop Document 04/26/18 15:00 SF (Rec: 04/26/18 15:11 [id number]) Intravenous Solution Start Date 04/26/18 Start Time 15:00 End Date 04/26/18 End time 15:30 Total Infusion Time 30 Metronidazole (Flagyl) 500 mg PO STAT STA PRN Reason: Protocol Stop: 04/26/18 18:29 <Emil Mcfadden - Last Filed: 04/26/18 18:27> - Scribe Statement The provider has reviewed the documentation as recorded by the Scribe <Kobi Navas - Last Filed: 04/26/18 18:35> - Scribe Statement Favio Quintanilla All medical record entries made by the Scribe were at my direction and personally dictated by me. I have reviewed the chart and agree that the record accurately reflects my personal performance of the history, physical exam, medical decision making, and the department course for this patient. I have also personally directed, reviewed, and agree with the discharge instructions and disposition. (Kobi Navas) Disposition/Present on Arrival - Present on Arrival Any Indicators Present on Arrival: No History of DVT/PE: No History of Uncontrolled Diabetes: No Urinary Catheter: No History of Decub. Ulcer: No History Surgical Site Infection Following: None - Disposition Have Diagnosis and Disposition been Completed?: Yes Disposition Time: 18:09 Isolation: Contact (hx C-diff, high risk) Patient Plan: Admission <Emil Mcfadden - Last Filed: 04/26/18 18:27> <Kobi Navas - Last Filed: 04/26/18 18:35> - Disposition Diagnosis: Diarrhea, Colitis, Diverticulosis, Abdominal pain Disposition: HOSPITALIZED Patient Problems: Current Active Problems Problem Status Onset Abdominal pain Acute Colitis Acute Diarrhea Acute Diverticulosis Acute Condition: FAIR Referrals: Johnny Yates, [Primary Care Provider] - Follow up with primary Forms: [employer] (Citizen [place])
[2018-04-26 14:58] LABS: BASO # 0.09 K/mm3 (0.0-2.0); BASO % 1.1 % (0.0-3.0); EOS # 0.1 (0.0-0.7); EOS % 1.7 % (1.5-5.0); GRAN # 5.23 (1.4-6.5); GRAN % 64.6 % (50.0-68.0); HEMOGLOBIN 15.4 g/dL (12.0-16.0); LYMPH % 24.5 % (22.0-35.0); MEAN CELL VOLUME 88.1 fl (80.0-105.0); MEAN CORPUSCULAR HEMOGLOBIN 30.1 pg (25.0-35.0); MEAN CORPUSCULAR HGB CONC 34.1 g/dl (31.0-37.0); MEAN PLATELET VOLUME 10.7 fl (7.0-11.0); MONO # 0.7 (0.1-0.6); MONO % 8.1 % (1.0-6.0); RBC 5.12 10^6/uL (3.5-6.1); RED CELL DISTRIBUTION WIDTH 12.5 % (11.5-14.5); WHITE BLOOD COUNT 8.1 10^3/ul (4.5-11.0)
[2018-04-26 16:00] LABS: ALB/GLOB RATIO 1.4 (1.1-1.8); ALBUMIN 3.9 g/dL (3.0-4.8); ALT/SGPT 32 U/L (7-56); AST/SGOT 25 U/L (14-36); BLOOD UREA NITROGEN 11 mg/dL (7-21); CALCIUM 9.3 mg/dL (8.4-10.5); GFR AFRICAN-AMERICAN > 60; GFR NON-AFRICAN AMERICAN > 60; LIPASE 56 U/L (23-300)
[2018-04-26] MEDS ORDERED: Iohexol 300 100 ML IJ ONE (16:46)
[2018-04-26] MEDS ORDERED: Iohexol 350 MG/100 ML VIAL ONE (16:47)
[2018-04-26 17:02] LABS: URINE BILIRUBIN NEGATIVE (NEGATIVE); URINE BLOOD TRACE-LYSED (NEGATIVE); URINE GLUCOSE (UA) NEGATIVE (NEGATIVE); URINE LEUKOCYTE ESTERASE NEGATIVE Leu/uL (NEGATIVE); URINE PROTEIN NEGATIVE mg/dL (<30 mg/dL); URINE UROBILINOGEN 0.2 E.U./dL (<1 E.U./dL)
[2018-04-26 17:11] LABS: URINE APPEARANCE CLEAR (CLEAR); URINE COLOR STRAW (YELLOW)
[2018-04-26 17:32] LABS: URINE BACTERIA FEW (NEG); URINE EPITHELIAL CELLS 0 - 2 /hpf (0-5); URINE RBC 0 - 2 /hpf (0-2); URINE WBC 0 - 2 /hpf (0-6)
--- NOTE | 2018-04-26 17:53 | CT ---
Date of service: 04/26/2018 PROCEDURE: CT Abdomen and Pelvis with contrast HISTORY: abd pain diarrhea COMPARISON: Comparison is made to the previous study dated 04/04/2018 TECHNIQUE: Contrast dose: 100 cc of Omnipaque 350. Axial and reformatted coronal sagittal CT images of the abdomen and pelvis were obtained after IV contrast administration. Radiation dose: Total exam DLP = 991.29 mGy-cm. This CT exam was performed using one or more of the following dose reduction techniques: Automated exposure control, adjustment of the mA and/or kV according to patient size, and/or use of iterative reconstruction technique. FINDINGS: LOWER THORAX: No evidence of acute pathology. No evidence of pleural effusion. LIVER: No evidence of acute pathology or suspicious mass. GALLBLADDER AND BILE DUCTS: Status post cholecystectomy. PANCREAS: Unremarkable. No gross lesion or ductal dilatation. SPLEEN: Unremarkable. ADRENALS: Unremarkable. No mass. KIDNEYS AND URETERS: Unremarkable. No hydronephrosis. No solid mass. VASCULATURE: Diffuse atherosclerotic calcification is again noted. . No aortic aneurysm. BOWEL: Colonic diverticulosis are again noted. Mild fat stranding surrounding the sigmoid colon suspicious for diverticulitis. No evidence of abscess formation. No evidence of colitis. Bowel anastomosis is again noted at the mid abdomen. No evidence of high-grade bowel obstruction. APPENDIX: No evidence of appendicitis. PERITONEUM: Unremarkable. No free fluid. No free air. LYMPH NODES: Unremarkable. No enlarged lymph nodes. BLADDER: Unremarkable. REPRODUCTIVE: Status post hysterectomy. BONES: No acute fracture. OTHER FINDINGS: None. IMPRESSION: Colonic diverticulosis. Suspicious for mild diverticulitis at the level of the sigmoid colon. No evidence of abscess formation. Otherwise no significant interval change in the abdomen and pelvis.
--- NOTE | 2018-04-26 19:42 | HP ---
Copied To: Johnny Yates DO Attending MD: Johnny Yates DO HISTORY OF PRESENT ILLNESS: I know Lianna very well from hospital and also from house calls. She is a 73-year-old white female I know very well comes in with recurrent abdominal pain, nausea and diarrhea and GERD symptoms that has been worsening over the past 8 days. She recently last month saw Dr. Nugent, her land classifier who started her on Flagyl. She stopped taking the Flagyl and then everything came back. She was having three to four loose bowel movements every day. PAST MEDICAL HISTORY: She has a past medical history of C. 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 She has been doing quite well for a few years and now she is with this again. No antibiotics as far as I can tell from my point of view. She denied any other antibiotics. She is a diabetic. She has musculoskeletal disorders. She has diverticulitis in the past, gallbladder disease, GERD, ileostomy, pancreatitis and urinary tract infections. She has had a hemicolectomy. She has C. diff and fecal transplant. FAMILY HISTORY: No known family history. SOCIAL HISTORY: Never smoked. No alcohol. No drugs. ALLERGIES: SHE HAS ALLERGIES TO PENICILLIN. REVIEW OF SYSTEMS: She is tired, but no fever or night sweats. No acute vision changes. No hearing changes. No sore throat or rhinorrhea. No shortness of breath or cough. No chest pain. No dyspnea on exertion or palpitations. There is abdominal pain. There is diarrhea, but no nausea or vomiting. No problems urinating. No arthralgias at this time. Skin for which she can tell, there are no rashes. No itching. No ulcers that she knows of. She does have a headache, but no dizziness. No sweating. No anxiety or depression. PHYSICAL EXAMINATION: VITAL SIGNS: She has a 98.2 temperature, 63 pulse, 18 respiratory rate, 154/46 blood pressure, 95% O2 sat on room air. GENERAL: She is alert and oriented x3. Uncomfortable at this time with the abdominal discomfort and diarrhea. HEENT: Head: Atraumatic, normocephalic. Pupils are equal and reactive to light. Extraocular muscles are intact. Throat is moist. NECK: Supple. No JVD. HEART: Regular rate. LUNGS: Decreased breath sounds, but clear to auscultation. ABDOMEN: Mildly bloated and nontender. No guarding. No rebound. No CVA tenderness. Decreased bowel sounds are present. EXTREMITIES: No edema. NEUROLOGIC: Speech is normal. SKIN: Warm and dry. LYMPHATICS: Thyroid midline. No palpable appreciable lymphadenopathy. MEDICATIONS: She has been taking at home Ambien, metronidazole, Imodium, Protonix, Valium, vancomycin, lisinopril. LABORATORY DATA: She has a urine that is for the most part few bacteria. [id number], potassium 4.7, chloride 110, carbon dioxide 27, anion gap 11, BUN 11, creatinine 0.7, GFR is greater than 60, sugar is 95, calcium is 9.3, magnesium 2.1, total bili is 0.5, AST is 25, ALT is 32, alkaline phosphatase 69. Total protein 6.5, albumin 3.9, globulin 2.7, lipase is 56. White count 3.1, hemoglobin 15.4, hematocrit 45.1, platelets of 206. She had a CAT scan of the abdomen and pelvis, which showed diverticulosis plus mild diverticulitis at the level of the sigmoid colon. She will have land classifier consulted. She will be on IV fluids. She will have Protonix. She will have Flagyl IV. We will call in Infectious Disease also besides GI and she will be here helping the observation. Hopefully, she is going to improve in the next 24 hours. If not, we will make her an inpatient. She is here for diverticulitis, possible C. diff picture, abdominal pain, diarrhea and GERD. Johnny Yates, DO : 04/26/2018 18:44:09
[2018-04-26] MEDS: Sodium Chloride 0.45% 1,000 ML IV SCH (19:49)
[2018-04-26] MEDS ORDERED: Morphine 2 mg/ml ISec IVP PRN (20:57)
[2018-04-26] MEDS: metroNIDAZOLE IV 500 mg/100 ml 500 MG/100 ML BAG IVPB SCH (21:29)
[2018-04-26] MEDS ORDERED: metroNIDAZOLE IV 500 mg/100 ml 500 MG/100 ML BAG IVPB SCH (22:00)
[2018-04-26 22:38] VITALS: BMI 20.7
[2018-04-27] MEDS ORDERED: Aztreonam 1 Gm in NS 100mL 100 ML IVPB SCH (06:00)
[2018-04-27 06:53] LABS: HEMOGLOBIN 13.8 g/dL (12.0-16.0); MEAN CELL VOLUME 88.1 fl (80.0-105.0); MEAN CORPUSCULAR HEMOGLOBIN 29.4 pg (25.0-35.0); MEAN CORPUSCULAR HGB CONC 33.3 g/dl (31.0-37.0); MEAN PLATELET VOLUME 9.9 fl (7.0-11.0); RBC 4.7 10^6/uL (3.5-6.1); RED CELL DISTRIBUTION WIDTH 12.5 % (11.5-14.5); WHITE BLOOD COUNT 7.3 10^3/ul (4.5-11.0)
[2018-04-27 07:24] LABS: ALB/GLOB RATIO 1.3 (1.1-1.8); ALBUMIN 3.5 g/dL (3.0-4.8); ALT/SGPT 43 U/L (7-56); AST/SGOT 46 U/L (14-36); BLOOD UREA NITROGEN 11 mg/dL (7-21); CALCIUM 8.8 mg/dL (8.4-10.5); GFR AFRICAN-AMERICAN > 60; GFR NON-AFRICAN AMERICAN > 60
[2018-04-27] MEDS: metroNIDAZOLE IV 500 mg/100 ml 500 MG/100 ML BAG IVPB SCH ×3 (08:10→21:50)
[2018-04-27] MEDS: Pantoprazole 40mg/100mL NS 40 MG/100 ML BAG IVPB SCH (09:25)
--- NOTE | 2018-04-27 14:13 | PN ---
Copied To: Johnny Yates DO Attending MD: Johnny Yates DO DATE: 04/27/2018 SUBJECTIVE: I know Lianna very well. She is comfortable in bed. She is still with abdominal pain. She is n.p.o. as per GI. GI thinks she needs to be n.p.o. for probably two more days because of the history of C. diff and fecal transplant and we cannot use antibiotics except for Flagyl. She has on IV fluids. She is on Bentyl. She is on Flagyl IV, morphine for pain, pantoprazole IV, Tylenol, Valium, Zestril. She understands this and I made her an inpatient because she need at least two more overnights of n.p.o. PHYSICAL EXAMINATION: VITAL SIGNS: 98 temp, 55 pulse, 145/69 blood pressure, 20 respiratory rate, 95% O2 sat on room air. HEENT: Head is atraumatic, normocephalic. HEART: Regular rate. LUNGS: Decreased breath sounds. ABDOMEN: Soft, nontender. Positive bowel sounds. No guarding. No rebound, but mild discomfort. EXTREMITIES: No edema. LABORATORY DATA: She has a 7.3 white count, 13.8 hemoglobin, 41.4 hematocrit with 170 platelets. 143 sodium, potassium 3.8, BUN 11, creatinine 0.7, GFR is greater than 60, sugar is 99, calcium is 8.8, total bili is 0.6, AST is 46, ALT is 43, alk phos 58, total protein 6.2, albumin is 3.5. Urine is clean. ASSESSMENT AND PLAN: As per GI, we will continue with aggressive treatment and care on her intestines and the diverticulitis without antibiotics with Flagyl and hopefully she will improve quickly. She will be n.p.o. for another 48 hours. Diverticulitis. Johnny Yates DO
--- NOTE | 2018-04-27 15:22 | CON ---
Copied To: Dmitry Jiang MD Attending MD: Dmitry Jiang MD DATE: 04/27/2018 LOCATION: The patient is in bed in room 575, bed 2. CHIEF COMPLAINT: Abdominal pain times several days. HISTORY OF PRESENT ILLNESS: This is a 73-year-old female with past medical history of C. diff, hypertension, GERD, who was admitted with diarrhea and abdominal pain, associated with nausea and low-grade fevers. The patient has had no chest pain, shortness of breath or cough. No headaches or blurred vision. No dysuria or frequency. No new joint pain or rash. PAST MEDICAL HISTORY: Significant for C. diff, GERD, hypertension, diabetes, gallbladder disease, pancreatitis and dyslipidemia and history of DVT in the left leg, long-time smoker. The patient also had a colon polyp and had a right hemicolectomy, which showed moderately differentiated adeno CA, tubular adenoma. The tumor invades the submucosa. PAST SURGICAL HISTORY: The patient also has past surgical history significant for right hemicolectomy, left knee surgery, hysterectomy. ALLERGIES: THE PATIENT IS ALLERGIC TO PENICILLIN, TYPE OF ALLERGY IS NOT ENTIRELY CLEAR. 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 MEDICATIONS: The patient's medications at home are reviewed include Zestril, Valium, Ambien, p.o. vancomycin. PHYSICAL EXAMINATION: GENERAL: On exam, the patient is in bed, appearing weak with a temperature of 98, heart rate of 55-65, respiratory rate of 20, blood pressure is 190/70. HEENT: Examination of HEENT is unremarkable. NECK: Supple. LUNGS: Have decreased breath sounds. HEART: Normal S1, S2. ABDOMEN: Soft, nontender. No organomegaly. No rebound or guarding. No masses. There is mild tenderness in the left lower quadrant. LABORATORY DATA: Laboratory examination reveals a white count of 7.3, hemoglobin of 13. Chemistries reveals a BUN of 11, creatinine of 0.7. Urinalysis is noted. Microbiology from the past is reviewed. Dr. Johnny Yates's history and physical examination is reviewed. Dr. Johnny Yates states that he knows the patient well and Dr. Nugent, the pre sales technical engineer has been following the patient in which the patient has had a history of C. diff in the past. Dr. Nugent's note from the last year is reviewed transplant. Dr. Nugent's notes from 02/06/2018 is reviewed. ASSESSMENT AND PLAN: A 73-year-old female with history of Clostridium difficile, history of adenocarcinoma from a tubular adenoma, tumor invading the submucosa and history of right hemicolectomy, hypertension, diabetes, gallbladder disease, pancreatitis, deep venous thrombosis of the left leg with acute diverticulitis. #1 is acute diverticulitis. We will treat the patient with Azactam and Flagyl since the patient is allergic to penicillin. Pending the stool workup and which has been ordered. At this time, the patient does not have any fevers, no white count elevation. We will make further recommendations upon availability of response and initial culture results. Dmitry Jiang MD
--- NOTE | 2018-04-27 18:07 | CON ---
Copied To: Yinka Amaral MD Attending MD: Yinka Amaral MD DATE: 04/27/2018 GASTROENTEROLOGY CONSULTATION This consult is for Dr. Nugent, Dr. Amaral covering. REASON FOR CONSULTATION: I have been asked to see this 73-year-old female with a history of chronic abdominal pain and chronic diarrhea, who comes to the hospital with persistent abdominal pain, nausea, intermittent vomiting, poor appetite and diarrhea. The patient has been having problems with diarrhea and abdominal pain for at least the last 6 weeks[address] She had a CT scan of the abdomen and pelvis for these complaints about a month ago, which was negative for any inflammatory process, diverticulitis or colitis. We have tried her on multiple medical treatments including dicyclomine, Kaopectate as well as proton pump inhibitors. The patient apparently has had numerous episodes of pseudomembranous colitis requiring a fecal transplant for treatment of recurrent pseudomembranous colitis. She apparently has not had any further recurrences of pseudomembranous colitis since her fecal transplant. She has had multiple stool testing for C. diff toxin and antigen in the last several weeks, which have all come back negative. She denies any fevers or chills. Due to her persistent complaints of abdominal pain and nausea and poor oral intake, she was advised to come to the hospital. A CT scan of the abdomen and pelvis performed in the emergency room showed sigmoid diverticulosis with some mild pericolonic stranding. PAST MEDICAL HISTORY: Notable for hypertension, diverticulitis, recurrent pseudomembranous colitis, colon cancer requiring colon resection, type 2 diabetes mellitus, pancreatitis, cholelithiasis. PAST SURGICAL HISTORY: Notable for colon resection. SOCIAL HISTORY: She denies cigarette smoking or alcohol use. FAMILY HISTORY: Noncontributory. PHYSICAL EXAMINATION: GENERAL: Elderly female, lying in bed, in no distress. VITAL SIGNS: Reveal temperature of 98, blood pressure 145/69, heart rate 55. HEENT: Reveal sclerae to be white. Conjunctivae pink. NECK: Supple. CHEST: Lungs are clear. HEART: Exam reveals a regular rate and rhythm. ABDOMEN: Soft. There is mild lower abdominal tenderness. There is no rebound. There is no guarding. EXTREMITIES: Show no edema. LABORATORY DATA: Reveal white blood cell count 7.3, hemoglobin 13.8. Chemistries reveal AST 46, ALT 43, normal electrolytes. IMPRESSION: A 73-year-old female with history of multiple episodes of pseudomembranous colitis requiring fecal transplant with recurrent abdominal pain, diarrhea, nausea over the last 4 to 6 weeks. The patient has called the office on a daily basis over the last 3 days, and has failed conservative medical treatment including antispasmodics, Pepto-Bismol, H2 blockers. CT scan of the abdomen and pelvis in the emergency room shows some mild pericolonic stranding around the sigmoid colon which has extensive diverticulosis. There is no perforation or abscess. Clinical suspicion is mild sigmoid diverticulitis. RECOMMENDATIONS: Given the patient's history of recurrent pseudomembranous colitis, we will try and hold off on antibiotic treatment other than IV Flagyl 500 every 8 hours. We will keep the patient n.p.o. We will try dicyclomine. Yinka Amaral MD
[2018-04-27] MEDS: Sodium Chloride 0.45% 1,000 ML IV SCH (23:36)
[2018-04-28] MEDS: Pantoprazole 40mg/100mL NS 40 MG/100 ML BAG IVPB SCH ×2 (05:45→13:29)
[2018-04-28] MEDS: metroNIDAZOLE IV 500 mg/100 ml 500 MG/100 ML BAG IVPB SCH ×3 (05:46→22:00)
[2018-04-28 07:38] LABS: HEMOGLOBIN 15.2 g/dL (12.0-16.0); MEAN CELL VOLUME 87.8 fl (80.0-105.0); MEAN CORPUSCULAR HEMOGLOBIN 29.9 pg (25.0-35.0); MEAN PLATELET VOLUME 10.4 fl (7.0-11.0); RBC 5.09 10^6/uL (3.5-6.1); RED CELL DISTRIBUTION WIDTH 12.4 % (11.5-14.5)
[2018-04-28 07:50] LABS: ALB/GLOB RATIO 1.3 (1.1-1.8); ALT/SGPT 43 U/L (7-56); AST/SGOT 33 U/L (14-36); BLOOD UREA NITROGEN 12 mg/dL (7-21); CALCIUM 8.8 mg/dL (8.4-10.5); GFR AFRICAN-AMERICAN > 60; GFR NON-AFRICAN AMERICAN > 60
[2018-04-28] MEDS ORDERED: Aztreonam 1 Gm in NS 100mL 100 ML IVPB SCH ×3 (08:00→14:00)
--- NOTE | 2018-04-28 11:18 | CARD ---
APPROVED REPORT Date of service: 04/28/2018 EKG Measurement Heart [id number] OR [id number] <Conclusion> Sinus bradycardia with premature atrial complexes Inferior infarct, age undetermined Abnormal ECG
--- NOTE | 2018-04-28 12:35 | PN ---
Copied To: Johnny Yates DO Attending MD: Johnny Yates DO DATE: 04/28/2018 SUBJECTIVE: I saw Lianna sitting out of bed to chair. She is very upset. She is very nauseous. She is very much with indigestion and burping. She is uncomfortable. She is upset with those medications not working. Also, her blood pressure is yves high. She is very nervous. She is upset that she is not getting better. She is on IV fluids; Ambien; aztreonam was added by Infectious Disease; Bentyl; Flagyl IV; morphine for pain; Norvasc, I added it for the elevated blood pressure; I added Pepcid for indigestion; I increased the Protonix to twice a day; Tylenol; Valium; Zestril and Zofran for the nauseousness. PHYSICAL EXAMINATION: VITAL SIGNS: She has a 98 temp; 67 pulse; 163/67 blood pressure, 193/86 blood pressure; 20 respiratory rate; 94% O2 sat on room air. I will put her on some oxygen. HEENT: Head is atraumatic, normocephalic. HEART: Regular rate. LUNGS: Decreased breath sounds. ABDOMEN: Mildly distended, little gassy. No guarding. No rebound. Decreased bowel sounds are present. EXTREMITIES: No edema. LABORATORY DATA: She has an 8 white count, 15.2 hemoglobin, 44.7 hematocrit with 184 platelets. 145 sodium, potassium 3.8, BUN 12, creatinine 0.8, GFR is greater than 60, sugar is 91, calcium is 8.8, total bili is 0.7, AST is 33, ALT is 43, alk phos 71, total protein 7, albumin is 4. ASSESSMENT AND PLAN: At this time, she cannot keep anything down. She cannot eat. She is also n.p.o. and is nauseous. Hopefully, the Zofran, the Pepcid and the increase in the Protonix will help. I also increased the blood pressure medication. I am going to put her on some oxygen. She is very concerned and worried. I tried to calm her down a little bit. We will see what tomorrow brings with the increase of medications. Continue with aggressive treatment and care as per Infectious Disease and GI. Lianna Grijalva who is having change of bowel, severe abdominal pain, nauseousness and also the stool collected for Clostridium difficile, which did not look like it, but we are going to check it. Johnny Yates DO
--- NOTE | 2018-04-28 13:15 | PN ---
Copied To: Dmitry Jiang MD Attending MD: Dmitry Jiang MD DATE: 04/28/2018 SUBJECTIVE: The patient is in bed, in no acute distress, nontoxic. PHYSICAL EXAMINATION: VITAL SIGNS: On exam, temperature is 98, blood pressure is 190/80, respiratory rate of 18. HEENT: Examination of HEENT is unremarkable. NECK: Supple. LUNGS: Have decreased breath sounds. HEART: Normal S1, S2. ABDOMEN: Soft, nontender. LABORATORY DATA: Laboratory examination reveals a white count of 8, hemoglobin of 15, platelets of 184. BUN of 12, creatinine of 0.8. Urinalysis is noted. Microbiology is noted. Review of orders noted. ASSESSMENT AND PLAN: A 73-year-old female with history of Clostridium difficile, history of adenocarcinoma with tubular adenoma, tumor invading the submucosa, history of right hemicolectomy, hypertension, diabetes, gallbladder disease, pancreatitis, deep venous thrombosis of the left leg. Admitted now with #1 is acute diverticulitis. The patient is still having pain this morning; however, she has not received any antibiotics. It was discontinued by gastroenterology. Concerned about redevelopment of Clostridium difficile. Risks and benefits have explained to the patient and understanding that treatment of her acute diverticulitis since she continues to have significant pain overnight is concerning. We will restart the Azactam and Flagyl. If she does develop Clostridium difficile, we will have to deal with that. Currently, her acute diverticulitis because of a significant amount of pain over the last night needs to be treated. We will discuss with Dr. Amaral. Dmitry Jiang MD
--- NOTE | 2018-04-28 13:40 | PN ---
Copied To: Yinka Amaral MD Attending MD: Yinka Amaral MD DATE: 04/28/[address] Nugent. SUBJECTIVE: The patient is sitting in a chair. She feels somewhat better. Her abdominal pain is less. She is having bowel movements, which are not watery or loose. She denies any fevers or chills. PHYSICAL EXAMINATION: VITAL SIGNS: Reveal temperature of 98, blood pressure 163/67, heart rate of 57. HEENT: Reveals sclerae to be white. Conjunctivae pink. NECK: Supple. CHEST: Reveals lungs to be clear. HEART: Reveals regular rate and rhythm. ABDOMEN: Soft. Mild lower abdominal tenderness. No rebound. No guarding. EXTREMITIES: Show no edema. LABORATORY DATA: Reveal white blood cell count of 8, hemoglobin 15.2. Chemistries reveal chloride of 109. Liver enzymes normal. IMPRESSION: A 73-year-old female with a history of colon cancer, status post hemicolectomy over 1 year ago with a history of recurrent Clostridium difficile requiring fecal transplant with several days of lower abdominal pain, nausea, cramps, intermittent diarrhea with a CT scan of the abdomen showing mild pericolonic stranding around the sigmoid colon. There is no mural thickening. I am not convinced that this is sigmoid diverticulitis. The patient may have some adhesions causing her abdominal pain. RECOMMENDATIONS: 1. We will discontinue IV Azactam. I did speak with Dr. Jiang yesterday about my concern for putting this patient on IV antibiotics with a normal white blood cell count and an equivocal CT finding of diverticulitis. She has not had any fevers or chills. There is a high risk for recurrent C. diff with antibiotic use. 2. We will start the patient on clear liquid diet. 3. Continue Flagyl 500 mg IV every 8 hours. Yinka Amaral MD
[2018-04-29] MEDS: metroNIDAZOLE IV 500 mg/100 ml 500 MG/100 ML BAG IVPB SCH ×2 (05:44→14:43)
[2018-04-29 06:29] LABS: HEMOGLOBIN 13.6 g/dL (12.0-16.0); MEAN CELL VOLUME 87.3 fl (80.0-105.0); MEAN CORPUSCULAR HEMOGLOBIN 29.7 pg (25.0-35.0); MEAN PLATELET VOLUME 10.1 fl (7.0-11.0); RBC 4.58 10^6/uL (3.5-6.1); RED CELL DISTRIBUTION WIDTH 12.6 % (11.5-14.5); WHITE BLOOD COUNT 7.2 10^3/ul (4.5-11.0)
[2018-04-29 06:47] LABS: ALB/GLOB RATIO 1.3 (1.1-1.8); ALBUMIN 3.4 g/dL (3.0-4.8); ALT/SGPT 37 U/L (7-56); AST/SGOT 32 U/L (14-36); BLOOD UREA NITROGEN 9 mg/dL (7-21); CALCIUM 8.6 mg/dL (8.4-10.5); GFR AFRICAN-AMERICAN > 60; GFR NON-AFRICAN AMERICAN > 60
[2018-04-29] MEDS ORDERED: Potassium Chloride 20 mEq ER Tab PO ONE (08:40)
--- NOTE | 2018-04-29 08:58 | PN ---
Copied To: Johnny Yates DO Attending MD: Johnny Yates DO DATE: 04/29/2018 SUBJECTIVE: She slept very well last night. It is the first night she did well. Less abdominal pain, but she is definitely having more diarrhea now. I am going to recheck her for a C. diff. She has a little bit of an appetite, but she is n.p.o. MEDICATIONS: She is on Ambien, Bentyl, Flagyl, morphine, Norvasc, Pepcid, Protonix, IV fluids, Tylenol, Valium, Zestril and Zofran. PHYSICAL EXAMINATION: VITAL SIGNS: She has a 97.9 temp, 57 pulse, 172/59 blood pressure, 18 respiratory rate, 95% O2 sat on room air. HEENT: Head is atraumatic, normocephalic. HEART: Regular rate. LUNGS: Decreased breath sounds. ABDOMEN: Soft. Positive bowel sounds. Nontender. No guarding. No rebound. EXTREMITIES: Have no edema. I will increase the Norvasc to 10 mg because her blood pressure is going up. LABORATORY DATA: She has a 7.2 white count, 13.6 hemoglobin, 40 hematocrit with 160 platelets. 143 sodium; potassium is 3.5, I am going to add potassium; BUN 9; creatinine 0.7; GFR is greater than 60; sugar is 95; calcium is 8.6; total bili is 0.5; AST is 32; ALT is 37; alk phos 61; total protein 6.1. ASSESSMENT AND PLAN: She is being seen by GI and Infectious Disease. Infectious Disease wants her on Azactam and Flagyl and GI. Now, she is on a clear liquid diet, on Flagyl IV. I will increase the Norvasc, replace the potassium, get Physical Therapy involved to make sure she can walk okay and when I can from GI, I will discharge her as she slowly improves from her diverticulitis and abdominal pain. Johnny Yates DO
[2018-04-29] MEDS: Pantoprazole 40mg/100mL NS 40 MG/100 ML BAG IVPB SCH ×2 (09:32→17:38)
--- NOTE | 2018-04-29 09:58 | CP.PCM.PN ---
Subjective - Date & Time of Evaluation Date of Evaluation: 04/29/18 Time of Evaluation: 09:15 - Subjective Subjective: S&E at bedside, chart reviewed, no acute overnight events reported. No N/V , abdominal pain slightly better, had semi-loose stool t his am X3, Tolerating clear liquids, no melena or BRBPR. No fever, chills, sob or CP. Objective - Vital Signs/Intake and Output Vital Signs (last 24 hours): Temp Pulse Resp BP Pulse Ox 97.9 F 57 L 18 172/59 H 95 04/29/18 07:59 04/29/18 07:59 04/29/18 07:59 04/29/18 07:59 04/29/18 07:59 Intake and Output: 04/29/18 04/29/18 06:59 18:59 Intake Total 720 500 Balance 720 500 - Medications Medications: Current Medications Acetaminophen (Tylenol 325mg Tab) 650 mg PO Q4H PRN PRN Reason: Pain, moderate (4-7) Last Admin: 04/28/18 06:35 Dose: 650 mg Amlodipine Besylate (Norvasc) 10 mg PO DAILY [facility] Diazepam (Valium) 5 mg PO TID PRN; Protocol PRN Reason: Anxiety Last Admin: 04/28/18 18:08 Dose: 5 mg Dicyclomine HCl (Bentyl) 10 mg PO QID [facility] Last Admin: 04/28/18 22:01 Dose: 10 mg Famotidine (Pepcid) 20 mg IVP DAILY [facility] Last Admin: 04/28/18 13:36 Dose: 20 mg Sodium Chloride (Sodium Chloride 0.45%) 1,000 mls @ 40 mls/hr IV .Q24H [facility] Last Admin: 04/27/18 23:36 Dose: 40 mls/hr Metronidazole (Flagyl) 500 mg in 100 mls @ 100 mls/hr IVPB Q8 [facility] PRN Reason: Protocol Last Admin: 04/29/18 05:44 Dose: 100 mls/hr Pantoprazole Sodium (Protonix 40mg Ivpb) 40 mg in 100 mls @ 200 mls/hr IVPB BID [facility] Last Admin: 04/28/18 13:29 Dose: Not Given Lisinopril (Zestril) 20 mg PO DAILY [facility] Last Admin: 08/19/18 13:28 Dose: Not Given Morphine Sulfate (Morphine) 1 mg IVP Q3H PRN PRN Reason: Pain, severe (8-10) Last Admin: 04/26/18 21:29 Dose: 1 mg Ondansetron HCl (Zofran Inj) 4 mg IVP Q6H PRN PRN Reason: Nausea/Vomiting Zolpidem Tartrate (Ambien) 5 mg PO HS PRN PRN Reason: Insomnia - Labs Labs: 04/29/18 06:00 04/29/18 06:00 - Head Exam Head Exam: NORMOCEPHALIC - Eye Exam Eye Exam: Normal appearance. absent: Scleral icterus - ENT Exam ENT Exam: Mucous Membranes Moist - Neck Exam Neck Exam: Normal Inspection - Respiratory Exam Respiratory Exam: NORMAL BREATHING PATTERN. absent: Respiratory Distress - Cardiovascular Exam Cardiovascular Exam: +S1, +S2 - GI/Abdominal Exam GI & Abdominal Exam: Soft, Tenderness (diffuse across lower abdomen and some tender ness epigastric area), Normal Bowel Sounds. absent: Guarding, Rebound - Extremities Exam Extremities Exam: Normal Capillary Refill. absent: Calf Tenderness, Pedal Edema - Neurological Exam Neurological Exam: Alert, Awake, Oriented x3 - Skin Skin Exam: Dry, Warm Assessment and Plan - Assessment and Plan (Free Text) Assessment: ASSESSMENT: Abdominal Pain, differential to consider adhesions, h/o multiple abdominal surgery Diverticulosis, s/p ct scan reporting suspicious for mild diverticulitis, no evidence of abscess formation H/O CDiff, , s/p Fecal transplant :04/28 cdiff: negative HTN Hypokalema PLAN: sed rate 12 on clears advance diet at lunch to full liquids, and advance as tolerated to soft low fiber diet continue IV Flagyl, off Azactam continue PPI BID, dc IV Pepcid on Bentyl prn on IVF monitor electrolytes and replete as necessary Case discussed w/ Dr. Amaral covering Dr. Nugent.
[2018-04-29] MEDS: Cholestyramine 4 gm/Pkt UD PO SCH (17:38)
--- NOTE | 2018-04-29 19:08 | CP.PCM.PN ---
Subjective - Date & Time of Evaluation Date of Evaluation: 04/29/18 Time of Evaluation: 12:20 - Subjective Subjective: Less abdominal pain, still having loose stools, no fevers. Objective - Vital Signs/Intake and Output Vital Signs (last 24 hours): Temp Pulse Resp BP Pulse Ox 97.9 F 57 L 18 172/59 H 95 04/29/18 07:59 04/29/18 07:59 04/29/18 07:59 04/29/18 07:59 04/29/18 07:59 Intake and Output: 04/29/18 04/29/18 06:59 18:59 Intake Total 720 500 Balance 720 500 - Medications Medications: Current Medications Acetaminophen (Tylenol 325mg Tab) 650 mg PO Q4H PRN PRN Reason: Pain, moderate (4-7) Last Admin: 04/28/18 06:35 Dose: 650 mg Amlodipine Besylate (Norvasc) 10 mg PO DAILY [facility] Diazepam (Valium) 5 mg PO TID PRN; Protocol PRN Reason: Anxiety Last Admin: 04/28/18 18:08 Dose: 5 mg Dicyclomine HCl (Bentyl) 10 mg PO QID [facility] Last Admin: 04/28/18 22:01 Dose: 10 mg Famotidine (Pepcid) 20 mg IVP DAILY [facility] Last Admin: 04/28/18 13:36 Dose: 20 mg Sodium Chloride (Sodium Chloride 0.45%) 1,000 mls @ 40 mls/hr IV .Q24H [facility] Last Admin: 04/27/18 23:36 Dose: 40 mls/hr Metronidazole (Flagyl) 500 mg in 100 mls @ 100 mls/hr IVPB Q8 [facility] PRN Reason: Protocol Last Admin: 04/29/18 05:44 Dose: 100 mls/hr Pantoprazole Sodium (Protonix 40mg Ivpb) 40 mg in 100 mls @ 200 mls/hr IVPB BID [facility] Last Admin: 04/28/18 13:29 Dose: Not Given Lisinopril (Zestril) 20 mg PO DAILY [facility] Last Admin: 04/28/18 13:28 Dose: Not Given Morphine Sulfate (Morphine) 1 mg IVP Q3H PRN PRN Reason: Pain, severe (8-10) Last Admin: 04/26/18 21:29 Dose: 1 mg Ondansetron HCl (Zofran Inj) 4 mg IVP Q6H PRN PRN Reason: Nausea/Vomiting Zolpidem Tartrate (Ambien) 5 mg PO HS PRN PRN Reason: Insomnia - Labs Labs: 04/29/18 06:00 04/29/18 06:00 - Constitutional Appears: Chronically Ill - Head Exam Head Exam: NORMAL INSPECTION - ENT Exam ENT Exam: Mucous Membranes Moist - Neck Exam Neck Exam: absent: Meningismus - Respiratory Exam Respiratory Exam: Decreased Breath Sounds - Cardiovascular Exam Cardiovascular Exam: +S1, +S2 - GI/Abdominal Exam GI & Abdominal Exam: Soft. 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 diff., it has been agreed upon by Dr. Amaral and Dr. Jiang to keep the patient off antibiotics - will continue to monitor clinically, advancement of diet, and monitor bowel movements
[2018-04-29] MEDS: Sodium Chloride 0.45% 1,000 ML IV SCH (22:09)
[2018-04-30 07:24] LABS: HEMOGLOBIN 13.7 g/dL (12.0-16.0); MEAN CELL VOLUME 88.1 fl (80.0-105.0); MEAN CORPUSCULAR HEMOGLOBIN 29.1 pg (25.0-35.0); MEAN CORPUSCULAR HGB CONC 33.1 g/dl (31.0-37.0); MEAN PLATELET VOLUME 10.4 fl (7.0-11.0); RBC 4.7 10^6/uL (3.5-6.1); RED CELL DISTRIBUTION WIDTH 12.7 % (11.5-14.5)
[2018-04-30] MEDS: Cholestyramine 4 gm/Pkt UD PO SCH ×3 (07:35→16:36)
[2018-04-30 07:51] LABS: ALB/GLOB RATIO 1.2 (1.1-1.8); ALBUMIN 3.6 g/dL (3.0-4.8); ALT/SGPT 36 U/L (7-56); AST/SGOT 40 U/L (14-36); BLOOD UREA NITROGEN 6 mg/dL (7-21); CALCIUM 8.7 mg/dL (8.4-10.5); GFR AFRICAN-AMERICAN > 60; GFR NON-AFRICAN AMERICAN > 60
--- NOTE | 2018-04-30 08:14 | PN ---
Copied To: Yinka Amaral MD Attending MD: Yinka Amaral MD ADDENDUM DATE: 04/29/2018 SUBJECTIVE: This is an addendum to a progress note performed by Kena Anderson APN. I have personally examined this patient. The patient still has some lower abdominal pain. Her sed rate is normal. She continues to have some loose bowel movements. Clinically, I do not believe that this is diverticulitis. Her stool for C. diff is negative. RECOMMENDATIONS: I have discussed this case with Dr. Nagy from Infectious Disease. He agrees with stopping the antibiotics. We will stop IV Flagyl. I will start the patient on Questran 4 g before meals as the patient's diarrhea may be a result of her right hemicolectomy. We will advance diet and if the patient's diarrhea improves, the patient can be discharged home with outpatient followup. Yinka Amaral MD
--- NOTE | 2018-04-30 09:30 | PN ---
Copied To: Johnny Yates DO Attending MD: Johnny Yates DO DATE: 04/30/2018 SUBJECTIVE: She eats well. She was lying in bed. She is having a lots of watery stools. She is eating okay, we are going to increase her diet. No abdominal pain. No fevers, just watery diarrhea. OBJECTIVE: VITAL SIGNS: Temperature 97, 61 pulse, 158/66 blood pressure, 18 respiratory rate, 98% O2 sat on room air. HEENT: Head is atraumatic, normocephalic. HEART: Regular rate. LUNGS: Clear to auscultation. ABDOMEN: Soft, nontender. Positive bowel sounds. No guarding, no rebound, no CVA tenderness. EXTREMITIES: No edema. MEDICATIONS: She is currently on Ambien, Bentyl, morphine but she is not really taking it, Norvasc, Protonix, Questran now, IV fluids, Tylenol, Valium, Zestril, Zofran. DATA: She has a white count of 8, hemoglobin 13.7, hematocrit 41.4, platelets of 167. Sodium 145, potassium 3.6, BUN 6, creatinine 0.7. GFR is greater than 60. Sugar is 99. Calcium is 8.7, magnesium is not there. Total bili is 0.4, AST is 40, ALT is 36, alk phos 62, total protein 6.5. Globulin is 2.9. She is not on any antibiotics. Awaiting for her to eat better. Hopefully, she will be discharged later today if it is okay with Dr. Amaral and we will follow up as an outpatient. She was here with acute diverticulitis, diarrhea. Hopefully, she will keep the fluid down. She had abdominal pain and hypertension and will possibly discharge if stable and see how she does. Johnny Yates DO
--- NOTE | 2018-04-30 10:30 | CP.PCM.PN ---
Subjective - Date & Time of Evaluation Date of Evaluation: 04/30/18 Time of Evaluation: 09:30 - Subjective Subjective: S&E at bedside, chart reviewed, no acute overnight events reported. Had multiple loose stool yesterday total of 10, small amounts as per patient ,no blood noted. Abdominal pain slightly better,stool cdiff sent. Tolerating full liquid diet. No N/V. No fever or chills, sob or cp. Started on questran patient reports that 1-2 hrs later she had BM , "the way the questran went in was the same way it came out" as stated by patient. Objective - Vital Signs/Intake and Output Vital Signs (last 24 hours): Temp Pulse Resp BP Pulse Ox 97 F L 61 18 158/66 H 98 04/30/18 08:12 04/30/18 08:12 04/30/18 08:12 04/30/18 08:12 04/30/18 08:12 Intake and Output: 04/30/18 04/30/18 06:59 18:59 Intake Total 180 Balance 180 - Medications Medications: Current Medications Acetaminophen (Tylenol 325mg Tab) 650 mg PO Q4H PRN PRN Reason: Pain, moderate (4-7) Last Admin: 04/28/18 06:35 Dose: 650 mg Amlodipine Besylate (Norvasc) 10 mg PO DAILY [facility] Last Admin: 04/29/18 09:36 Dose: 10 mg Cholestyramine Resin (Questran) 4 gm PO AC [facility] Last Admin: 04/30/18 07:35 Dose: 4 gm Diazepam (Valium) 5 mg PO TID PRN; Protocol PRN Reason: Anxiety Last Admin: 04/29/18 19:52 Dose: 5 mg Dicyclomine HCl (Bentyl) 10 mg PO QID [facility] Last Admin: 04/29/18 22:09 Dose: 10 mg Sodium Chloride (Sodium Chloride 0.45%) 1,000 mls @ 40 mls/hr IV .Q24H [facility] Last Admin: 04/29/18 22:09 Dose: 40 mls/hr Pantoprazole Sodium (Protonix 40mg Ivpb) 40 mg in 100 mls @ 200 mls/hr IVPB BID [facility] Last Admin: 04/29/18 17:38 Dose: 200 mls/hr Lisinopril (Zestril) 20 mg PO DAILY [facility] Last Admin: 04/29/18 09:35 Dose: 20 mg Morphine Sulfate (Morphine) 1 mg IVP Q3H PRN PRN Reason: Pain, severe (8-10) Last Admin: 04/26/18 21:29 Dose: 1 mg Ondansetron HCl (Zofran Inj) 4 mg IVP Q6H PRN PRN Reason: Nausea/Vomiting Zolpidem Tartrate (Ambien) 5 mg PO HS PRN PRN Reason: Insomnia Last Admin: 04/29/18 22:39 Dose: 5 mg - Labs Labs: 04/30/18 06:00 04/30/18 06:00 - Constitutional Appears: No Acute Distress - Head Exam Head Exam: NORMOCEPHALIC - Eye Exam Eye Exam: Normal appearance. absent: Scleral icterus Pupil Exam: NORMAL ACCOMODATION - ENT Exam ENT Exam: Mucous Membranes Moist - Neck Exam Neck Exam: Normal Inspection - Respiratory Exam Respiratory Exam: Clear to Ausculation Bilateral, NORMAL BREATHING PATTERN. absent: Respiratory Distress - Cardiovascular Exam Cardiovascular Exam: +S1, +S2 - GI/Abdominal Exam GI & Abdominal Exam: Soft, Tenderness (mid lower abdomen tenderness, seem less on palpation), Normal Bowel Sounds. 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 Case discussed w/ Dr. Amaral covering Dr. Nugent.
[2018-04-30] MEDS: Pantoprazole 40mg/100mL NS 40 MG/100 ML BAG IVPB SCH (10:36)
--- NOTE | 2018-04-30 14:15 | CP.PCM.PN ---
<Giselle Mark - Last Filed: 04/30/18 14:14> Subjective - Date & Time of Evaluation Date of Evaluation: 04/30/18 Time of Evaluation: 09:00 - Subjective Subjective: PGY-3 Infectious disease progress note for Dr. Nagy's service Patient is seen and examined at bedside. No acute distress. Patient states that she has had 3 BM this morning, they are reported to be pasty. She denies fever, chills, n/v, abd pain, chest pain, sob, she is tolerating GI diet. Objective - Vital Signs/Intake and Output Vital Signs (last 24 hours): Temp Pulse Resp BP Pulse Ox 97 F L 61 18 158/66 H 98 04/30/18 08:12 04/30/18 08:12 04/30/18 08:12 04/30/18 08:12 04/30/18 08:12 Intake and Output: 04/30/18 04/30/18 06:59 18:59 Intake Total 180 Balance 180 - Medications Medications: Current Medications Acetaminophen (Tylenol 325mg Tab) 650 mg PO Q4H PRN PRN Reason: Pain, moderate (4-7) Last Admin: 04/28/18 06:35 Dose: 650 mg Amlodipine Besylate (Norvasc) 10 mg PO DAILY [facility] Last Admin: 04/30/18 10:36 Dose: 10 mg Cholestyramine Resin (Questran) 4 gm PO AC [facility] Last Admin: 04/30/18 07:35 Dose: 4 gm Diazepam (Valium) 5 mg PO TID PRN; Protocol PRN Reason: Anxiety Last Admin: 04/30/18 10:35 Dose: 5 mg Dicyclomine HCl (Bentyl) 10 mg PO QID [facility] Last Admin: 04/30/18 10:36 Dose: 10 mg Sodium Chloride (Sodium Chloride 0.45%) 1,000 mls @ 40 mls/hr IV .Q24H [facility] Last Admin: 04/29/18 22:09 Dose: 40 mls/hr Pantoprazole Sodium (Protonix 40mg Ivpb) 40 mg in 100 mls @ 200 mls/hr IVPB BID [facility] Last Admin: 04/30/18 10:36 Dose: 200 mls/hr Lisinopril (Zestril) 20 mg PO DAILY [facility] Last Admin: 04/30/18 10:36 Dose: 20 mg Morphine Sulfate (Morphine) 1 mg IVP Q3H PRN PRN Reason: Pain, severe (8-10) Last Admin: 04/26/18 21:29 Dose: 1 mg Ondansetron HCl (Zofran Inj) 4 mg IVP Q6H PRN PRN Reason: Nausea/Vomiting Zolpidem Tartrate (Ambien) 5 mg PO HS PRN PRN Reason: Insomnia Last Admin: 04/29/18 22:39 Dose: 5 mg - Labs Labs: 04/30/18 06:00 04/30/18 06:00 - Constitutional Appears: No Acute Distress - Head Exam Head Exam: ATRAUMATIC, NORMAL INSPECTION, NORMOCEPHALIC - Eye Exam Eye Exam: EOMI, Normal appearance - ENT Exam ENT Exam: Mucous Membranes Moist - Respiratory Exam Respiratory Exam: Clear to Ausculation Bilateral, NORMAL BREATHING PATTERN. absent: Decreased Breath Sounds, Rales, Rhonchi, Wheezes, Respiratory Distress, Stridor - Cardiovascular Exam Cardiovascular Exam: REGULAR RHYTHM, +S1, +S2. absent: Bradycardia, Tachycardia , Murmur - GI/Abdominal Exam GI & Abdominal Exam: Soft, Normal Bowel Sounds. absent: Distended, Firm, Tenderness - Extremities Exam Extremities Exam: Normal Inspection - Neurological Exam Neurological Exam: Alert, Awake, Oriented x3 - Skin Skin Exam: Dry, Intact, Normal Color, Warm Assessment and Plan - Assessment and Plan (Free Text) Assessment: 73 yo female with PMH of dyslipidemia, HTN, history of C diff associated diarrhea, S/P hemicolectomy presented with acute mild sigmoid diverticulitis. C. diff was negative. Due to history of recurrent C. diff. infection, patient will be kept off antibiotics. Will continue to monitor clinically, and monitor bowel movements case reviewed and discussed with attending <Woody Nagy - Last Filed: 04/30/18 15:47> Objective - Vital Signs/Intake and Output Vital Signs (last 24 hours): Temp Pulse Resp BP Pulse Ox 97 F L 61 18 158/66 H 98 04/30/18 08:12 04/30/18 08:12 04/30/18 08:12 04/30/18 08:12 04/30/18 08:12 Intake and Output: 04/30/18 04/30/18 06:59 18:59 Intake Total 180 Balance 180 - Medications Medications: Current Medications Acetaminophen (Tylenol 325mg Tab) 650 mg PO Q4H PRN PRN Reason: Pain, moderate (4-7) Last Admin: 04/28/18 06:35 Dose: 650 mg Amlodipine Besylate (Norvasc) 10 mg PO DAILY [facility] Last Admin: 04/30/18 10:36 Dose: 10 mg Cholestyramine Resin (Questran) 4 gm PO AC [facility] Last Admin: 04/30/18 14:19 Dose: 4 gm Diazepam (Valium) 5 mg PO TID PRN; Protocol PRN Reason: Anxiety Last Admin: 04/30/18 14:24 Dose: 5 mg Dicyclomine HCl (Bentyl) 10 mg PO QID [facility] Last Admin: 04/30/18 14:18 Dose: 10 mg Sodium Chloride (Sodium Chloride 0.45%) 1,000 mls @ 40 mls/hr IV .Q24H [facility] Last Admin: 04/29/18 22:09 Dose: 40 mls/hr Pantoprazole Sodium (Protonix 40mg Ivpb) 40 mg in 100 mls @ 200 mls/hr IVPB BID [facility] Last Admin: 04/30/18 10:36 Dose: 200 mls/hr Lisinopril (Zestril) 20 mg PO DAILY [facility] Last Admin: 04/30/18 10:36 Dose: 20 mg Morphine Sulfate (Morphine) 1 mg IVP Q3H PRN PRN Reason: Pain, severe (8-10) Last Admin: 04/26/18 21:29 Dose: 1 mg Ondansetron HCl (Zofran Inj) 4 mg IVP Q6H PRN PRN Reason: Nausea/Vomiting Zolpidem Tartrate (Ambien) 5 mg PO HS PRN PRN Reason: Insomnia Last Admin: 04/29/18 22:39 Dose: 5 mg - Labs Labs: 04/30/18 06:00 04/30/18 06:00 Assessment and Plan - Assessment and Plan (Free Text) Assessment: Infectious Diseases Attending Physician Addendum Patient seen and examined, discussed with biomedical technician. I have reviewed the pertinent clinical information for the patient, including history of present illness, medical, personal and social histories, lab results and imaging findings. I agree with the above findings, assessment and plan. In addition, continue to monitor the patient off antibiotics for mild diverticulitis, in this patient with history of recurrent C. diff. infection. Weighing the risks and benefits, it may be more harmful to keep the patient on antibiotics to treat mild diverticulitis (in fact, majority of mild diverticulitis is treated by bowel rest alone) since she may have recurrence of C. diff. if we keep her on antibiotics. We have checked stool for C. diff. and it is negative. Discussed with Dr. Amaral and we both agree to have patient off antibiotics. Needs to follow up with PMD and GI as outpatient.
--- NOTE | 2018-04-30 15:34 | CON ---
Copied To: Favio Olivares MD Attending MD: Favio Olivares MD DATE: 04/30/2018 CARDIOLOGY CONSULTATION HISTORY: The patient is a 73-year-old woman with a history of gastroesophageal reflux disease and recurrent abdominal symptoms, who presented with an episode of epigastric discomfort. She has been treated for C. difficile in the past as well as has had fecal transplant in the past. PAST MEDICAL HISTORY: Includes diabetes mellitus. No previous cardiac history is noted. No chest pain. No shortness of breath. SOCIAL HISTORY: The patient does not smoke. REVIEW OF SYSTEMS: Fourteen-point review of systems is reviewed in detail. No cardiac symptomatology is noted. PHYSICAL EXAMINATION: VITAL SIGNS: Blood pressure is 158/66, the heart rate is in the 60s. NECK: Negative JVD. LUNGS: Without rales. HEART: Reveals S1, S2. EXTREMITIES: Without edema. LABORATORY DATA: Includes EKG that reveals sinus bradycardia with APCs. I cannot rule out inferior wall ME of indeterminate duration. Laboratories reveal hemoglobin of 13.7. Chemistries: BUN and creatinine are unremarkable. IMPRESSION: 1. Epigastric discomfort. 2. History of hypertension. 3. Abnormal EKG. 4. Borderline diabetes mellitus. PLAN: Given these findings, there are no acute cardiac issues. Given her abnormal EKG, an elective outpatient stress test should be done. Favio Olivraes MD
[2018-04-30 16:30] VITALS: BP 141/53; PULSE 53; RESP 16; TEMP 98.5; O2SAT 94
--- NOTE | 2018-04-30 17:18 | PN ---
Copied To: Yinka Amaral MD Attending MD: Yinka Amaral MD DATE: 04/30/2018 SUBJECTIVE: I examined this patient personally, so the patient's lower abdominal pain has essentially resolved. Her diarrhea is somewhat less. She now complains of "agita" in her throat, this is a new complaint. I agree with Kena Jeffersones' assessment and plans. Her stool for C. diff has been negative. RECOMMENDATIONS: The patient is stable to be discharged home from GI standpoint. I have asked her to follow up with Dr. Nugent. I have also asked her to continue Questran 4 g before meals three times a day for diarrhea. Yinka Amaral MD
== END 2018-04-30 18:39 | disposition home or self-care (01) | DRG 392 ==
LOC: ED 13:10 → ERH 18:15 → 5RSO 20:05 → OBSVTOIN 04-27 12:40
PROVIDERS: ADMIT Family Medicine; ATTEND Family Medicine
DX: K57.32 Diverticulitis of large intestine without perforation or abscess without bleeding (principal); I10 Essential (primary) hypertension; E78.5 Hyperlipidemia, unspecified; K21.9 Gastro-esophageal reflux disease without esophagitis; R73.03 Prediabetes; R94.31 Abnormal electrocardiogram [ECG] [EKG]; Z85.038 Personal history of other malignant neoplasm of large intestine; Z86.718 Personal history of other venous thrombosis and embolism; Z87.440 Personal history of urinary (tract) infections; Z87.891 Personal history of nicotine dependence; Z88.0 Allergy status to penicillin; Z90.49 Acquired absence of other specified parts of digestive tract

== ENCOUNTER 2018-11-04 09:01 | Day surgery (SDC) | payer MEDICARE, BC | END 2018-11-04 12:48 | disposition home or self-care (01) | LOC: ENDO 09:01 | DX: K29.70 Gastritis, unspecified, without bleeding (principal); K31.5 Obstruction of duodenum; Z98.0 Intestinal bypass and anastomosis status ==

== ENCOUNTER 2019-01-31 06:37 | Inpatient (IN) | payer MEDICARE, BC ==
[2019-01-31] MEDS ORDERED: Sodium Chloride 0.9% 1,000 ML IV STA (07:32)
--- NOTE | 2019-01-31 07:35 | ED PDOC ---
Arrival/HPI - General Chief Complaint: Abdominal Pain Time Seen by Provider: 01/31/19 07:31 Historian: Patient - History of Present Illness Narrative History of Present Illness (Text): 01/31/19 08:04 73 year old female, with a past medical history of colon cancer, C-diff, gastroenteritis, pancreatitis, who presents to the emergency department complaining of diarrhea onset 4 am this morning. Patient reports 7 episodes of non-bloody, "watery" diarrhea. Patient states she did not eat anything unusual. Patient reports she had a C-diff test done 6 weeks ago, which came back negative. She denies any fever, chills, nausea, vomiting, throat pain, shortness of breath, chest pain, or any other somatic complaints. Patient endorses smoking (10 cigarettes a day). PMD: Dr. Yates Time/Duration: 4-6 hours Symptom Onset: Gradual Symptom Course: Unchanged Activities at Onset: Light Context: Home Past Medical History - Provider Review Nursing Documentation Reviewed: Yes - Infectious Disease Hx of Infectious Diseases: None - Tetanus Immunization Tetanus Immunization: Unknown - Cardiac Hx Pacemaker: No - Pulmonary Hx Respiratory Disorders: No - Neurological Hx Paralysis: No - HEENT Hx HEENT Disorder: Yes Other/Comment: glasses. dentures - Renal Hx Renal Disorder: No - Endocrine/Metabolic Hx Diabetes Mellitus Type 2: Yes - Hematological/Oncological Hx Blood Transfusions: No - Integumentary Hx Dermatological Disorder: No - Musculoskeletal/Rheumatological Hx Musculoskeletal Disorders: Yes - Gastrointestinal Hx Gastrointestinal Disorders: Yes Hx Clostridium Difficile: Yes Hx Diverticulitis: Yes Hx Gall Bladder Disease: Yes Hx Gastroesophageal Reflux: Yes Hx Ileostomy: Yes Hx Pancreatitis: Yes - Genitourinary/Gynecological Hx Genitourinary Disorders: Yes Hx Urinary Tract Infection: Yes Other/Comment: hx colon cancer - Psychiatric Hx Emotional Abuse: No Hx Physical Abuse: No Hx Substance Use: No - Surgical History Other/Comment: hemicolectomy - Anesthesia Hx Anesthesia Reactions: No Hx Malignant Hyperthermia: No - Suicidal Assessment Feels Threatened In Home Enviroment: No Family/Social History - Physician Review Nursing Documentation Reviewed: Yes Family/Social History: Unknown Family HX Smoking Status: Former Smoker Hx Alcohol Use: No Hx Substance Use: No Hx Substance Use Treatment: No Allergies/Home Meds Allergies/Adverse Reactions: Allergies Penicillins Adverse Reaction (Severe, Verified 01/31/19 12:21) URTICARIA Home Medications: Home Meds Medication Instructions Recorded Confirmed Aspirin [Adult Aspirin] 81 mg PO DAILY 10/30/18 02/04/19 Atorvastatin [Lipitor] 40 mg PO DAILY 10/30/18 02/04/19 Zolpidem [Ambien] 10 mg PO HS 10/30/18 02/04/19 Acetaminophen [Tylenol] 325 mg PO BID PRN 11/04/18 02/04/19 Sucralfate [Carafate] 1 gm PO DAILY 11/04/18 02/04/19 Fluticasone Nasal [Flonase] 1 spr NS DAILY 01/31/19 02/04/19 Meclizine HCl [Verticalm] 25 mg PO DAILY PRN 01/31/19 02/04/19 amLODIPine [Norvasc] 5 mg PO DAILY 01/31/19 02/04/19 diaZEpam [Valium] 5 mg PO TID 01/31/19 02/04/19 Review of Systems - Physician Review All systems were reviewed & negative as marked: Yes - Review of Systems Constitutional: absent: Fevers Respiratory: absent: SOB Cardiovascular: absent: Chest Pain Gastrointestinal: Diarrhea. absent: Nausea, Vomiting Physical Exam Vital Signs Reviewed: Yes Vital Signs Temp Pulse Resp BP Pulse Ox 01/31/19 06:43 97.8 F 84 17 146/64 93 L Temperature: Afebrile Blood Pressure: Normal Pulse: Regular Respiratory Rate: Normal Appearance: Positive for: Well-Appearing, Non-Toxic, Comfortable Pain Distress: None Mental Status: Positive for: Alert and Oriented X 3 - Systems Exam Head: Present: Atraumatic, Normocephalic Pupils: Present: PERRL Extroacular Muscles: Present: EOMI Conjunctiva: Present: Normal Mouth: Present: Moist Mucous Membranes Neck: Present: Normal Range of Motion Respiratory/Chest: Present: Clear to Auscultation, Good Air Exchange. No: Respiratory Distress, Accessory Muscle Use Cardiovascular: Present: Regular Rate and Rhythm, Normal S1, S2. No: Murmurs Abdomen: Present: Other (soft). No: Tenderness, Distention, Peritoneal Signs Back: Present: Normal Inspection Upper Extremity: Present: Normal Inspection. No: Cyanosis, Edema Lower Extremity: Present: Normal Inspection. No: Edema Neurological: Present: GCS=15, Speech Normal Skin: Present: Warm, Dry, Normal Color. No: Rashes Psychiatric: Present: Alert, Oriented x 3, Normal Insight, Normal Concentration Medical Decision Making ED Course and Treatment: 01/31/19 07:31 Impression: 73 year old female presets to the emergency department with chief complaint of diarrhea onset earlier this morning. Plan: -- Labs -- Valium -- EKG -- Imodium -- Lipitor -- Norvasc -- Ambien -- Ecotrin -- Iv fluids -- Reassess and disposition Prior Visits: Notes and results from previous visits were reviewed. Progress Notes: 01/31/19 08:12 Dr. Yates evaluated patient, will keep for observation, recommends C-diff, Iv fluids, and Imodium, requests Dr. Nugent (Gastroenterology) on consult. 01/31/19 08:[address] Nugent, who is okay with consult. - EKG Interpretation EKG Interpretation (Text): 01/31/19 08:18 EKG reviewed, shows: Normal sinus rhythm at 79 bpm, left axis deviation. Interpreted by ED Physician: Yes - Scribe Statement The provider has reviewed the documentation as recorded by the Scribe Hardeep Jansen All medical record entries made by the Scribe were at my direction and personally dictated by me. I have reviewed the chart and agree that the record accurately reflects my personal performance of the history, physical exam, medical decision making, and the department course for this patient. I have also personally directed, reviewed, and agree with the discharge instructions and disposition. Disposition/Present on Arrival - Present on Arrival Any Indicators Present on Arrival: No History of DVT/PE: No History of Uncontrolled Diabetes: No Urinary Catheter: No History of Decub. Ulcer: No History Surgical Site Infection Following: None - Disposition Have Diagnosis and Disposition been Completed?: Yes Diagnosis: Diarrhea Disposition: HOSPITALIZED Disposition Time: 08:24 Isolation: Contact Patient Plan: Observation Condition: GOOD
[2019-01-31 07:59] LABS: BASO # 0.04 K/mm3 (0.0-2.0); BASO % 0.4 % (0.0-3.0); EOS # 0.2 (0.0-0.7); EOS % 1.8 % (1.5-5.0); HEMOGLOBIN 14.9 g/dL (12.0-16.0); LYMPH # 1.9 (1.2-3.4); LYMPH % 19.4 % (22.0-35.0); MEAN CELL VOLUME 87.4 fl (80.0-105.0); MEAN CORPUSCULAR HEMOGLOBIN 29.3 pg (25.0-35.0); MEAN CORPUSCULAR HGB CONC 33.6 g/dl (31.0-37.0); MEAN PLATELET VOLUME 9.8 fl (7.0-11.0); MONO # 0.9 (0.1-0.6); RBC 5.08 10^6/uL (3.5-6.1); RED CELL DISTRIBUTION WIDTH 12.8 % (11.5-14.5); WHITE BLOOD COUNT 9.9 10^3/uL (4.5-11.0)
[2019-01-31 08:09] LABS: ALB/GLOB RATIO 1.4 (1.1-1.8); ALBUMIN 4.4 g/dL (3.0-4.8); ALT/SGPT 23 U/L (7-56); AST/SGOT 26 U/L (14-36); BLOOD UREA NITROGEN 16 mg/dL (7-21); CALCIUM 9.6 mg/dL (8.4-10.5); GFR NON-AFRICAN AMERICAN > 60
[2019-01-31] MEDS ORDERED: Sodium Chloride 0.9% 100 ML IV SCH (08:15)
[2019-01-31] MEDS: Sodium Chloride 0.9% 100 ML IV SCH (10:50)
--- NOTE | 2019-01-31 11:30 | CP.PCM.CON ---
<Francesco Whitt - Last Filed: 02/01/19 06:27> History of Present Illness - History of Present Illness History of Present Illness: Francesco Whitt Internal Medicine Resident- Consult Note on Behalf of Dr. 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 GI team was consulted for management/recommendations of the aforementioned symptoms. States she began experiencing intermittent bouts of watery, brown, foul smelling diarrhea starting at 4am this morning. Denies specific provoking events. Denies recent antibiotic use. States she has very mild left sided nonradiating abdominal pain. Denies associated nausea, vomiting, constipation, bright red blood per rectum, dark stools, and change in caliber of the stools. Further denies fever, chills, chest pain, SOB. 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 absent: Scleral icterus - ENT Exam ENT Exam: Mucous Membranes Moist - Neck Exam Neck Exam: Normal Inspection - Respiratory Exam Respiratory Exam: absent: Rales, Rhonchi, Wheezes - Cardiovascular Exam Cardiovascular Exam: +S1, +S2. absent: Gallop, Rubs - GI/Abdominal Exam GI & Abdominal Exam: Soft, Normal Bowel Sounds. tender to palpation in the LLQ,absent: Distended, Tenderness - Extremities Exam Extremities Exam: no cyanosis, no clubbing - Neurological Exam Neurological Exam: Awake, alert, orientated x 3 - Skin Skin Exam: Dry, Warm Studies Reviewed: 11/04/2018 EGD- normal esophagus, patient gastrojejunostomy, GJ anastomsosis junction characterized by erythema and erosion, gastritis, acquired duodenal stenosis, normal second portion of the duodneum 02/16/2017 Colonoscopy- diverticulosis of the entire colon, internal hemorrhoids, patent end to side ileo colonic anastomosis, erythema mucosa of the entire colon Assessment and Plan: Patient is a 73 year-old female with a past medical history of recurrent colon adenocarcinoma s/p right hemicolectomy, 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 Gastroenteritis Hx of Recurrent C. difficile Infection R/o microscopic colitis - C diff study - Stool studies - pancreatic protocol CT ordered and pending - abdomen CT with PO and IV contrast ordered and pending - recommend Flexible sigmoidoscopy Patient case discussed with and plan approved by attending physician, Dr. Nugent. Past Patient History - Infectious Disease Hx of Infectious Diseases: None - Tetanus Immunizations Tetanus Immunization: Unknown - Past Social History Smoking Status: Former Smoker - CARDIAC Hx Pacemaker: No - PULMONARY Hx Respiratory Disorders: No - NEUROLOGICAL Hx Paralysis: No - HEENT Hx HEENT Problems: Yes Other/Comment: glasses. dentures - RENAL Hx Chronic Kidney Disease: No - ENDOCRINE/METABOLIC Hx Diabetes Mellitus Type 2: Yes - HEMATOLOGICAL/ONCOLOGICAL Hx Blood Transfusions: No - INTEGUMENTARY Hx Dermatological Problems: No - MUSCULOSKELETAL/RHEUMATOLOGICAL Hx Musculoskeletal Disorders: Yes - GASTROINTESTINAL Hx Gastrointestinal Disorders: Yes Hx Clostridium Difficile: Yes Hx Diverticulitis: Yes Hx Gall Bladder Disease: Yes Hx Gastroesophageal Reflux: Yes Hx Ileostomy: Yes Hx Pancreatitis: Yes - GENITOURINARY/GYNECOLOGICAL Hx Genitourinary Disorders: Yes Hx Urinary Tract Infection: Yes Other/Comment: hx colon cancer - PSYCHIATRIC Hx Emotional Abuse: No Hx Physical Abuse: No Hx Substance Use: No - SURGICAL HISTORY Other/Comment: hemicolectomy - ANESTHESIA Hx Anesthesia Reactions: No Hx Malignant Hyperthermia: No Meds Allergies/Adverse Reactions: Allergies Allergy/AdvReac Type Severity Reaction Status Date / Time Penicillins AdvReac Severe URTICARIA Verified 01/31/19 12:21 - Medications Medications: Current Medications Amlodipine Besylate (Norvasc) 10 mg PO DAILY [facility] Last Admin: 01/31/19 10:49 Dose: 10 mg Aspirin (Ecotrin) 81 mg PO DAILY [facility] Last Admin: 01/31/19 10:41 Dose: 81 mg Atorvastatin Calcium (Lipitor) 40 mg PO DAILY [facility] Diazepam (Valium) 5 mg PO TID PRN; Protocol PRN Reason: Anxiety Famotidine (Pepcid) 20 mg PO DAILY PRN PRN Reason: Dyspepsia Sodium Chloride (Sodium Chloride 0.9%) 100 mls @ 80 mls/hr IV .Q1H15M [facility] Last Admin: 01/31/19 10:50 Dose: 80 mls/hr Insulin Human Regular (Humulin R Med) 0 units SC ACHS [facility]; Protocol Lisinopril (Zestril) 20 mg PO DAILY [facility] Loperamide HCl (Imodium) 4 mg PO Q6 PRN PRN Reason: Diarrhea Zolpidem Tartrate (Ambien) 5 mg PO HS [facility]; Protocol Results - Vital Signs Recent Vital Signs: Last Vital Signs Temp 97.9 F 01/31/19 10:00 Pulse 88 01/31/19 10:51 Resp 18 01/31/19 10:51 BP 135/89 01/31/19 10:51 Pulse Ox 99 01/31/19 10:51 - Labs Result Diagrams: 01/31/19 07:50 01/31/19 07:50 Labs: Laboratory Results - last 24 hr 01/31/19 01/31/19 07:50 07:50 WBC 9.9 RBC 5.08 Hgb 14.9 Hct 44.4 MCV 87.4 MCH 29.3 MCHC 33.6 RDW 12.8 Plt Count 191 MPV 9.8 Neut % (Auto) 69.4 H Lymph % (Auto) 19.4 L Drew % (Auto) 9.0 H Eos % (Auto) 1.8 Baso % (Auto) 0.4 Lymph # (Auto) 1.9 Drew # (Auto) 0.9 H Eos # (Auto) 0.2 Baso # (Auto) 0.04 Absolute Neuts (auto) 6.86 H Sodium 147 Potassium 4.0 Chloride 110 H Carbon Dioxide 26 Anion Gap 14 BUN 16 Creatinine 0.7 Est GFR ( Amer) > 60 Est GFR (Non-Af Amer) > 60 Random Glucose 128 H Calcium 9.6 Total Bilirubin 0.4 AST 26 ALT 23 Alkaline Phosphatase 87 Total Protein 7.6 Albumin 4.4 Globulin 3.2 Albumin/Globulin Ratio 1.4 <Jovanna,Kovil V - Last Filed: 02/01/19 11:36> Meds - Medications Medications: Current Medications Amlodipine Besylate (Norvasc) 10 mg PO DAILY [facility] Last Admin: 01/31/19 10:49 Dose: 10 mg Aspirin (Ecotrin) 81 mg PO DAILY [facility] Last Admin: 01/31/19 10:41 Dose: 81 mg Atorvastatin Calcium (Lipitor) 40 mg PO DAILY [facility] Last Admin: 01/31/19 11:57 Dose: 40 mg Diazepam (Valium) 5 mg PO TID PRN; Protocol PRN Reason: Anxiety Last Admin: 01/31/19 18:49 Dose: 5 mg Famotidine (Pepcid) 20 mg PO DAILY PRN PRN Reason: Dyspepsia Sodium Chloride (Sodium Chloride 0.9%) 100 mls @ 80 mls/hr IV .Q1H15M [facility] Last Admin: 01/31/19 10:50 Dose: 80 mls/hr Insulin Human Regular (Humulin R Med) 0 units SC [facility]; Protocol Last Admin: 01/31/19 17:41 Dose: Not Given Lisinopril (Zestril) 20 mg PO DAILY [facility] Last Admin: 01/31/19 11:58 Dose: 20 mg Loperamide HCl (Imodium) 4 mg PO Q6 PRN PRN Reason: Diarrhea Zolpidem Tartrate (Ambien) 5 mg PO HS [facility]; Protocol Results - Vital Signs Recent Vital Signs: Last Vital Signs Temp 98.3 F 01/31/19 14:00 Pulse 66 01/31/19 14:00 Resp 18 01/31/19 15:47 BP 144/63 01/31/19 14:00 Pulse Ox 92 L 01/31/19 15:38 - Labs Result Diagrams: 02/01/19 07:00 02/01/19 07:00 Labs: Laboratory Results - last 24 hr 01/31/19 01/31/19 01/31/19 07:50 07:50 11:39 WBC 9.9 RBC 5.08 Hgb 14.9 Hct 44.4 MCV 87.4 MCH 29.3 MCHC 33.6 RDW 12.8 Plt Count 191 MPV 9.8 Neut % (Auto) 69.4 H Lymph % (Auto) 19.4 L Drew % (Auto) 9.0 H Eos % (Auto) 1.8 Baso % (Auto) 0.4 Lymph # (Auto) 1.9 Drew # (Auto) 0.9 H Eos # (Auto) 0.2 Baso # (Auto) 0.04 Absolute Neuts (auto) 6.86 H Sodium 147 Potassium 4.0 Chloride 110 H Carbon Dioxide 26 Anion Gap 14 BUN 16 Creatinine 0.7 Est GFR ( Amer) > 60 Est GFR (Non-Af Amer) > 60 POC Glucose (mg/dL) 99 Random Glucose 128 H Calcium 9.6 Total Bilirubin 0.4 AST 26 ALT 23 Alkaline Phosphatase 87 Total Protein 7.6 Albumin 4.4 Globulin 3.2 Albumin/Globulin Ratio 1.4 Attending/Attestation - Attestation I have personally seen and examined this patient.: Yes I have fully participated in the care of the patient.: Yes I have reviewed all pertinent clinical information: Yes Notes (Text): This is an addendum to the GI consultation report dictated by the resident. The patient was seen and evaluated earlier. Patient did have episodes of loose bowel movements for a few days. No acute worsening of the watery diarrhea since 4 a.m. The differential diagnosis should include gastroenteritis C. difficile Patient did have history of colon cancer status post colon resection before History of recurrent C. difficile status post fecal transplant in February 2017 which showed good improvement patient with no recurrence of C. difficile in the last nearly 2 years History of diverticulitis before History of pyloric stenosis status post gastrojejunostomy. We Would recommend Stool studies Flexible sigmoidoscopy Risk benefits alternatives explained informed consent was obtained for flexible sigmoidoscopy. Patient did have a flexible sigmoidoscopy up to 25 cm did not reveal any pseudomembranes colitis or active inflammatory changes. Multiple biopsies were taken to rule out microscopic colitis. Patient has some epigastric pain and also h/o steatorrhea would benefit from abdominal CT scan to rule out focal pancreatic lesion and to rule out any intra- abdominal mass lesion. Stool also sent for C. difficile. Diet has been advanced Thank you Dr. Yates for allowing us to participate in the care of the patient 01/31/19 19:33
--- NOTE | 2019-01-31 12:12 | HP ---
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 diff for many years now she comes into the emergency room with 3-4 days of diarrhea on and off and then she had persistent watery diarrhea at least the past 24 hours. She is getting quite weak. She is a 73-year-old female I have known for many years. PAST MEDICAL HISTORY: C. diff, colon cancer, gastroenteritis, pancreatitis, had seven episodes of nonbloody watery diarrhea, not in anything unusual. A negative C. diff test was done 6 weeks ago with similar symptoms came back negative. She is still smokes, diabetes, C. diff, diverticulitis, gallbladder disease, reflux, ileostomy, pancreatitis, history of colon cancer, hemicolectomy. FAMILY HISTORY: Unknown. SOCIAL HISTORY: She still smokes. No alcohol, no drugs. ALLERGIES: PENICILLIN, ASPIRIN, LIPITOR, ZANTAC, TOBRAMYCIN AMBIEN, TYLENOL AND CARAFATE WHICH SHE TAKES. REVIEW OF SYSTEMS: No acute vision or hearing changes. No sore throat. No neck pain. No chest pain or palpitations. No shortness of breath or cough. No abdominal pain, nausea, vomiting, but there is lots of diarrhea. No constipation. No skin issues, not nervous. PHYSICAL EXAMINATION: VITAL SIGNS: 97.8 temperature, 84 pulse, 17 respiratory rate, 146/64 blood pressure, 93% O2 sat. GENERAL: She is uncomfortable, nontoxic in bed, alert and oriented x3. HEENT: Head is atraumatic, normocephalic. Extraocular muscles are intact. Pupils are equal reactive to light and accommodation. Throat is dry. NECK: Supple. HEART: Regular rate. Normal S1, S2. LUNGS: Decreased breath sounds, but clear to auscultation. No wheezes. No rhonchi. No rales. ABDOMEN: Soft, obese, nontender, positive bowel sounds. No guarding, no rebound, no CVA tenderness. EXTREMITIES: No edema. NEUROLOGIC: GCS is 15. Cranial nerves II-XII grossly intact. Speech is normal. SKIN: For I could tell is intact. No rashes or ulcers appreciated. Alert and oriented x3. LABORATORY DATA: She has a C. diff taken for a test. She had blood tests done which showed a 147 sodium, potassium 4, BUN 60, creatinine 0.7, GFR is greater than 60, sugar is 128, calcium is 9.6, total bili is 0.4. AST is 26, ALT is 23, alk phos 87, total protein 7.6. White count 9.9, hemoglobin 14.9, hematocrit 44.4, platelets of 191. ASSESSMENT AND PLAN: She will have consult with Gastroenterology, Dr. Nugent, who saw her in the past with IV fluids. I watching her overnight, give the Imodium checking Clostridium difficile and hopefully she does well discharge her tomorrow. I will get physical therapy to see her and my plan is to watch in observation overnight for persistent watery diarrhea on and off over the last week and a half. I hope her C. diff will be negative. Johnny Yates DO MTDD
[2019-01-31] MEDS ORDERED: Barium Sulfate Susp 2.1% w/v, 2.0% w/w 450 mL Bottle PO ONE (13:03)
[2019-01-31] MEDS ORDERED: Lidocaine 2% Jelly (30 ml) ONE (15:36)
[2019-01-31] MEDS: Insulin Reg-MEDIUM-Coverage SC SCH ×3 (15:44→22:17)
[2019-01-31] MEDS ORDERED: Pneumococcal 23-Valent Vaccine IM ONE (16:40)
[2019-01-31 16:41] VITALS: BMI 24.3
--- NOTE | 2019-01-31 18:21 | CARD ---
APPROVED REPORT Date of service: 01/31/2019 EKG Measurement Heart [id number] <Conclusion> Normal sinus rhythm Inferior infarct, age undetermined Abnormal ECG
[2019-02-01 07:58] LABS: HEMOGLOBIN 13.6 g/dL (12.0-16.0); MEAN CORPUSCULAR HEMOGLOBIN 28.9 pg (25.0-35.0); MEAN CORPUSCULAR HGB CONC 33.3 g/dl (31.0-37.0); MEAN PLATELET VOLUME 10.3 fl (7.0-11.0); RBC 4.7 10^6/uL (3.5-6.1); RED CELL DISTRIBUTION WIDTH 12.8 % (11.5-14.5); WHITE BLOOD COUNT 11.4 10^3/uL (4.5-11.0)
[2019-02-01 08:16] LABS: AST/SGOT 21 U/L (14-36)
[2019-02-01 08:21] LABS: ALB/GLOB RATIO 1.3 (1.1-1.8); ALBUMIN 3.8 g/dL (3.0-4.8); ALT/SGPT 27 U/L (7-56); BLOOD UREA NITROGEN 10 mg/dL (7-21); CALCIUM 8.9 mg/dL (8.4-10.5); GFR NON-AFRICAN AMERICAN > 60
[2019-02-01] MEDS: Insulin Reg-MEDIUM-Coverage SC SCH ×4 (08:25→22:00)
[2019-02-01] MEDS: metroNIDAZOLE IV 500 mg/100 ml 500 MG/100 ML BAG IVPB SCH ×2 (14:05→21:41)
[2019-02-01] MEDS: Vancomycin 25 MG/ML PO SCH ×3 (14:05→21:40)
--- NOTE | 2019-02-01 14:11 | CT ---
Date of service: 01/31/2019 PROCEDURE: CT Abdomen and Pelvis with contrast HISTORY: watery diarrhea, hx of pancreatic insufficiency COMPARISON: CT scan of the abdomen pelvis dated 04/26/2018 TECHNIQUE: Contrast dose: 100 mL Omnipaque 350 Radiation dose: Total exam DLP = 2569.95 mGy-cm. This CT exam was performed using one or more of the following dose reduction techniques: Automated exposure control, adjustment of the mA and/or kV according to patient size, and/or use of iterative reconstruction technique. FINDINGS: LOWER THORAX: Unremarkable. LIVER: Hepatic steatosis. No gross lesion or ductal dilatation. GALLBLADDER AND BILE DUCTS: Prior cholecystectomy with surgical clips in place. PANCREAS: Unremarkable. No gross lesion or ductal dilatation. SPLEEN: Unremarkable. ADRENALS: Unremarkable. No mass. KIDNEYS AND URETERS: Unremarkable. No hydronephrosis. No solid mass. VASCULATURE: Unremarkable. No aortic aneurysm. Aortic atherosclerotic calcifications. BOWEL: Prior gastrojejunostomy. Prior right hemicolectomy. Predominantly sigmoid diverticulosis. No obstruction. No gross mural thickening. APPENDIX: Prior right hemicolectomy/appendectomy. PERITONEUM: Unremarkable. No free fluid. No free air. LYMPH NODES: Unremarkable. No enlarged lymph nodes. BLADDER: Unremarkable. REPRODUCTIVE: Prior hysterectomy. BONES: Multilevel spinal degenerative changes. Grade 1 anterolisthesis of L5 on S1. No acute fracture. OTHER FINDINGS: None. IMPRESSION: No evidence of pancreatic mass. Multiple additional stable nonacute findings as above.
--- NOTE | 2019-02-01 18:15 | CP.PCM.PN ---
Subjective - Date & Time of Evaluation Date of Evaluation: 02/01/19 Time of Evaluation: 11:15 - Subjective Subjective: Patient did have episodes of loose bowel movements after the p.o. contrast CAT scan which is now slowly improving. Patient still complaining of some cramping abdominal discomfort. And epigastric discomfort. Objective - Vital Signs/Intake and Output Vital Signs (last 24 hours): Temp Pulse Resp BP Pulse Ox 98.1 F 57 L 18 120/49 L 94 L 02/01/19 14:00 02/01/19 14:00 02/01/19 14:00 02/01/19 14:00 02/01/19 14:00 Intake and Output: 02/01/19 02/01/19 06:59 18:59 Intake Total 420 Balance 420 - Medications Medications: Current Medications Acetaminophen (Tylenol 325mg Tab) 650 mg PO Q6H PRN PRN Reason: Pain, Mild (1-3) Last Admin: 02/01/19 12:00 Dose: 650 mg Amlodipine Besylate (Norvasc) 10 mg PO DAILY [facility] Last Admin: 02/01/19 09:20 Dose: 10 mg Aspirin (Ecotrin) 81 mg PO DAILY [facility] Last Admin: 02/01/19 09:21 Dose: 81 mg Atorvastatin Calcium (Lipitor) 40 mg PO DAILY [facility] Last Admin: 02/01/19 09:20 Dose: 40 mg Diazepam (Valium) 5 mg PO TID PRN; Protocol PRN Reason: Anxiety Last Admin: 02/01/19 09:20 Dose: 5 mg Famotidine (Pepcid) 20 mg PO DAILY PRN PRN Reason: Dyspepsia Sodium Chloride (Sodium Chloride 0.9%) 100 mls @ 80 mls/hr IV .Q1H15M [facility] Last Admin: 01/31/19 10:50 Dose: 80 mls/hr Metronidazole (Flagyl) 500 mg in 100 mls @ 100 mls/hr IVPB Q8 [facility]; Protocol Stop: 02/10/19 14:01 Last Admin: 02/01/19 14:05 Dose: 100 mls/hr Insulin Human Regular (Humulin R Med) 0 units SC ACHS [facility]; Protocol Last Admin: 02/01/19 16:23 Dose: Not Given Lisinopril (Zestril) 20 mg PO DAILY [facility] Last Admin: 02/01/19 09:21 Dose: 20 mg Loperamide HCl (Imodium) 4 mg PO Q6 PRN PRN Reason: Diarrhea Vancomycin HCl (Vancocin 25 Mg/Ml (Oral Use)) 250 mg PO QID [facility]; Protocol Stop: 02/10/19 14:01 Last Admin: 02/01/19 14:05 Dose: 250 mg Zolpidem Tartrate (Ambien) 5 mg PO HS [facility]; Protocol Last Admin: 01/31/19 23:03 Dose: 5 mg - Labs Labs: 02/01/19 07:00 02/01/19 07:00 - Constitutional Appears: No Acute Distress - Head Exam Head Exam: ATRAUMATIC, NORMOCEPHALIC - Eye Exam Eye Exam: EOMI, PERRL - ENT Exam ENT Exam: Mucous Membranes Moist - Neck Exam Neck Exam: Full ROM. absent: Lymphadenopathy - Respiratory Exam Respiratory Exam: NORMAL BREATHING PATTERN. absent: Accessory Muscle Use, Rales - Cardiovascular Exam Cardiovascular Exam: REGULAR RHYTHM, +S1 - GI/Abdominal Exam GI & Abdominal Exam: Soft Additional comments: Mild tenderness in the epigastric area on deep palpation. - Extremities Exam Extremities Exam: Full ROM. absent: Calf Tenderness, Pedal Edema - Neurological Exam Neurological Exam: Alert, Awake, Oriented x3 Assessment and Plan - Assessment and Plan (Free Text) Assessment: 11/04/2018 EGD- normal esophagus, patient gastrojejunostomy, GJ anastomsosis junction characterized by erythema and erosion, gastritis, acquired duodenal stenosis, normal second portion of the duodneum 02/16/2017 Colonoscopy- diverticulosis of the entire colon, internal hemorrhoids, patent end to side ileo colonic anastomosis, erythema mucosa of the entire colon Assessment Patient is a 73 year-old female with a past medical history of colon adenocarcinoma s/p colon resection 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 Patient did have episodes of loose bowel movements for a few days. No acute worsening of the watery diarrhea since 4 a.m on the day of admission. The differential diagnosis should include gastroenteritis C. difficile History of recurrent C. difficile status post fecal transplant in February 2017 which showed good improvement patient with no recurrence of C. difficile in the last nearly 2 years Patient did have a flexible sigmoidoscopy up to 25 cm did not reveal any pseudomembranes colitis or active inflammatory changes. Multiple biopsies were taken to rule out microscopic colitis. Patient has some epigastric pain and also h/o steatorrhea would benefit from abdominal CT scan to rule out focal pancreatic lesion and to rule out any intra- abdominal mass lesion. History of diverticulitis before History of pyloric stenosis status post gastrojejunostomy. We Would recommend Stool studies Flexible sigmoidoscopy Risk benefits alternatives explained informed consent was obtained for flexible sigmoidoscopy. PLAN Stool also sent for C. difficile. Diet has been advanced Patient did have diarrhea with the p.o. contrast which improved now. Will follow up the CT scan to further evaluate his abdominal pain. Patient is still complaining of some abdominal discomfort
--- NOTE | 2019-02-01 18:22 | PN ---
DATE: 02/01/2019 SUBJECTIVE: She is having persistent watery diarrhea now for 5 days straight. She is not able to eat and drink well. She is on IV fluids right now. Ambien, Ecotrin, Imodium, Lipitor, Norvasc, Pepcid, Tylenol, Valium, and Zestril, also the IV fluids. She is being seen by GI and Infectious Disease. She does have a history of C. Diff in the past with a fecal transplant. PHYSICAL EXAMINATION: GENERAL: This kind of started about a week ago where it was persistent diarrhea. She did not have any antibiotics from the outpatient at all. She did not eat anything different and that was straight watery diarrhea. We are waiting for biopsies to come back from the flex sig yesterday. She might be heading in the direction of some kind of colitis. There is also some kind of possible pancreas involvement. She has a CAT scan pending of the pancreas. VITAL SIGNS: She has a 99.1 temperature, 78 pulse, 156/67 blood pressure, 18 respiratory rate, 95% O2 sat on 2 liters. HEENT: Head is atraumatic, normocephalic. HEART: Regular rate. LUNGS: Decreased breath sounds. ABDOMEN: Mildly distended. Decreased bowel sounds, nontender. EXTREMITIES: No edema. LABORATORY DATA: She is in isolation because of her history of C. Diff. White count went up to 11.4, hemoglobin 13.6, hematocrit 40.9, platelets are 179. She has a 143 sodium, potassium is 3.6, BUN is 10, creatinine 0.6, on lots of IV fluids. GFR is 60. Last blood sugar was 131. Calcium is 8.9, total bili is 0.5. AST is 21, ALT is 27, alk phos is 80, total protein is 6.6. ASSESSMENT AND PLAN: She was seen by GI and Infectious Disease will see her and a CAT scan of the pancreas was done, and it shows no acute intraabdominal pelvic abnormalities status post cholecystectomy, status post hysterectomy, diverticulosis coli, multi degenerative disease, these are nothing bad and the CAT scan of the pancreas, which is good. Continue IV fluids. Add Infectious Disease thoughts, wait and see what GI wants to do and how to stop the diarrhea. She is on IV fluids and Imodium and awaits for Clostridium difficile test to come back. Continue aggressive treatment and care. She is getting weaker from the diarrhea. I have called in Physical Therapy to see if they can help us keep her strength up. Johnny Yates DO
--- NOTE | 2019-02-01 21:05 | CON ---
DATE OF CONSULTATION: 02/01/2019 CHIEF COMPLAINT: Diarrhea x1-2 days' duration. HISTORY OF PRESENT ILLNESS: This is a 73-year-old female known to me from previous admissions, who has had a history of pseudomembranous colitis, history of peripheral vascular disease, diabetes mellitus, hypertension, pancreatitis, GERD, urinary tract infections, high cholesterol, arthritis, history of depression and anxiety and insomnia, history of colon cancer, adenocarcinoma, who has had pseudomembranous colitis, who is now admitted with watery diarrhea, which was significant. She became dehydrated and she was admitted to hospital. She denies any fevers, any chills. There is mild abdominal cramps, but no abdominal pain. No bright red blood per rectum. No chest pain, shortness of breath, or cough. No dysuria or frequency. PAST MEDICAL HISTORY: Significant for diabetes, hypertension, pseudomembranous colitis, colon cancer, gastroenteritis, pancreatitis, GERD, diverticulitis, urinary tract infection, high cholesterol, hypertension, and peripheral vascular disease. PAST SURGICAL HISTORY: Significant for abdominal surgery and colon resection. MEDICATIONS AT HOME: Reviewed. She has not been on any antibiotics recently. ALLERGIES: THE PATIENT IS ALLERGIC TO PENICILLIN. REVIEW OF SYSTEMS: A 12-point review of systems is performed. PHYSICAL EXAMINATION: GENERAL: She is in bed in no acute distress. She is answering questions appropriately. VITAL SIGNS: Temperature of 99.1, blood pressure is 156/60, respiratory rate of 18, and heart rate of 78. HEENT: Unremarkable. NECK: Supple. LUNGS: Decreased breath sounds. HEART: Normal S1, S2. ABDOMEN: Soft, nontender. No organomegaly. No rebound or guarding or masses. LABORATORY EXAMINATION: White count of 9.9, hemoglobin of 14, platelets of 191,000. The white count has gone up to 11,400. Chemistries reveal a BUN of 10, creatinine of 0.6. Microbiology is pending. The patient had her sigmoidoscopy and biopsy postoperatively to rule out microscopic colitis. The patient does have hemorrhoids. ASSESSMENT/PLAN: Dr. See Nugent's consultation is reviewed, who states that the patient has recurrent colon cancer, who has had a right hemicolectomy, recurrent C. diff. 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 She also had a left knee replacement and hysterectomy and cholecystectomy, now returns with diarrhea and fatigue. Must rule out recurrent C. diff versus other etiologies. Stool C. diff has been sent. We will order blood cultures, stool cultures. We will send stool for norovirus, rotavirus, and adenovirus, and pending stool cultures in addition to routine stool cultures. We will start the patient on p.o. vancomycin and IV Flagyl, pending initial workup results. If the stool C. diff antigen are negative and toxin is negative, we will stop the p.o. vancomycin, check on the stool cultures and initial workup and we will make further recommendations. We will follow with you. Dmitry Jiang MD
[2019-02-01] MEDS: Sodium Chloride 0.9% 100 ML IV SCH (21:42)
[2019-02-02] MEDS: metroNIDAZOLE IV 500 mg/100 ml 500 MG/100 ML BAG IVPB SCH (06:05)
[2019-02-02 08:10] LABS: HEMOGLOBIN 13.7 g/dL (12.0-16.0); MEAN CELL VOLUME 87.4 fl (80.0-105.0); MEAN CORPUSCULAR HEMOGLOBIN 28.7 pg (25.0-35.0); MEAN CORPUSCULAR HGB CONC 32.8 g/dl (31.0-37.0); MEAN PLATELET VOLUME 10.4 fl (7.0-11.0); RBC 4.78 10^6/uL (3.5-6.1); RED CELL DISTRIBUTION WIDTH 12.9 % (11.5-14.5); WHITE BLOOD COUNT 7.7 10^3/uL (4.5-11.0)
[2019-02-02 08:17] LABS: ALB/GLOB RATIO 1.3 (1.1-1.8); ALBUMIN 3.5 g/dL (3.0-4.8); ALT/SGPT 19 U/L (7-56); AST/SGOT 22 U/L (14-36); BLOOD UREA NITROGEN 7 mg/dL (7-21); CALCIUM 8.6 mg/dL (8.4-10.5); GFR NON-AFRICAN AMERICAN > 60
[2019-02-02] MEDS: Vancomycin 25 MG/ML PO SCH (10:28)
[2019-02-02] MEDS: Insulin Reg-MEDIUM-Coverage SC SCH ×4 (12:41→22:00)
[2019-02-02] MEDS: Sodium Chloride 0.9% 100 ML IV SCH (12:41)
--- NOTE | 2019-02-02 14:04 | PN ---
DATE: 02/02/2019 SUBJECTIVE: I saw her resting in bed. She is still having watery diarrhea. MEDICATIONS: She is on Ambien, Ecotrin, metronidazole IV, insulin coverage, Imodium, Lipitor, Norvasc, Pepcid, IV fluids, Tylenol, Valium, vancomycin p.o. and Zestril. PHYSICAL EXAMINATION: VITAL SIGNS: She has a 98.4 temperature, 73 pulse, 152/60 blood pressure, 20 respiratory rate, 92% sat on room air. HEENT: Head is atraumatic, normocephalic. HEART: Regular rate. LUNGS: Decreased breath sounds. She was a smoker, which in the hospital and smoking. ABDOMEN: Soft. Positive bowel sounds. Nontender. EXTREMITIES: No edema. She is still uncomfortable smaller diarrhea. LABORATORY DATA: White count is down to 7.7, hemoglobin 13.7, hematocrit 41.8, platelets of 174. She has a 143 sodium, potassium 3.6, BUN 7, creatinine 0.7, GFR is greater than 60, sugar is 110, calcium is 8.6, total bili is 0.5. AST is 22, ALT is 99, alk phos 77, total protein 6.3. Stool for Salmonella, Shigella and Campylobacter negative. Stool for Clostridium difficile, presently is negative. Still having watery diarrhea and more cultures are pending. She is on Flagyl and vancomycin as per Infectious Disease and GI who has persistent watery diarrhea that will not let up, it has been about a week now. Still waiting for blood cultures to come back continue dressing treatment and care. The patient with will status and watery diarrhea multiple times a day. Greater than 5 for about a week now. Johnny Yates DO MT[facility]
[2019-02-02] MEDS ORDERED: Cholestyramine 4 gm/Pkt UD PO STA (18:52)
[2019-02-03 07:30] LABS: HEMOGLOBIN 12.9 g/dL (12.0-16.0); MEAN CELL VOLUME 87.4 fl (80.0-105.0); MEAN CORPUSCULAR HEMOGLOBIN 29.1 pg (25.0-35.0); MEAN CORPUSCULAR HGB CONC 33.2 g/dl (31.0-37.0); MEAN PLATELET VOLUME 10.2 fl (7.0-11.0); RBC 4.44 10^6/uL (3.5-6.1); RED CELL DISTRIBUTION WIDTH 12.6 % (11.5-14.5)
[2019-02-03 08:00] LABS: ALB/GLOB RATIO 1.2 (1.1-1.8); ALBUMIN 3.2 g/dL (3.0-4.8); ALT/SGPT 34 U/L (7-56); AST/SGOT 54 U/L (14-36); BLOOD UREA NITROGEN 7 mg/dL (7-21); CALCIUM 8.4 mg/dL (8.4-10.5); GFR NON-AFRICAN AMERICAN > 60
--- NOTE | 2019-02-03 10:10 | PN ---
DATE: 02/03/2019 SUBJECTIVE: The patient is in bed, no diarrhea. PHYSICAL EXAMINATION: VITAL SIGNS: Temperature is 98, blood pressure is 136/50, respiratory rate of 20, heart rate of 58. HEENT: Unremarkable. NECK: Supple. LUNGS: Have decreased breath sounds. HEART: Normal S1, S2. ABDOMEN: Soft, nontender. LABORATORY EXAMINATION: Reveals a white count of 8, hemoglobin of 12, BUN of 7, creatinine of 0.6. Stool rotavirus antigen is negative. Stool sugar toxin is pending. Giardia antigen is pending. Microbiology reveals the blood cultures are negative. Stool for C. diff is negative. Toxin and antigen is negative. Stool cultures, no Salmonella, Shigella or Campylobacter is isolated. Review of orders reveals the patient to be on p.o. Flagyl. ASSESSMENT AND PLAN: A 73-year-old female who is allergic to penicillin who has history of pseudomembranous colitis, peripheral vascular disease, diabetes, hypertension, pancreatitis, gastroesophageal reflux disease, urinary tract infection, high cholesterol who is now admitted with diarrhea which is resolved, would complete 7 days of p.o. Flagyl, pending further results and GI workup. Dmitry Jiang MD
--- NOTE | 2019-02-03 11:18 | PN ---
DATE: 02/03/2019 SUBJECTIVE: She is in hospital bed. She is very upset. She had at least 8 to 9 watery diarrheas yesterday. Very upset about it and also the legs are getting weaker, could not do physical therapy well. She might need TACO before she goes home. MEDICATIONS: Ambien, Ecotrin, Flagyl, heparin, insulin, Imodium, Lipitor, Norvasc, Pepcid, IV fluids, Tylenol, Valium and Zestril. PHYSICAL EXAMINATION: VITAL SIGNS: She has a 98.9 temp, 58 pulse, 136/56 blood pressure, 18 respiratory rate, 96% O2 sat. HEENT: Head is atraumatic, normocephalic. HEART: Regular rate. LUNGS: Decreased breath sounds. ABDOMEN: Soft, obese. EXTREMITIES: No edema. LABORATORY DATA: She has a 8 white count, 12.9 hemoglobin, 38.8 hematocrit with a 176 platelets. Sodium 144; potassium 3.5, I will give her potassium today; BUN 7; creatinine 0.6; GFR is greater than 60; sugar is 100; calcium is 8.4, total bili is 0.5. AST is 54, ALT is 34, alk phos 91, total protein is 5.8. Stool rotavirus antigen is negative. Giardia antigen is pending. I do not see a C. diff pending yet, awaiting for that also. No growth in the blood. C. diff is negative. Salmonella, Shigella, Campylobacter are not there either. ASSESSMENT AND PLAN: She is being seen by Gastroenterology and Infectious Disease. History of Pseudomembranous colitis, peripheral vascular disease, diabetes, hypertension, pancreatitis, gastroesophageal reflux disease, urinary tract infection, high cholesterol, diarrhea, 7 days of p.o. Flagyl. Continue with GI workup for this persistent watery diarrhea, loose bowel movements. It is not improving, it is getting a little bit worse I feel, as per as per Gastroenterology and Infectious Disease. Johnny Yates DO
[2019-02-03] MEDS: Insulin Reg-MEDIUM-Coverage SC SCH ×3 (14:02→22:00)
--- NOTE | 2019-02-03 14:30 | PN ---
DATE: 02/02/2019 SUBJECTIVE: This patient was seen and evaluated earlier. This is a delayed dictation. The patient had episodes of multiple frequent bowel movements. She had overnight about 5 bowel movements also. The patient did have increased bowel movement after the p.o. contrast CAT scan, which subsided, but still persistence of the loose bowel movements present. She also has episodes of cramping abdominal discomfort. PHYSICAL EXAMINATION VITAL SIGNS: Afebrile, blood pressure 152/60, pulse 73, respirations 20, and O2 saturation 92%. HEENT: Atraumatic, anicteric. NECK: Supple. HEART: S1 and S2 heard. LUNGS: Bilateral air entry present. ABDOMEN: Soft. There is mild tenderness in the epigastric area present. No rebound or guarding. EXTREMITIES: No edema. No cyanosis. NEUROLOGICAL: Alert and oriented. Moves all extremities. LABORATORY DATA: Hemoglobin 13.7, hematocrit 41.8, WBC 7.7, and platelet 174. Chemistry is essentially unremarkable otherwise. A CT scan done was reviewed again. IMPRESSION: This is a 73-year-old patient with a history of colon carcinoma, status post right hemicolectomy, history of Clostridium difficile colitis recurrent, had fecal transplant done in 02/2017. The patient has been doing well with no recurrence of Clostridium difficile since the fecal transplant. Admitted with a few days history of loose bowel movement, worsening of the watery stools, admitted to the hospital. The patient did have a flexible sigmoidoscopy done, which showed normal mucosa. This was unprepared colon, but lavage was done and showed hazy mucosa. The stool was sent, it was negative for Clostridium difficile. The patient was initially started with p.o. vancomycin and Flagyl. The vancomycin has been discontinued by the Infectious Disease. The etiology for the diarrhea is probably multifactorial; however, the patient did have a right hemicolectomy that also contributed to the diarrhea. Her other comorbidities include a history of peptic ulcer disease, pyloric stenosis status post gastrojejunostomy done in the past. RECOMMENDATIONS: We would recommend: 1. Start a low dose Questran 2 g. 2. One Imodium to diarrhea. 3. Advance the diet. The patient would need a low residue soft diet. Thank you very much for allowing us to participate in the care of the patient. See Nugent MD [facility] # [id number]
[2019-02-03 21:34] VITALS: RESP 18
--- NOTE | 2019-02-04 02:14 | PN ---
DATE: 02/03/2019 SUBJECTIVE: This patient was seen and evaluated earlier. No more bowel movements overnight. He feels the patient is hungry, he wants to eat food. PHYSICAL EXAMINATION: VITAL SIGNS: Afebrile, pulse 58, blood pressure 136/56, respirations 18, and O2 saturation 96%. HEENT: Atraumatic, anicteric. NECK: Supple. HEART: S1 and S2 heard. LUNGS: Bilateral air entry present. ABDOMEN: Soft, mild tenderness present. LABORATORY DATA: Hemoglobin 12.9, hematocrit 38.8, WBC 8, and platelets 176. Chemistries; potassium is 3.5, sodium 144, AST 54. ASSESSMENT AND PLAN: This 73-year-old patient who is admitted with episodes of severe diarrhea and abdominal cramps. Patient has a history of recurrent Clostridium difficile in the past status post fecal transplant, fecal microbiota transfer here in the past. Patient did have a flexible sigmoidoscopy done, which showed no pseudomembranes. No active colitis noticed. Patient was empirically started with Flagyl and vancomycin. Vancomycin has been discontinued. Patient did have a CT of the abdomen and pelvis with p.o. and IV contrast done, which did not show any active colitis. No band ligation identified. We would recommend at this point to slowly increase the diet. Patient was started on Questran half a pack a day. Apparently the diarrhea has significantly improved. We will continue the Questran and use Imodium on a p.r.n. basis with symptomatic management. Diet as advanced. Thank you very much Dr. Yates for allowing us to participate in the care of the patient. See Nugent MD
[2019-02-04 07:10] LABS: HEMOGLOBIN 12.2 g/dL (12.0-16.0); MEAN CELL VOLUME 86.5 fl (80.0-105.0); MEAN CORPUSCULAR HEMOGLOBIN 28.9 pg (25.0-35.0); MEAN CORPUSCULAR HGB CONC 33.4 g/dl (31.0-37.0); MEAN PLATELET VOLUME 10.2 fl (7.0-11.0); RBC 4.22 10^6/uL (3.5-6.1); RED CELL DISTRIBUTION WIDTH 12.8 % (11.5-14.5); WHITE BLOOD COUNT 6.5 10^3/uL (4.5-11.0)
[2019-02-04 07:38] LABS: ALB/GLOB RATIO 1.2 (1.1-1.8); ALBUMIN 3.1 g/dL (3.0-4.8); ALT/SGPT 58 U/L (7-56); AST/SGOT 93 U/L (14-36); BLOOD UREA NITROGEN 8 mg/dL (7-21); CALCIUM 8.3 mg/dL (8.4-10.5); GFR NON-AFRICAN AMERICAN > 60
[2019-02-04 08:09] VITALS: TEMP 98.4
--- NOTE | 2019-02-04 08:33 | PN ---
DATE: 02/02/2019 SUBJECTIVE: The patient is seen in 570 this morning. She states she has no longer any diarrhea and she is tolerating her diet well. She has no complaints. PHYSICAL EXAMINATION VITAL SIGNS: Temperature is 98, blood pressure is 150/60, respiratory rate of 20. HEENT: Unremarkable. NECK: Supple. LUNGS: Have decreased breath sounds. HEART: Normal S1, S2. ABDOMEN: Soft. LABORATORY EXAMINATION: Reveals a white count of 7.7 and hemoglobin of 13. Chemistries are noted. Shiga-like toxin is pending and Giardia is pending. Microbiology; the stool for C. diff antigen and toxin; negative antigen and negative toxin. The stool cultures; no Salmonella, no Shigella, no Campylobacter is isolated. The patient's pancreatic protocol CT shows that no evidence of pancreatic mass. Dr. See Nugent's Gastroenterology progress note is reviewed. He states that the patient has gastroenteritis. ASSESSMENT AND PLAN: This is a 73-year-old female who was admitted with diarrhea and fatigue with no fevers, no tachycardia, no hypotension, no dyspnea, however significant diarrhea. With workup in progress with a negative stool for Clostridium difficile, we discontinued the vancomycin. Review of orders reveals the patient is on Flagyl. We will discontinue the p.o. vancomycin and changed the Flagyl to 500 mg p.o. t.i.d. x7 days. She is able to have breakfast this morning and pending final culture results and final workup results which are pending. Dmitry Jiang MD
--- NOTE | 2019-02-04 09:04 | PN ---
DATE: 02/02/2019 SUBJECTIVE: This patient was seen and evaluated earlier. Discussed with the nursing staff. This patient had several episodes of loose bowel movements. PHYSICAL EXAMINATION: VITAL SIGNS: Temperature is 98.4, blood pressure is 152/60, respiration is 20, and O2 saturation is 98%. HEENT: Atraumatic, anicteric. NECK: Supple. HEART: S1, S2 heard. LUNGS: Bilateral air entry present, slightly reduced in the base. ABDOMEN: Soft. There is some mild tenderness present in the epigastric area and the left lower quadrant. There is no rebound or guarding. EXTREMITIES: No cyanosis. No clubbing. NEUROLOGIC: Alert and oriented. Moves all extremities. LABORATORY DATA: Hemoglobin 13.7, hematocrit 41.8, WBC is 7.7, platelets 174. Chemistry is essentially unremarkable. Hemoglobin now is 7.7, hematocrit 38.7, WBC 41.8, platelets 174. Chemistry is essentially unremarkable. CT scan of the abdomen and pelvis was done with a pancreatic protocol which was reported as . IMPRESSION: This is a 73-year-old patient with a past medical history of adenocarcinoma of the colon, status post resection, right hemicolectomy, history of recurrent Clostridium difficile colitis, status post fecal transplant in 02/2017, had showed significant improvement. The patient has not been having significant diarrhea for the past one and half years. Next time, the patient is now admitted with a few days of loose bowel movements and worsening of the frequency. The patient was hence admitted. The patient did have increased diarrhea. The patient was feeling slightly better acute diarrhea after the oral contrast CAT scan, which is slowing down. The concern is that he still has episodes of this diarrhea. The stool for Clostridium difficile is negative. History of pyloric stenosis, status post gastrojejunostomy. History of diverticulitis. RECOMMENDATIONS: 1 When the patient did have a flexible sigmoidoscopy done up to 25 cm, no active colitis noted. Stool was again sent for C. difficile. The patient was on vancomycin and Flagyl. Vancomycin was negative, which has been discontinued. The patient at this point needs empiric therapy. Would consider we will start with the patient on Questran half a packet. In the past, the patient did have some cramps, but it is reasonable to start since the patient has the right hemicolectomy, status post surgery could cause also loose bowel movements. The patient will be started on Questran half a packet per day. The patient was also given one dose of Imodium to slow down the diarrhea. 2. The patient is on clear liquid diet. Slowly advance the diet. Follow up with the stool studies. We discussed with the doctor. Thank you very much Dr. Yates for allowing us to participate in the care of the patient. We will slowly advance the diet as per clinical progress. See Nugent MD
[2019-02-04] MEDS: Insulin Reg-MEDIUM-Coverage SC SCH ×2 (09:19→11:58)
--- NOTE | 2019-02-04 11:39 | CP.PCM.PN ---
<Francesco Whitt - Last Filed: 02/04/19 11:26> Subjective - Date & Time of Evaluation Date of Evaluation: 02/04/19 Time of Evaluation: 09:50 - Subjective Subjective: Francesco Whitt Internal Medicine Resident- Progress Note on Behalf of Dr. Nugent Subjective: Patient seen and examined at bedside. No acute events overnight. States abdominal pain has resolved. Denies further episodes of diarrhea, nausea, vom iting, constipation, bright red blood per rectum, dark stools, and change in caliber of the stools. Further denies fever, chills, chest pain, SOB. 12 point ROS negative except as indicated in the HPI Physical Examination: - Constitutional Appears: NAD - Head Exam Head Exam: ATRAUMATIC, NORMOCEPHALIC - Eye Exam Eye Exam: EOMI. absent: Scleral icterus - ENT Exam ENT Exam: Mucous Membranes Moist - Neck Exam Neck Exam: Normal Inspection - Respiratory Exam Respiratory Exam: absent: Rales, Rhonchi, Wheezes - Cardiovascular Exam Cardiovascular Exam: +S1, +S2. absent: Gallop, Rubs - GI/Abdominal Exam GI & Abdominal Exam: Soft, Normal Bowel Sounds, absent: Distended, rebound tenderness - Extremities Exam Extremities Exam: no cyanosis, no clubbing - Neurological Exam Neurological Exam: Awake, alert, orientated x 3 - Skin Skin Exam: Dry, Warm Studies Reviewed: 01/31/2019 Flex sig- normal mucosa in the rectum and sigmoid, no active colitis or pseudomembrane 01/31/2019 CT Abdomen and Pelvis with PO and IV contrast- No evidence of pancreatic mass 11/04/2018 EGD- normal esophagus, patient gastrojejunostomy, GJ anastomsosis junction characterized by erythema and erosion, gastritis, acquired duodenal stenosis, normal second portion of the duodneum 02/16/2017 Colonoscopy- diverticulosis of the entire colon, internal he morrhoids, patent end to side ileo colonic anastomosis, erythema mucosa of the entire colon Assessment and Plan: Patient is a 73 year-old female with a past medical history of recurrent colon adenocarcinoma s/p right hemicolectomy, 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 Gastroenteritis Hx of Recurrent C. Difficile Infection R/o microscopic colitis - continue altered hepatic/ GI diet - continue prn imodium, no need for questran at this time - C diff study negative, patient on flagyl as per ID - Stool studies negative - follow up path report Patient case discussed with and plan approved by attending physician, Dr. Nugent. Objective - Vital Signs/Intake and Output Vital Signs (last 24 hours): Temp Pulse Resp BP Pulse Ox 98.4 F 62 18 145/62 92 L 02/04/19 06:00 02/04/19 09:17 02/04/19 06:00 02/04/19 09:19 02/04/19 06:00 Intake and Output: 02/04/19 02/04/19 06:59 18:59 Intake Total 2460 120 Output Total 250 Balance 2210 120 - Medications Medications: Current Medications Acetaminophen (Tylenol 325mg Tab) 650 mg PO Q6H PRN PRN Reason: Pain, Mild (1-3) Last Admin: 02/01/19 12:00 Dose: 650 mg Amlodipine Besylate (Norvasc) 10 mg PO DAILY [facility] Last Admin: 02/04/19 09:19 Dose: 10 mg Aspirin (Ecotrin) 81 mg PO DAILY [facility] Last Admin: 02/04/19 09:20 Dose: 81 mg Atorvastatin Calcium (Lipitor) 40 mg PO DAILY [facility] Last Admin: 02/04/19 09:17 Dose: 40 mg Diazepam (Valium) 5 mg PO TID PRN; Protocol PRN Reason: Anxiety Last Admin: 02/04/19 09:21 Dose: 5 mg Famotidine (Pepcid) 20 mg PO DAILY PRN PRN Reason: Dyspepsia Heparin Sodium (Porcine) (Heparin) 5,000 units SC Q12 [facility]; Protocol Last Admin: 02/04/19 09:16 Dose: 5,000 units Sodium Chloride (Sodium Chloride 0.9%) 100 mls @ 80 mls/hr IV .Q1H15M [facility] Last Admin: 02/02/19 12:41 Dose: 80 mls/hr Insulin Human Regular (Humulin R Med) 0 units SC ACHS [facility]; Protocol Last Admin: 02/04/19 09:19 Dose: Not Given Lisinopril (Zestril) 20 mg PO DAILY [facility] Last Admin: 02/04/19 09:17 Dose: 20 mg Loperamide HCl (Imodium) 4 mg PO Q6 PRN PRN Reason: Diarrhea Metronidazole (Flagyl) 500 mg PO Q8 [facility]; Protocol Stop: 02/09/19 14:01 Last Admin: 02/04/19 04:59 Dose: 500 mg Zolpidem Tartrate (Ambien) 5 mg PO HS [facility]; Protocol Last Admin: 02/03/19 22:49 Dose: 5 mg - Labs Labs: 02/04/19 07:00 02/04/19 07:00 APTT 31.1 Seconds (26.9-38.3) 02/02/19 19:15 <See Nugent V - Last Filed: 02/04/19 17:08> Objective - Vital Signs/Intake and Output Vital Signs (last 24 hours): Temp Pulse Resp BP Pulse Ox 98.4 F 54 L 18 128/61 94 L 02/04/19 14:00 02/04/19 14:00 02/04/19 14:00 02/04/19 14:00 02/04/19 14:00 Intake and Output: 02/04/19 02/04/19 06:59 18:59 Intake Total 2460 120 Output Total 250 Balance 2210 120 - Labs Labs: 02/04/19 07:00 02/04/19 07:00 APTT 31.1 Seconds (26.9-38.3) 02/02/19 19:15 Attending/Attestation - Attestation I have personally seen and examined this patient.: Yes I have fully participated in the care of the patient.: Yes I have reviewed all pertinent clinical information, including history, physical exam and plan: Yes Notes (Text): This patient was seen and evaluated along with resident earlier today. This is an addendum to the GI progress report dictated by the resident. Patient denies no diarrhea. Patient did receive only 1 dose of Questran. This can be continued as needed if the diarrhea recurs. Patient did have a right hemico lectomy this could also be contributory factor. Patient is planned to be transferred to TCU Follow-up pathology to rule out microscopic colitis 02/04/19 17:07
--- NOTE | 2019-02-04 12:45 | PN ---
DATE: 02/04/2019 SUBJECTIVE: The past 24 hours were pretty good. No diarrhea. She is comfortable. She is still in bed. Physical therapy recommended TCU and hoping she can go there hopefully today. She seen by GI and Infectious Disease. PHYSICAL EXAMINATION: VITAL SIGNS: 98.4 temperature, 59 pulse, 146/61 blood pressure, 80 respiratory rate 92% O2 sat. HEENT: Head is atraumatic, normocephalic. HEART: Regular rate. LUNGS: Decreased breath sounds. ABDOMEN: Soft. Positive bowel sounds. Decreased distention. She needs physical therapy and more IV fluids and diet and hopefully the bowels will come back to normal. EXTREMITIES: No edema, but she is weak. LABORATORY DATA: She has 6.5 white count, 12.2, hemoglobin, 36.5 hematocrit with 165 platelets. She has a sodium 142, potassium 3.7, BUN 8, creatinine 0.6, GFR is greater than 60, sugar is 105, calcium 8.3, total bili is 0.6. AST is 93, ALT is 58, alk phos 132, total protein is 5.6. So far, the stool is negative for rotavirus. Giardia is pending. Clostridium difficile was negative. Salmonella, Shigella, Campylobacter was negative. No blood growth and culture. MEDICATIONS: She is currently on Ambien, Ecotrin, Flagyl p.o., heparin, insulin coverage, Imodium, Lipitor, Norvasc, Pepcid, IV fluids, Zestril, Valium and Tylenol. She is off the IV antibiotics right now. ASSESSMENT AND PLAN: I think she needs physical therapy, IV fluids and diet now. Questran and Imodium is helping her by advancing the diet. I like her to be watched in the TCU before she goes home, physical therapy, diet, bowel and meds. I will see if I could arrange that, otherwise she might need TACO before she goes home. Johnny Yates DO
[2019-02-04 14:55] VITALS: BP 128/61; PULSE 54; O2SAT 94
--- NOTE | 2019-02-04 21:48 | PN ---
DATE: 02/04/2019 SUBJECTIVE: The patient was seen earlier. No diarrhea. No abdominal pain. PHYSICAL EXAMINATION: VITAL SIGNS: Temperature is 98, blood pressure is 120/60, respiratory rate of 18. HEENT: Unremarkable. NECK: Supple. LUNGS: Decreased breath sounds. HEART: Normal S1, S2. ABDOMEN: Soft. LABORATORY DATA: Reveals ova and parasites are negative. Blood cultures are negative. Stool cultures are negative. Stool C. diff is negative, and the patient's and Giardia antigen is pending. Stool rotavirus is negative. Shiga toxin is pending. Chemistries are noted. White count is normal. Review of orders reveals the patient to be on p.o. Flagyl. ASSESSMENT AND PLAN: A 73-year-old female, allergic to penicillin, history of pseudomembranous colitis, peripheral vascular disease, diabetes, hypertension, pancreatitis, gastroesophageal reflux disease. Would complete 7 days of p.o. Flagyl and further workup if the diarrhea returns. Dmitry Jiang MD
== END 2019-02-04 15:58 | DRG 392 ==
LOC: ED 06:37 → ERH 08:20 → 5RSO 11:01 → OBSVTOIN 02-01 10:02
PROVIDERS: ADMIT Family Medicine; ATTEND Family Medicine
PROC: 0DBN8ZX Excision of Sigmoid Colon, Via Natural or Artificial Opening Endoscopic, Diagnostic (ICD-10-PCS; 2019-01-31)
PROC: 0DBP8ZX Excision of Rectum, Via Natural or Artificial Opening Endoscopic, Diagnostic (ICD-10-PCS; principal; 2019-01-31 15:45)
DX: R19.7 Diarrhea, unspecified (principal); E86.0 Dehydration; Z86.19 Personal history of other infectious and parasitic diseases; E11.51 Type 2 diabetes mellitus with diabetic peripheral angiopathy without gangrene; I10 Essential (primary) hypertension; K21.9 Gastro-esophageal reflux disease without esophagitis; K64.8 Other hemorrhoids; K86.89 Other specified diseases of pancreas; E78.00 Pure hypercholesterolemia, unspecified; F17.210 Nicotine dependence, cigarettes, uncomplicated; Z85.038 Personal history of other malignant neoplasm of large intestine; Z79.82 Long term (current) use of aspirin; Z96.652 Presence of left artificial knee joint; Z88.0 Allergy status to penicillin